=== PATIENT | male | born 1990 | race Caucasian/White ===

== ENCOUNTER 2017-02-17 11:03 | Emergency (ER) | payer OTHER ==
[2017-02-17 11:11] VITALS: BP 127/82; PULSE 78; RESP 16; TEMP 98.6
--- NOTE | 2017-02-17 11:59 | ED ---
Eye Problem HPI - General Chief complaint: Eye Problems Stated complaint: RT EYE PAIN/REDNESS Time Seen by Provider: 02/17/17 11:53 Source: patient Mode of arrival: ambulatory Limitations: no limitations - History of Present Illness Initial comments: This 26-year-old white male presents complaining of some right eye redness. It started this morning. He denies any injuries. He wears glasses but does not wear any contacts. He denies any drainage or crusting. He denies any known exposures to infection. No previous ophthalmologic abnormalities. No other complaints or modifying factors. No actual pain. - Related Data Home Medications Medication Instructions Recorded Confirmed Clindamycin HCl 300 mg PO Q12HR 03/25/15 03/25/15 Previous Rx's Medication Instructions Recorded Clindamycin HCl 300 mg PO Q6HR #40 cap 03/25/15 Sulfacetamide 10% Ophth Soln 1 drops RIGHT EYE QID #5 ml 02/17/17 [Bleph-10] Allergies Allergy/AdvReac Type Severity Reaction Status Date / Time bee pollen Allergy Rash/Hives Verified 02/17/17 11:12 Penicillins AdvReac Unknown Verified 03/25/15 12:59 Childhood Review of Systems ROS Statement: Those systems with pertinent positive or pertinent negative responses have been documented in the HPI. ROS Other: All systems not noted in ROS Statement are negative. Past Medical History Past Medical History: No Reported History History of Any Multi-Drug Resistant Organisms: None Reported Additional Past Surgical History / Comment(s): right ear Past Psychological History: Depression Smoking Status: Former smoker Past Alcohol Use History: None Reported Past Drug Use History: None Reported General Exam Limitations: no limitations General appearance: alert, in no apparent distress Eye exam: Present: PERRL, EOMI, conjunctival injection, other (No evidence of foreign body, cornea is clear.). Absent: periorbital swelling, periorbital tenderness Pupils: Present: normal accommodation Course Vital Signs 02/17/17 11:09 Temperature 98.6 F Pulse Rate 78 Respiratory 16 Rate Blood Pressure 127/82 O2 Sat by Pulse 97 Oximetry Medical Decision Making - Medical Decision Making The patient was seen and examined. This felt as though he does have conjunctivitis and will be treated for this. Disposition Clinical Impression: Bacterial conjunctivitis Disposition: HOME SELF-CARE Condition: Good Instructions: Conjunctivitis (ED) Prescriptions: Sulfacetamide 10% Ophth Soln [Bleph-10] 1 drops RIGHT EYE QID #5 ml Referrals: Dory Mckeon MD [Primary Care Provider] - 1-2 days Time of Disposition: 11:58
== END 2017-02-17 12:42 | disposition home or self-care (01) ==
LOC: EC 11:03
DX: H10.89 Other conjunctivitis (principal); Z87.891 Personal history of nicotine dependence; Z88.0 Allergy status to penicillin; Z91.030 Bee allergy status
CPT/HCPCS: 99283

== ENCOUNTER 2017-04-27 17:39 | Emergency (ER) | payer OTHER ==
[2017-04-27 17:44] VITALS: BP 133/75; PULSE 86; RESP 18; TEMP 97.7
--- NOTE | 2017-04-27 18:18 | XR ---
EXAMINATION TYPE: XR ankle complete RT DATE OF EXAM: 04/27/2017 CLINICAL HISTORY: Pain and swelling with no known injury TECHNIQUE: Frontal, lateral and oblique images of the right ankle are obtained. COMPARISON: None. FINDINGS: Small osseous fragment measuring 3 mm is seen inferior to the tarsal bones on the lateral i mage, however no donor site is appreciated in this is well-corticated. Midfoot swelling is present. T he ankle mortise appears within normal limits. IMPRESSION: Right mid foot soft tissue swelling and 3 mm osseous fragment visualized only on the late ral image inferior to the tarsal bones which appears well-corticated and may relate to old fracture a s no donor site is appreciated. Correlate with point tenderness.
--- NOTE | 2017-04-27 18:37 | ED ---
Lower Extremity Injury HPI - General Chief Complaint: Extremity Injury, Lower Stated Complaint: rt ankle injury Time Seen by Provider: 04/27/17 17:58 Source: patient, RN notes reviewed Mode of arrival: ambulatory Limitations: no limitations - History of Present Illness Initial Comments: 26-year-old male presents emergency Department chief complaint right foot painful swelling. He isn't sure exactly how injury but states is more painful and limits. Patient states is swollen and bruised. Patient does not remember any exact injury. Patient visited [facility] no prior fractures. - Related Data Home Medications Medication Instructions Recorded Confirmed Clindamycin HCl 300 mg PO Q12HR 03/25/15 03/25/15 Previous Rx's Medication Instructions Recorded Clindamycin HCl 300 mg PO Q6HR #40 cap 03/25/15 Sulfacetamide 10% Ophth Soln 1 drops RIGHT EYE QID #5 ml 02/17/17 [Bleph-10] Allergies Allergy/AdvReac Type Severity Reaction Status Date / Time bee pollen Allergy Rash/Hives Verified 04/27/17 17:44 Penicillins AdvReac Unknown Verified 04/27/17 17:44 Childhood Review of Systems ROS Statement: Those systems with pertinent positive or pertinent negative responses have been documented in the HPI. ROS Other: All systems not noted in ROS Statement are negative. Past Medical History Past Medical History: No Reported History History of Any Multi-Drug Resistant Organisms: None Reported Additional Past Surgical History / Comment(s): right ear Past Psychological History: Depression Smoking Status: Former smoker Past Alcohol Use History: None Reported Past Drug Use History: None Reported General Exam Limitations: no limitations General appearance: alert, in no apparent distress Respiratory exam: Present: normal lung sounds bilaterally. Absent: respiratory distress, wheezes, rales, rhonchi, stridor Cardiovascular Exam: Present: regular rate, normal rhythm, normal heart sounds. Absent: systolic murmur, diastolic murmur, rubs, gallop, clicks Extremities exam: Present: other (There is tenderness to the mid foot of mild swelling small area of ecchymosis, pedal pulses equal bilaterally Reports 2 seconds there is no notable swelling of the calf or any erythema or tenderness calf) Neurological exam: Present: reflexes normal. Absent: motor sensory deficit Course Vital Signs 04/27/17 17:41 Temperature 97.7 F Pulse Rate 86 Respiratory 18 Rate Blood Pressure 133/75 O2 Sat by Pulse 97 Oximetry Procedures - Orthopedic Splinting/Casting Injury #1 Side: right Lower Extremity Injury Location: foot Lower Extremity Immobilizer: posterior splint (Short leg neurovascular intact before and after procedure) Other Orthopedic Equipment: crutches Medical Decision Making - Medical Decision Making 26-year-old male presented for right foot pain, swelling. There appears to be an avulsion fracture most likely is new injury secondary to acute swelling and pain. Patient was splinted and follow up with orthopedics for further care. Disposition Clinical Impression: Foot fracture Disposition: HOME SELF-CARE Condition: Stable Instructions: Foot Fracture in Adults (ED) Additional Instructions: Please return to the Emergency Department if symptoms worsen or any other concerns. Referrals: Jitendra Shields MD [Primary Care Provider] - 1-2 days Kel Collier MD [STAFF PHYSICIAN] - 1-2 days Time of Disposition: 18:37
== END 2017-04-27 18:50 | disposition home or self-care (01) ==
LOC: EC 17:39
DX: S92.901A Unspecified fracture of right foot, initial encounter for closed fracture (principal); Z87.891 Personal history of nicotine dependence; Z91.030 Bee allergy status; Z88.0 Allergy status to penicillin
CPT/HCPCS: 29515; 99283

== ENCOUNTER 2017-08-21 21:50 | Emergency (ER) | payer OTHER ==
[2017-08-21 21:56] VITALS: RESP 18; TEMP 99.5
[2017-08-21] MEDS ORDERED: SODIUM CHLORIDE 0.9% 1,000 ML IV STA (22:31)
[2017-08-21] MEDS ORDERED: diphenhydrAMINE 50 MG/ML 1 ML VIAL IVP STA (22:31)
[2017-08-21] MEDS ORDERED: ONDANSETRON 4 MG/2 ML VIAL IVP STA (22:31)
[2017-08-21] MEDS ORDERED: KETOROLAC 30 MG/ML 1 ML VIAL IVP STA (22:33)
--- NOTE | 2017-08-21 22:40 | ED ---
Nausea/Vomiting/Diarrhea HPI - General Chief complaint: Nausea/Vomiting/Diarrhea Stated complaint: SOB/Diarrhea/Vomiting Time Seen by Provider: 08/21/17 21:59 Source: patient, RN notes reviewed, old records reviewed Mode of arrival: wheelchair Limitations: no limitations - History of Present Illness Initial comments: This is a 26-year-old male presents emergency Department chief complaint of concern that he may be diabetic. Patient reports that he is family has noticed that he's had increased urinary frequency and thirst. Family also reports he's had some labored breathing. He reports that he's also had a few episodes of vomiting the past 2 days, as well as diarrhea for the past month. Patient denies any known fever or chills. He reports that he has a minor cough as well. Patient reports he has a family history of diabetes. He denies any recent doctor visits. He reports is worse or makes been seen by any physicians in many years. - Related Data Home Medications Medication Instructions Recorded Confirmed No Known Home Medications [No 08/21/17 08/21/17 Known Home Medications] Allergies Allergy/AdvReac Type Severity Reaction Status Date / Time bee pollen Allergy Rash/Hives Verified 08/21/17 22:08 Penicillins AdvReac Unknown Verified 08/21/17 22:08 Childhood Review of Systems ROS Statement: Those systems with pertinent positive or pertinent negative responses have been documented in the HPI. ROS Other: All systems not noted in ROS Statement are negative. Past Medical History Past Medical History: No Reported History History of Any Multi-Drug Resistant Organisms: None Reported Additional Past Surgical History / Comment(s): right ear, Past Psychological History: Depression Smoking Status: Former smoker Past Alcohol Use History: None Reported Past Drug Use History: None Reported General Exam - General Exam Comments Initial Comments: This is a 26-year-old male. No distress. Limitations: no limitations General appearance: alert, in no apparent distress Head exam: Present: atraumatic, normocephalic, normal inspection Eye exam: Present: normal appearance, PERRL, EOMI. Absent: scleral icterus, conjunctival injection, periorbital swelling ENT exam: Present: normal exam, mucous membranes moist Neck exam: Present: normal inspection. Absent: tenderness, meningismus, lymphadenopathy Respiratory exam: Present: normal lung sounds bilaterally. Absent: respiratory distress, wheezes, rales, rhonchi, stridor Cardiovascular Exam: Present: regular rate, normal rhythm, normal heart sounds. Absent: systolic murmur, diastolic murmur, rubs, gallop, clicks GI/Abdominal exam: Present: soft, normal bowel sounds. Absent: distended, tenderness, guarding, rebound, rigid Extremities exam: Present: normal inspection, full ROM, normal capillary refill. Absent: tenderness, pedal edema, joint swelling, calf tenderness Back exam: Present: normal inspection Neurological exam: Present: alert, oriented X3, CN II-XII intact Psychiatric exam: Present: normal affect, normal mood Skin exam: Present: warm, dry, intact, normal color. Absent: rash Course Vital Signs 08/21/17 08/22/17 21:52 01:47 Temperature 99.5 F Pulse Rate 89 73 Respiratory 18 18 Rate Blood Pressure 167/106 130/65 O2 Sat by Pulse 98 99 Oximetry Medical Decision Making - Medical Decision Making Patient is a 26-year-old male with a breath, and vomiting episodes are out the week. He's also concerned that he is a diabetic do you to need to pound weight loss in the past month, and complains of increased thirst. Pretty has no physical exam kinins, abdomen is nontender. Lungs are clear Ausel Tatian.At this time patient point of care glucose was 100. Patient's lab work was reviewed and shows no abnormalities. Her urine is free of glucose in you tones.Patient's chest x-ray was reviewed and negative for any acute process, abdominal x-ray shows mild to moderate stool burden.. Patient will be discharged at this time to follow up with PCP, Given his multitude of symptoms likely related to viral illness. Patient versus room plan will comply. Feels better to be discharged home. - Lab Data Result diagrams: 08/21/17 22:27 08/21/17 22:27 Lab Results 08/21/17 08/21/17 08/21/17 Range/Units 22:27 22:27 22:47 WBC 8.9 (3.8-10.6) k/uL RBC 5.04 (4.30-5.90) m/uL Hgb 15.3 (13.0-17.5) gm/dL Hct 46.1 (39.0-53.0) % MCV 91.5 (80.0-100.0) fL MCH 30.4 (25.0-35.0) pg MCHC 33.2 (31.0-37.0) g/dL RDW 14.2 (11.5-15.5) % Plt Count 183 (150-450) k/uL Neutrophils % 55 % Lymphocytes % 33 % Monocytes % 6 % Eosinophils % 3 % Basophils % 1 % Neutrophils # 4.9 (1.3-7.7) k/uL Lymphocytes # 2.9 (1.0-4.8) k/uL Monocytes # 0.5 (0-1.0) k/uL Eosinophils # 0.2 (0-0.7) k/uL Basophils # 0.1 (0-0.2) k/uL Sodium 141 (137-145) mmol/L Potassium 3.7 (3.5-5.1) mmol/L Chloride 105 (98-107) mmol/L Carbon Dioxide 25 (22-30) mmol/L Anion Gap 11 mmol/L BUN 7 L (9-20) mg/dL Creatinine 0.90 (0.66-1.25) mg/dL Est GFR (MDRD) Af Amer >60 (>60 ml/min/1.73 sqM) Est GFR (MDRD) Non-Af >60 (>60 ml/min/1.73 sqM) Glucose 90 (74-99) mg/dL POC Glucose (mg/dL) (75-99) mg/dL POC Glu Striping Machine Operator ID Calcium 9.0 (8.4-10.2) mg/dL Total Bilirubin 0.7 (0.2-1.3) mg/dL AST 44 (17-59) U/L ALT 85 H (21-72) U/L Alkaline Phosphatase 71 (38-126) U/L Total Protein 6.7 (6.3-8.2) g/dL Albumin 3.8 (3.5-5.0) g/dL Amylase <30 L (30-110) U/L Lipase 54 (23-300) U/L Urine Color Yellow Urine Appearance Clear (Clear) Urine pH 5.5 (5.0-8.0) Ur Specific [place] 1.017 (1.001-1.035) Urine Protein Trace H (Negative) Urine Glucose (UA) Negative (Negative) Urine Ketones Negative (Negative) Urine Blood Negative (Negative) Urine Nitrite Negative (Negative) Urine Bilirubin Negative (Negative) Urine Urobilinogen <2.0 (<2.0) mg/dL Ur Leukocyte Esterase Negative (Negative) 08/21/17 Range/Units 22:50 WBC (3.8-10.6) k/uL RBC (4.30-5.90) m/uL Hgb (13.0-17.5) gm/dL Hct (39.0-53.0) % MCV (80.0-100.0) fL MCH (25.0-35.0) pg MCHC (31.0-37.0) g/dL RDW (11.5-15.5) % Plt Count (150-450) k/uL Neutrophils % % Lymphocytes % % Monocytes % % Eosinophils % % Basophils % % Neutrophils # (1.3-7.7) k/uL Lymphocytes # (1.0-4.8) k/uL Monocytes # (0-1.0) k/uL Eosinophils # (0-0.7) k/uL Basophils # (0-0.2) k/uL Sodium (137-145) mmol/L Potassium (3.5-5.1) mmol/L Chloride (98-107) mmol/L Carbon Dioxide (22-30) mmol/L Anion Gap mmol/L BUN (9-20) mg/dL Creatinine (0.66-1.25) mg/dL Est GFR (MDRD) Af Amer (>60 ml/min/1.73 sqM) Est GFR (MDRD) Non-Af (>60 ml/min/1.73 sqM) Glucose (74-99) mg/dL POC Glucose (mg/dL) 104 H (75-99) mg/dL POC Glu Striping Machine Operator ID Philip, Lindy Calcium (8.4-10.2) mg/dL Total Bilirubin (0.2-1.3) mg/dL AST (17-59) U/L ALT (21-72) U/L Alkaline Phosphatase (38-126) U/L Total Protein (6.3-8.2) g/dL Albumin (3.5-5.0) g/dL Amylase (30-110) U/L Lipase (23-300) U/L Urine Color Urine Appearance (Clear) Urine pH (5.0-8.0) Ur Specific [place] (1.001-1.035) Urine Protein (Negative) Urine Glucose (UA) (Negative) Urine Ketones (Negative) Urine Blood (Negative) Urine Nitrite (Negative) Urine Bilirubin (Negative) Urine Urobilinogen (<2.0) mg/dL Ur Leukocyte Esterase (Negative) Disposition Clinical Impression: Fatigue, Diarrhea Disposition: HOME SELF-CARE Condition: Good Instructions: Acute Nausea and Vomiting (ED) Additional Instructions: Patient is follow-up with primary care provider. Return to the emergency department if any alarming signs or symptoms occur. Referrals: Jitendra Shields MD [Primary Care Provider] - 1-2 days Time of Disposition: 01:17
[2017-08-21 22:58] LABS: Glucose,Whole Blood 104 mg/dL (75-99)
[2017-08-21 23:08] LABS: Appearance,Urine Clear (Clear); Bilirubin,Urine Negative (Negative); Glucose,Urine (UA) Negative (Negative); Ketones,Urine Negative (Negative); Leukocyte Esterase,Urine Negative (Negative); Nitrite,Urine Negative (Negative); PH, Urine 5.5 (5.0-8.0); Protein,Urine Trace (Negative); Specific Gravity,Urine 1.017 (1.001-1.035); UA Billing (MACRO vs. MICRO) CHEM; Urobilinogen,Urine <2.0 mg/dL (<2.0)
--- NOTE | 2017-08-21 23:21 | XR ---
EXAM: XR Chest, 2 Views CLINICAL HISTORY: Reason: pain TECHNIQUE: Frontal and lateral views of the chest. COMPARISON: Comparison 11/05/14 FINDINGS: Heart appears borderline in size. No overt edema, consolidation or other acute cardiopulmonary process. Clearing of left lower lobe infiltrate since prior. IMPRESSION: No acute cardiopulmonary findings.
--- NOTE | 2017-08-21 23:22 | XR ---
EXAM: XR Kub CLINICAL HISTORY: Reason: pain TECHNIQUE: X-ray kub. COMPARISON: No relevant prior studies available. FINDINGS/IMPRESSION: 2 upright views of the abdomen. Flanks are clipped. Bowel gas pattern nonobstructive. There is some gastric distention suggested. Moderate colonic stool and gas with gas seen to level of rectum. No subdiaphragmatic free air.
[2017-08-22 00:26] LABS: Basophils # (A) 0.1 k/uL (0-0.2); Basophils % (A) 1 %; CH 32.4; CHCM 35.7; Eosinophils # (A) 0.2 k/uL (0-0.7); Eosinophils % (A) 3 %; HCT 46.1 % (39.0-53.0); HDW 3.01; HGB 15.3 gm/dL (13.0-17.5); Luc # (Auto) 0.24; Luc % (Auto) 3; Lymphocytes # (A) 2.9 k/uL (1.0-4.8); Lymphocytes % (A) 33 %; MCH 30.4 pg (25.0-35.0); MCHC 33.2 g/dL (31.0-37.0); MCV 91.5 fL (80.0-100.0); Mean Platelet Volume 8.4; Monocytes # (A) 0.5 k/uL (0-1.0); Monocytes % (A) 6 %; Neutrophils # (A) 4.9 k/uL (1.3-7.7); Neutrophils % (A) 55 %; RBC 5.04 m/uL (4.30-5.90); RDW 14.2 % (11.5-15.5); WBC 8.9 k/uL (3.8-10.6); WBC (Perox) 8.41
[2017-08-22 00:54] LABS: ALT 85 U/L (21-72); AST 44 U/L (17-59); Alkaline Phosphatase 71 U/L (38-126); Amylase <30 U/L (30-110); Anion Gap 11 mmol/L; Blood Urea Nitrogen 7 mg/dL (9-20); Carbon Dioxide 25 mmol/L (22-30); Chloride 105 mmol/L (98-107); Glucose 90 mg/dL (74-99); Non-African American GFR(MDRD) >60 (>60 ml/min/1.73 sqM); Sodium 141 mmol/L (137-145); Total Bilirubin 0.7 mg/dL (0.2-1.3); Total Protein 6.7 g/dL (6.3-8.2)
[2017-08-22 01:03] LABS: Potassium 3.7 mmol/L (3.5-5.1)
[2017-08-22 01:48] VITALS: BP 130/65; PULSE 73
== END 2017-08-22 01:49 | disposition home or self-care (01) ==
LOC: EC 21:50
DX: R19.7 Diarrhea, unspecified (principal); R53.83 Other fatigue; R06.4 Hyperventilation; R35.0 Frequency of micturition; R63.1 Polydipsia; R11.10 Vomiting, unspecified; R05 Cough; Z87.891 Personal history of nicotine dependence; Z88.0 Allergy status to penicillin; Z91.030 Bee allergy status
CPT/HCPCS: 36415; 80053; 82150; 83690; 85025; 81003; 83036; 71020; 74000; 99284; 96374; 96375 ×2; 96361 ×3; J1200; J2405; J1885

== ENCOUNTER 2017-09-18 15:58 | Emergency (ER) | payer OTHER ==
[2017-09-18 16:07] VITALS: BP 154/86; PULSE 81; RESP 18; TEMP 98.1
--- NOTE | 2017-09-18 16:36 | ED ---
GI Bleed HPI - General Chief complaint: GI Bleed Stated complaint: blood in stool Time Seen by Provider: 09/18/17 16:10 Source: patient Mode of arrival: ambulatory Limitations: no limitations - History of Present Illness Initial comments: Pt is a 26-year-old male who persisted in the emergency department for concern of rectal bleeding. The patient states that he had banding of internal hemorrhoid approximately 1 year ago. 5 months ago, he started having intermittent bleeding and has since then progressed. He comes in today because he noticed a dime size clot when he had a bowel movement and his mother convinced him to come in. He denies any abdominal pain as well as nausea or vomiting but states that he has had minimal amount of diarrhea. He also denies any lightheadedness or dizziness and states that the bleeding did subside on its own. Shortly, he has not been able to follow-up with his surgeons as his prior surgeon did leave the state. - Related Data Home Medications Medication Instructions Recorded Confirmed No Known Home Medications [No 08/21/17 08/21/17 Known Home Medications] Allergies Allergy/AdvReac Type Severity Reaction Status Date / Time bee pollen Allergy Rash/Hives Verified 09/18/17 16:07 Penicillins AdvReac Unknown Verified 09/18/17 16:07 Childhood Review of Systems ROS Statement: Those systems with pertinent positive or pertinent negative responses have been documented in the HPI. Constitutional: Negative for chills, fatigue and fever. HENT: Negative for congestion. Respiratory: Negative for chest tightness, shortness of breath and wheezing. Cardiovascular: Negative for chest pain and palpitations. Gastrointestinal: Negative for abdominal pain. Negative for abdominal distention , diarrhea, nausea and vomiting. Positive for rectal bleeding Genitourinary: Negative for dysuria. Musculoskeletal: Negative for back pain, neck pain and neck stiffness. Skin: Negative for color change. Neurological: Negative for dizziness, speech difficulty, weakness and light- headedness. Psychiatric/Behavioral: Negative for agitation and confusion. The patient is not nervous/anxious. ROS Other: All systems not noted in ROS Statement are negative. Past Medical History Past Medical History: No Reported History History of Any Multi-Drug Resistant Organisms: None Reported Past Surgical History: Ear Surgery Additional Past Surgical History / Comment(s): right ear, Past Psychological History: Depression Smoking Status: Former smoker Past Alcohol Use History: None Reported Past Drug Use History: None Reported General Exam - General Exam Comments Initial Comments: Physical Exam Constitutional: He is oriented to person, place, and time. He appears well- developed and well-nourished. No distress. HENT: Head: Normocephalic and atraumatic. Eyes: EOM are normal. Neck: Normal range of motion. Neck supple. Cardiovascular: Normal rate, regular rhythm, S1 normal, S2 normal and normal heart sounds. Exam reveals no gallop and no friction rub. No murmur heard. Pulmonary/Chest: Effort normal and breath sounds normal. No tachypnea and no bradypnea. No respiratory distress. He has no wheezes. He has no rales. Abdominal: Soft. Bowel sounds are normal. He exhibits no shifting dullness, no distension, no pulsatile liver, no fluid wave, no abdominal bruit and no ascites. There is no tenderness. There is no rigidity, no rebound, no guarding, no tenderness at McBurney's point and negative Madrigal's sign. Genitourinary: Rectal exam shows no external hemorrhoid,, no fissure, no mass and no tenderness. Prostate is not tender. Rectal exam did show internal hemorrhoid grade 1 with no prolapse and no evidence of thrombosis. Hemorrhoid was nontender to palpation. Musculoskeletal: Normal range of motion. Neurological: He is alert and oriented to person, place, and time. No cranial nerve deficit. Skin: Skin is warm and dry. No rash noted. He is not diaphoretic. No erythema. No pallor. Psychiatric: He has a normal mood and affect. His behavior is normal. Thought content normal. Limitations: no limitations Course Vital Signs 09/18/17 16:04 Temperature 98.1 F Pulse Rate 81 Respiratory 18 Rate Blood Pressure 154/86 O2 Sat by Pulse 98 Oximetry Medical Decision Making - Medical Decision Making Physical exam revealed no emergent pathology with the internal hemorrhoid. There is also no evidence of acute bleeding. Shared decision making was completed with the patient and his mother and it was advised that laboratory studies could be completed to check hemoglobin. However, patient currently declined and stated that he recently had his labs checked and therefore he did not want to complete another set. He states that he simply wanted reassurance that everything would be okay. He is advised that although all emergent pathology cannot be completely excluded, it did appear that there was no immediate emergent pathology. Additionally, patient was given referral to general surgery so he did follow-up. Mother and patient are agreeable to plan Disposition Clinical Impression: Internal hemorrhoid, bleeding Disposition: HOME SELF-CARE Condition: Good Instructions: Hemorrhoids (ED) Additional Instructions: Patient should also use sitz bath as well as warm compresses as needed. Patient should return to the emergency department if there is a significant amount of bleeding or the patient has symptoms such as lightheadedness, dizziness, worsening fatigue. Referrals: Jitendra Shields MD [Primary Care Provider] - 1-2 days Faustino Jenkins MD [STAFF PHYSICIAN] - 1-2 days Perico Iyer DO [Doctor of Osteopathic Medicine] - 1-2 days Time of Disposition: 16:36
== END 2017-09-18 16:48 | disposition home or self-care (01) ==
LOC: EC 15:58
DX: K64.8 Other hemorrhoids (principal); Z87.891 Personal history of nicotine dependence; Z88.0 Allergy status to penicillin; Z91.030 Bee allergy status
CPT/HCPCS: 99284

== ENCOUNTER 2017-11-07 07:08 | Day surgery (SDC) | payer OTHER ==
[2017-11-02 12:46] VITALS: BMI 45.6
[~2017-11-07 07:08] MED LIST: LACTATED RINGERS 1,000 ML IV SCH; LIDOCAINE 1% 20 ML VIAL (10MG/ML) FOR IV START INTRADERMA PRN
[2017-11-07 07:29] VITALS: TEMP 98.7
[2017-11-07] MEDS ORDERED: fentaNYL (PF) 50 MCG/ML 2 ML AMP ONE (08:31)
[2017-11-07] MEDS ORDERED: GLYCOPYRROLATE 0.2 MG/ML 2 ML VIAL ONE (08:31)
[2017-11-07] MEDS ORDERED: PROPOFOL 10 MG/ML 20 ML VIAL IV ONE (08:31)
[2017-11-07] MEDS ORDERED: KETAMINE 10 MG/ML 20 ML VIAL ONE (08:31)
[2017-11-07] MEDS ORDERED: LIDOCAINE 1% INJ 10MG/ML (20 ML MDV) ONE (08:31)
[2017-11-07 09:06] VITALS: RESP 16
--- NOTE | 2017-11-07 09:12 | P.PCN ---
Date of Procedure: 11/07/17 Procedure(s) Performed: Procedure: Colonoscopy and biopsy. Preoperative diagnosis: Diarrhea and rectal bleeding. Postoperative diagnosis: 1. Low-grade internal hemorrhoids with minimal bleeding at the time of this exam. 2. Colon and terminal ileum, otherwise, within normal limits. Biopsies obtained from the terminal ileum and randomly from the colon. Preparation HalfLytely prep. Sedation: Was provided by anesthesia. Brief clinical history: The patient is a 27-year-old male who was evaluated in the office last month regarding chronic diarrhea and rectal bleeding that has been going on since 2007. He reports having loose urgent 5-10 bowel movements daily. His bleeding was described as fresh bleeding per rectum. He had banding of internal hemorrhoids in without help. He has used over-the- counter remedies without help. The patient is scheduled for this evaluation because of his concern that his bleeding is not only from hemorrhoids. Apparently, there is history of colon cancer on his dad's side. Procedure: With the patient on his left lateral decubitus position and after informed consent and adequate sedation, the perianal area was inspected and it did not show any fissures or fistulas. There were no masses felt on digital rectal examination. There was minimal fresh blood on the gloved examining finger. The Olympus CFQ 160L video colonoscope was then inserted in the rectum in the usual fashion and advanced to the cecum. I then intubated the ileocecal valve and examined the terminal ileum. The preparation was less than ideal. Terminal ileum and colon did not show any obvious edema, erythema, friability, ulceration, exudation or spontaneous bleeding. I obtained biopsies from the terminal ileum and randomly from the colon. I retroflexed the endoscope in the rectum before the endoscope was withdrawn. Low-grade internal hemorrhoids were noted with no evidence of bleeding. The patient tolerated the procedure well. Plan: The patient was reassured. He will follow up with you as planned and consideration can be given for reevaluation by surgery if he continues to have issues. It is likely that he has diarrhea predominant irritable bowel syndrome or dietary intolerances that once addressed and his diarrhea improves his bleeding might improve as well. We will keep you updated on his progress.
[2017-11-07 09:23] VITALS: BP 158/90; PULSE 76
== END 2017-11-07 09:49 | disposition home or self-care (01) ==
LOC: ORWHC2ENDO 07:08
DX: K64.8 Other hemorrhoids (principal); K62.5 Hemorrhage of anus and rectum; Z80.0 Family history of malignant neoplasm of digestive organs; Z87.891 Personal history of nicotine dependence; H91.90 Unspecified hearing loss, unspecified ear; Z88.0 Allergy status to penicillin
CPT/HCPCS: 88305; 45380; J2001; J3010; J2704

== ENCOUNTER 2018-03-02 18:37 | Emergency (ER) | payer OTHER ==
[2018-03-02] MEDS ORDERED: SODIUM CHLORIDE 0.9% 1,000 ML IV ONE (19:48)
--- NOTE | 2018-03-02 19:52 | ED ---
Dizziness HPI - General Chief Complaint: Dizziness Stated Complaint: Lightheaded Time Seen by Provider: 03/02/18 19:08 Source: patient Mode of arrival: EMS Limitations: no limitations - History of Present Illness Initial Comments: 27-year-old male patient presents to the emergency department today for evaluation of dizziness. Patient states that he was walking home from the store when he started to experience a spinning sensation. Temperature outside was 86F. States he felt like the world was spinning around him. Patient states that he had 2 separate episodes of this on the walk home so he called ambulance. Patient states that he has been getting lightheaded over the last couple of weeks intermittently. Patient states he has had chronic rectal bleeding due to hemorrhoids. Patient states that the bleeding has increased over the last 2 months. States that he has not followed up with his GI specialist. Patient states that the blood is bright red and sometimes fills the toilet bowl. Denies any fatigue or weakness. Denies any chest pain or shortness of breath. Patient denies any recent rash, fever, chills, abdominal pain, nausea, vomiting, diarrhea, constipation, back pain, numbness, tingling, hematuria, dysuria, urinary urgency, urinary frequency, headache, visual changes , or any other complaints. - Related Data Home Medications Medication Instructions Recorded Confirmed No Known Home Medications 11/02/17 03/02/18 Allergies Allergy/AdvReac Type Severity Reaction Status Date / Time bee pollen Allergy Rash/Hives Verified 03/02/18 19:05 Penicillins AdvReac Unknown Verified 03/02/18 19:05 Childhood Review of Systems ROS Statement: Those systems with pertinent positive or pertinent negative responses have been documented in the HPI. ROS Other: All systems not noted in ROS Statement are negative. Past Medical History Past Medical History: No Reported History Additional Past Medical History / Comment(s): PAST HX HEMORRHOIDS. HAS BEEN HAVING SOME EPISODES OF BLEEDING WITH BOWEL MOVEMENTS History of Any Multi-Drug Resistant Organisms: None Reported Past Surgical History: Ear Surgery Additional Past Surgical History / Comment(s): right ear, Past Anesthesia/Blood Transfusion Reactions: No Reported Reaction Past Psychological History: Depression Smoking Status: Former smoker Past Alcohol Use History: None Reported Past Drug Use History: None Reported - Past Family History Mother Family Medical History: No Reported History General Exam Limitations: no limitations General appearance: alert, in no apparent distress, other (This is a well- developed, well-nourished adult male patient in no acute distress. Vital signs upon presentation are temperature 98.1F, pulse 84, respirations 20, blood pressure 145/101, pulse ox 99% on room air.) Eye exam: Present: normal appearance, PERRL, EOMI. Absent: scleral icterus, conjunctival injection, periorbital swelling ENT exam: Present: normal exam, normal oropharynx, mucous membranes moist Respiratory exam: Present: normal lung sounds bilaterally. Absent: respiratory distress, wheezes, rales, rhonchi, stridor Cardiovascular Exam: Present: regular rate, normal rhythm, normal heart sounds. Absent: systolic murmur, diastolic murmur, rubs, gallop, clicks GI/Abdominal exam: Present: soft, tenderness (Mild superficial tenderness to the left upper quadrant abdomen.), normal bowel sounds. Absent: distended, guarding, rebound, rigid Neurological exam: Present: alert, oriented X3, CN II-XII intact Psychiatric exam: Present: normal affect, normal mood Skin exam: Present: warm, dry, intact, normal color. Absent: rash Course Vital Signs 03/02/18 03/02/18 18:51 21:39 Temperature 98.1 F 98.9 F Pulse Rate 84 67 Respiratory 20 15 Rate Blood Pressure 145/101 139/77 O2 Sat by Pulse 99 99 Oximetry EKG Findings - EKG Comments: EKG Findings:: EKG showed normal sinus rhythm with a ventricular rate of 72, AK interval 134, QR yazidism 90, QT 388, QTC 424. No evidence of ST elevation or depression. Medical Decision Making - Medical Decision Making 27-year-old male patient presents to the emergency department today for evaluation of dizziness. Physical examination is unremarkable. Patient is neurologically intact. Labs reviewed and are unremarkable. Patient is also concerned about some rectal bleeding that he had been having for the last 2 months. He did perform rectal examination no evidence of bleeding at this time. Hemoglobin is stable. He is instructed to follow-up with his primary care physician for reevaluation. We discussed his dizziness was most likely related to being out in the 86 weather, [place] action day, walking to and from the store. He is instructed to stay out of the heat. Increase fluids. He is instructed to follow-up with his primary care physician for recheck in 1-2 days. Return parameters discussed in detail. He verbalizes understanding and agrees with this plan. - Lab Data Result diagrams: 03/02/18 19:55 03/02/18 19:55 Lab Results 03/02/18 03/02/18 03/02/18 Range/Units 19:50 19:55 19:55 WBC 8.1 (3.8-10.6) k/uL RBC 5.02 (4.30-5.90) m/uL Hgb 16.1 (13.0-17.5) gm/dL Hct 45.3 (39.0-53.0) % MCV 90.2 (80.0-100.0) fL MCH 32.0 (25.0-35.0) pg MCHC 35.5 (31.0-37.0) g/dL RDW 13.3 (11.5-15.5) % Plt Count 214 (150-450) k/uL Neutrophils % 49 % Lymphocytes % 40 % Monocytes % 4 % Eosinophils % 4 % Basophils % 1 % Neutrophils # 4.0 (1.3-7.7) k/uL Lymphocytes # 3.2 (1.0-4.8) k/uL Monocytes # 0.3 (0-1.0) k/uL Eosinophils # 0.3 (0-0.7) k/uL Basophils # 0.1 (0-0.2) k/uL Hyperchromasia Slight PT (9.0-12.0) sec INR (<1.2) APTT (22.0-30.0) sec Sodium 140 (137-145) mmol/L Potassium 3.7 (3.5-5.1) mmol/L Chloride 104 (98-107) mmol/L Carbon Dioxide 26 (22-30) mmol/L Anion Gap 10 mmol/L BUN 9 (9-20) mg/dL Creatinine 0.80 (0.66-1.25) mg/dL Est GFR (CKD-EPI)AfAm >90 (>60 ml/min/1.73 sqM) Est GFR (CKD-EPI)NonAf >90 (>60 ml/min/1.73 sqM) Glucose 94 (74-99) mg/dL Calcium 8.9 (8.4-10.2) mg/dL Total Bilirubin 0.9 (0.2-1.3) mg/dL AST 40 (17-59) U/L ALT 74 H (21-72) U/L Alkaline Phosphatase 86 (38-126) U/L Total Protein 6.8 (6.3-8.2) g/dL Albumin 4.2 (3.5-5.0) g/dL Amylase 37 (30-110) U/L Lipase 42 (23-300) U/L Blood Type Blood Type Confirm A Positive Blood Type Recheck Antibody Screen Spec Expiration Date 03/02/18 03/02/18 Range/Units 19:55 19:55 WBC (3.8-10.6) k/uL RBC (4.30-5.90) m/uL Hgb (13.0-17.5) gm/dL Hct (39.0-53.0) % MCV (80.0-100.0) fL MCH (25.0-35.0) pg MCHC (31.0-37.0) g/dL RDW (11.5-15.5) % Plt Count (150-450) k/uL Neutrophils % % Lymphocytes % % Monocytes % % Eosinophils % % Basophils % % Neutrophils # (1.3-7.7) k/uL Lymphocytes # (1.0-4.8) k/uL Monocytes # (0-1.0) k/uL Eosinophils # (0-0.7) k/uL Basophils # (0-0.2) k/uL Hyperchromasia PT 10.3 (9.0-12.0) sec INR 1.1 (<1.2) APTT 23.7 (22.0-30.0) sec Sodium (137-145) mmol/L Potassium (3.5-5.1) mmol/L Chloride (98-107) mmol/L Carbon Dioxide (22-30) mmol/L Anion Gap mmol/L BUN (9-20) mg/dL Creatinine (0.66-1.25) mg/dL Est GFR (CKD-EPI)AfAm (>60 ml/min/1.73 sqM) Est GFR (CKD-EPI)NonAf (>60 ml/min/1.73 sqM) Glucose (74-99) mg/dL Calcium (8.4-10.2) mg/dL Total Bilirubin (0.2-1.3) mg/dL AST (17-59) U/L ALT (21-72) U/L Alkaline Phosphatase (38-126) U/L Total Protein (6.3-8.2) g/dL Albumin (3.5-5.0) g/dL Amylase (30-110) U/L Lipase (23-300) U/L Blood Type A Positive Blood Type Confirm Blood Type Recheck CABO Indicated Antibody Screen NEGATIVE Spec Expiration Date 03/05/2018 235 Disposition Clinical Impression: Dizziness Disposition: HOME SELF-CARE Condition: Good Instructions: Dizziness (ED) Additional Instructions: Increase fluids like water. Avoid physical activity outdoors when the temperature is high. Follow-up with your primary care physician and your research assoc for recheck in 1-2 days. Return here immediately for any new , worsening, or concerning symptoms. Is patient prescribed a controlled substance at d/c from ED?: No Referrals: Jitendra Shields MD [Primary Care Provider] - 1-2 days Time of Disposition: 21:20
[2018-03-02 20:03] LABS: Basophils # (A) 0.1 k/uL (0-0.2); Basophils % (A) 1 %; Eosinophils # (A) 0.3 k/uL (0-0.7); Eosinophils % (A) 4 %; HCT 45.3 % (39.0-53.0); HGB 16.1 gm/dL (13.0-17.5); Hyperchromasia Slight; Lymphocytes # (A) 3.2 k/uL (1.0-4.8); Lymphocytes % (A) 40 %; MCHC 35.5 g/dL (31.0-37.0); MCV 90.2 fL (80.0-100.0); Mean Platelet Volume 6.7; Monocytes # (A) 0.3 k/uL (0-1.0); Monocytes % (A) 4 %; Neutrophils % (A) 49 %; Platelet Count 214 k/uL (150-450); RBC 5.02 m/uL (4.30-5.90); RDW 13.3 % (11.5-15.5); WBC 8.1 k/uL (3.8-10.6)
[2018-03-02 20:16] LABS: INR 1.1 (<1.2); Partial Thromboplastin Time 23.7 sec (22.0-30.0); Prothrombin Time 10.3 sec (9.0-12.0)
[2018-03-02 20:18] LABS: ALT 74 U/L (21-72); AST 40 U/L (17-59); Albumin 4.2 g/dL (3.5-5.0); Alkaline Phosphatase 86 U/L (38-126); Amylase 37 U/L (30-110); Anion Gap 10 mmol/L; Blood Urea Nitrogen 9 mg/dL (9-20); Calcium 8.9 mg/dL (8.4-10.2); Carbon Dioxide 26 mmol/L (22-30); Chloride 104 mmol/L (98-107); Glucose 94 mg/dL (74-99); Lipase 42 U/L (23-300); Potassium 3.7 mmol/L (3.5-5.1); Sodium 140 mmol/L (137-145); Total Bilirubin 0.9 mg/dL (0.2-1.3); Total Protein 6.8 g/dL (6.3-8.2)
[2018-03-02 21:41] VITALS: BP 139/77; PULSE 67; RESP 15; TEMP 98.9
[2018-03-03 16:31] LABS: Hepatitis A AB IgM Index 0.02; Hepatitis A Antibody IgM NEGATIVE
== END 2018-03-02 21:44 | disposition home or self-care (01) ==
LOC: EC 18:37
DX: R42 Dizziness and giddiness (principal); K64.9 Unspecified hemorrhoids; Z87.891 Personal history of nicotine dependence; Z88.0 Allergy status to penicillin; Z91.018 Allergy to other foods
CPT/HCPCS: 36415; 80053; 80074; 82150; 83690; 85025; 85610; 85730; 86850; 86900; 86901; 93005; 96360; 96361; 99284

== ENCOUNTER 2018-03-15 18:26 | Emergency (ER) | payer OTHER ==
[2018-03-15] MEDS ORDERED: PROMETHAZ-COD 6.25-10 MG/5 ML 5 ML CUP PO STA (19:12)
[2018-03-15] MEDS ORDERED: predniSONE 50 MG TAB PO STA (19:12)
--- NOTE | 2018-03-15 19:32 | ED ---
URI HPI - General Chief Complaint: Upper Respiratory Infection Stated Complaint: COUGH Time Seen by Provider: 03/15/18 18:52 Source: patient Mode of arrival: ambulatory Limitations: no limitations - History of Present Illness Initial Comments: 27-year-old male patient presents the emergency department today for evaluation of dry cough and chest heaviness. Patient states he has had a cough for the last 2 weeks. States it is worsened over the last week. States he has had occasional production of yellow sputum. States that when he has a coughing episodes he will feel like there is a dog sitting on his chest. This is a has had several episodes of posttussive vomiting. Patient states he does have a history of asthma and does have an albuterol inhaler at home which does not seem to help his symptoms. He denies taking any other medications for his symptoms. He denies any fever, chills, chest pain, weakness, dizziness, nausea , vomiting, abdominal pain, or back pain. Patient denies any recent rash, diarrhea, constipation, back pain, numbness, tingling, hematuria, dysuria, urinary urgency, urinary frequency, headache, visual changes, or any other complaints. States he has smoked cigarettes in the past, but denies any current tobacco use. He denies any recent travel or history of DVT. - Related Data Home Medications Medication Instructions Recorded Confirmed Albuterol Inhaler [Ventolin Hfa 2 puff INHALATION RT-Q6H PRN 03/15/18 03/15/18 Inhaler] Montelukast [Singulair] 10 mg PO DAILY 03/15/18 03/15/18 Previous Rx's Medication Instructions Recorded Albuterol Sulfate [Proair Hfa] 1 - 2 puff INHALATION Q6HR PRN #1 03/15/18 inhaler Promethaz-Cod 6.25-10 mg/5 ml 5 ml PO Q6HR PRN 3 Days #60 ml 03/15/18 [Phenergan with Codeine] predniSONE 50 mg PO DAILY #5 tablet 03/15/18 Allergies Allergy/AdvReac Type Severity Reaction Status Date / Time bee pollen Allergy Rash/Hives Verified 03/15/18 19:11 Penicillins AdvReac Unknown Verified 03/15/18 19:11 Childhood Review of Systems ROS Statement: Those systems with pertinent positive or pertinent negative responses have been documented in the HPI. ROS Other: All systems not noted in ROS Statement are negative. Past Medical History Past Medical History: No Reported History Additional Past Medical History / Comment(s): PAST HX HEMORRHOIDS. HAS BEEN HAVING SOME EPISODES OF BLEEDING WITH BOWEL MOVEMENTS History of Any Multi-Drug Resistant Organisms: None Reported Past Surgical History: Ear Surgery Additional Past Surgical History / Comment(s): right ear, Past Anesthesia/Blood Transfusion Reactions: No Reported Reaction Past Psychological History: Depression Smoking Status: Former smoker Past Alcohol Use History: None Reported Past Drug Use History: None Reported - Past Family History Mother Family Medical History: No Reported History General Exam Limitations: no limitations General appearance: alert, in no apparent distress, other (This is a well- developed, obese adult male patient in no acute distress. Vital signs upon presentation are temperature 98.4F, pulse 97, respirations 18, blood pressure 151/96, pulse ox 98% on room air.) Eye exam: Present: normal appearance, PERRL, EOMI. Absent: scleral icterus, conjunctival injection, periorbital swelling ENT exam: Present: normal exam, normal oropharynx, mucous membranes moist, TM's normal bilaterally Neck exam: Present: normal inspection. Absent: tenderness, meningismus, lymphadenopathy Respiratory exam: Present: normal lung sounds bilaterally. Absent: respiratory distress, wheezes, rales, rhonchi, stridor Cardiovascular Exam: Present: regular rate, normal rhythm, normal heart sounds. Absent: systolic murmur, diastolic murmur, rubs, gallop, clicks GI/Abdominal exam: Present: soft, normal bowel sounds. Absent: distended, tenderness, guarding, rebound, rigid Neurological exam: Present: alert, oriented X3, CN II-XII intact Psychiatric exam: Present: normal affect, normal mood Skin exam: Present: warm, dry, intact, normal color. Absent: rash Course Vital Signs 03/15/18 03/15/18 03/15/18 18:29 19:31 20:30 Temperature 98.4 F Pulse Rate 97 83 Respiratory 18 20 18 Rate Blood Pressure 151/96 169/83 O2 Sat by Pulse 98 100 Oximetry 03/15/18 20:44 Temperature 98.7 F Pulse Rate 87 Respiratory 18 Rate Blood Pressure 151/80 O2 Sat by Pulse 98 Oximetry Medical Decision Making - Medical Decision Making 27-year-old male patient presented to the emergency department today for evaluation of cough and chest heaviness 2 weeks. Physical examination was unremarkable. Lungs are clear to auscultation with good air movement. Patient does have a history of asthma and takes Qvar. Chest x-ray showed no acute cardiopulmonary process. EKG showed normal sinus rhythm. Given the length of patient symptoms he most likely has acute bronchitis. We'll treat with prednisone, Phenergan with codeine, and albuterol inhaler. He is instructed to follow-up with his primary care physician and retail manager as he has planned. Return parameters discussed in detail. He verbalizes understanding and agrees this plan. - EKG Data -: EKG Interpreted by Me EKG Comments: EKG obtained at 1943 shows normal sinus rhythm with a ventricular rate of 86, NM interval 144, QRS duration 92, QT 362, QTc 433. No evidence of ST elevation or depression. - Radiology Data Radiology results: report reviewed, image reviewed Two-view x-ray of the chest is obtained. Heart mediastinum are normal. Lungs are clear. Diaphragm is normal. Bony thorax is intact. Impression by Dr. Green shows normal chest with no change. Disposition Clinical Impression: Acute bronchitis Disposition: HOME SELF-CARE Condition: Good Instructions: Acute Bronchitis (ED) Additional Instructions: Take medications as directed. Follow-up through primary care physician and retail manager as well. Return here immediately for any new, worsening, or concerning symptoms. Prescriptions: Albuterol Sulfate [Proair Hfa] 1 - 2 puff INHALATION Q6HR PRN #1 inhaler PRN Reason: Shortness Of Breath predniSONE 50 mg PO DAILY #5 tablet Promethaz-Cod 6.25-10 mg/5 ml [Phenergan with Codeine] 5 ml PO Q6HR PRN 3 Days # 60 ml PRN Reason: Cough Is patient prescribed a controlled substance at d/c from ED?: Yes When asked, does pt state using other controlled substances?: No If prescribed controlled substance>3 days was MAPS reviewed?: Prescribed <3 Days If opioid is for acute pain is fill amount 7 days or less?: Yes If Rx opioid, was Start Talking consent form obtained?: Yes Referrals: Jitendra Shields MD [Primary Care Provider] - 1-2 days Time of Disposition: 20:31
--- NOTE | 2018-03-15 19:53 | XR ---
EXAMINATION TYPE: XR chest 2V DATE OF EXAM: 03/15/2018 COMPARISON: 08/21/2017 HISTORY: Cough TECHNIQUE: Frontal and lateral views of the chest are obtained. FINDINGS: Heart and mediastinum are normal. Lungs are clear. Diaphragm is normal. Bony thorax is int act. IMPRESSION: Normal chest. No change.
[2018-03-15 20:31] VITALS: RESP 18
[2018-03-15 20:45] VITALS: BP 151/80; PULSE 87; TEMP 98.7
== END 2018-03-15 20:44 | disposition home or self-care (01) ==
LOC: EC 18:26
DX: J20.9 Acute bronchitis, unspecified (principal); J45.909 Unspecified asthma, uncomplicated; R11.10 Vomiting, unspecified; Z87.891 Personal history of nicotine dependence; Z79.899 Other long term (current) drug therapy; Z88.0 Allergy status to penicillin; Z91.030 Bee allergy status
CPT/HCPCS: 93005; 71046; 99283; J7512

== ENCOUNTER → 2018-03-16 | Outpatient (CLI) | payer OTHER ==
--- NOTE | 2018-03-16 11:13 | US ---
EXAMINATION TYPE: US liver DATE OF EXAM: 03/16/2018 COMPARISON: NONE CLINICAL HISTORY: R94.5 abnormal liver function studies. abnormal labs. No previous. No pain. NPO. EXAM MEASUREMENTS: Liver Length: 23.5 cm Gallbladder Wall: 0.2 cm CHD: 0.4 cm Right Kidney: 9.5 x 5.9 x 5.5 cm Limited exam due to patient body habitus Pancreas: Head and tail not well visualized due to overlying bowel gas. Appears echogenic and heter ogenous. Liver: Increased attenuation, decreased visualization of vessels suggestive of fatty infiltrate. Gallbladder: wnl, neck not well visualized Evidence for sonographic Madrigal's sign: neg CBD: Obscured by overlying bowel gas CHD: wnl Right Kidney: wnl Heterogeneous pancreas without intraluminal mass or ductal dilatation. There is heterogeneous hyperec hoic liver without ductal dilatation. Evaluation for focal masses is suboptimal due to the heterogene ity. Visualized portion of the gallbladder shows no shadowing stones. IMPRESSION: Heterogeneous hyperechoic appearance of liver may be on basis of diffuse fatty infiltrati on or underlying hepatocellular disease. Imaging guided random biopsy for tissue analysis can be perf ormed if desired.
== END | disposition home or self-care (01) ==
LOC: RADUSWWP 09:29
PROVIDERS: ATTEND Internal Medicine
DX: R93.2 Abnormal findings on diagnostic imaging of liver and biliary tract (principal)
CPT/HCPCS: 76705

== ENCOUNTER → 2018-05-22 | Outpatient (CLI) | payer OTHER ==
--- NOTE | 2018-05-22 14:21 | EST ---
EXERCISE STRESS AGE: 27 SEX: M HT: 5'10" WT: 296 PROTOCOL: Cardiolite Mikel Stress Test STAGE: II DURATION OF EXERCISE: 7:00 HEART RATE REST: 70 BLOOD PRESSURE REST: 154/108 MAXIMUM HEART RATE ACHIEVED: 161 MAXIMUM BLOOD PRESSURE: 209/60 85% MPHR: 164 100% MPHR: 193 METS: 7.5 INDICATIONS: Chest pain, difficulty in breathing CLINICAL INFORMATION: Patient was exercised for a total period of 7 minutes, peak heart rate of 161 was achieved. Maximum blood pressure of 209/69 mmHg was noted. Resting EKG shows a normal sinus rhythm with normal UT interval and QRS duration and normal ST-T waves. No ST- segment depression suggestive of ischemia was noted. FINAL IMPRESSION: This stress Cardiolite study is negative for stress-induced ischemia. EKG portion of the stress test is not suggestive of ischemia. Patient did not complain of any chest pain during the test. MMODL / IJN: [id number] /
--- NOTE | 2018-05-22 16:36 | NM ---
EXAMINATION TYPE: NM stress cardiolite complete DATE OF EXAM: 05/22/2018 COMPARISON: NONE HISTORY: 27-year-old male with chest pain and difficulty in breathing TECHNIQUE: After the intravenous administration of 10.8 mCi Tc 99m Sestamibi - Rest images obtained 45 minutes post injection. The patient exercised using a TONYA protocol and 1 minute prior to peak exercise was injected with 24.4 mCi Tc 99m Sestamibi - Stress images obtained 20 minutes post injecti on. FINDINGS: Targeted heart rate is 164 BPM and was achieved during performance of this exam. Total exercise time was 7 minutes with 7.5 METs achieved. Review of stress and rest SPECT images demonstrates fixed decreased perfusion along the mid to basal anterolateral wall that may be accentuated along the mid anterior wall on stress. Gated analysis show s normal wall motion with an estimated left ventricular ejection fraction of 50 %. TID is calculated at 1.36 which is elevated. IMPRESSION: 1. Further workup is recommended as TID is elevated (1.36) which can be seen in the setting of multiv essel balanced ischemia. There is also fixed defect along the anterolateral wall which could represen t attenuation artifact or prior infarct and questionable small area of adjacent reversibility along t he mid anterior wall. 2. LVEF is also mildly decreased at 50%.
== END | disposition home or self-care (01) ==
LOC: RADNMMAIN 08:14
PROVIDERS: ATTEND Internal Medicine
DX: R94.39 Abnormal result of other cardiovascular function study (principal); Z88.0 Allergy status to penicillin
CPT/HCPCS: 93017; 78452; A9500

== ENCOUNTER 2018-05-23 18:19 | Emergency (ER) | payer OTHER ==
[2018-05-23 18:30] VITALS: TEMP 98.2
[2018-05-23] MEDS ORDERED: SODIUM CHLORIDE 0.9% 1,000 ML IV STA (18:51)
[2018-05-23] MEDS ORDERED: PANTOPRAZOLE 40 MG/10 ML VIAL IVP STA (18:52)
--- NOTE | 2018-05-23 19:09 | ED ---
GI Bleed HPI - General Chief complaint: GI Bleed Stated complaint: rectal bleeding Time Seen by Provider: 05/23/18 18:43 Source: patient, RN notes reviewed Mode of arrival: ambulatory Limitations: no limitations - History of Present Illness Initial comments: This is a 27-year-old male presents emergency Department chief complaint of rectal bleeding. Patient has a long history of rectal bleeding states that he has had a colonoscopy by Dr. Patrick which showed internal hemorrhoids. Patient states today he only notices the blood when he wipes. Denies any rectal pain, abdominal pain. Patient did state that his stool appeared to be darker than usual slight maroon to black. Patient states he felt lightheaded a few days ago but has no current complaints denies any chest pain or shortness of breath. Denies any exertional shortness breath. - Related Data Home Medications Medication Instructions Recorded Confirmed Ibuprofen [Motrin] 800 mg PO TID PRN 05/23/18 05/23/18 Polyethylene Glycol 3350 [Miralax] 17 gm PO DAILY 05/23/18 05/23/18 Previous Rx's Medication Instructions Recorded Hydrocortisone/Pramoxine 1 applic RECTAL BID #1 bottle 05/23/18 [Proctofoam-Hc 1%-1% Foam] Omeprazole 40 mg PO DAILY #14 capsule. 05/23/18 Allergies Allergy/AdvReac Type Severity Reaction Status Date / Time bee pollen Allergy Rash/Hives Verified 05/23/18 18:47 Penicillins AdvReac Unknown Verified 05/23/18 18:47 Childhood Review of Systems ROS Statement: Those systems with pertinent positive or pertinent negative responses have been documented in the HPI. ROS Other: All systems not noted in ROS Statement are negative. Past Medical History Past Medical History: No Reported History Additional Past Medical History / Comment(s): PAST HX HEMORRHOIDS. HAS BEEN HAVING SOME EPISODES OF BLEEDING WITH BOWEL MOVEMENTS History of Any Multi-Drug Resistant Organisms: None Reported Past Surgical History: Ear Surgery Additional Past Surgical History / Comment(s): right ear, Past Anesthesia/Blood Transfusion Reactions: No Reported Reaction Past Psychological History: Depression Smoking Status: Former smoker Past Alcohol Use History: None Reported Past Drug Use History: None Reported - Past Family History Mother Family Medical History: No Reported History General Exam Limitations: no limitations General appearance: alert, in no apparent distress Head exam: Present: atraumatic, normocephalic, normal inspection ENT exam: Present: normal exam, normal oropharynx, mucous membranes moist Neck exam: Present: normal inspection, full ROM. Absent: tenderness, meningismus, lymphadenopathy Respiratory exam: Present: normal lung sounds bilaterally. Absent: respiratory distress, wheezes, rales, rhonchi, stridor Cardiovascular Exam: Present: regular rate, normal rhythm, normal heart sounds. Absent: systolic murmur, diastolic murmur, rubs, gallop, clicks GI/Abdominal exam: Present: soft, normal bowel sounds. Absent: distended, tenderness, guarding, rebound, rigid Skin exam: Present: warm, dry, intact, normal color. Absent: rash Course Vital Signs 05/23/18 05/23/18 05/23/18 18:27 19:16 19:39 Temperature 98.2 F Pulse Rate 89 85 92 Respiratory 16 18 18 Rate Blood Pressure 149/96 170/103 144/78 O2 Sat by Pulse 97 95 96 Oximetry Medical Decision Making - Medical Decision Making 27-year-old male presented to the emergency department intermittent rectal bleeding on toilet paper. Patient does have known internal hemorrhoids. Patient has stable hemoglobin this time he has had colostomy in the past by Dr. Patrick. Patient will be discharged with Proctofoam and omeprazole. - Lab Data Result diagrams: 05/23/18 19:16 05/23/18 19:16 Lab Results 05/23/18 05/23/18 05/23/18 Range/Units 19:16 19:16 19:16 WBC 9.5 (3.8-10.6) k/uL RBC 4.98 (4.30-5.90) m/uL Hgb 15.6 (13.0-17.5) gm/dL Hct 44.5 (39.0-53.0) % MCV 89.2 (80.0-100.0) fL MCH 31.3 (25.0-35.0) pg MCHC 35.1 (31.0-37.0) g/dL RDW 12.6 (11.5-15.5) % Plt Count 214 (150-450) k/uL Neutrophils % 56 % Lymphocytes % 33 % Monocytes % 4 % Eosinophils % 5 % Basophils % 1 % Neutrophils # 5.3 (1.3-7.7) k/uL Lymphocytes # 3.1 (1.0-4.8) k/uL Monocytes # 0.4 (0-1.0) k/uL Eosinophils # 0.5 (0-0.7) k/uL Basophils # 0.1 (0-0.2) k/uL PT 10.1 (9.0-12.0) sec INR 1.0 (<1.2) APTT 26.3 (22.0-30.0) sec Sodium 141 (137-145) mmol/L Potassium 4.2 (3.5-5.1) mmol/L Chloride 106 (98-107) mmol/L Carbon Dioxide 25 (22-30) mmol/L Anion Gap 10 mmol/L BUN 12 (9-20) mg/dL Creatinine 0.90 (0.66-1.25) mg/dL Est GFR (CKD-EPI)AfAm >90 (>60 ml/min/1.73 sqM) Est GFR (CKD-EPI)NonAf >90 (>60 ml/min/1.73 sqM) Glucose 103 H (74-99) mg/dL Calcium 9.2 (8.4-10.2) mg/dL Total Bilirubin 1.1 (0.2-1.3) mg/dL AST 35 (17-59) U/L ALT 55 (21-72) U/L Alkaline Phosphatase 81 (38-126) U/L Total Protein 6.9 (6.3-8.2) g/dL Albumin 4.0 (3.5-5.0) g/dL Disposition Clinical Impression: Internal hemorrhoids Disposition: HOME SELF-CARE Condition: Stable Instructions: Hemorrhoids (ED) Additional Instructions: Please return to the Emergency Department if symptoms worsen or any other concerns. Prescriptions: Hydrocortisone/Pramoxine [Proctofoam-Hc 1%-1% Foam] 1 applic RECTAL BID #1 bottle Omeprazole 40 mg PO DAILY #14 capsule.dr Is patient prescribed a controlled substance at d/c from ED?: No Referrals: Jitendra Shields MD [Primary Care Provider] - 1-2 days Time of Disposition: 19:58
[2018-05-23 19:18] VITALS: RESP 18
[2018-05-23 19:32] LABS: Basophils # (A) 0.1 k/uL (0-0.2); Basophils % (A) 1 %; Eosinophils # (A) 0.5 k/uL (0-0.7); Eosinophils % (A) 5 %; HCT 44.5 % (39.0-53.0); HGB 15.6 gm/dL (13.0-17.5); Lymphocytes # (A) 3.1 k/uL (1.0-4.8); Lymphocytes % (A) 33 %; MCH 31.3 pg (25.0-35.0); MCHC 35.1 g/dL (31.0-37.0); MCV 89.2 fL (80.0-100.0); Mean Platelet Volume 6.9; Monocytes # (A) 0.4 k/uL (0-1.0); Monocytes % (A) 4 %; Neutrophils # (A) 5.3 k/uL (1.3-7.7); Neutrophils % (A) 56 %; Platelet Count 214 k/uL (150-450); RBC 4.98 m/uL (4.30-5.90); RDW 12.6 % (11.5-15.5); WBC 9.5 k/uL (3.8-10.6)
[2018-05-23 19:41] VITALS: BP 144/78; PULSE 92
[2018-05-23 19:42] LABS: ALT 55 U/L (21-72); AST 35 U/L (17-59); Alkaline Phosphatase 81 U/L (38-126); Anion Gap 10 mmol/L; Blood Urea Nitrogen 12 mg/dL (9-20); Calcium 9.2 mg/dL (8.4-10.2); Carbon Dioxide 25 mmol/L (22-30); Chloride 106 mmol/L (98-107); Glucose 103 mg/dL (74-99); Potassium 4.2 mmol/L (3.5-5.1); Sodium 141 mmol/L (137-145); Total Bilirubin 1.1 mg/dL (0.2-1.3); Total Protein 6.9 g/dL (6.3-8.2)
[2018-05-23 19:53] LABS: Partial Thromboplastin Time 26.3 sec (22.0-30.0); Prothrombin Time 10.1 sec (9.0-12.0)
== END 2018-05-23 20:10 | disposition home or self-care (01) ==
LOC: EC 18:19
DX: K64.8 Other hemorrhoids (principal); Z87.891 Personal history of nicotine dependence; Z79.899 Other long term (current) drug therapy; Z91.030 Bee allergy status; Z88.0 Allergy status to penicillin
CPT/HCPCS: 36415; 80053; 85025; 85610; 85730; 99283; 96374; C9113

== ENCOUNTER 2018-07-09 16:48 | Emergency (ER) | payer OTHER ==
[2018-07-09 17:52] LABS: Basophils # (A) 0.1 k/uL (0-0.2); Basophils % (A) 1 %; Eosinophils # (A) 0.3 k/uL (0-0.7); Eosinophils % (A) 3 %; HCT 43.5 % (39.0-53.0); HGB 15.5 gm/dL (13.0-17.5); Lymphocytes # (A) 3.2 k/uL (1.0-4.8); Lymphocytes % (A) 38 %; MCH 31.9 pg (25.0-35.0); MCHC 35.6 g/dL (31.0-37.0); MCV 89.5 fL (80.0-100.0); Mean Platelet Volume 6.6; Monocytes # (A) 0.5 k/uL (0-1.0); Monocytes % (A) 6 %; Neutrophils # (A) 4.2 k/uL (1.3-7.7); Neutrophils % (A) 50 %; Platelet Count 188 k/uL (150-450); RBC 4.86 m/uL (4.30-5.90); WBC 8.5 k/uL (3.8-10.6)
[2018-07-09 18:10] LABS: D-Dimer 0.37 mg/L FEU (<0.60); INR 1.1 (<1.2); Partial Thromboplastin Time 25.5 sec (22.0-30.0); Prothrombin Time 10.4 sec (9.0-12.0)
[2018-07-09 18:11] LABS: ALT 54 U/L (21-72); AST 38 U/L (17-59); Albumin 3.9 g/dL (3.5-5.0); Alkaline Phosphatase 66 U/L (38-126); Anion Gap 7 mmol/L; Blood Urea Nitrogen 13 mg/dL (9-20); Calcium 8.9 mg/dL (8.4-10.2); Carbon Dioxide 25 mmol/L (22-30); Chloride 108 mmol/L (98-107); Creatine Kinase 103 U/L (55-170); Glucose 89 mg/dL (74-99); Lipase 58 U/L (23-300); Magnesium 1.9 mg/dL (1.6-2.3); Potassium 4.2 mmol/L (3.5-5.1); Sodium 140 mmol/L (137-145); Total Bilirubin 0.9 mg/dL (0.2-1.3); Total Protein 6.9 g/dL (6.3-8.2)
--- NOTE | 2018-07-09 18:13 | ED ---
Chest Pain HPI - General Chief Complaint: Chest Pain Stated Complaint: rt arm and shoulder pain Time Seen by Provider: 07/09/18 17:01 Source: patient, RN notes reviewed, old records reviewed Mode of arrival: ambulatory Limitations: no limitations - History of Present Illness Initial Comments: This is a 27-year-old male to the ER for evaluation he is presenting today for evaluation regards to chest pain. Patient's concerned he does admit to some anxiety, pain is been going on for 1-2 weeks. Patient states he has chest pain that started on his left side now left arm and occasionally into his left jaw. Currently is without chest pain MD Complaint: chest pain -: week(s) Onset: during rest, during exertion, after eating, awoke with symptoms Pain Location: substernal, left chest Pain Radiation: LUE, jaw/teeth Severity: mild Severity scale (1-10): 4 Quality: aching Consistency: intermittent, now resolved Improves With: nothing Worsens With: nothing Anginal Symptoms: other Other Symptoms: other Treatments Prior to Arrival: none, other - Related Data Home Medications Medication Instructions Recorded Confirmed Ibuprofen [Motrin] 800 mg PO TID PRN 05/23/18 05/23/18 Polyethylene Glycol 3350 [Miralax] 17 gm PO DAILY 05/23/18 05/23/18 Previous Rx's Medication Instructions Recorded Hydrocortisone/Pramoxine 1 applic RECTAL BID #1 bottle 05/23/18 [Proctofoam-Hc 1%-1% Foam] Omeprazole 40 mg PO DAILY #14 capsule. 05/23/18 Allergies Allergy/AdvReac Type Severity Reaction Status Date / Time bee pollen Allergy Rash/Hives Verified 07/09/18 16:59 Penicillins AdvReac Unknown Verified 07/09/18 16:59 Childhood Review of Systems ROS Statement: Those systems with pertinent positive or pertinent negative responses have been documented in the HPI. ROS Other: All systems not noted in ROS Statement are negative. EKG Findings - EKG Comments: EKG Findings:: EKG shows sinus rhythm rate of 73, WA 1:30, QRS 90, QTC 418 Past Medical History Past Medical History: No Reported History Additional Past Medical History / Comment(s): PAST HX HEMORRHOIDS. HAS BEEN HAVING SOME EPISODES OF BLEEDING WITH BOWEL MOVEMENTS History of Any Multi-Drug Resistant Organisms: None Reported Past Surgical History: Ear Surgery, Tonsillectomy Additional Past Surgical History / Comment(s): right ear, Past Anesthesia/Blood Transfusion Reactions: No Reported Reaction Past Psychological History: Depression Smoking Status: Former smoker Past Alcohol Use History: None Reported Past Drug Use History: None Reported - Past Family History Mother Family Medical History: No Reported History General Exam Limitations: no limitations General appearance: alert, in no apparent distress Head exam: Present: atraumatic, normocephalic, normal inspection Eye exam: Present: normal appearance, PERRL, EOMI. Absent: scleral icterus, conjunctival injection, periorbital swelling ENT exam: Present: normal exam, mucous membranes moist Neck exam: Present: normal inspection. Absent: tenderness, meningismus, lymphadenopathy Respiratory exam: Present: normal lung sounds bilaterally. Absent: respiratory distress, wheezes, rales, rhonchi, stridor Cardiovascular Exam: Present: regular rate, normal rhythm, normal heart sounds. Absent: systolic murmur, diastolic murmur, rubs, gallop, clicks GI/Abdominal exam: Present: soft, normal bowel sounds. Absent: distended, tenderness, guarding, rebound, rigid Extremities exam: Present: normal inspection, full ROM, normal capillary refill. Absent: tenderness, pedal edema, joint swelling, calf tenderness Back exam: Present: normal inspection Neurological exam: Present: alert, oriented X3, CN II-XII intact Psychiatric exam: Present: normal affect, normal mood Skin exam: Present: warm, dry, intact, normal color. Absent: rash Course Vital Signs 07/09/18 07/09/18 07/09/18 16:56 17:23 19:11 Temperature 97.9 F Pulse Rate 75 72 69 Respiratory 18 20 16 Rate Blood Pressure 127/75 174/112 162/99 O2 Sat by Pulse 98 98 97 Oximetry 07/09/18 20:16 Temperature 98.0 F Pulse Rate 72 Respiratory 18 Rate Blood Pressure 162/80 O2 Sat by Pulse 98 Oximetry - Reevaluation(s) Reevaluation #1: Medical record is reviewed Patient has no significant complaints Studies CTA chest is negative for acute disease Chest Pain MDM - MDM 27 female nonspecific chest pain low cardiac risk, patient will be discharged home with normal CT troponin and EKG Disposition Clinical Impression: Chest pain Disposition: HOME SELF-CARE Condition: Good Instructions: Chest Pain (ED) Is patient prescribed a controlled substance at d/c from ED?: No Referrals: Jitendra Shields MD [Primary Care Provider] - 1-2 days
[2018-07-09 18:23] LABS: Creatine Kinase MB 0.8 ng/mL (0.0-2.4); Troponin I <0.012 ng/mL (0.000-0.034)
--- NOTE | 2018-07-09 18:51 | XR ---
EXAMINATION TYPE: XR chest 2V DATE OF EXAM: 07/09/2018 COMPARISON: 03/15/2018 INDICATION: Pain TECHNIQUE: Frontal and lateral views of the chest are obtained. FINDINGS: The heart size is normal. The pulmonary vasculature is normal. The lungs are clear. IMPRESSION: 1. No acute pulmonary process.
--- NOTE | 2018-07-09 19:34 | CT ---
CT CHEST FOR PULMONARY EMBOLISM. EXAMINATION TYPE: CT angio chest DATE OF EXAM: 07/09/2018 INDICATION: Right arm, shoulder and chest pain. CT DLP: 569.3 mGycm, Automated exposure control for dose reduction was used. CONTRAST: Patient injected with 73 mL of Isovue 300. COMPARISON: None TECHNIQUE: CT of the chest is performed on a spiral scan at 2 mm thick sections. Study is performed with intravenous contrast timed for evaluation for pulmonary embolism. This will limit additional po rtions of the evaluation. 3-D MIP images reconstructed by the technologist are reviewed on the compu ter in the coronal and sagittal planes. FINDINGS: No persistent filling defects are evident to suggest an acute pulmonary embolism. No mediastinal or hilar adenopathy enlarged by CT criteria is evident. The ascending aorta diameter at the level of the main pulmonary artery is 3.0 cm. The main pulmonary artery diameter at the bifur cation is 2.1 cm. Lung windows are clear. There is moderate fatty infiltration throughout the liver. Abdomen is otherwise unremarkable. IMPRESSIONS: 1. No acute pulmonary embolism.
[2018-07-09 20:17] VITALS: BP 162/80; PULSE 72; RESP 18; TEMP 98
== END 2018-07-09 20:17 | disposition home or self-care (01) ==
LOC: EC 16:48
DX: R07.9 Chest pain, unspecified (principal); M25.512 Pain in left shoulder; R68.84 Jaw pain; Z87.891 Personal history of nicotine dependence; Z79.899 Other long term (current) drug therapy; Z91.030 Bee allergy status; Z88.0 Allergy status to penicillin
CPT/HCPCS: 36415; 93005; 85379; 83880; 80053; 82550; 82553; 83690; 83735; 84484; 85025; 85610; 85730; 71046; 71275; 99285; Q9967

== ENCOUNTER 2018-07-23 17:20 | Emergency (ER) | payer OTHER ==
[2018-07-23 17:31] VITALS: BP 143/91; PULSE 73; RESP 18; TEMP 98.3
--- NOTE | 2018-07-23 17:49 | ED ---
General Adult HPI - General Chief complaint: Urogenital Stated complaint: urinary trouble Time Seen by Provider: 07/23/18 17:25 Source: patient, EMS, RN notes reviewed Mode of arrival: EMS Limitations: no limitations - History of Present Illness Initial comments: 27-year-old male presents to the emergency department via EMS for a chief of dysuria. Patient states this occurred twice today. Patient states it has occurred intermittently over the past several months. Patient states he feels a burning pain at the tip of his penis with urination. Patient denies abdominal pain or fevers. Patient states he has a monogamous sexual partner and is . He is not concerned for sexually transmitted diseases. He is concerned he may have a urinary tract infection. He denies urinary frequency or urgency. Patient has no other complaints at this time including shortness of breath, chest pain, abdominal pain, nausea or vomiting, headache, or visual changes. - Related Data Home Medications Medication Instructions Recorded Confirmed Ibuprofen [Motrin] 800 mg PO TID PRN 05/23/18 05/23/18 Polyethylene Glycol 3350 [Miralax] 17 gm PO DAILY 05/23/18 05/23/18 Previous Rx's Medication Instructions Recorded Hydrocortisone/Pramoxine 1 applic RECTAL BID #1 bottle 05/23/18 [Proctofoam-Hc 1%-1% Foam] Omeprazole 40 mg PO DAILY #14 capsule. 05/23/18 Allergies Allergy/AdvReac Type Severity Reaction Status Date / Time bee pollen Allergy Rash/Hives Verified 07/09/18 16:59 Penicillins AdvReac Unknown Verified 07/09/18 16:59 Childhood Review of Systems ROS Statement: Those systems with pertinent positive or pertinent negative responses have been documented in the HPI. ROS Other: All systems not noted in ROS Statement are negative. Past Medical History Past Medical History: No Reported History Additional Past Medical History / Comment(s): PAST HX HEMORRHOIDS History of Any Multi-Drug Resistant Organisms: None Reported Past Surgical History: Ear Surgery, Tonsillectomy Additional Past Surgical History / Comment(s): right ear, colonoscopy Past Anesthesia/Blood Transfusion Reactions: No Reported Reaction Past Psychological History: Depression Smoking Status: Former smoker Past Alcohol Use History: None Reported Past Drug Use History: None Reported - Past Family History Mother Family Medical History: No Reported History General Exam General appearance: alert, in no apparent distress Head exam: Present: atraumatic, normocephalic, normal inspection Eye exam: Present: normal appearance, PERRL, EOMI. Absent: scleral icterus, conjunctival injection, periorbital swelling ENT exam: Present: normal exam, mucous membranes moist Neck exam: Present: normal inspection, full ROM. Absent: tenderness, meningismus, lymphadenopathy Respiratory exam: Present: normal lung sounds bilaterally. Absent: respiratory distress, wheezes, rales, rhonchi, stridor Cardiovascular Exam: Present: regular rate, normal rhythm, normal heart sounds. Absent: systolic murmur, diastolic murmur, rubs, gallop, clicks exam: Present: other (refused) Course Vital Signs 07/23/18 17:28 Temperature 98.3 F Pulse Rate 73 Respiratory 18 Rate Blood Pressure 143/91 O2 Sat by Pulse 98 Oximetry Medical Decision Making - Medical Decision Making 27-year-old male presents to the emergency department for a chief complaint of dysuria x one day. Patient states he had burning sensation with urination twice today. Denies fevers or chills. He states that this has been intermittent for the past several months. Patient is concerned for a urinary tract infection. He denies any chance of sexually transmitted diseases and states he is monogamous with his . No abdominal tenderness on exam. He is well-appearing. He refuses genital exam stating he does not have any lesions. Urine does not show any evidence of infection. I did send lab for gonorrhea and chlamydia. I offered to treat patient prophylactically for gonorrhea and chlamydia which she refuses at this time. He states he only wants treatment if his results are positive. He will be referred to urology. He will return here if he has any worsening symptoms or fevers. - Lab Data Lab Results 07/23/18 Range/Units 17:30 Urine Color Yellow Urine Appearance Clear (Clear) Urine pH 6.5 (5.0-8.0) Ur Specific [place] 1.023 (1.001-1.035) Urine Protein Negative (Negative) Urine Glucose (UA) Negative (Negative) Urine Ketones Negative (Negative) Urine Blood Negative (Negative) Urine Nitrite Negative (Negative) Urine Bilirubin Negative (Negative) Urine Urobilinogen 2.0 (<2.0) mg/dL Ur Leukocyte Esterase Negative (Negative) Disposition Clinical Impression: Dysuria Disposition: HOME SELF-CARE Condition: Good Instructions: Dysuria (ED) Additional Instructions: Please follow up with urology in 1-2 days. Return to the emergency department if you have any worsening symptoms. Is patient prescribed a controlled substance at d/c from ED?: No Referrals: Jitendra Shields MD [Primary Care Provider] - 1-2 days Valentino Beltre MD [STAFF PHYSICIAN] - 1-2 days Time of Disposition: 18:55
[2018-07-23 17:51] LABS: Appearance,Urine Clear (Clear); Bilirubin,Urine Negative (Negative); Blood,Urine Negative (Negative); Color,Urine Yellow; Glucose,Urine (UA) Negative (Negative); Ketones,Urine Negative (Negative); Leukocyte Esterase,Urine Negative (Negative); Nitrite,Urine Negative (Negative); PH, Urine 6.5 (5.0-8.0); Protein,Urine Negative (Negative); Specific Gravity,Urine 1.023 (1.001-1.035)
[2018-07-24 12:24] LABS: C. trachomatis,PCR Negative (Neg,Equiv); Chlamydia trachomatis Source Urine; N. gonorrhoeae,PCR Negative (Neg,Equiv); Neisseria Source Urine
== END 2018-07-23 18:59 | disposition home or self-care (01) ==
LOC: EC 17:20
DX: R30.0 Dysuria (principal); N48.89 Other specified disorders of penis; Z87.891 Personal history of nicotine dependence; Z79.899 Other long term (current) drug therapy; Z88.0 Allergy status to penicillin; Z91.030 Bee allergy status; Z53.29 Procedure and treatment not carried out because of patient's decision for other reasons
CPT/HCPCS: 81003; 87086; 87491; 87591; 99283

== ENCOUNTER 2018-07-31 19:44 | Emergency (ER) | payer OTHER ==
[2018-07-31 19:52] VITALS: PULSE 77
[2018-07-31] MEDS ORDERED: KETOROLAC 30 MG/ML 1 ML VIAL IVP STA (21:55)
--- NOTE | 2018-07-31 22:00 | ED ---
Chest Pain HPI - General Chief Complaint: Chest Pain Stated Complaint: Chest Pain, Hypertension Time Seen by Provider: 07/31/18 21:46 Source: patient, EMS Mode of arrival: EMS Limitations: no limitations - History of Present Illness Initial Comments: This patient is 27-year-old man presenting to be evaluated for pain to the right chest and shoulder area. The patient states this been going on for about a month area he was seen here for previously. The today in the afternoon the patient states that the pain seemed to be getting worse so his family phoned EMS and had him brought here for this. Patient states she was given nitroglycerin and aspirin during the EMS transfer which did not affect the pain. The patient denies any associated symptoms. States the pain is aching, severe, constant, and worse with movement of the neck or shoulder, as well as palpation of the right upper chest and shoulder. MD Complaint: chest pain Onset/Timin -: month(s) Onset: during rest Pain Location: right chest Pain Radiation: none Severity: severe Quality: aching Consistency: constant Improves With: nothing Worsens With: movement Treatments Prior to Arrival: aspirin - Related Data Home Medications Medication Instructions Recorded Confirmed Ibuprofen [Motrin] 800 mg PO TID PRN 05/23/18 07/31/18 Calcium Polycarbophil [Fiber-Lax] 1,250 mg PO HS 07/31/18 07/31/18 Cyclobenzaprine [Flexeril] 10 mg PO TID 07/31/18 07/31/18 Losartan [Cozaar] 50 mg PO DAILY 07/31/18 07/31/18 Previous Rx's Medication Instructions Recorded Diazepam [Valium] 5 mg PO Q8HR PRN 3 Days #9 tab 08/01/18 Allergies Allergy/AdvReac Type Severity Reaction Status Date / Time bee pollen Allergy Rash/Hives Verified 07/31/18 20:52 Penicillins AdvReac Unknown Verified 07/31/18 20:52 Childhood Review of Systems ROS Statement: Those systems with pertinent positive or pertinent negative responses have been documented in the HPI. ROS Other: All systems not noted in ROS Statement are negative. Constitutional: Denies: fever, chills, weakness Respiratory: Denies: cough, dyspnea Cardiovascular: Reports: chest pain. Denies: palpitations, edema, syncope Gastrointestinal: Denies: abdominal pain, nausea, vomiting Genitourinary: Denies: dysuria Musculoskeletal: Reports: myalgia Skin: Denies: rash Neurological: Denies: headache, weakness, numbness, paresthesias EKG Findings - EKG Results: EKG: interpreted by JOSE R RODRIGUES, sinus rhythm (Rate 81 bpm), normal axis, normal QRS, normal ST/T, no acute changes - TN, Pacemaker, Normal: Normal tracing: normal tracing Past Medical History Past Medical History: No Reported History Additional Past Medical History / Comment(s): PAST HX HEMORRHOIDS History of Any Multi-Drug Resistant Organisms: None Reported Past Surgical History: Ear Surgery, Tonsillectomy Additional Past Surgical History / Comment(s): right ear, colonoscopy Past Anesthesia/Blood Transfusion Reactions: No Reported Reaction Past Psychological History: Depression Smoking Status: Former smoker Past Alcohol Use History: None Reported Past Drug Use History: None Reported - Past Family History Mother Family Medical History: No Reported History General Exam Limitations: no limitations General appearance: alert, in no apparent distress, obese Head exam: Present: atraumatic, normocephalic Eye exam: Present: normal appearance ENT exam: Present: normal oropharynx Neck exam: Present: normal inspection, tenderness. Absent: full ROM Respiratory exam: Present: normal lung sounds bilaterally, chest wall tenderness. Absent: respiratory distress, wheezes, rales, rhonchi, stridor, accessory muscle use, decreased breath sounds Cardiovascular Exam: Present: regular rate, normal rhythm, normal heart sounds. Absent: systolic murmur, diastolic murmur, rubs, gallop GI/Abdominal exam: Present: soft. Absent: distended, tenderness, guarding, rebound, mass Extremities exam: Present: normal inspection, normal capillary refill. Absent: pedal edema, calf tenderness Back exam: Present: normal inspection. Absent: CVA tenderness (R), CVA tenderness (L), vertebral tenderness Neurological exam: Present: alert Skin exam: Present: warm, dry, intact, normal color. Absent: rash Course Vital Signs 07/31/18 19:48 Temperature 98.8 F Pulse Rate 77 Respiratory 18 Rate Blood Pressure 186/102 O2 Sat by Pulse 99 Oximetry Disposition Clinical Impression: Chest pain Disposition: HOME SELF-CARE Condition: Good Instructions: Chest Pain (ED) Prescriptions: Diazepam [Valium] 5 mg PO Q8HR PRN 3 Days #9 tab PRN Reason: Spasms Is patient prescribed a controlled substance at d/c from ED?: No Referrals: Jitendra Shields MD [Primary Care Provider] - 1-2 days
[2018-07-31 22:39] LABS: Basophils # (A) 0.1 k/uL (0-0.2); Basophils % (A) 1 %; Eosinophils # (A) 0.4 k/uL (0-0.7); Eosinophils % (A) 5 %; HGB 15.6 gm/dL (13.0-17.5); Lymphocytes # (A) 3.2 k/uL (1.0-4.8); Lymphocytes % (A) 41 %; MCHC 34.6 g/dL (31.0-37.0); MCV 92.5 fL (80.0-100.0); Mean Platelet Volume 7.5; Monocytes # (A) 0.4 k/uL (0-1.0); Monocytes % (A) 5 %; Neutrophils # (A) 3.6 k/uL (1.3-7.7); Neutrophils % (A) 46 %; Platelet Count 218 k/uL (150-450); RBC 4.86 m/uL (4.30-5.90); RDW 13.1 % (11.5-15.5); WBC 7.9 k/uL (3.8-10.6)
[2018-07-31 22:50] LABS: Albumin 3.9 g/dL (3.5-5.0); Amylase 39 U/L (30-110); Anion Gap 8 mmol/L; Calcium 9.1 mg/dL (8.4-10.2); Carbon Dioxide 25 mmol/L (22-30); Chloride 106 mmol/L (98-107); Glucose 110 mg/dL (74-99); Lipase 55 U/L (23-300); Sodium 139 mmol/L (137-145); Total Bilirubin 0.7 mg/dL (0.2-1.3)
[2018-07-31 22:57] LABS: ALT 64 U/L (21-72); AST 47 U/L (17-59); Alkaline Phosphatase 74 U/L (38-126); Blood Urea Nitrogen 11 mg/dL (9-20); Potassium 4.5 mmol/L (3.5-5.1)
--- NOTE | 2018-07-31 23:06 | XR ---
EXAMINATION TYPE: XR chest 2V DATE OF EXAM: 07/31/2018 COMPARISON: 07/09/2018 HISTORY: Chest pain TECHNIQUE: Frontal and lateral views of the chest are obtained. FINDINGS: Heart and mediastinum are normal. Lungs are clear. Diaphragm is normal. Bony thorax is int act but there are chest leads. IMPRESSION: Normal chest. No change.
[2018-08-01 00:47] VITALS: BP 150/102; RESP 16; TEMP 98.9
== END 2018-08-01 00:47 | disposition home or self-care (01) ==
LOC: EC 19:44
DX: R07.9 Chest pain, unspecified (principal); M25.511 Pain in right shoulder; Z87.891 Personal history of nicotine dependence; Z88.0 Allergy status to penicillin; Z91.018 Allergy to other foods; Z79.899 Other long term (current) drug therapy
CPT/HCPCS: 36415; 93005; 85379; 80053; 82150; 83690; 84484; 85025; 71046; 99285; 96374; J1885

== ENCOUNTER 2018-08-23 17:59 | Emergency (ER) | payer OTHER ==
[2018-08-23 18:30] VITALS: RESP 16; TEMP 98.3
[2018-08-23] MEDS ORDERED: HYDROCORTISONE SUPPOSITORY 25 MG SUPP RECTAL STA (19:44)
--- NOTE | 2018-08-23 19:50 | ED ---
General Adult HPI - General Chief complaint: GI Bleed Stated complaint: Hemorrhoid Time Seen by Provider: 08/23/18 19:28 Source: patient, RN notes reviewed Mode of arrival: ambulatory Limitations: no limitations - History of Present Illness Initial comments: Patient is a pleasant 27-year-old male presenting to the emergency department with concern regarding hemorrhoid. Patient states this has been bugging him for the last 2 days. Patient complains of discomfort and burning and bleeding. Bleeding has been intermittent and is mild at this time. Patient does have history of similar problems previously associated with him right. Patient once received a prescription for steroid cream however his insurance did not cover this. Patient has an appointment with his primary care physician tomorrow. - Related Data Home Medications Medication Instructions Recorded Confirmed Ibuprofen [Motrin] 800 mg PO TID PRN 05/23/18 07/31/18 Calcium Polycarbophil [Fiber-Lax] 1,250 mg PO HS 07/31/18 07/31/18 Cyclobenzaprine [Flexeril] 10 mg PO TID 07/31/18 07/31/18 Losartan [Cozaar] 50 mg PO DAILY 07/31/18 07/31/18 Previous Rx's Medication Instructions Recorded Diazepam [Valium] 5 mg PO Q8HR PRN 3 Days #9 tab 08/01/18 Hydrocortisone Suppository 25 mg RC BID #6 supp 08/23/18 [Anusol-Hc] Allergies Allergy/AdvReac Type Severity Reaction Status Date / Time bee pollen Allergy Rash/Hives Verified 08/23/18 18:30 Penicillins AdvReac Unknown Verified 08/23/18 18:30 Childhood Review of Systems ROS Statement: Those systems with pertinent positive or pertinent negative responses have been documented in the HPI. ROS Other: All systems not noted in ROS Statement are negative. Constitutional: Denies: fever Eyes: Denies: eye pain ENT: Reports: other (Sore throat that is near resolved. Patient did previously see his doctor for this.). Denies: ear pain Respiratory: Denies: cough Cardiovascular: Denies: chest pain Endocrine: Denies: fatigue Gastrointestinal: Reports: other (Hemorrhoid discomfort with bleeding). Denies : abdominal pain Genitourinary: Denies: dysuria Musculoskeletal: Denies: back pain Skin: Denies: rash Neurological: Denies: weakness Past Medical History Past Medical History: No Reported History Additional Past Medical History / Comment(s): PAST HX HEMORRHOIDS History of Any Multi-Drug Resistant Organisms: None Reported Past Surgical History: Ear Surgery, Tonsillectomy Additional Past Surgical History / Comment(s): right ear, colonoscopy Past Anesthesia/Blood Transfusion Reactions: No Reported Reaction Past Psychological History: Depression Smoking Status: Former smoker Past Alcohol Use History: None Reported Past Drug Use History: None Reported - Past Family History Mother Family Medical History: No Reported History General Exam Limitations: no limitations General appearance: alert, in no apparent distress Head exam: Present: atraumatic Eye exam: Present: normal appearance ENT exam: Present: normal oropharynx Neck exam: Present: normal inspection Respiratory exam: Present: normal lung sounds bilaterally Cardiovascular Exam: Present: regular rate, normal rhythm GI/Abdominal exam: Present: soft. Absent: tenderness Rectal exam: Present: hemorrhoids (External hemorrhoid at the 7 o'clock position , approximately 1 cm with tenderness. No active bleeding.) Extremities exam: Present: normal inspection Neurological exam: Present: alert Psychiatric exam: Present: normal affect, normal mood Skin exam: Present: normal color Course Vital Signs 08/23/18 18:27 Temperature 98.3 F Pulse Rate 107 H Respiratory 16 Rate Blood Pressure 160/69 O2 Sat by Pulse 98 Oximetry Disposition Clinical Impression: Hemorrhoid Disposition: HOME SELF-CARE Condition: Stable Instructions: Hemorrhoids (ED) Additional Instructions: Soft diet. Please follow-up with primary care physician tomorrow as planned. Consider surgical consultation. Return for increased pain, uncontrolled bleeding, other areas of bleeding, worsening symptoms or other concerns. Prescriptions: Hydrocortisone Suppository [Anusol-Hc] 25 mg RC BID #6 supp Is patient prescribed a controlled substance at d/c from ED?: No Referrals: Jitendra Shields MD [Primary Care Provider] - 1-2 days Marci Mc MD [STAFF PHYSICIAN] - 1-2 days Time of Disposition: 19:49
[2018-08-23 20:07] VITALS: BP 160/110; PULSE 99
== END 2018-08-23 20:23 | disposition home or self-care (01) ==
LOC: EC 17:59
DX: K64.9 Unspecified hemorrhoids (principal); Z88.0 Allergy status to penicillin; Z91.030 Bee allergy status; Z87.891 Personal history of nicotine dependence
CPT/HCPCS: 99282

== ENCOUNTER 2018-09-29 06:45 | Day surgery (SDC) | payer OTHER ==
[2018-09-28 10:29] VITALS: BMI 44.3
[~2018-09-29 06:45] MED LIST changes: +DEXAMETHASONE SOD PHOSPHATE 10 MG/ML 1 ML VIAL IV ONE; +HEPARIN SODIUM,PORCINE 5,000 UNIT/ML 1 ML VIAL SQ ONE; -LIDOCAINE 1% 20 ML VIAL (10MG/ML) FOR IV START INTRADERMA PRN; +MIDAZOLAM 2 MG/2 ML VIAL IV PRN; +NA PHOS,M-B/NA PHOS,DI-BA 133 ML ENEMA RECTAL ONE; +ONDANSETRON 4 MG/2 ML VIAL IVP ONE; +Pre Op ABX Message 1 EACH MISC MISCELLANE ONE; +SCOPOLAMINE 1.5MG/72HR PATCH TRANSDERM ONE
[2018-09-29] MEDS ORDERED: BUPIVACAINE-EPI 0.5%-1:200,000 10 ML VIAL SQ ONE ×2 (09:34→10:23)
--- NOTE | 2018-09-29 09:43 | P.GSHP ---
History of Present Illness H&P Date: 09/29/18 Chief Complaint: Internal and external hemorrhoids This a 27-year-old male who presents today for adenoidectomy. Patient had issues with rectal bleeding and pain. He states he has had hemorrhoids for over 5 years. Past Medical History Past Medical History: Chest Pain / Angina, Sleep Apnea/CPAP/BIPAP Additional Past Medical History / Comment(s): no cpap used, hemorrhoids, pinched nerve in neck, torn tendon left foot History of Any Multi-Drug Resistant Organisms: None Reported Past Surgical History: Ear Surgery, Tonsillectomy Additional Past Surgical History / Comment(s): tube rt ear, colonoscopy Past Anesthesia/Blood Transfusion Reactions: No Reported Reaction Past Psychological History: Depression Additional Psychological History / Comment(s): past hx Smoking Status: Former smoker Past Alcohol Use History: None Reported Additional Past Alcohol Use History / Comment(s): QUIT SMOKING 2015, smoked for < 2 yrs, approx 1 PPD Past Drug Use History: None Reported - Past Family History Mother Family Medical History: No Reported History Medications and Allergies Home Medications Medication Instructions Recorded Confirmed Type Ibuprofen [Motrin] 800 mg PO TID PRN 05/23/18 09/28/18 History Allergies Allergy/AdvReac Type Severity Reaction Status Date / Time bee pollen Allergy Rash/Hives Verified 09/28/18 10:26 Penicillins AdvReac Unknown Verified 09/28/18 10:26 Childhood Surgical - Exam Vital Signs Temp Pulse Resp BP Pulse Ox 96.8 F L 80 18 168/98 95 09/29/18 07:22 09/29/18 07:22 09/29/18 07:22 09/29/18 07:22 09/29/18 07:22 - General well developed, well nourished, no distress - Eyes PERRL - ENT normal pinna - Neck no masses - Respiratory normal expansion - Cardiovascular Rhythm: regular - Abdomen Abdomen: soft, non tender - Rectum Internal and external hemorrhoids Assessment and Plan Assessment: Internal and external hemorrhoids. We'll perform hemorrhoidectomy..
[2018-09-29] MEDS ORDERED: fentaNYL (PF) 50 MCG/ML 2 ML AMP ONE (09:49)
[2018-09-29] MEDS ORDERED: GLYCOPYRROLATE 0.2 MG/ML 2 ML VIAL ONE (09:49)
[2018-09-29] MEDS ORDERED: PROPOFOL 10 MG/ML 20 ML VIAL IV ONE (09:49)
[2018-09-29] MEDS ORDERED: SUCCINYLCHOLINE CHLORIDE 100 MG/5 ML SYR IV ONE (09:49)
[2018-09-29] MEDS ORDERED: MIDAZOLAM 2 MG/2 ML VIAL ONE (09:49)
[2018-09-29] MEDS ORDERED: LIDOCAINE 1% INJ 10MG/ML (20 ML MDV) ONE (09:49)
[2018-09-29] MEDS ORDERED: ROCURONIUM BROMIDE 10 MG/ML 10 ML VIAL IV ONE (09:49)
[2018-09-29] MEDS ORDERED: NEOSTIGMINE 1 MG/ML 10 ML VIAL ONE (09:49)
--- NOTE | 2018-09-29 10:30 | P.OP ---
Date of Procedure: 09/29/18 Preoperative Diagnosis: Internal and external hemorrhoids Postoperative Diagnosis: Internal and external hemorrhoids Procedure(s) Performed: Internal and external hemorrhoidectomy Anesthesia: GERARD Surgeon: David Monge Estimated Blood Loss (ml): 5 Pathology: other (Internal and external hemorrhoids) Condition: stable Disposition: PACU Description of Procedure: The patient's placed on the operating table in the prone position after receiving general anesthesia. His anus was prepped and draped usual fashion. The patient had a large hemorrhoid columns in the right anterior and right posterior position. The anal retractors placed and then the hemorrhoid column was grasped with a pair of Allis clamps and rectus performed using the Harmonic scissors. An identical fashion the right anterior and right posterior hemorrhoid column was withdrawn. The Bovie hemostasis. Resolving seen. Seminal vesicles top she will was sent to recovery in stable condition.
[2018-09-29] MEDS ORDERED: GELATIN SPONGE,ABSORB (LARGE) 1 EACH SPONGE MISCELLANE ONE (10:32)
[2018-09-29 10:46] VITALS: TEMP 98
[2018-09-29] MEDS: HYDROmorphone 0.5 MG/0.5 ML SYRINGE IVP PRN ×2 (10:49→11:01)
[2018-09-29] MEDS ORDERED: KETOROLAC 30 MG/ML 1 ML VIAL IVP ONE (11:11)
[2018-09-29] MEDS ORDERED: HYDROcodone/APAP 7.5-325MG 1 EACH TAB PO ONE (12:11)
[2018-09-29 12:30] VITALS: BP 144/93; PULSE 89; RESP 16
== END 2018-09-29 12:37 | disposition home or self-care (01) ==
LOC: OR 06:45
PROVIDERS: ATTEND Surgery
DX: K64.8 Other hemorrhoids (principal); K64.4 Residual hemorrhoidal skin tags; I20.9 Angina pectoris, unspecified; G47.33 Obstructive sleep apnea (adult) (pediatric); Z99.89 Dependence on other enabling machines and devices; F32.9 Major depressive disorder, single episode, unspecified; Z87.891 Personal history of nicotine dependence; Z91.030 Bee allergy status; Z88.0 Allergy status to penicillin
CPT/HCPCS: 88304; 46260; J2250; J1644; J1100; J2710; J2405; J2001; J3010; J1885; J0330; J2704; J1170

== ENCOUNTER 2018-10-13 10:55 | Emergency (ER) | payer OTHER ==
[2018-10-13 11:02] VITALS: BP 174/98; PULSE 89; RESP 22; TEMP 97.7
--- NOTE | 2018-10-13 11:31 | ED ---
General Adult HPI - General Chief complaint: GI Bleed Stated complaint: Rectal bleeding Time Seen by Provider: 10/13/18 11:06 Source: patient, RN notes reviewed, old records reviewed Mode of arrival: ambulatory Limitations: no limitations - History of Present Illness Initial comments: 27-year-old male presenting with episode of bright red rectal bleeding. Patient states yesterday evening while going to the bathroom he had noticed blood in his underwear. He is 2 weeks postop hemorrhoidectomy. This was performed after colonoscopy 2 days prior. Patient states he has had hard stool and has had to strain over the past 2 weeks. He's had minimal bleeding prior to yesterday, yesterday there was more significant bleeding in his underwear. This was an isolated event. No bleeding throughout the night. He had no bleeding this morning. States he called his surgeon who recommended he presented to the emergency department for evaluation. Patient has been taking Colace however his stool continues to be hard. - Related Data Home Medications Medication Instructions Recorded Confirmed Ibuprofen [Motrin] 800 mg PO TID PRN 05/23/18 09/28/18 Previous Rx's Medication Instructions Recorded Docusate [Colace] 100 mg PO BID #20 capsule 09/29/18 HYDROcodone/APAP 7.5-325MG [[place] 1 tab PO Q4H PRN 3 Days #18 tab 09/29/18 7.5-325] Docusate [Colace] 100 mg PO BID #30 capsule 10/13/18 Psyllium Husk (with Sugar) 6 gm PO TID #822 gm 10/13/18 [Metamucil Powder] Allergies Allergy/AdvReac Type Severity Reaction Status Date / Time bee pollen Allergy Rash/Hives Verified 10/13/18 11:02 Penicillins AdvReac Unknown Verified 10/13/18 11:02 Childhood Review of Systems ROS Statement: Those systems with pertinent positive or pertinent negative responses have been documented in the HPI. ROS Other: All systems not noted in ROS Statement are negative. Past Medical History Past Medical History: Chest Pain / Angina, Sleep Apnea/CPAP/BIPAP Additional Past Medical History / Comment(s): no cpap used, hemorrhoids, pinched nerve in neck, torn tendon rt foot History of Any Multi-Drug Resistant Organisms: None Reported Past Surgical History: Ear Surgery, Tonsillectomy Additional Past Surgical History / Comment(s): tube rt ear, colonoscopy Past Anesthesia/Blood Transfusion Reactions: No Reported Reaction Past Psychological History: Depression Smoking Status: Former smoker Past Alcohol Use History: None Reported Past Drug Use History: None Reported - Past Family History Mother Family Medical History: No Reported History General Exam Limitations: no limitations General appearance: alert, in no apparent distress Head exam: Present: atraumatic, normocephalic Eye exam: Present: normal appearance, PERRL ENT exam: Present: normal exam Neck exam: Present: normal inspection. Absent: tenderness, meningismus Respiratory exam: Present: normal lung sounds bilaterally. Absent: respiratory distress, wheezes Cardiovascular Exam: Present: regular rate, normal rhythm GI/Abdominal exam: Present: soft. Absent: distended, tenderness Rectal exam: Present: other (Status post hemorrhoidectomy, there is granulation tissue, minimal surrounding erythema, tender with no active bleeding.). Absent : black stool, bloody stool Course Vital Signs 10/13/18 11:00 Temperature 97.7 F Pulse Rate 89 Respiratory 22 Rate Blood Pressure 174/98 O2 Sat by Pulse 99 Oximetry Medical Decision Making - Medical Decision Making 27-year-old male presenting with episode of rectal bleeding, 2 weeks postop hemorrhoidectomy. He has had hard stool with straining. Given the fact that he states postoperative discussed case with the patient's general surgeon, Dr. Monge, recommend Metamucil 3 times a day, increase water intake, and high- fiber diet. Continue Colace as prescribed. Monitor for more significant bleeding. Return with worsening or changing symptoms. Follow-up as an outpatient. Disposition Clinical Impression: Hemorrhoids Disposition: HOME SELF-CARE Condition: Good Instructions (If sedation given, give patient instructions): Rectal Bleeding ( ED), Hemorrhoids (ED) Additional Instructions: Please take Metamucil 3 times daily, increase water intake, continue Colace. Prescriptions: Docusate [Colace] 100 mg PO BID #30 capsule Psyllium Husk (with Sugar) [Metamucil Powder] 6 gm PO TID #822 gm Is patient prescribed a controlled substance at d/c from ED?: No Referrals: Jitendra Shields MD [Primary Care Provider] - 1-2 days David Monge MD [STAFF PHYSICIAN] - 1-2 days Time of Disposition: 11:29
== END 2018-10-13 11:36 | disposition home or self-care (01) ==
LOC: EC 10:55
DX: K64.9 Unspecified hemorrhoids (principal); K62.5 Hemorrhage of anus and rectum; Z87.891 Personal history of nicotine dependence; Z88.0 Allergy status to penicillin; Z91.030 Bee allergy status; Z98.890 Other specified postprocedural states
CPT/HCPCS: 99283

== ENCOUNTER 2018-12-26 20:19 | Observation (INO) | payer OTHER ==
--- NOTE | 2018-12-26 21:24 | ED ---
General Adult HPI - General Chief complaint: Chest Pain Stated complaint: Chest pain Time Seen by Provider: 12/26/18 21:01 Source: patient, family, RN notes reviewed, old records reviewed Mode of arrival: wheelchair Limitations: no limitations - History of Present Illness Initial comments: 28-year-old male history of hypertension and depression presenting for evaluation of central and left-sided chest pain. Symptoms began approximately 2 hours prior to arrival. Describes this as a pressure on his chest. He had some pain radiating to the left arm. Describes nausea without vomiting. Symptoms have improved but are still present during my evaluation. Patient has no known history of coronary artery disease. He was previously prescribed antihyp ertensive medications however he is not taking this medication regularly. He is a nonsmoker. - Related Data Previous Rx's Medication Instructions Recorded Docusate [Colace] 100 mg PO BID #20 capsule 09/29/18 Docusate [Colace] 100 mg PO BID #30 capsule 10/13/18 Psyllium Husk (with Sugar) 6 gm PO TID #822 gm 10/13/18 [Metamucil Powder] Allergies Allergy/AdvReac Type Severity Reaction Status Date / Time bee pollen Allergy Rash/Hives Verified 12/26/18 21:28 lactose Allergy Diarrhea Verified 12/26/18 21:33 Penicillins AdvReac Unknown Verified 12/26/18 21:28 Childhood Review of Systems ROS Statement: Those systems with pertinent positive or pertinent negative responses have been documented in the HPI. ROS Other: All systems not noted in ROS Statement are negative. Past Medical History Past Medical History: Chest Pain / Angina, Hypertension, Sleep Apnea/CPAP/BIPAP Additional Past Medical History / Comment(s): no cpap used, hemorrhoids, pinched nerve in neck, torn tendon rt foot History of Any Multi-Drug Resistant Organisms: None Reported Past Surgical History: Ear Surgery, Tonsillectomy Additional Past Surgical History / Comment(s): tube rt ear, colonoscopy Past Anesthesia/Blood Transfusion Reactions: No Reported Reaction Past Psychological History: Depression Smoking Status: Former smoker Past Alcohol Use History: None Reported Past Drug Use History: None Reported - Past Family History Mother Family Medical History: No Reported History General Exam Limitations: no limitations General appearance: alert, in no apparent distress Head exam: Present: atraumatic, normocephalic Eye exam: Present: normal appearance, PERRL ENT exam: Present: normal exam Neck exam: Present: normal inspection. Absent: tenderness, meningismus Respiratory exam: Present: normal lung sounds bilaterally. Absent: respiratory distress, wheezes Cardiovascular Exam: Present: regular rate, normal rhythm GI/Abdominal exam: Present: soft. Absent: distended, tenderness, guarding, rebound Extremities exam: Present: normal inspection, normal capillary refill. Absent: pedal edema, joint swelling, calf tenderness Neurological exam: Present: alert, oriented X3, CN II-XII intact. Absent: motor sensory deficit Psychiatric exam: Present: normal affect, normal mood Skin exam: Present: warm, dry, intact. Absent: cyanosis, diaphoretic Course Vital Signs 12/26/18 20:33 Temperature 98.8 F Pulse Rate 78 Respiratory 18 Rate Blood Pressure 150/93 O2 Sat by Pulse 98 Oximetry EKG Findings - EKG Comments: EKG Findings:: EKG: Normal sinus rhythm, rate 71, MO interval 144, QRS duration 90, QTC 432, no ST segment elevation or T wave inversion in lead 3 Medical Decision Making - Medical Decision Making 28-year-old male history of hypertension, obesity presenting for evaluation of chest pain. Pain as described was typical and concerning for ACS. EKG negative for ST segment elevation. Chest x-ray is negative for acute cardiopulmonary disease, normal CBC, normal CMP, initial troponin 0.016, this was drawn approximately 2 hours after symptom onset. Patient's history is concerning, he does have risk factors. He will be kept for serial cardiac enzymes, telemetry, cardiology consultation. He is started on heparin with concern for unstable angina. - Lab Data Result diagrams: 12/26/18 21:44 12/26/18 21:44 Lab Results 12/26/18 12/26/18 12/26/18 Range/Units 21:44 21:44 21:44 WBC 7.8 (3.8-10.6) k/uL RBC 4.82 (4.30-5.90) m/uL Hgb 15.7 (13.0-17.5) gm/dL Hct 43.4 (39.0-53.0) % MCV 90.1 (80.0-100.0) fL MCH 32.5 (25.0-35.0) pg MCHC 36.1 (31.0-37.0) g/dL RDW 13.3 (11.5-15.5) % Plt Count 212 (150-450) k/uL Neutrophils % 39 % Lymphocytes % 48 % Monocytes % 4 % Eosinophils % 5 % Basophils % 1 % Neutrophils # 3.0 (1.3-7.7) k/uL Lymphocytes # 3.7 (1.0-4.8) k/uL Monocytes # 0.3 (0-1.0) k/uL Eosinophils # 0.4 (0-0.7) k/uL Basophils # 0.1 (0-0.2) k/uL PT 10.0 (9.0-12.0) sec INR 0.9 (<1.2) APTT 26.8 (22.0-30.0) sec Sodium 139 (137-145) mmol/L Potassium 4.6 (3.5-5.1) mmol/L Chloride 108 H (98-107) mmol/L Carbon Dioxide 25 (22-30) mmol/L Anion Gap 6 mmol/L BUN 13 (9-20) mg/dL Creatinine 0.73 (0.66-1.25) mg/dL Est GFR (CKD-EPI)AfAm >90 (>60 ml/min/1.73 sqM) Est GFR (CKD-EPI)NonAf >90 (>60 ml/min/1.73 sqM) Glucose 118 H (74-99) mg/dL Calcium 9.0 (8.4-10.2) mg/dL Magnesium 1.9 (1.6-2.3) mg/dL Total Bilirubin 0.9 (0.2-1.3) mg/dL AST 45 (17-59) U/L ALT 50 (21-72) U/L Alkaline Phosphatase 92 (38-126) U/L Troponin I (0.000-0.034) ng/mL Total Protein 7.2 (6.3-8.2) g/dL Albumin 4.1 (3.5-5.0) g/dL Lipase 89 (23-300) U/L 12/26/18 Range/Units 21:44 WBC (3.8-10.6) k/uL RBC (4.30-5.90) m/uL Hgb (13.0-17.5) gm/dL Hct (39.0-53.0) % MCV (80.0-100.0) fL MCH (25.0-35.0) pg MCHC (31.0-37.0) g/dL RDW (11.5-15.5) % Plt Count (150-450) k/uL Neutrophils % % Lymphocytes % % Monocytes % % Eosinophils % % Basophils % % Neutrophils # (1.3-7.7) k/uL Lymphocytes # (1.0-4.8) k/uL Monocytes # (0-1.0) k/uL Eosinophils # (0-0.7) k/uL Basophils # (0-0.2) k/uL PT (9.0-12.0) sec INR (<1.2) APTT (22.0-30.0) sec Sodium (137-145) mmol/L Potassium (3.5-5.1) mmol/L Chloride (98-107) mmol/L Carbon Dioxide (22-30) mmol/L Anion Gap mmol/L BUN (9-20) mg/dL Creatinine (0.66-1.25) mg/dL Est GFR (CKD-EPI)AfAm (>60 ml/min/1.73 sqM) Est GFR (CKD-EPI)NonAf (>60 ml/min/1.73 sqM) Glucose (74-99) mg/dL Calcium (8.4-10.2) mg/dL Magnesium (1.6-2.3) mg/dL Total Bilirubin (0.2-1.3) mg/dL AST (17-59) U/L ALT (21-72) U/L Alkaline Phosphatase (38-126) U/L Troponin I 0.016 (0.000-0.034) ng/mL Total Protein (6.3-8.2) g/dL Albumin (3.5-5.0) g/dL Lipase (23-300) U/L Critical Care Time Critical Care Time: Yes Total Critical Care Time: 35 Disposition Clinical Impression: Unstable angina pectoris Disposition: ADMITTED IP TO THIS [facility] Condition: Stable Is patient prescribed a controlled substance at d/c from ED?: No Referrals: Jitendra Shields MD [Primary Care Provider] - 1-2 days Decision to Admit Reason: Admit from EC Decision Date: 12/26/18 Decision Time: 23:37
[2018-12-26 22:04] LABS: Basophils # (A) 0.1 k/uL (0-0.2); Basophils % (A) 1 %; Eosinophils # (A) 0.4 k/uL (0-0.7); Eosinophils % (A) 5 %; HCT 43.4 % (39.0-53.0); HGB 15.7 gm/dL (13.0-17.5); Lymphocytes # (A) 3.7 k/uL (1.0-4.8); Lymphocytes % (A) 48 %; MCH 32.5 pg (25.0-35.0); MCHC 36.1 g/dL (31.0-37.0); MCV 90.1 fL (80.0-100.0); Monocytes # (A) 0.3 k/uL (0-1.0); Monocytes % (A) 4 %; Neutrophils % (A) 39 %; Platelet Count 212 k/uL (150-450); RBC 4.82 m/uL (4.30-5.90); RDW 13.3 % (11.5-15.5); WBC 7.8 k/uL (3.8-10.6)
[2018-12-26 22:11] LABS: ALT 50 U/L (21-72); AST 45 U/L (17-59); Albumin 4.1 g/dL (3.5-5.0); Alkaline Phosphatase 92 U/L (38-126); Anion Gap 6 mmol/L; Blood Urea Nitrogen 13 mg/dL (9-20); Carbon Dioxide 25 mmol/L (22-30); Chloride 108 mmol/L (98-107); Glucose 118 mg/dL (74-99); Lipase 89 U/L (23-300); Magnesium 1.9 mg/dL (1.6-2.3); Sodium 139 mmol/L (137-145); Total Bilirubin 0.9 mg/dL (0.2-1.3); Total Protein 7.2 g/dL (6.3-8.2)
[2018-12-26 22:20] LABS: Potassium 4.6 mmol/L (3.5-5.1)
--- NOTE | 2018-12-26 22:22 | XR ---
EXAM: XR Chest, 2 Views CLINICAL HISTORY: ITS.REASON XR Reason: Chest Pain TECHNIQUE: Frontal and lateral views of the chest. COMPARISON: 07/31/18 FINDINGS: Lungs: Unremarkable. No consolidation. Pleural space: Unremarkable. No pneumothorax. Heart: Unremarkable. No cardiomegaly. Mediastinum: Unremarkable. Bones/joints: Unremarkable. IMPRESSION: No evidence of acute cardiopulmonary disease.
[2018-12-26 22:30] LABS: INR 0.9 (<1.2); Partial Thromboplastin Time 26.8 sec (22.0-30.0)
[2018-12-26] MEDS ORDERED: ASPIRIN 325 MG TAB PO STA (23:12)
[2018-12-26] MEDS ORDERED: HEPARIN SODIUM,PORCINE 5,000 UNIT/ML 1 ML VIAL IV PRN (23:23)
[2018-12-26] MEDS ORDERED: HEPARIN SODIUM,PORCINE 5,000 UNIT/ML 1 ML VIAL IV ONE (23:23)
[2018-12-26] MEDS ORDERED: HEPARIN SOD,PORK IN 0.45% NACL 25,000 UNIT in 0.45% NACL 1 250ML.BAG IV SCH (23:30)
[2018-12-26] MEDS ORDERED: NALOXONE 0.4 MG/ML 1 ML VIAL IV PRN (23:31)
[2018-12-26] MEDS ORDERED: ONDANSETRON 4 MG/2 ML VIAL IVP PRN (23:31)
[2018-12-26] MEDS ORDERED: MORPHINE SULFATE 4 MG/ML SYRINGE IV PRN (23:31)
[2018-12-26] MEDS ORDERED: ACETAMINOPHEN TAB 325 MG TAB PO PRN (23:31)
[2018-12-26] MEDS ORDERED: NITROGLYCERIN SL TABS 0.4 MG TAB SUBLINGUAL PRN (23:33)
[2018-12-26] MEDS ORDERED: ATORVASTATIN 40 MG TAB PO STA (23:34)
[2018-12-27 06:10] LABS: Basophils # (A) 0.1 k/uL (0-0.2); Basophils % (A) 1 %; Eosinophils # (A) 0.4 k/uL (0-0.7); Eosinophils % (A) 5 %; HCT 42.7 % (39.0-53.0); HGB 14.7 gm/dL (13.0-17.5); Lymphocytes # (A) 3.6 k/uL (1.0-4.8); Lymphocytes % (A) 46 %; MCH 30.7 pg (25.0-35.0); MCHC 34.3 g/dL (31.0-37.0); MCV 89.5 fL (80.0-100.0); Mean Platelet Volume 7.3; Monocytes # (A) 0.4 k/uL (0-1.0); Monocytes % (A) 5 %; Neutrophils # (A) 3.2 k/uL (1.3-7.7); Neutrophils % (A) 41 %; Platelet Count 191 k/uL (150-450); RBC 4.77 m/uL (4.30-5.90); RDW 14.6 % (11.5-15.5); WBC 7.9 k/uL (3.8-10.6)
[2018-12-27] MEDS ORDERED: amLODIPine 5 MG TAB PO SCH (09:00)
--- NOTE | 2018-12-27 09:47 | CONS ---
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 He is supposed to take antihypertensive medications, but he just does not take them because he does not believe in taking drugs. He is here because of an episode of discomfort in the chest. He described this as a sharp pain that seems to come and go, lasts a few seconds each time. It started about 2 to 3 hours before he came into the hospital. The pain was sharp in nature, lasted a few seconds, came and went very atypical in quality. He has had a Lexiscan stress test in May of last year and I reviewed the images. Because of his obesity and associated artifact, there are some questionable defects, but there is no clear-cut ischemia. Ejection fraction is fair. The gating was not done very well. At the time of my evaluation, he is resting comfortably without symptoms. Additionally, he also has a sleep apnea but does not follow CPAP on a regular basis. PAST MEDICAL HISTORY: Obesity, hypertension, hemorrhoid surgery, probable obstructive sleep apnea syndrome. MEDICATIONS: Medications at home include he takes ibuprofen and Colace. He has not been taking antihypertensives. ALLERGIES: He is allergic to PENICILLIN. PHYSICAL EXAMINATION: On examination, blood pressure is 142/80, pulse rate is about 68 per minute, regular. HEENT unremarkable. Fundus was not examined by me. Neck is supple. No JVD. I do not hear a carotid bruit. There is no thyromegaly. Heart exam reveals S1, S2 heard normally. Heart sounds are distant. Lungs are clear. Abdomen is soft, nontender. Lower extremities reveal normal pulses. No edema. Central nervous system is normal. EKG reveals sinus mechanism, no acute changes. Laboratory data revealed 2 unremarkable troponins. IMPRESSION: 1. Atypical chest pain in a patient with an unremarkable Lexiscan stress test based on my review from May. 2. Obesity. 3. Hypertension, noncompliant with medications. 4. Probable sleep apnea syndrome. RECOMMENDATIONS: I am recommending that we will obtain an echocardiogram. We will discontinue IV heparin, increase activity and discharge the patient and follow up with his primary care physician. The clinical setting does not suggest any pulmonary embolism type picture and I explained this to the patient. He also had a CT angiography that was performed in July of last year which was also unremarkable. I am recommending an echocardiogram, amlodipine 5 mg for BP control, increased activity and discharged today after echocardiogram. I am recommending that he should have an outpatient evaluation for obstructive sleep apnea. This note will go to his primary care physician, Dr. Shields and hopefully he will have this workup performed as an outpatient. I have also advised him regarding a low-calorie low carb diet. No cardiac testing at this time other than echocardiogram. Thank you very much for the consult. MMODL / IJN: [id number] /
--- NOTE | 2018-12-27 10:48 | ECHOF ---
Referral Reason:cp MEASUREMENTS -------- HEIGHT: 182.9 cm WEIGHT: 138.3 kg BP: IVSd: 1.6 cm (0.6 - 1.1) LVIDd: 4.0 cm (3.9 - 5.3) LVPWd: 1.8 cm (0.6 - 1.1) IVSs: 2.1 cm LVIDs: 2.5 cm LVPWs: 2.0 cm Ao Diam: 2.7 cm (2.0 - 3.7) AV Cusp: 2.0 cm (1.5 - 2.6) LA Diam: 3.3 cm (2.7 - 3.8) MV EXCURSION: 13.666 mm (> 18.000) MV EF SLOPE: 85 mm/s (70 - 150) EPSS: 1.1 cm MV E Jarvis: 0.92 m/s MV DecT: 179 ms MV A Jarvis: 0.47 m/s MV E/A Ratio: 1.97 RAP: 5.00 mmHg RVSP: 12.23 mmHg FINDINGS -------- Sinus rhythm. This was a technically difficult study with suboptimal views. Morbid Obesity The left ventricular size is normal. There is moderate concentric left ventricular hypertrophy. O verall left ventricular systolic function is normal with, an EF between 55 - 60 %. The right ventricle is normal in size. The left atrial size is normal. The right atrial size is normal. 1.5MG OF DEFINITY UTLIZED: 2 OR MORE WALL SEGMENTS NOT VISUALIZED. The aortic valve was not well visualized. The mitral valve leaflets are mildly thickened. Mild mitral annular calcification present. There is trace mitral regurgitation. The tricuspid valve was not well visualized. Trace tricuspid regurgitation present. The right anderson tricular systolic pressure, as measured by Doppler, is 12.23mmHg. The pulmonic valve was not well visualized. The aortic root size is normal. IVC Not well visulized. There is no pericardial effusion. CONCLUSIONS -------- 1. Sinus rhythm. 2. This was a technically difficult study with suboptimal views. 3. The left ventricular size is normal. 4. There is moderate concentric left ventricular hypertrophy. 5. Overall left ventricular systolic function is normal with, an EF between 55 - 60 %. 6. The right ventricle is normal in size. 7. The left atrial size is normal. 8. The right atrial size is normal. 9. 1.5MG OF DEFINITY UTLIZED: 2 OR MORE WALL SEGMENTS NOT VISUALIZED. 10. The aortic valve was not well visualized. 11. The mitral valve leaflets are mildly thickened. 12. Mild mitral annular calcification present. 13. There is trace mitral regurgitation. 14. The tricuspid valve was not well visualized. 15. Trace tricuspid regurgitation present. 16. The right ventricular systolic pressure, as measured by Doppler, is 12.23mmHg. 17. The pulmonic valve was not well visualized. 18. The aortic root size is normal. 19. IVC Not well visulized. 20. There is no pericardial effusion. RADIOLOGIC TECHNOLOGY INSTRUCTOR: Amarilys Nava RDCS
[2018-12-27] MEDS ORDERED: MORPHINE ORAL SOLN 10 MG/5 ML CUP PO PRN (11:42)
[2018-12-27 12:14] VITALS: PULSE 81; TEMP 97.5
[2018-12-27 12:15] VITALS: BP 162/70; RESP 18
--- NOTE | 2018-12-27 15:15 | P.DS ---
Providers Date of admission: 12/26/18 23:32 Attending physician: Edison Nava Consults: 12/26/18 23:32 Consult Physician Routine Consulting Provider: Crow Carlson Consult Reason/Comments: UA Do you want consulting provider notified?: Yes Primary care physician: Alyson Ham [place] Hospital Course: As mentioned in HPI Patient Condition at Discharge: Stable Plan - Discharge Summary Discharge Rx Participant: No New Discharge Prescriptions: New amLODIPine [Norvasc] 5 mg PO DAILY #30 tab Continue Ibuprofen [Motrin] 800 mg PO TID Citalopram Hydrobromide [CeleXA] 40 mg PO DAILY ARIPiprazole [Abilify] 5 mg PO DAILY Discharge Medication List ARIPiprazole [Abilify] 5 mg PO DAILY 12/27/18 [History] Citalopram Hydrobromide [CeleXA] 40 mg PO DAILY 12/27/18 [History] Ibuprofen [Motrin] 800 mg PO TID 12/27/18 [History] amLODIPine [Norvasc] 5 mg PO DAILY #30 tab 12/27/18 [Rx] Follow up Appointment(s)/Referral(s): Iggy Hammonds MD [STAFF PHYSICIAN] - 01/22/19 2:15 pm (pt to follow up with primary refractory specialist, Dr. Fleming January 22, 2019 at 2:15pm.) Jitendra Shields MD [Primary Care Provider] - 1-2 days Patient Instructions/Handouts: Chest Pain (DC) Discharge Disposition: HOME SELF-CARE
--- NOTE | 2018-12-27 15:15 | P.HPIM ---
History of Present Illness Patient is a 22-year-old male came in with complaints of chest pain that on the left side of the chest pressure-like as a sharp does have reproducible chest pain is comparing of some shortness of breath has been going on for few days constant nonexertional no associated diaphoresisassociated light headedness does have radiation of the left arm. Patient EKG did not show any acute ST-T wave changes troponins are negative ruled out acute current syndromes echocardiogram was opted which did not show any wall motion abnormalities normal ejection fraction patient has a stress test in May last year. Patient appears to [place] skeletal the chest pain. D-dimer is negative patient is cleared by cardiology to be discharged to follow up as an outpatient. Patient blood pressure is high. He to be noncompliant with medication recommendations at and patient will be started on 5 mg of amlodipine. Patient is obese extensive cou nseling regarding obesity was provided if he loses weight patient may not require any medications for hypertension. Patient does have sleep apnea uses CPAP machine at nighttime. Review of Systems REVIEW OF SYSTEMS: CONSTITUTIONAL: No fever, no malaise, no fatigue. HEENT: No recent visual problems or hearing problems. Denied any sore throat. CARDIOVASCULAR: No orthopnea, PND, no palpitations, no syncope. PULMONARY: No shortness of breath, no cough, no hemoptysis. GASTROINTESTINAL: No diarrhea, no nausea, no vomiting, no abdominal pain. NEUROLOGICAL: No headaches, no weakness, no numbness. HEMATOLOGICAL: Denies any bleeding or petechiae. GENITOURINARY: Denies any burning micturition, frequency, or urgency. MUSCULOSKELETAL/RHEUMATOLOGICAL: Denies any joint pain, swelling, or any muscle pain. ENDOCRINE: Denies any polyuria or polydipsia. The rest of the 14-point review of systems is negative. Past Medical History Past Medical History: Chest Pain / Angina, Hypertension, Sleep Apnea/CPAP/BIPAP Additional Past Medical History / Comment(s): no cpap used, hemorrhoids, pinched nerve in neck, torn tendon rt foot History of Any Multi-Drug Resistant Organisms: None Reported Past Surgical History: Ear Surgery, Tonsillectomy Additional Past Surgical History / Comment(s): tube rt ear, colonoscopy Past Anesthesia/Blood Transfusion Reactions: No Reported Reaction Past Psychological History: Depression Additional Psychological History / Comment(s): past hx Smoking Status: Former smoker Past Alcohol Use History: None Reported Past Drug Use History: None Reported - Past Family History Mother Family Medical History: No Reported History Medications and Allergies Home Medications Medication Instructions Recorded Confirmed Type ARIPiprazole [Abilify] 5 mg PO DAILY 12/27/18 12/27/18 History Citalopram Hydrobromide [CeleXA] 40 mg PO DAILY 12/27/18 12/27/18 History Ibuprofen [Motrin] 800 mg PO TID 12/27/18 12/27/18 History amLODIPine [Norvasc] 5 mg PO DAILY #30 tab 12/27/18 Rx Allergies Allergy/AdvReac Type Severity Reaction Status Date / Time bee pollen Allergy Rash/Hives Verified 12/27/18 00:30 lactose Allergy Diarrhea Verified 12/27/18 00:30 Penicillins AdvReac Unknown Verified 12/27/18 00:30 Childhood Physical Exam Vitals: Vital Signs Temp Pulse Pulse Pulse Pulse Resp BP 12/27/18 12:00 97.5 F L 81 18 12/27/18 08:00 97.6 F 76 18 12/27/18 04:00 98.0 F 68 15 12/27/18 03:17 15 12/27/18 00:00 98.4 F 77 15 12/26/18 23:53 87 16 139/86 12/26/18 20:33 98.8 F 78 18 150/93 BP BP Pulse Ox 12/27/18 12:00 162/70 12/27/18 08:00 173/83 98 12/27/18 04:00 157/71 98 12/27/18 03:17 12/27/18 00:00 142/83 97 12/26/18 23:53 100 12/26/18 20:33 98 Intake and Output 12/27/18 12/27/18 12/27/18 06:59 14:59 22:59 Intake Total 55.037 240 Balance 55.037 240 Intake: Intake, IV Titration 55.037 Amount Heparin Sod,Pork in 0.45% 55.037 NaCl 25,000 unit In 0.45 % NaCl 1 250ml.bag @ 7 UNITS/KG/HR 9.684 mls/hr IV .Q24H [facility] Rx#: [id number] Oral 240 Other: Voiding Method Toilet Toilet # Voids 1 PHYSICAL EXAMINATION: GENERAL: The patient is alert and oriented x3, not in any acute distress. Obese HEENT: Pupils are round and equally reacting to light. EOMI. No scleral icterus. No conjunctival pallor. Normocephalic, atraumatic. No pharyngeal erythema. No thyromegaly. CARDIOVASCULAR: S1 and S2 present. No murmurs, rubs, or gallops. PULMONARY: Chest is clear to auscultation, no wheezing or crackles. ABDOMEN: Soft, nontender, nondistended, normoactive bowel sounds. No palpable organomegaly. MUSCULOSKELETAL: No joint swelling or deformity. EXTREMITIES: No cyanosis, clubbing, or pedal edema. NEUROLOGICAL: Gross neurological examination did not reveal any focal deficits. SKIN: No rashes. Results CBC & Chem 7: 12/27/18 05:40 12/26/18 21:44 Labs: Abnormal Lab Results - Last 24 Hours (Table) 12/26/18 12/27/18 Range/Units 21:44 05:40 APTT 31.0 H (22.0-30.0) sec Chloride 108 H (98-107) mmol/L Glucose 118 H (74-99) mg/dL Thrombosis Risk Factor Assmnt - Choose All That Apply Any of the Below Risk Factors Present?: Yes Each Factor Represents 1 point: Obesity (BMI >25) Other Risk Factors: No Other congenital or acquired thrombophilia - If yes, enter type in comment: No Thrombosis Risk Factor Assessment Total Risk Factor Score: 1 Thrombosis Risk Factor Assessment Level: Low Risk Assessment and Plan Plan: -Chest pain atypical and musculoskeletal ruled out acute, syndromes and unstable angina cleared by cardiology will be discharged today as mentioned above -Possible essential hypertension at counseling was provided low salt diet counseling was provided patient was started on amlodipine. -Obstructive sleep apnea uses CPAP machine at home patient will resume that -Obesity: Counseling was provided as mentioned above -Depression Patient will be discharged today echocardiogram did not show any wall motion abnormality is as mentioned above.
== END 2018-12-27 12:40 | disposition home or self-care (01) ==
LOC: EC 20:19 → 1SOBS 23:32 → INTOOBSV 23:32 → OBSVTOIN 23:32 → 1SOBS 23:51 → UNDODISIN 12-27 12:40
PROVIDERS: ADMIT Hospitalist; ATTEND Hospitalist
DX: R07.89 Other chest pain (principal); I10 Essential (primary) hypertension; G47.33 Obstructive sleep apnea (adult) (pediatric); F32.9 Major depressive disorder, single episode, unspecified; E66.9 Obesity, unspecified; Z68.41 Body mass index [BMI] 40.0-44.9, adult; Z91.14 Patient's other noncompliance with medication regimen; Z79.1 Long term (current) use of non-steroidal anti-inflammatories (NSAID); Z79.899 Other long term (current) drug therapy; Z88.0 Allergy status to penicillin; Z91.030 Bee allergy status; Z91.011 Allergy to milk products; Z87.891 Personal history of nicotine dependence; Z99.89 Dependence on other enabling machines and devices
CPT/HCPCS: 96366; 96376 ×2; 96365; 99291; 36415; 93005; 80053; 83690; 83735; 84484 ×2; 85025 ×2; 85610; 85730 ×2; 71046; G0378 ×2; C8929; J1644 ×3; Q9950; 93306; 96374

== ENCOUNTER 2019-01-11 15:55 | Emergency (ER) | payer OTHER ==
[2019-01-11 16:13] VITALS: TEMP 98.3
[2019-01-11] MEDS ORDERED: IBUPROFEN 600 MG TAB PO STA (17:11)
--- NOTE | 2019-01-11 17:22 | ED ---
Chest Pain HPI - General Chief Complaint: Chest Pain Stated Complaint: CHEST PAIN Time Seen by Provider: 01/11/19 16:14 Source: patient Mode of arrival: ambulatory Limitations: no limitations - History of Present Illness Initial Comments: Patient is a 28-year-old male presents to emergency department with a chief complaint of chest pain after a fall. Patient states the pain started 2 days ago when he was jogging, he tripped and fell forward on his left arm. Patient states the pain is specifically located along the left mid axillary line. Patient states the pains in an 8 and does not radiate anywhere. Patient states the pain is is exacerbated when he tries to raise his shoulder. Patient states his been taking ibuprofen 800 every 8 hours for the past 2 days. Patient states that he feels slightly out of breath but states that is normal for an due to his asthma. - Related Data Home Medications Medication Instructions Recorded Confirmed ARIPiprazole [Abilify] 5 mg PO DAILY 12/27/18 01/11/19 Citalopram Hydrobromide [CeleXA] 40 mg PO DAILY 12/27/18 01/11/19 Ibuprofen [Motrin] 800 mg PO TID 12/27/18 01/11/19 Previous Rx's Medication Instructions Recorded amLODIPine [Norvasc] 5 mg PO DAILY #30 tab 12/27/18 Allergies Allergy/AdvReac Type Severity Reaction Status Date / Time bee pollen Allergy Rash/Hives Verified 01/11/19 16:49 lactose Allergy Diarrhea Verified 01/11/19 16:49 Penicillins AdvReac Unknown Verified 01/11/19 16:49 Childhood Review of Systems ROS Statement: Those systems with pertinent positive or pertinent negative responses have been documented in the HPI. ROS Other: All systems not noted in ROS Statement are negative. Past Medical History Past Medical History: Chest Pain / Angina, Hypertension, Sleep Apnea/CPAP/BIPAP Additional Past Medical History / Comment(s): no cpap used, hemorrhoids, pinched nerve in neck, torn tendon rt foot History of Any Multi-Drug Resistant Organisms: None Reported Past Surgical History: Ear Surgery, Tonsillectomy Additional Past Surgical History / Comment(s): tube rt ear, colonoscopy Past Anesthesia/Blood Transfusion Reactions: No Reported Reaction Past Psychological History: Depression Smoking Status: Former smoker Past Alcohol Use History: None Reported Past Drug Use History: None Reported - Past Family History Mother Family Medical History: No Reported History General Exam Limitations: no limitations General appearance: alert, in no apparent distress, obese Head exam: Present: atraumatic, normocephalic, normal inspection Eye exam: Present: normal appearance, PERRL, EOMI. Absent: scleral icterus, conjunctival injection Pupils: Present: normal accommodation ENT exam: Present: normal exam, mucous membranes moist Neck exam: Present: normal inspection, full ROM. Absent: lymphadenopathy Respiratory exam: Present: normal lung sounds bilaterally. Absent: respiratory distress, wheezes, rales, rhonchi, stridor Cardiovascular Exam: Present: regular rate, normal rhythm, normal heart sounds GI/Abdominal exam: Present: soft, tenderness (Left mid axillary line near 7.), normal bowel sounds Extremities exam: Present: normal inspection Left Shoulder Exam: Present: full ROM (Shoulder abduction flexion and extension due to pain), tenderness (Pain with shoulder abduction). Absent: swelling, abrasion, laceration, ecchymosis Upper Arm exam: Present: full ROM. Absent: normal inspection, tenderness, swelling Elbow exam: Present: normal inspection, full ROM Forearm Wrist exam: Present: normal inspection, full ROM Hand Wrist exam: Present: normal inspection, full ROM Vascular: Present: normal capillary refill. Absent: vascular compromise Back exam: Present: tenderness. Absent: full ROM, CVA tenderness (L), muscle spasm, paraspinal tenderness, vertebral tenderness Neurological exam: Present: alert, oriented X3 Psychiatric exam: Present: normal affect, normal mood Skin exam: Present: warm, normal color Course Vital Signs 01/11/19 16:10 Temperature 98.3 F Pulse Rate 88 Respiratory 20 Rate Blood Pressure 136/83 O2 Sat by Pulse 99 Oximetry Chest Pain [facility] - Differential Diagnosis muscle contusion, muscle sprain of serratus anterior - [facility] Patient is 28-year-old presented to the emergency department with left sided chest pain after fall. On physical examination it was determined that patient has muscle sprain/contusion in the left mid axillary line, scapula and shoulder. Patient was advised to continue alternating between Tylenol and ibuprofen for pain control. Patient was advised to follow-up with orthopedics. Patient also advised to return to emergency department if symptoms worsen. Case discussed with physician. - Wells Criteria Clinical Symptoms of DVT: (0) No No Alternative Diagnosis: (0) No Immobilization of Surgery in Previous 4 Weeks: (0) No Previous DVT/PE: (0) No Hemoptysis: (0) No Malignancy: (0) No - PERC Rule Heart Rate < 100: (0) No g: (0) No No Prior History pf DVT/PE: (0) No No Recent Trauma or Surgery: (1) Yes Hemoptysis: (0) No No Exogenous Estrogen: (0) No No Clinical Signs Suggesting DVT: (0) No Disposition Clinical Impression: Muscle contusion Disposition: HOME SELF-CARE Condition: Stable Instructions (If sedation given, give patient instructions): Contusion in Adults (ED) Additional Instructions: Please alternate Tylenol and ibuprofen for pain control. Please follow with orthopedics. Please return to emergency department if symptoms worsen. Is patient prescribed a controlled substance at d/c from ED?: No Referrals: Jitendra Shields MD [Primary Care Provider] - 1-2 days Zach Yuan DO [Medical Doctor] - 1-2 days Time of Disposition: 18:33
--- NOTE | 2019-01-11 17:52 | XR ---
EXAMINATION TYPE: XR chest 2V DATE OF EXAM: 01/11/2019 COMPARISON: 12/26/2018 HISTORY: Left-sided rib pain TECHNIQUE: Frontal and lateral views of the chest are obtained. FINDINGS: Heart and mediastinum are normal. Lungs are clear. Diaphragm is normal. Bony thorax appear s normal. Pulmonary vascularity is normal. IMPRESSION: Normal chest. No change.
--- NOTE | 2019-01-11 17:54 | XR ---
EXAMINATION TYPE: XR shoulder complete LT DATE OF EXAM: 01/11/2019 COMPARISON: NONE HISTORY: Left shoulder pain TECHNIQUE: 3 views FINDINGS: I see no fracture nor dislocation. Joint spaces are normal. There are no pathologic calcifi cations. IMPRESSION: Negative left shoulder exam.
[2019-01-11 18:42] VITALS: BP 137/96; PULSE 71; RESP 18
== END 2019-01-11 18:39 | disposition home or self-care (01) ==
LOC: EC 15:55
DX: S40.012A Contusion of left shoulder, initial encounter (principal); F32.9 Major depressive disorder, single episode, unspecified; G47.30 Sleep apnea, unspecified; Z99.89 Dependence on other enabling machines and devices; Z87.891 Personal history of nicotine dependence; Z79.899 Other long term (current) drug therapy; Z79.1 Long term (current) use of non-steroidal anti-inflammatories (NSAID); Z91.048 Other nonmedicinal substance allergy status; Z91.011 Allergy to milk products; Z88.0 Allergy status to penicillin; W01.0XXA Fall on same level from slipping, tripping and stumbling without subsequent striking against object, initial encounter; Y93.02 Activity, running; Y92.89 Other specified places as the place of occurrence of the external cause
CPT/HCPCS: 71046; 99283

== ENCOUNTER 2019-02-21 10:51 | Emergency (ER) | payer OTHER ==
[2019-02-21 11:04] VITALS: RESP 18
[2019-02-21] MEDS ORDERED: SODIUM CHLORIDE 0.9% 1,000 ML IV STA (11:23)
--- NOTE | 2019-02-21 11:23 | ED ---
General Adult HPI - General Chief complaint: Dizziness Stated complaint: Poss Dehydrated Time Seen by Provider: 02/21/19 11:05 Source: patient, EMS, RN notes reviewed Mode of arrival: EMS Limitations: no limitations - History of Present Illness Initial comments: 28-year-old male presents to the emergency department for a chief complaint of lightheadedness. Patient states that he was walking in the park with his when he suddenly felt somewhat dizzy and lightheaded. States that he has had diarrhea for the past several days about 4-5 times per day. Denies any abdominal pain or vomiting. Denies fevers or chills. Denies recent travel. Denies visiting any nursing homes. Patient states he may be dehydrated. States he has not been drinking as much water as normally either.Patient has no other complaints at this time including shortness of breath, chest pain, abdominal pain, nausea or vomiting, headache, or visual changes. - Related Data Home Medications Medication Instructions Recorded Confirmed ARIPiprazole [Abilify] 5 mg PO DAILY 12/27/18 02/21/19 Citalopram Hydrobromide [CeleXA] 40 mg PO DAILY 12/27/18 02/21/19 Naproxen [Naprosyn] 500 mg PO BID 02/21/19 02/21/19 tiZANidine [Zanaflex] 4 mg PO BID 02/21/19 02/21/19 Previous Rx's Medication Instructions Recorded amLODIPine [Norvasc] 5 mg PO DAILY #30 tab 12/27/18 Allergies Allergy/AdvReac Type Severity Reaction Status Date / Time bee pollen Allergy Rash/Hives Verified 02/21/19 11:35 lactose Allergy Diarrhea Verified 02/21/19 11:35 Penicillins AdvReac Unknown Verified 02/21/19 11:35 Childhood Review of Systems ROS Statement: Those systems with pertinent positive or pertinent negative responses have been documented in the HPI. ROS Other: All systems not noted in ROS Statement are negative. Past Medical History Past Medical History: Chest Pain / Angina, Hypertension, Sleep Apnea/CPAP/BIPAP Additional Past Medical History / Comment(s): no cpap used, hemorrhoids, pinched nerve in neck, torn tendon rt foot History of Any Multi-Drug Resistant Organisms: None Reported Past Surgical History: Ear Surgery, Tonsillectomy Additional Past Surgical History / Comment(s): tube rt ear, colonoscopy Past Anesthesia/Blood Transfusion Reactions: No Reported Reaction Past Psychological History: Depression Smoking Status: Former smoker Past Alcohol Use History: None Reported Past Drug Use History: None Reported - Past Family History Mother Family Medical History: No Reported History General Exam Limitations: no limitations General appearance: alert, in no apparent distress Head exam: Present: atraumatic, normocephalic, normal inspection Eye exam: Present: normal appearance, PERRL, EOMI. Absent: scleral icterus, conjunctival injection, periorbital swelling ENT exam: Present: normal exam, mucous membranes moist Neck exam: Present: normal inspection, full ROM. Absent: tenderness, meningismus, lymphadenopathy Respiratory exam: Present: normal lung sounds bilaterally. Absent: respiratory distress, wheezes, rales, rhonchi, stridor Cardiovascular Exam: Present: regular rate, normal rhythm, normal heart sounds. Absent: systolic murmur, diastolic murmur, rubs, gallop, clicks GI/Abdominal exam: Present: soft, normal bowel sounds. Absent: distended, tenderness, guarding, rebound, rigid Neurological exam: Present: alert, oriented X3, CN II-XII intact Psychiatric exam: Present: normal affect, normal mood Skin exam: Present: warm, dry, intact, normal color. Absent: rash Course Vital Signs 02/21/19 02/21/19 02/21/19 11:01 11:40 12:34 Temperature 98.1 F 97.3 F L Pulse Rate 91 72 67 Respiratory 18 18 18 Rate Blood Pressure 115/69 121/72 137/84 O2 Sat by Pulse 95 95 95 Oximetry Medical Decision Making - Medical Decision Making 28-year-old male presents for 2 days of diarrhea with some lightheadedness. States he was walking through the park when he started to feel lightheaded so came to the emergency department. No chest pain or shortness of breath. On exam patient does appear somewhat dehydrated. CBC is unremarkable. CMP unremarkable as well. Urine does have some blood in the urine, 27 red blood ce lls. Discussed with the patient he will follow up for this and repeat urine. After fluids patient doing much better. Denies any lightheadedness. Resting comfortably. Patient will be be discharged home, comfortable with this plan. Patient will return here for any worsening symptoms. - Lab Data Result diagrams: 02/21/19 11:37 02/21/19 11:37 Lab Results 02/21/19 02/21/19 02/21/19 Range/Units 11:37 11:37 11:40 WBC 8.5 (3.8-10.6) k/uL RBC 4.61 (4.30-5.90) m/uL Hgb 15.2 (13.0-17.5) gm/dL Hct 41.8 (39.0-53.0) % MCV 90.8 (80.0-100.0) fL MCH 32.9 (25.0-35.0) pg MCHC 36.3 (31.0-37.0) g/dL RDW 13.9 (11.5-15.5) % Plt Count 204 (150-450) k/uL Neutrophils % 49 % Lymphocytes % 34 % Monocytes % 5 % Eosinophils % 9 % Basophils % 1 % Neutrophils # 4.2 (1.3-7.7) k/uL Lymphocytes # 2.9 (1.0-4.8) k/uL Monocytes # 0.4 (0-1.0) k/uL Eosinophils # 0.8 H (0-0.7) k/uL Basophils # 0.1 (0-0.2) k/uL Sodium 140 (137-145) mmol/L Potassium 3.9 (3.5-5.1) mmol/L Chloride 111 H (98-107) mmol/L Carbon Dioxide 23 (22-30) mmol/L Anion Gap 6 mmol/L BUN 14 (9-20) mg/dL Creatinine 0.76 (0.66-1.25) mg/dL Est GFR (CKD-EPI)AfAm >90 (>60 ml/min/1.73 sqM) Est GFR (CKD-EPI)NonAf >90 (>60 ml/min/1.73 sqM) Glucose 100 H (74-99) mg/dL Calcium 8.4 (8.4-10.2) mg/dL Magnesium 1.9 (1.6-2.3) mg/dL Total Bilirubin 0.6 (0.2-1.3) mg/dL AST 31 (17-59) U/L ALT 37 (21-72) U/L Alkaline Phosphatase 89 (38-126) U/L Total Protein 5.9 L (6.3-8.2) g/dL Albumin 3.4 L (3.5-5.0) g/dL Urine Color Yellow Urine Appearance Clear (Clear) Urine pH 6.0 (5.0-8.0) Ur Specific [place] 1.034 (1.001-1.035) Urine Protein 1+ H (Negative) Urine Glucose (UA) Negative (Negative) Urine Ketones Negative (Negative) Urine Blood Small H (Negative) Urine Nitrite Negative (Negative) Urine Bilirubin Negative (Negative) Urine Urobilinogen 2.0 (<2.0) mg/dL Ur Leukocyte Esterase Negative (Negative) Urine RBC 23 H (0-5) /hpf Urine WBC 7 H (0-5) /hpf Ur Squamous Epith Cells <1 (0-4) /hpf Urine Mucus Occasional H (None) /hpf Disposition Clinical Impression: Diarrhea, Hematuria Disposition: HOME SELF-CARE Condition: Good Instructions (If sedation given, give patient instructions): Acute Diarrhea (ED), Hematuria (ED) Additional Instructions: Please drink plenty of fluids. Please follow-up with for repeat urine sample due to blood in urine. Return here for any worsening symptoms. Is patient prescribed a controlled substance at d/c from ED?: No Referrals: Jitendra Shields MD [Primary Care Provider] - 1-2 days Time of Disposition: 13:23
[2019-02-21 11:56] LABS: Basophils # (A) 0.1 k/uL (0-0.2); Basophils % (A) 1 %; Eosinophils # (A) 0.8 k/uL (0-0.7); Eosinophils % (A) 9 %; HCT 41.8 % (39.0-53.0); HGB 15.2 gm/dL (13.0-17.5); Lymphocytes # (A) 2.9 k/uL (1.0-4.8); Lymphocytes % (A) 34 %; MCH 32.9 pg (25.0-35.0); MCHC 36.3 g/dL (31.0-37.0); MCV 90.8 fL (80.0-100.0); Mean Platelet Volume 7.3; Monocytes # (A) 0.4 k/uL (0-1.0); Monocytes % (A) 5 %; Neutrophils # (A) 4.2 k/uL (1.3-7.7); Neutrophils % (A) 49 %; Platelet Count 204 k/uL (150-450); RBC 4.61 m/uL (4.30-5.90); RDW 13.9 % (11.5-15.5); WBC 8.5 k/uL (3.8-10.6)
[2019-02-21 12:01] LABS: Appearance,Urine Clear (Clear); Bilirubin,Urine Negative (Negative); Blood,Urine Small (Negative); Color,Urine Yellow; Glucose,Urine (UA) Negative (Negative); Ketones,Urine Negative (Negative); Leukocyte Esterase,Urine Negative (Negative); Mucus,Urine Occasional /hpf; Nitrite,Urine Negative (Negative); Protein,Urine 1+ (Negative); RBC,Urine 23 /hpf (0-5); Specific Gravity,Urine 1.034 (1.001-1.035); Squamous Epithelial Cell,Urine <1 /hpf (0-4); WBC,Urine 7 /hpf (0-5)
[2019-02-21 12:09] LABS: ALT 37 U/L (21-72); AST 31 U/L (17-59); African American GFR (CKD) >90 (>60 ml/min/1.73 sqM); Albumin 3.4 g/dL (3.5-5.0); Alkaline Phosphatase 89 U/L (38-126); Anion Gap 6 mmol/L; Blood Urea Nitrogen 14 mg/dL (9-20); Calcium 8.4 mg/dL (8.4-10.2); Carbon Dioxide 23 mmol/L (22-30); Chloride 111 mmol/L (98-107); Glucose 100 mg/dL (74-99); Magnesium 1.9 mg/dL (1.6-2.3); Potassium 3.9 mmol/L (3.5-5.1); Sodium 140 mmol/L (137-145); Total Bilirubin 0.6 mg/dL (0.2-1.3); Total Protein 5.9 g/dL (6.3-8.2)
[2019-02-21 12:35] VITALS: TEMP 97.3
[2019-02-21 13:47] VITALS: BP 132/65; PULSE 69
== END 2019-02-21 13:45 | disposition home or self-care (01) ==
LOC: EC 10:51
DX: R19.7 Diarrhea, unspecified (principal); R31.9 Hematuria, unspecified; R42 Dizziness and giddiness; F32.9 Major depressive disorder, single episode, unspecified; G47.30 Sleep apnea, unspecified; Z99.89 Dependence on other enabling machines and devices; Z87.891 Personal history of nicotine dependence; Z79.1 Long term (current) use of non-steroidal anti-inflammatories (NSAID); Z79.899 Other long term (current) drug therapy; Z91.048 Other nonmedicinal substance allergy status; Z91.011 Allergy to milk products; Z88.0 Allergy status to penicillin
CPT/HCPCS: 36415; 80053; 81001; 83735; 85025; 87086; 96360; 96361; 99284

== ENCOUNTER 2019-03-05 15:40 | Emergency (ER) | payer OTHER ==
[2019-03-05 15:50] VITALS: RESP 18
[2019-03-05] MEDS ORDERED: ASPIRIN 81 MG PO STA (16:17)
[2019-03-05] MEDS ORDERED: SODIUM CHLORIDE 0.9% 1,000 ML IV ONE (16:17)
[2019-03-05] MEDS ORDERED: MECLIZINE 12.5 MG TAB PO STA (16:29)
--- NOTE | 2019-03-05 16:30 | ED ---
General Adult HPI - General Chief complaint: Recheck/Abnormal Lab/Rx Stated complaint: dehydration Time Seen by Provider: 03/05/19 16:11 Source: patient Mode of arrival: ambulatory Limitations: no limitations - History of Present Illness Initial comments: Patient is a 28-year-old male who presents with a chief complaint of dizziness and one episode of vomiting. The patient said this happened approximately 1 hour prior to arrival. He says that he donated plasma today. He says he was walking home with a friend when he became dizzy. He sat down and had one episode of emesis. He has a history of hypertension, and depression. He states that he was kicked out of his house by his 2 weeks ago and has not had his meds in just as long. Patient also complains of mild chest pain today. - Related Data Home Medications Medication Instructions Recorded Confirmed ARIPiprazole [Abilify] 5 mg PO DAILY 12/27/18 03/05/19 Citalopram Hydrobromide [CeleXA] 40 mg PO DAILY 12/27/18 03/05/19 Naproxen [Naprosyn] 500 mg PO BID 02/21/19 03/05/19 tiZANidine [Zanaflex] 4 mg PO BID 02/21/19 03/05/19 Previous Rx's Medication Instructions Recorded amLODIPine [Norvasc] 5 mg PO DAILY #30 tab 12/27/18 Allergies Allergy/AdvReac Type Severity Reaction Status Date / Time bee pollen Allergy Rash/Hives Verified 03/05/19 16:33 lactose Allergy Diarrhea Verified 03/05/19 16:33 Penicillins AdvReac Unknown Verified 03/05/19 16:33 Childhood Review of Systems ROS Statement: Those systems with pertinent positive or pertinent negative responses have been documented in the HPI. ROS Other: All systems not noted in ROS Statement are negative. Gastrointestinal: Reports: nausea, vomiting Neurological: Reports: vertigo Past Medical History Past Medical History: Chest Pain / Angina, Hypertension, Sleep Apnea/CPAP/BIPAP Additional Past Medical History / Comment(s): no cpap used, hemorrhoids, pinched nerve in neck, torn tendon rt foot History of Any Multi-Drug Resistant Organisms: None Reported Past Surgical History: Ear Surgery, Tonsillectomy Additional Past Surgical History / Comment(s): tube rt ear, colonoscopy Past Anesthesia/Blood Transfusion Reactions: No Reported Reaction Past Psychological History: Depression Smoking Status: Former smoker Past Alcohol Use History: None Reported Past Drug Use History: None Reported - Past Family History Mother Family Medical History: No Reported History General Exam Limitations: no limitations General appearance: alert, in no apparent distress Head exam: Present: atraumatic, normocephalic Eye exam: Present: normal appearance, PERRL ENT exam: Present: normal exam Neck exam: Present: normal inspection Respiratory exam: Present: normal lung sounds bilaterally. Absent: respiratory distress, wheezes Cardiovascular Exam: Present: regular rate, normal rhythm GI/Abdominal exam: Present: soft. Absent: distended, tenderness Rectal exam: Present: deferred Extremities exam: Present: normal inspection Back exam: Present: normal inspection Neurological exam: Present: alert, oriented X3, CN II-XII intact Psychiatric exam: Present: normal affect, normal mood Skin exam: Present: warm, dry, intact Course Vital Signs 03/05/19 03/05/19 15:48 16:06 Temperature 98.5 F Pulse Rate 109 H 105 H Respiratory 18 18 Rate Blood Pressure 148/85 146/91 O2 Sat by Pulse 98 95 Oximetry Medical Decision Making - Medical Decision Making Patient presents with chief complaint of dizziness and vomiting. This happened after donating plasma. On initial evaluation, vitals are stable, patient is in no acute distress. Patient to be evaluated with basic labs including cardiac enzymes. He was given a dose of Antivert, IV fluid, and aspirin. 6:28 PM Evaluation this patient is unremarkable, cardiac enzymes are negative. Chest x- ray shows no acute process. Patient says he feels better after fluids and Antivert. Patient is stable for discharge. He was instructed to follow-up with primary care 1-2 days, return to ED if symptoms worsen or change. He was told to at the very least get his medications from home. Return to the ED if symptoms worsen or change. - Lab Data Result diagrams: 03/05/19 16:30 03/05/19 16:30 Lab Results 03/05/19 03/05/19 03/05/19 Range/Units 16:30 16:30 16:30 WBC 10.7 H (3.8-10.6) k/uL RBC 5.47 (4.30-5.90) m/uL Hgb 17.3 (13.0-17.5) gm/dL Hct 50.1 (39.0-53.0) % MCV 91.6 (80.0-100.0) fL MCH 31.6 (25.0-35.0) pg MCHC 34.5 (31.0-37.0) g/dL RDW 13.7 (11.5-15.5) % Plt Count 243 (150-450) k/uL Neutrophils % 74 % Lymphocytes % 17 % Monocytes % 5 % Eosinophils % 3 % Basophils % 1 % Neutrophils # 7.9 H (1.3-7.7) k/uL Lymphocytes # 1.9 (1.0-4.8) k/uL Monocytes # 0.5 (0-1.0) k/uL Eosinophils # 0.3 (0-0.7) k/uL Basophils # 0.1 (0-0.2) k/uL Sodium 141 (137-145) mmol/L Potassium 3.6 (3.5-5.1) mmol/L Chloride 108 H (98-107) mmol/L Carbon Dioxide 25 (22-30) mmol/L Anion Gap 8 mmol/L BUN 9 (9-20) mg/dL Creatinine 1.18 (0.66-1.25) mg/dL Est GFR (CKD-EPI)AfAm >90 (>60 ml/min/1.73 sqM) Est GFR (CKD-EPI)NonAf 84 (>60 ml/min/1.73 sqM) Glucose 133 H (74-99) mg/dL Calcium 8.6 (8.4-10.2) mg/dL Troponin I 0.023 (0.000-0.034) ng/mL Disposition Clinical Impression: Vertigo, Dehydration Disposition: HOME SELF-CARE Condition: Good Is patient prescribed a controlled substance at d/c from ED?: No Referrals: Jitendra Shields MD [Primary Care Provider] - 1-2 days
[2019-03-05 16:52] LABS: Basophils # (A) 0.1 k/uL (0-0.2); Basophils % (A) 1 %; Eosinophils # (A) 0.3 k/uL (0-0.7); Eosinophils % (A) 3 %; HCT 50.1 % (39.0-53.0); HGB 17.3 gm/dL (13.0-17.5); Lymphocytes # (A) 1.9 k/uL (1.0-4.8); Lymphocytes % (A) 17 %; MCH 31.6 pg (25.0-35.0); MCHC 34.5 g/dL (31.0-37.0); MCV 91.6 fL (80.0-100.0); Mean Platelet Volume 7.3; Monocytes # (A) 0.5 k/uL (0-1.0); Monocytes % (A) 5 %; Neutrophils # (A) 7.9 k/uL (1.3-7.7); Neutrophils % (A) 74 %; Platelet Count 243 k/uL (150-450); RBC 5.47 m/uL (4.30-5.90); RDW 13.7 % (11.5-15.5); WBC 10.7 k/uL (3.8-10.6)
[2019-03-05 17:00] LABS: African American GFR (CKD) >90 (>60 ml/min/1.73 sqM); Anion Gap 8 mmol/L; Blood Urea Nitrogen 9 mg/dL (9-20); Calcium 8.6 mg/dL (8.4-10.2); Carbon Dioxide 25 mmol/L (22-30); Chloride 108 mmol/L (98-107); Glucose 133 mg/dL (74-99); Potassium 3.6 mmol/L (3.5-5.1); Sodium 141 mmol/L (137-145)
--- NOTE | 2019-03-05 17:50 | XR ---
EXAMINATION TYPE: XR chest 2V DATE OF EXAM: 03/05/2019 COMPARISON: 01/11/2019 HISTORY: Chest pain TECHNIQUE: Frontal and lateral views of the chest are obtained. FINDINGS: Heart and mediastinum are normal. Lungs are clear. Diaphragm is normal. Bony thorax appear s normal. IMPRESSION: Normal chest. No change.
[2019-03-05 18:44] VITALS: BP 134/90; PULSE 98; TEMP 99.4
== END 2019-03-05 18:43 | disposition home or self-care (01) ==
LOC: EC 15:40
DX: E86.0 Dehydration (principal); R42 Dizziness and giddiness; R11.10 Vomiting, unspecified; R07.9 Chest pain, unspecified; F32.9 Major depressive disorder, single episode, unspecified; G47.30 Sleep apnea, unspecified; Z79.899 Other long term (current) drug therapy; Z88.0 Allergy status to penicillin; Z91.030 Bee allergy status; Z88.8 Allergy status to other drugs, medicaments and biological substances; Z87.891 Personal history of nicotine dependence
CPT/HCPCS: 36415; 71046; 80048; 84484; 85025; 93005; 96360; 99284

== ENCOUNTER → 2019-11-20 | Outpatient (CLI) | payer OTHER ==
--- NOTE | 2019-11-20 12:18 | XR ---
EXAMINATION TYPE: XR cervical spine comp DATE OF EXAM: 11/20/2019 TECHNIQUE: Frontal, lateral, oblique, swimmers, and open mouth view of the cervical spine are obtaine d. HISTORY: R52 neck pain. COMPARISON: None FINDINGS: The cervical spine is visualized in its entirety from C1 thru the top of T1 level, it is s traightened in alignment without evidence of acute fracture or dislocation. The pre-vertebral soft t issue appears within normal limits. The C1-C2 articulation is within normal limits on the open mouth view. Vertebral body heights are maintained. Mild anterior spurring C5-C6 level. Mild disc space na rrowing C6-C7 level. The oblique images are within normal limits. Overlying soft tissue is prominent felt to reflect product of patient's body habitus. IMPRESSION: As above.
--- NOTE | 2019-11-20 12:19 | XR ---
EXAMINATION TYPE: XR thoracic spine 2V DATE OF EXAM: 11/20/2019 CLINICAL HISTORY: Mid back pain for 3 days. TECHNIQUE: Frontal, lateral, and swimmer's view of thoracic spine are obtained. COMPARISON: None. FINDINGS: Thoracic spine show satisfactory alignment without evidence of acute fracture or dislocatio n. Vertebral body heights and disc space heights are preserved. Visualized ribs are unremarkable lolis aterally. IMPRESSION: As above.
--- NOTE | 2019-11-20 12:21 | XR ---
EXAMINATION TYPE: XR lumbar spine 2 or 3V DATE OF EXAM: 11/20/2019 CLINICAL HISTORY: Low back pain for 3 days. TECHNIQUE: Frontal and lateral images of the lumbar spine are obtained. COMPARISON: None FINDINGS: There are 5 lumbar type vertebral bodies identified. The lumbar spine shows straightened alignment without evidence of acute fracture or dislocation. Vertebral body heights and disk space he ights are within normal limits. The overlying soft tissue appears unremarkable. IMPRESSION: As above.
== END | disposition home or self-care (01) ==
LOC: RADXRMAIN 11:50
PROVIDERS: ATTEND Internal Medicine
DX: M54.2 Cervicalgia (principal); M54.6 Pain in thoracic spine
CPT/HCPCS: 72050; 72070; 72100

== ENCOUNTER → 2020-04-24 | Outpatient (CLI) | payer OTHER | END | disposition home or self-care (01) | LOC: LABWHC1 13:38 | PROVIDERS: ATTEND Emergency Medicine | DX: Z20.828 Contact with and (suspected) exposure to other viral communicable diseases (principal) | CPT/HCPCS: U0003; C9803 ==

== ENCOUNTER → 2020-05-26 | Outpatient (CLI) | payer OTHER | END | disposition home or self-care (01) | LOC: LABWHC1 08:35 | PROVIDERS: ATTEND Emergency Medicine | DX: Z20.828 Contact with and (suspected) exposure to other viral communicable diseases (principal) | CPT/HCPCS: U0003; C9803 ==

== ENCOUNTER → 2020-06-06 | Outpatient (CLI) | payer OTHER | END | disposition home or self-care (01) | LOC: LABWHC1 09:47 | PROVIDERS: ATTEND Emergency Medicine | DX: Z20.828 Contact with and (suspected) exposure to other viral communicable diseases (principal) ==

== ENCOUNTER → 2020-07-01 | Outpatient (CLI) | payer OTHER | END | disposition home or self-care (01) | LOC: LABWHC1 10:15 | PROVIDERS: ATTEND Emergency Medicine | DX: Z20.828 Contact with and (suspected) exposure to other viral communicable diseases (principal) | CPT/HCPCS: U0003; C9803 ==

== ENCOUNTER → 2020-08-21 | Outpatient (CLI) | payer OTHER | END | disposition home or self-care (01) | LOC: LABWHC1 11:12 | PROVIDERS: ATTEND Internal Medicine | DX: R05 Cough (principal); R50.9 Fever, unspecified | CPT/HCPCS: 87635; C9803 ==

== ENCOUNTER 2021-01-17 18:40 | Emergency (ER) | payer OTHER ==
[2021-01-17 18:43] VITALS: TEMP 98.3
[2021-01-17 19:34] LABS: Basophils # (A) 0.1 k/uL (0-0.2); Basophils % (A) 1 %; Eosinophils # (A) 0.4 k/uL (0-0.7); Eosinophils % (A) 5 %; HCT 45.4 % (39.0-53.0); HGB 16.5 gm/dL (13.0-17.5); Lymphocytes # (A) 2.6 k/uL (1.0-4.8); Lymphocytes % (A) 34 %; MCH 33.9 pg (25.0-35.0); MCHC 36.4 g/dL (31.0-37.0); MCV 93.2 fL (80.0-100.0); Monocytes # (A) 0.3 k/uL (0-1.0); Monocytes % (A) 4 %; Neutrophils # (A) 4.1 k/uL (1.3-7.7); Neutrophils % (A) 55 %; Platelet Count 202 k/uL (150-450); RBC 4.87 m/uL (4.30-5.90); RDW 12.2 % (11.5-15.5); WBC 7.5 k/uL (3.8-10.6)
[2021-01-17 19:43] LABS: ALT 119 U/L (4-49); AST 122 U/L (17-59); African American GFR (CKD) >90 (>60 ml/min/1.73 sqM); Albumin 4.6 g/dL (3.5-5.0); Alkaline Phosphatase 92 U/L (38-126); Anion Gap 7 mmol/L; Blood Urea Nitrogen 11 mg/dL (9-20); Calcium 8.9 mg/dL (8.4-10.2); Carbon Dioxide 27 mmol/L (22-30); Chloride 107 mmol/L (98-107); Glucose 93 mg/dL (74-99); Magnesium 2.2 mg/dL (1.6-2.3); Non-African American GFR(CKD) >90 (>60 ml/min/1.73 sqM); Sodium 141 mmol/L (137-145); Total Bilirubin 1.3 mg/dL (0.2-1.3); Total Protein 7.9 g/dL (6.3-8.2)
--- NOTE | 2021-01-17 20:05 | XR ---
EXAMINATION TYPE: XR chest 2V DATE OF EXAM: 01/17/2021 COMPARISON: 01/11/2019 HISTORY: Chest pain TECHNIQUE: 2 views FINDINGS: Heart and mediastinum are normal. Lungs are clear. Diaphragm is normal. Bony thorax is inta ct. There is no pneumothorax. IMPRESSION: Normal chest. No change.
--- NOTE | 2021-01-17 20:10 | ED ---
Dizziness HPI - General Chief Complaint: Dizziness Stated Complaint: Dizziness, Dehydration Time Seen by Provider: 01/17/21 19:05 Source: patient Mode of arrival: ambulatory Limitations: no limitations - History of Present Illness Initial Comments: 30yo male presenting to the ER today for chief complaint of lightheadedness. Patient states directly that he usually just sits on his couch placement plays video games eats and drinks soda he states he rarely drinks water. 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 Patient has a chest pain source of breath syncope nausea vomiting jaw pain and arm pain and dark stools bloody stools vomiting fevers cough upper respiratory symptoms sensation room is spinning visual loss headaches or additional complaints upon arrival patient appears well and nontoxic distress patient states I think I am dehydrated. Patient states he tried a smoker water prior to coming - Related Data Home Medications Medication Instructions Recorded Confirmed No Known Home Medications 01/17/21 01/17/21 Allergies Allergy/AdvReac Type Severity Reaction Status Date / Time bee pollen Allergy Rash/Hives Verified 01/17/21 20:13 lactose Allergy Diarrhea Verified 01/17/21 20:13 Penicillins AdvReac Unknown Verified 01/17/21 20:13 Childhood Review of Systems ROS Statement: Those systems with pertinent positive or pertinent negative responses have been documented in the HPI. ROS Other: All systems not noted in ROS Statement are negative. Past Medical History Past Medical History: Chest Pain / Angina, Hypertension, Sleep Apnea/CPAP/BIPAP Additional Past Medical History / Comment(s): no cpap used, hemorrhoids, pinched nerve in neck, torn tendon rt foot History of Any Multi-Drug Resistant Organisms: None Reported Past Surgical History: Ear Surgery, Tonsillectomy Additional Past Surgical History / Comment(s): tube rt ear, colonoscopy Past Anesthesia/Blood Transfusion Reactions: No Reported Reaction Past Psychological History: Depression Smoking Status: Former smoker Past Alcohol Use History: None Reported Past Drug Use History: None Reported - Past Family History Mother Family Medical History: No Reported History General Exam - General Exam Comments Initial Comments: General: The patient is awake and alert, in no distress Eye: +3 mm pupils are equal, round and reactive to light, extra-ocular movements are intact. No nystagmus. There is normal conjunctiva bilaterally. No signs of icterus. Ears, nose, mouth and throat: There are moist mucous membranes and no oral lesions. Neck: The neck is supple, there is no tenderness or JVD. Cardiovascular: There is a regular rate and rhythm. No murmur, rub or gallop is appreciated. Respiratory: Lungs are clear to auscultation, respirations are non-labored, breath sounds are equal. No wheezes, stridor, rales, or rhonchi. Gastrointestinal: Soft, non-distended, non-tender abdomen without masses or organomegaly noted. There is no rebound or guarding present. Musculoskeletal: Normal ROM, no tenderness. Strength 5/5. Sensation intact. Radial pulses equal bilaterally 2+. Neurological: A&O x 3. CN II-XII intact grossly, There are no obvious motor or sensory deficits. Coordination appears grossly intact. Speech is normal. Skin: Skin is warm and dry and no rashes or lesions are noted. Psychiatric: Cooperative, appropriate mood & affect, normal judgment. Limitations: no limitations Course Vital Signs 01/17/21 18:41 Temperature 98.3 F Pulse Rate 74 Respiratory 20 Rate Blood Pressure 146/89 O2 Sat by Pulse 98 Oximetry Medical Decision Making - Medical Decision Making Labs reveal elevated liver enzymes, suspect fatty liver. recommend GI f/u. pt oterhwise appears very well. ekg no acute findings. heart sounds normal. cxr clear. pt discharged appearing well after discussing case with Dr Rosario - Lab Data Result diagrams: 01/17/21 19:28 01/17/21 19:28 Lab Results 01/17/21 01/17/21 Range/Units 19:28 19:28 WBC 7.5 (3.8-10.6) k/uL RBC 4.87 (4.30-5.90) m/uL Hgb 16.5 (13.0-17.5) gm/dL Hct 45.4 (39.0-53.0) % MCV 93.2 (80.0-100.0) fL MCH 33.9 (25.0-35.0) pg MCHC 36.4 (31.0-37.0) g/dL RDW 12.2 (11.5-15.5) % Plt Count 202 (150-450) k/uL MPV 7.0 Neutrophils % 55 % Lymphocytes % 34 % Monocytes % 4 % Eosinophils % 5 % Basophils % 1 % Neutrophils # 4.1 (1.3-7.7) k/uL Lymphocytes # 2.6 (1.0-4.8) k/uL Monocytes # 0.3 (0-1.0) k/uL Eosinophils # 0.4 (0-0.7) k/uL Basophils # 0.1 (0-0.2) k/uL Sodium 141 (137-145) mmol/L Potassium 4.0 (3.5-5.1) mmol/L Chloride 107 (98-107) mmol/L Carbon Dioxide 27 (22-30) mmol/L Anion Gap 7 mmol/L BUN 11 (9-20) mg/dL Creatinine 1.04 (0.66-1.25) mg/dL Est GFR (CKD-EPI)AfAm >90 (>60 ml/min/1.73 sqM) Est GFR (CKD-EPI)NonAf >90 (>60 ml/min/1.73 sqM) Glucose 93 (74-99) mg/dL Calcium 8.9 (8.4-10.2) mg/dL Magnesium 2.2 (1.6-2.3) mg/dL Total Bilirubin 1.3 (0.2-1.3) mg/dL AST 122 H (17-59) U/L ALT 119 H (4-49) U/L Alkaline Phosphatase 92 (38-126) U/L Total Protein 7.9 (6.3-8.2) g/dL Albumin 4.6 (3.5-5.0) g/dL Disposition Clinical Impression: Lightheaded Disposition: HOME SELF-CARE Condition: Good Instructions (If sedation given, give patient instructions): Lightheadedness (ED) Additional Instructions: Please use medication as discussed. Please follow-up with family doctor in the next 2 days.. Please return to emergency room if the symptoms increase or worsen or for any other concerns. Is patient prescribed a controlled substance at d/c from ED?: No Referrals: Jitendra Shields MD [Primary Care Provider] - 1-2 days Time of Disposition: 20:09
[2021-01-17 20:46] VITALS: BP 152/90; PULSE 78; RESP 19
== END 2021-01-17 20:46 | disposition home or self-care (01) ==
LOC: EC 18:40
DX: R42 Dizziness and giddiness (principal); R07.9 Chest pain, unspecified; R55 Syncope and collapse; R51.9 Headache, unspecified; R11.2 Nausea with vomiting, unspecified; R09.89 Other specified symptoms and signs involving the circulatory and respiratory systems; M79.603 Pain in arm, unspecified; R50.9 Fever, unspecified; R05 Cough; K92.1 Melena; R68.84 Jaw pain; I10 Essential (primary) hypertension; G47.30 Sleep apnea, unspecified; F32.9 Major depressive disorder, single episode, unspecified; Z87.891 Personal history of nicotine dependence; Z88.0 Allergy status to penicillin
CPT/HCPCS: 36415; 71046; 80053; 83735; 85025; 93005; 99285

== ENCOUNTER 2022-02-11 08:50 | Emergency (ER) | payer OTHER ==
[2022-02-11 09:00] VITALS: TEMP 98.1
[2022-02-11] MEDS ORDERED: KETOROLAC 15 MG/ML 1 ML VIAL IVP STA (09:23)
[2022-02-11] MEDS ORDERED: SODIUM CHLORIDE 0.9% 1,000 ML IV STA (09:23)
[2022-02-11 09:43] LABS: Appearance,Urine Clear (Clear); Bilirubin,Urine Negative (Negative); Blood,Urine Negative (Negative); Color,Urine Light Yellow; Glucose,Urine (UA) Negative (Negative); Ketones,Urine Negative (Negative); Leukocyte Esterase,Urine Negative (Negative); Nitrite,Urine Negative (Negative); Protein,Urine 2+ (Negative); RBC,Urine <1 /hpf (0-5); Specific Gravity,Urine 1.004 (1.001-1.035); Urobilinogen,Urine <2.0 mg/dL (<2.0); WBC,Urine 1 /hpf (0-5)
[2022-02-11 09:59] LABS: Calcium 8.4 mg/dL (8.4-10.2); Potassium 3.8 mmol/L (3.5-5.1); Total Bilirubin 1.4 mg/dL (0.2-1.3); Total Protein 7.3 g/dL (6.3-8.2)
[2022-02-11 10:00] LABS: Basophils # (A) 0.1 k/uL (0-0.2); Basophils % (A) 1 %; Eosinophils # (A) 0.3 k/uL (0-0.7); Eosinophils % (A) 4 %; HCT 39.3 % (39.0-53.0); HGB 12.5 gm/dL (13.0-17.5); Lymphocytes # (A) 2.1 k/uL (1.0-4.8); Lymphocytes % (A) 28 %; MCH 33.7 pg (25.0-35.0); MCHC 31.9 g/dL (31.0-37.0); MCV 105.7 fL (80.0-100.0); Macrocytosis Moderate; Mean Platelet Volume 8.3; Monocytes # (A) 0.4 k/uL (0-1.0); Monocytes % (A) 5 %; Neutrophils # (A) 4.4 k/uL (1.3-7.7); Neutrophils % (A) 60 %; Platelet Count 229 k/uL (150-450); RBC 3.72 m/uL (4.30-5.90); RDW 13.8 % (11.5-15.5); WBC 7.3 k/uL (3.8-10.6)
--- NOTE | 2022-02-11 10:31 | ED ---
Abdominal Pain HPI - General Chief Complaint: Abdominal Pain Stated Complaint: abd pain Time Seen by Provider: 02/11/22 09:04 Source: patient, RN notes reviewed Mode of arrival: ambulatory Limitations: no limitations - History of Present Illness Initial Comments: This 31-year-old male present emergency Department chief complaint of ongoing chronic abdominal pain. Patient states has been present for over 2 months. States that it hurts only with movement or when he coughs. He states around his umbilical region. He denies any change in bowel habits including diarrhea, constipation. Patient denies any melena hematochezia. Patient has no difficult y with urination no dysuria. Patient states she's been eating well no vomiting no increase in nausea symptoms. - Related Data Home Medications Medication Instructions Recorded Confirmed No Known Home Medications 01/17/21 02/11/22 Allergies Allergy/AdvReac Type Severity Reaction Status Date / Time bee pollen Allergy Rash/Hives Verified 02/11/22 09:39 lactose Allergy Diarrhea Verified 02/11/22 09:39 Penicillins AdvReac Unknown Verified 02/11/22 09:39 Childhood Review of Systems ROS Statement: Those systems with pertinent positive or pertinent negative responses have been documented in the HPI. ROS Other: All systems not noted in ROS Statement are negative. Past Medical History Past Medical History: Chest Pain / Angina, Hypertension, Sleep Apnea/CPAP/BIPAP Additional Past Medical History / Comment(s): no cpap used, hemorrhoids, pinched nerve in neck, torn tendon rt foot History of Any Multi-Drug Resistant Organisms: None Reported Past Surgical History: Ear Surgery, Tonsillectomy Additional Past Surgical History / Comment(s): tube rt ear, colonoscopy Past Anesthesia/Blood Transfusion Reactions: No Reported Reaction Past Psychological History: Depression Smoking Status: Former smoker Past Alcohol Use History: None Reported Past Drug Use History: None Reported - Past Family History Mother Family Medical History: No Reported History General Exam Limitations: no limitations General appearance: alert, in no apparent distress, obese Head exam: Present: atraumatic, normocephalic, normal inspection Eye exam: Present: normal appearance, PERRL, EOMI. Absent: scleral icterus, conjunctival injection, periorbital swelling ENT exam: Present: normal exam, normal oropharynx, mucous membranes moist Neck exam: Present: normal inspection, full ROM. Absent: tenderness, meningismus, lymphadenopathy Respiratory exam: Present: normal lung sounds bilaterally. Absent: respiratory distress, wheezes, rales, rhonchi, stridor Cardiovascular Exam: Present: regular rate, normal rhythm, normal heart sounds. Absent: systolic murmur, diastolic murmur, rubs, gallop, clicks GI/Abdominal exam: Present: soft, tenderness, normal bowel sounds. Absent: distended, guarding, rebound, rigid Back exam: Absent: CVA tenderness (R), CVA tenderness (L) Neurological exam: Present: alert, oriented X3 Course Vital Signs 02/11/22 08:56 Temperature 98.1 F Pulse Rate 84 Respiratory 18 Rate Blood Pressure 134/89 O2 Sat by Pulse 96 Oximetry Medical Decision Making - Medical Decision Making Patient labs are unremarkable. This is chronic pain in nature and only worse with movement there is concerned that he may have small hernia. Patient will follow-up with on-call surgery return parameters were discussed. - Lab Data Result diagrams: 02/11/22 09:30 02/11/22 09:30 Lab Results 02/11/22 02/11/22 02/11/22 Range/Units 09:30 09:30 09:30 WBC 7.3 (3.8-10.6) k/uL RBC 3.72 L (4.30-5.90) m/uL Hgb 12.5 L (13.0-17.5) gm/dL Hct 39.3 (39.0-53.0) % MCV 105.7 H (80.0-100.0) fL MCH 33.7 (25.0-35.0) pg MCHC 31.9 (31.0-37.0) g/dL RDW 13.8 (11.5-15.5) % Plt Count 229 (150-450) k/uL MPV 8.3 Neutrophils % 60 % Lymphocytes % 28 % Monocytes % 5 % Eosinophils % 4 % Basophils % 1 % Neutrophils # 4.4 (1.3-7.7) k/uL Lymphocytes # 2.1 (1.0-4.8) k/uL Monocytes # 0.4 (0-1.0) k/uL Eosinophils # 0.3 (0-0.7) k/uL Basophils # 0.1 (0-0.2) k/uL Macrocytosis Moderate Sodium 139 (137-145) mmol/L Potassium 3.8 (3.5-5.1) mmol/L Chloride 104 (98-107) mmol/L Carbon Dioxide 26 (22-30) mmol/L Anion Gap 9 mmol/L BUN 9 (9-20) mg/dL Creatinine 1.34 H (0.66-1.25) mg/dL Est GFR (CKD-EPI)AfAm 82 (>60 ml/min/1.73 sqM) Est GFR (CKD-EPI)NonAf 71 (>60 ml/min/1.73 sqM) Glucose 95 (74-99) mg/dL Calcium 8.4 (8.4-10.2) mg/dL Total Bilirubin 1.4 H (0.2-1.3) mg/dL AST 49 (17-59) U/L ALT 27 (4-49) U/L Alkaline Phosphatase 67 (38-126) U/L Total Protein 7.3 (6.3-8.2) g/dL Albumin 4.0 (3.5-5.0) g/dL Amylase 35 (30-110) U/L Lipase 63 (23-300) U/L Urine Color Light Yellow Urine Appearance Clear (Clear) Urine pH 7.0 (5.0-8.0) Ur Specific [place] 1.004 (1.001-1.035) Urine Protein 2+ H (Negative) Urine Glucose (UA) Negative (Negative) Urine Ketones Negative (Negative) Urine Blood Negative (Negative) Urine Nitrite Negative (Negative) Urine Bilirubin Negative (Negative) Urine Urobilinogen <2.0 (<2.0) mg/dL Ur Leukocyte Esterase Negative (Negative) Urine RBC <1 (0-5) /hpf Urine WBC 1 (0-5) /hpf Disposition Clinical Impression: Abdominal pain Disposition: HOME SELF-CARE Condition: Stable Instructions (If sedation given, give patient instructions): Abdominal Pain (ED) Additional Instructions: Please return to the Emergency Department if symptoms worsen or any other concerns. Is patient prescribed a controlled substance at d/c from ED?: No Referrals: Jitendra Shields MD [Primary Care Provider] - 1-2 days David Monge MD [STAFF PHYSICIAN] - 1-2 days Time of Disposition: 10:31
[2022-02-11 11:09] VITALS: BP 139/97; PULSE 77; RESP 14
== END 2022-02-11 11:09 | disposition home or self-care (01) ==
LOC: EC 08:50
DX: R10.9 Unspecified abdominal pain (principal); I10 Essential (primary) hypertension; Z87.891 Personal history of nicotine dependence; Z91.030 Bee allergy status; Z91.011 Allergy to milk products; Z88.0 Allergy status to penicillin
CPT/HCPCS: 36415; 80053; 82150; 83690; 85025; 81001; 99284; 96374; 96361; J1885

== ENCOUNTER → 2022-02-24 | Outpatient (CLI) | payer OTHER ==
--- NOTE | 2022-02-24 11:37 | CT ---
EXAMINATION TYPE: CT abdomen pelvis w con DATE OF EXAM: 02/24/2022 COMPARISON: No previous CT scan is available for comparison HISTORY: Diverticulitis CT DLP: 4416.7 mGycm Automated exposure control for dose reduction was used. TECHNIQUE: Helical acquisition of images was performed from the lung bases through the pelvis. CONTRAST: Performed with Oral Contrast and with IV Contrast, patient injected with 100 mL of Isovue 300. FINDINGS: LUNG BASES: Large pericardial effusion, cardiac tamponade cannot be excluded. Bilateral basal pulmona ry mosaic perfusion pattern, possibly related to the pericardial effusion however other pulmonary abn ormality cannot be excluded. Small right pleural effusion. LIVER/GB: Enlarged liver measuring 24.1 cm. No definite hepatic focal lesion. Grossly unremarkable ga llbladder. PANCREAS: No significant abnormality is seen. SPLEEN: No significant abnormality is seen. ADRENALS: No significant abnormality is seen. KIDNEYS: Bilateral nonobstructing renal calculi measuring up to 7 mm. Right renal cysts without suspi cious feature. Unremarkable kidneys otherwise. FREE AIR: No free air is visualized. RETROPERITONEAL ADENOPATHY: None visualized REPRODUCTIVE ORGANS: No significant abnormality is seen URINARY BLADDER: No significant abnormality is seen. PELVIC ADENOPATHY: None visualized. OSSEOUS STRUCTURES: No aggressive bone lesion. BOWEL: Unremarkable stomach, duodenum and small bowel. Colonic diverticulosis without gross signs of acute diverticulitis. OTHER: Unremarkable abdominal aorta. Small amount of free abdominal and pelvic fluid which may mask m ild acute diverticulitis. Diffuse abdominal wall subcutaneous fat stranding, reactive fluid and skin thickening mainly along the anterior abdominal wall. IMPRESSION: Colonic diverticulosis without convincing evidence of acute diverticulitis. Mild acute diverticulitis could be masked by the free abdominal fluid. Please correlate clinically. Large pericardial effusion with small right pleural effusion and small free abdominal fluid as descri bed above. Cardiac tamponade can't be excluded. Recommend clinical correlation and further workup. Ot her findings as detailed above. A [place] critical message alert has been initiated for David Monge MD via the [employer] Critical Results System on 02/24/2022 11:35 AM. This message alert has been sent to David Monge MD via the preferences provided by the clinician for the receipt of Radiology Critical Findings. [facility] ID [id number].
== END | disposition home or self-care (01) ==
LOC: RADCTMAIN 08:48
PROVIDERS: ATTEND Surgery
DX: K57.32 Diverticulitis of large intestine without perforation or abscess without bleeding (principal)
CPT/HCPCS: 74177; Q9967 ×2

== ENCOUNTER 2022-02-25 17:57 | Inpatient (IN) | payer OTHER ==
[2022-02-26] MEDS ORDERED: FUROSEMIDE 10 MG/ML 4 ML VIAL IV STA (00:34)
--- NOTE | 2022-02-26 00:34 | ED ---
SOB HPI - General Source: patient, RN notes reviewed Mode of arrival: ambulatory Limitations: no limitations - History of Present Illness MD Complaint: shortness of breath, cough <Garo Martínez - Last Filed: 02/27/22 03:39> <Phan Bay - Last Filed: 03/02/22 05:31> - General Chief Complaint: Shortness of Breath Stated Complaint: SOB,PCP sent pt in Time Seen by Provider: 02/26/22 00:20 - History of Present Illness Initial Comments: This is a pleasant 31-year-old male with history of cigarette smoking. Patient denies any other significant past medical history. Patient does have a family history of cardiac disease. Patient states for about 1 month he has had progressive swelling in both lower legs. Patient states he's had some discomfort in his lower abdomen. Patient now states he has chest pressure, shortness of breath, and a cough. Patient denies any fever or chills. Patient states she had an outpatient computed tomography scan of his abdomen and pelvis and was told he had fluid around his heart. No headache, no fever or chills, no changes in vision or hearing, no sore throat or difficulty with speech, no neck pain, no chest pain or shortness of breath, no abdominal pain, no nausea or vomiting, no changes in urination or bowel movements, no numbness or tingling, BILATERAL lower extremity edema, no skin rashes or lesions. (Garo Martínez) - Related Data Home Medications Medication Instructions Recorded Confirmed No Known Home Medications 01/17/21 02/26/22 Allergies Allergy/AdvReac Type Severity Reaction Status Date / Time bee pollen Allergy Rash/Hives Verified 02/26/22 07:32 lactose Allergy Diarrhea Verified 02/26/22 07:32 Penicillins AdvReac Unknown Verified 02/26/22 07:32 Childhood Review of Systems ROS Other: All systems not noted in ROS Statement are negative. <Garo Martínez - Last Filed: 02/27/22 03:39> ROS Other: All systems not noted in ROS Statement are negative. <Phan Bay - Last Filed: 03/02/22 05:31> ROS Statement: Those systems with pertinent positive or pertinent negative responses have been documented in the HPI. Past Medical History Past Medical History: Chest Pain / Angina, Hypertension, Sleep Apnea/CPAP/BIPAP Additional Past Medical History / Comment(s): no cpap used, hemorrhoids, pinched nerve in neck, torn tendon rt foot History of Any Multi-Drug Resistant Organisms: None Reported Past Surgical History: Ear Surgery, Tonsillectomy Additional Past Surgical History / Comment(s): tube rt ear, colonoscopy Past Anesthesia/Blood Transfusion Reactions: No Reported Reaction Past Psychological History: Depression Smoking Status: Former smoker Past Alcohol Use History: None Reported Past Drug Use History: None Reported - Past Family History Mother Family Medical History: No Reported History <MauricioGaro - Last Filed: 02/27/22 03:39> - Past Family History Mother Family Medical History: Congestive Heart Failure (CHF) Father Family Medical History: Liver Disease Additional Family Medical History / Comment(s): Father from cirrhosis of the liver <PriteshbradleyPhan - Last Filed: 03/02/22 05:31> General Exam Limitations: no limitations General appearance: in distress (Mild distress, increased distress with ambulation) Head exam: Present: atraumatic, normocephalic, normal inspection Eye exam: Present: normal appearance, PERRL, EOMI. Absent: scleral icterus, conjunctival injection, periorbital swelling ENT exam: Present: normal exam, mucous membranes moist, normal external ear exam Neck exam: Present: normal inspection, full ROM. Absent: tenderness, meningismus, lymphadenopathy Respiratory exam: Present: rales (Bibasilar). Absent: respiratory distress, wheezes, rhonchi, stridor Cardiovascular Exam: Present: regular rate, normal rhythm, normal heart sounds. Absent: systolic murmur, diastolic murmur, rubs, gallop, clicks GI/Abdominal exam: Present: soft, normal bowel sounds, other (Brawny edema noted to lower abdomen). Absent: distended, tenderness, guarding, rebound, rigid exam: Present: other (Scrotal edema noted) Extremities exam: Present: normal inspection, full ROM, normal capillary refill, pedal edema (Patient has 3+ pitting edema of bilateral lower extremities). Absent: tenderness, joint swelling, calf tenderness Back exam: Present: normal inspection Neurological exam: Present: alert, oriented X3, CN II-XII intact Psychiatric exam: Present: normal affect, normal mood Skin exam: Present: warm, dry, intact, erythema (Mildly erythematous the lower abdomen which blanches with palpation. No crepitus.). Absent: rash <Garo Martínez - Last Filed: 02/27/22 03:39> - General Exam Comments Initial Comments: Patient in distress which is notably increased with ambulation, patient out of breath walking just from the waiting room chair into the triage delgado. (Garo Martínez) Course Vital Signs 02/25/22 02/26/22 02/26/22 19:57 02:02 03:00 Temperature 97.7 F Pulse Rate 86 85 78 Respiratory 20 Rate Blood Pressure 129/94 136/109 136/116 O2 Sat by Pulse 97 96 96 Oximetry 02/26/22 02/26/22 02/26/22 04:00 05:00 06:54 Temperature Pulse Rate 80 89 81 Respiratory Rate Blood Pressure 146/104 153/120 141/106 O2 Sat by Pulse 96 96 99 Oximetry 02/26/22 02/26/22 07:55 13:48 Temperature 98.2 F Pulse Rate 84 85 Respiratory 18 18 Rate Blood Pressure 141/106 147/106 O2 Sat by Pulse 97 100 Oximetry Medical Decision Making - Lab Data Result diagrams: 02/26/22 03:03 02/26/22 02:28 - Radiology Data Radiology results: report reviewed (Cardiomegaly), image reviewed <Garo Martínez - Last Filed: 02/27/22 03:39> - Lab Data Result diagrams: 02/28/22 06:28 03/01/22 08:48 <Phan Bay - Last Filed: 03/02/22 05:31> - Medical Decision Making I saw this patient in conjunction with the physician assistant account manager. I performed independent history and physical exam. Agree with case management. (Phan Bay) - Lab Data Lab Results 02/26/22 02/26/22 02/26/22 Range/Units 02:28 02:28 02:28 WBC (3.8-10.6) k/uL RBC (4.30-5.90) m/uL Hgb (13.0-17.5) gm/dL Hct (39.0-53.0) % MCV (80.0-100.0) fL MCH (25.0-35.0) pg MCHC (31.0-37.0) g/dL RDW (11.5-15.5) % Plt Count (150-450) k/uL MPV Neutrophils % % Lymphocytes % % Monocytes % % Eosinophils % % Basophils % % Neutrophils # (1.3-7.7) k/uL Lymphocytes # (1.0-4.8) k/uL Monocytes # (0-1.0) k/uL Eosinophils # (0-0.7) k/uL Basophils # (0-0.2) k/uL Macrocytosis ESR PT 12.1 H (9.0-12.0) sec INR 1.1 (<1.2) APTT 26.9 (22.0-30.0) sec Sodium 139 (137-145) mmol/L Potassium 3.6 (3.5-5.1) mmol/L Chloride 102 (98-107) mmol/L Carbon Dioxide 29 (22-30) mmol/L Anion Gap 8 mmol/L BUN 9 (9-20) mg/dL Creatinine 1.50 H (0.66-1.25) mg/dL Est GFR (CKD-EPI)AfAm 71 (>60 ml/min/1.73 sqM) Est GFR (CKD-EPI)NonAf 61 (>60 ml/min/1.73 sqM) Glucose 106 H (74-99) mg/dL Plasma Lactic Acid Moisés 1.1 (0.7-2.0) mmol/L Calcium 8.6 (8.4-10.2) mg/dL Magnesium 2.1 (1.6-2.3) mg/dL Total Bilirubin 1.6 H (0.2-1.3) mg/dL AST 42 (17-59) U/L ALT 25 (4-49) U/L Alkaline Phosphatase 77 (38-126) U/L Troponin I (0.000-0.034) ng/mL NT-Pro-B Natriuret Pep pg/mL Total Protein 7.7 (6.3-8.2) g/dL Albumin 4.4 (3.5-5.0) g/dL Urine Color Urine Appearance (Clear) Urine pH (5.0-8.0) Ur Specific [place] (1.001-1.035) Urine Protein (Negative) Urine Glucose (UA) (Negative) Urine Ketones (Negative) Urine Blood (Negative) Urine Nitrite (Negative) Urine Bilirubin (Negative) Urine Urobilinogen (<2.0) mg/dL Ur Leukocyte Esterase (Negative) Coronavirus (PCR) (Not Detectd) 02/26/22 02/26/22 02/26/22 Range/Units 02:28 02:30 03:03 WBC 8.4 (3.8-10.6) k/uL RBC 3.91 L (4.30-5.90) m/uL Hgb 13.9 (13.0-17.5) gm/dL Hct 41.4 (39.0-53.0) % MCV 105.9 H (80.0-100.0) fL MCH 35.5 H (25.0-35.0) pg MCHC 33.5 (31.0-37.0) g/dL RDW 14.3 (11.5-15.5) % Plt Count 246 (150-450) k/uL MPV 8.0 Neutrophils % 59 % Lymphocytes % 31 % Monocytes % 4 % Eosinophils % 4 % Basophils % 1 % Neutrophils # 4.9 (1.3-7.7) k/uL Lymphocytes # 2.6 (1.0-4.8) k/uL Monocytes # 0.3 (0-1.0) k/uL Eosinophils # 0.3 (0-0.7) k/uL Basophils # 0.1 (0-0.2) k/uL Macrocytosis Moderate ESR Cancelled PT (9.0-12.0) sec INR (<1.2) APTT (22.0-30.0) sec Sodium (137-145) mmol/L Potassium (3.5-5.1) mmol/L Chloride (98-107) mmol/L Carbon Dioxide (22-30) mmol/L Anion Gap mmol/L BUN (9-20) mg/dL Creatinine (0.66-1.25) mg/dL Est GFR (CKD-EPI)AfAm (>60 ml/min/1.73 sqM) Est GFR (CKD-EPI)NonAf (>60 ml/min/1.73 sqM) Glucose (74-99) mg/dL Plasma Lactic Acid Moisés (0.7-2.0) mmol/L Calcium (8.4-10.2) mg/dL Magnesium (1.6-2.3) mg/dL Total Bilirubin (0.2-1.3) mg/dL AST (17-59) U/L ALT (4-49) U/L Alkaline Phosphatase (38-126) U/L Troponin I 0.055 H* (0.000-0.034) ng/mL NT-Pro-B Natriuret Pep pg/mL Total Protein (6.3-8.2) g/dL Albumin (3.5-5.0) g/dL Urine Color Urine Appearance (Clear) Urine pH (5.0-8.0) Ur Specific [place] (1.001-1.035) Urine Protein (Negative) Urine Glucose (UA) (Negative) Urine Ketones (Negative) Urine Blood (Negative) Urine Nitrite (Negative) Urine Bilirubin (Negative) Urine Urobilinogen (<2.0) mg/dL Ur Leukocyte Esterase (Negative) Coronavirus (PCR) Not Detected (Not Detectd) 02/26/22 02/26/22 Range/Units 03:03 07:00 WBC (3.8-10.6) k/uL RBC (4.30-5.90) m/uL Hgb (13.0-17.5) gm/dL Hct (39.0-53.0) % MCV (80.0-100.0) fL MCH (25.0-35.0) pg MCHC (31.0-37.0) g/dL RDW (11.5-15.5) % Plt Count (150-450) k/uL MPV Neutrophils % % Lymphocytes % % Monocytes % % Eosinophils % % Basophils % % Neutrophils # (1.3-7.7) k/uL Lymphocytes # (1.0-4.8) k/uL Monocytes # (0-1.0) k/uL Eosinophils # (0-0.7) k/uL Basophils # (0-0.2) k/uL Macrocytosis ESR PT (9.0-12.0) sec INR (<1.2) APTT (22.0-30.0) sec Sodium (137-145) mmol/L Potassium (3.5-5.1) mmol/L Chloride (98-107) mmol/L Carbon Dioxide (22-30) mmol/L Anion Gap mmol/L BUN (9-20) mg/dL Creatinine (0.66-1.25) mg/dL Est GFR (CKD-EPI)AfAm (>60 ml/min/1.73 sqM) Est GFR (CKD-EPI)NonAf (>60 ml/min/1.73 sqM) Glucose (74-99) mg/dL Plasma Lactic Acid Moisés (0.7-2.0) mmol/L Calcium (8.4-10.2) mg/dL Magnesium (1.6-2.3) mg/dL Total Bilirubin (0.2-1.3) mg/dL AST (17-59) U/L ALT (4-49) U/L Alkaline Phosphatase (38-126) U/L Troponin I (0.000-0.034) ng/mL NT-Pro-B Natriuret Pep 3770 pg/mL Total Protein (6.3-8.2) g/dL Albumin (3.5-5.0) g/dL Urine Color Colorless Urine Appearance Clear (Clear) Urine pH 7.0 (5.0-8.0) Ur Specific [place] 1.004 (1.001-1.035) Urine Protein Negative (Negative) Urine Glucose (UA) Negative (Negative) Urine Ketones Negative (Negative) Urine Blood Negative (Negative) Urine Nitrite Negative (Negative) Urine Bilirubin Negative (Negative) Urine Urobilinogen <2.0 (<2.0) mg/dL Ur Leukocyte Esterase Negative (Negative) Coronavirus (PCR) (Not Detectd) Disposition Is patient prescribed a controlled substance at d/c from ED?: No Decision to Admit Reason: Admit from EC <Garo Martínez - Last Filed: 02/27/22 03:39> <Phan Bay - Last Filed: 03/02/22 05:31> Clinical Impression: Cardiomegaly, Congestive heart failure, Pericardial effusion Disposition: ADMITTED IP TO THIS HOSP Condition: Fair
--- NOTE | 2022-02-26 03:16 | XR ---
EXAM: XR Chest, 2 Views CLINICAL HISTORY: ITS.REASON XR Reason: difficulty breathing TECHNIQUE: Frontal and lateral views of the chest. COMPARISON: No relevant prior studies available. FINDINGS: Lungs: Nonspecific coarse reticular opacities in the mid and lower lungs. Pleural space: No significant abnormality. No pneumothorax. Heart: No significant abnormality. No cardiomegaly. Mediastinum: Mildly enlarged cardiomediastinal silhouette. Bones/joints: No acute osseous abnormality. IMPRESSION: 1. Mildly enlarged cardiomediastinal silhouette. 2. Nonspecific coarse reticular opacities in the mid and lower lungs. Findings may be related to infection or edema.
[2022-02-26 03:23] LABS: INR 1.1 (<1.2); Partial Thromboplastin Time 26.9 sec (22.0-30.0); Prothrombin Time 12.1 sec (9.0-12.0)
[2022-02-26 03:27] LABS: Basophils # (A) 0.1 k/uL (0-0.2); Basophils % (A) 1 %; Eosinophils # (A) 0.3 k/uL (0-0.7); Eosinophils % (A) 4 %; HCT 41.4 % (39.0-53.0); HGB 13.9 gm/dL (13.0-17.5); Lymphocytes # (A) 2.6 k/uL (1.0-4.8); Lymphocytes % (A) 31 %; MCH 35.5 pg (25.0-35.0); MCHC 33.5 g/dL (31.0-37.0); MCV 105.9 fL (80.0-100.0); Macrocytosis Moderate; Monocytes # (A) 0.3 k/uL (0-1.0); Monocytes % (A) 4 %; Neutrophils # (A) 4.9 k/uL (1.3-7.7); Neutrophils % (A) 59 %; Platelet Count 246 k/uL (150-450); RBC 3.91 m/uL (4.30-5.90); RDW 14.3 % (11.5-15.5); WBC 8.4 k/uL (3.8-10.6)
[2022-02-26 03:31] LABS: Albumin 4.4 g/dL (3.5-5.0); Calcium 8.6 mg/dL (8.4-10.2); Magnesium 2.1 mg/dL (1.6-2.3); Potassium 3.6 mmol/L (3.5-5.1); Total Bilirubin 1.6 mg/dL (0.2-1.3); Total Protein 7.7 g/dL (6.3-8.2)
[2022-02-26] MEDS: FUROSEMIDE 10 MG/ML 4 ML VIAL IV SCH ×2 (08:50→20:54)
[2022-02-26 10:53] LABS: Appearance,Urine Clear (Clear); Bilirubin,Urine Negative (Negative); Blood,Urine Negative (Negative); Color,Urine Colorless; Glucose,Urine (UA) Negative (Negative); Ketones,Urine Negative (Negative); Leukocyte Esterase,Urine Negative (Negative); Nitrite,Urine Negative (Negative); Protein,Urine Negative (Negative); Specific Gravity,Urine 1.004 (1.001-1.035); Urobilinogen,Urine <2.0 mg/dL (<2.0)
--- NOTE | 2022-02-26 11:12 | P.HPIM ---
History of Present Illness This is a pleasant 31 male with past medical history of Hypertension, Sleep Apnea/CPAP/BIPAP Patient has been complaining of from lower abdominal pain radiating to both sides for about a month, his PCP is Dr. Alston and was following up with Dr. Parra ordered CT of the abdomen and pelvis for him with IV contrast which was done yesterday showing large pericardial effusion and cardiac tamponade cannot be excluded with bilateral basal pulmonary Mohs I perfusion pattern, possibly related to the pericardial effusion. Bilateral nonobstructing renal calculi. While the bowel showed unremarkable stomach, duodenum and small bowel. Colonic diverticulosis without gross signs of acute diverticulitis. Diffuse abdominal wall subcutaneous fat stranding, reactive fluid and scalp thickening merely along the anterior abdominal wall. Mild acute diverticulitis could be masked by free abdominal fluid. Patient received a call yesterday from both the surgeon Dr. Apodaca and Dr. Alston to come to emergency room. Also stated that he has been complaining of from shortness of breath and some chest pressure for about 2-3 months. His chest pressure is only for 1 month, and the middle sometimes radiating to the left side and to the extremity but it is mobile and minimally go away in the morning. However his dyspnea has been going on for about 2-3 months and especially with exertion. He quit smoking around that time. He denies any urinary complaints or burning. No diarrhea actually he states is been constipated. No vomiting. He quit smoking about 2 months ago, he used to smoke 1 pack per week. No alcohol or illicit drugs Patient presents because of dyspnea, Which was progressive over one month associated with bilateral leg swelling Associated with some chest pressure, and cough Patient Rebel looks stable and he is afebrile. Blood pressure 141/106. He is saturating 97% on room air. Labs show an unremarkable CBC, INR, BMP except for elevated creatinine of 1.5 0.7-1.1. Liver enzymes are within normal limits. Troponin slightly elevated 0.05. BNP is slightly elevated as well as 3770. Coronavirus not detected. Chest x-ray: Cardiomediastinal still OT, nonspecific course reticular opacity in the middle and lower lungs may be related to infection or edema In the emergency room he received aspirin and 1 dose of Lasix. Review of Systems CONSTITUTIONAL: No fever, no malaise, no fatigue. HEENT: No recent visual problems or hearing problems. Denied any sore throat. CARDIOVASCULAR: No orthopnea, PND, no palpitations, no syncope. PULMONARY: No shortness of breath, no cough, no hemoptysis. GASTROINTESTINAL: No diarrhea, no nausea, no vomiting, no abdominal pain. Normoactive bowel sounds. NEUROLOGICAL: No headaches, no weakness, no numbness. HEMATOLOGICAL: Denies any bleeding or petechiae. GENITOURINARY: Denies any burning micturition, frequency, or urgency. MUSCULOSKELETAL/RHEUMATOLOGICAL: Denies any joint pain, swelling, or any muscle pain. ENDOCRINE: Denies any polyuria or polydipsia. Past Medical History Past Medical History: Chest Pain / Angina, Hypertension, Sleep Apnea/CPAP/BIPAP Additional Past Medical History / Comment(s): no cpap used, hemorrhoids, pinched nerve in neck, torn tendon rt foot History of Any Multi-Drug Resistant Organisms: None Reported Past Surgical History: Ear Surgery, Tonsillectomy Additional Past Surgical History / Comment(s): tube rt ear, colonoscopy Past Anesthesia/Blood Transfusion Reactions: No Reported Reaction Past Psychological History: Depression Smoking Status: Former smoker Past Alcohol Use History: None Reported Past Drug Use History: None Reported - Past Family History Mother Family Medical History: No Reported History Medications and Allergies Home Medications Medication Instructions Recorded Confirmed Type No Known Home Medications 01/17/21 02/26/22 History Allergies Allergy/AdvReac Type Severity Reaction Status Date / Time bee pollen Allergy Rash/Hives Verified 02/26/22 07:32 lactose Allergy Diarrhea Verified 02/26/22 07:32 Penicillins AdvReac Unknown Verified 02/26/22 07:32 Childhood Physical Exam Vitals: Vital Signs Temp Pulse Resp BP Pulse Ox 02/26/22 07:55 84 18 141/106 97 02/26/22 06:54 81 141/106 99 02/26/22 05:00 89 153/120 96 02/26/22 04:00 80 146/104 96 02/26/22 03:00 78 136/116 96 02/26/22 02:02 85 136/109 96 02/25/22 19:57 97.7 F 86 20 129/94 97 Intake and Output 02/25/22 02/26/22 02/26/22 22:59 06:59 14:59 Other: Weight 163.293 kg -GENERAL: The patient is alert and oriented x3, not in any acute distress. Morbidly obese HEENT: Pupils are round and equally reacting to light. EOMI. No scleral icterus. No conjunctival pallor. Normocephalic, atraumatic. No pharyngeal erythema. No thyromegaly. CARDIOVASCULAR: S1 and S2 present. No murmurs, rubs, or gallops. PULMONARY: Chest is clear to auscultation, no wheezing or crackles. -ABDOMEN: Soft, nontender, nondistended, normoactive bowel sounds. No palpable organomegaly. Abdominal wall edema MUSCULOSKELETAL: No joint swelling or deformity. -EXTREMITIES: No cyanosis, clubbing, bilateral pitting leg r pedal edema. Recent evidence of left leg cellulitis NEUROLOGICAL: Gross neurological examination did not reveal any focal deficits. SKIN: No rashes. No petechiae Results CBC & Chem 7: 02/26/22 03:03 02/26/22 02:28 Labs: Abnormal Lab Results - Last 24 Hours (Table) 02/26/22 02/26/22 02/26/22 Range/Units 02:28 02:28 02:28 RBC (4.30-5.90) m/uL MCV (80.0-100.0) fL MCH (25.0-35.0) pg PT 12.1 H (9.0-12.0) sec Creatinine 1.50 H (0.66-1.25) mg/dL Glucose 106 H (74-99) mg/dL Total Bilirubin 1.6 H (0.2-1.3) mg/dL Troponin I 0.055 H* (0.000-0.034) ng/mL 02/26/22 Range/Units 03:03 RBC 3.91 L (4.30-5.90) m/uL MCV 105.9 H (80.0-100.0) fL MCH 35.5 H (25.0-35.0) pg PT (9.0-12.0) sec Creatinine (0.66-1.25) mg/dL Glucose (74-99) mg/dL Total Bilirubin (0.2-1.3) mg/dL Troponin I (0.000-0.034) ng/mL Assessment and Plan Assessment: Probable acute pulmonary edema related to new CHF Elevated troponin, rule out cardiac causes Acute kidney injury versus chronic kidney disease Acute mild to moderate left leg cellulitis Mild lower abdominal pain and to the site Possibly mild diverticulitis cannot be excluded Bilateral nonobstructing renal calculi Morbidly obese Plan: this is a pleasant 31 male who presents with dyspnea and pulmonary edema with elevated troponin Check echocardiogram Continue with IV Lasix Cardiology consult Check urine analysis in the bladder scan. Also will check renal ultrasound . If renal function does not improve or worsen then may consider nephrology consult. Also we'll monitor input and output We'll start the patient on Levaquin for cellulitis and this might help his possible mild diverticulitis Labs and medication were reviewed.. Continue same treatment. Continue with symptomatic treatment. Resume home medication. Monitor lytes and vitals. DVT and GI prophylaxis. Further recommendations depends on the clinical course of the patient DVT prophylaxis: Subcutaneous heparin GI Prophylaxis: Pepcid PT/OT: Pending Prognosis is guarded
--- NOTE | 2022-02-26 11:23 | US ---
EXAMINATION TYPE: US renals and bladder DATE OF EXAM: 02/26/2022 COMPARISON: CT 02/24/2022 CLINICAL HISTORY: milvia. EXAM MEASUREMENTS: Right Kidney: 10.0 x 4.9 x 4.9 cm Left Kidney: 9.8 x 5.5 x 4.7 cm Post Void Residual Volume: mL Technically difficult study due to patient body habitus. Possible bilateral stones seen, unable to pr ove shadowing. Right Kidney: echogenic focus measures 0.6 x 0.7 cm. Left Kidney: echogenic focus measures 0.9 x 0.8 cm. Bladder: wnl There is no evidence for hydronephrosis at this point in time. No nephrolithiasis is seen. No rohan s are identified. The urinary bladder is anechoic. Bilateral ureteral jets are seen. IMPRESSION: Suspect bilateral nephrolithiasis.
--- NOTE | 2022-02-26 11:52 | CA ---
Transthoracic Echo Report Name: Mark Hernandez Age: 31 Gender: M : 1990 Exam Date: 02/26/2022 10:34 Exam Location: [facility] Ht (in): 70 Wt (lb): 360 Ordering Physician: Phan Bay MD Attending/Referring Phys: Hearing Examiner Bianca Nolasco RDCS Procedure CPT: Indications: Heart failure Cardiac Hx: Technical Quality: Poor Contrast 1: Total Dose (mL): Contrast 2: Total Dose (mL): MEASUREMENTS (Male / Female) Normal Values 2D ECHO LV Diastolic Diameter PLAX 5.1 cm 4.2 - 5.9 / 3.9 - 5.3 cm LV Systolic Diameter PLAX 4.0 cm IVS Diastolic Thickness 1.7 cm 0.6 - 1.0 / 0.6 - 0.9 cm LVPW Diastolic Thickness 1.7 cm 0.6 - 1.0 / 0.6 - 0.9 cm LV Relative Wall Thickness 0.7 RV Internal Dim ED PLAX 3.7 cm LA Systolic Diameter LX 5.5 cm 3.0 - 4.0 / 2.7 - 3.8 cm M-MODE Aortic Root Diameter MM 3.4 cm MV E Point Septal Separation 0.6 cm AV Cusp Separation MM 2.3 cm DOPPLER AV Peak Velocity 105.1 cm/s AV Peak Gradient 4.4 mmHg MV Area PHT 7.9 cm??? MV Deceleration Time 115.5 ms TR Peak Velocity 303.2 cm/s TR Peak Gradient 36.8 mmHg Right Ventricular Systolic Press 50.9 mmHg FINDINGS Left Ventricle Left ventricular ejection fraction is estimated at 30 %. Left ventricular cavity size normal. Severe concentric left ventricular hypertrophy. Right Ventricle Moderate right ventricular dilatation. Moderate pulmonary hypertension. Right Atrium Normal right atrial size. Left Atrium Severely increased left atrial diameter. Mitral Valve Mitral valve thickened. Mild mitral regurgitation. Aortic Valve No aortic valve stenosis or regurgitation. Tricuspid Valve [id number] tricuspid regurgitation. Pulmonic Valve Trace pulmonic regurgitation. Pericardium Large pericardial effusion. Aorta Normal size aortic root and proximal ascending aorta. CONCLUSIONS Dilated left ventricle with severely reduced LV systolic function and the posterior/posterior lateral pericardial effusion, moderate to large Previewed by: Dr. Jarred Fraser MD (Electronically Signed) Final Date: 26 February 2022 11:51
[2022-02-26] MEDS: LEVOFLOXACIN 500 MG TAB PO SCH (13:48)
[2022-02-26] MEDS: HEPARIN SODIUM,PORCINE/PF 5,000 UNIT/0.5 ML SYRINGE SQ SCH (20:54)
[2022-02-26] MEDS ORDERED: FAMOTIDINE 20 MG/2 ML VIAL IV SCH (21:00)
[2022-02-27] MEDS: FUROSEMIDE 10 MG/ML 4 ML VIAL IV SCH ×2 (08:21→20:00)
[2022-02-27] MEDS: LEVOFLOXACIN 500 MG TAB PO SCH (08:21)
[2022-02-27] MEDS: FAMOTIDINE 20 MG TAB PO SCH ×2 (08:21→20:00)
[2022-02-27] MEDS: ASPIRIN 325 MG TAB PO SCH (08:22)
[2022-02-27] MEDS: HEPARIN SODIUM,PORCINE/PF 5,000 UNIT/0.5 ML SYRINGE SQ SCH ×2 (08:22→20:00)
[2022-02-27 08:36] LABS: Calcium 8.3 mg/dL (8.4-10.2); Potassium 3.8 mmol/L (3.5-5.1)
--- NOTE | 2022-02-27 11:20 | US ---
EXAMINATION TYPE: US venous doppler duplex LE BI DATE OF EXAM: 02/27/2022 11:15 AM COMPARISON: NONE CLINICAL HISTORY: leg swelling. bilat leg swelling x 2 months SIDE PERFORMED: Bilateral TECHNIQUE: The lower extremity deep venous system is examined utilizing real time linear array sonog adore with graded compression, doppler sonography and color-flow sonography. VESSELS IMAGED: Common Femoral Vein Deep Femoral Vein Greater Saphenous Vein * Femoral Vein Popliteal Vein Small Saphenous Vein * Proximal Calf Veins (* superficial vessels) Right Leg: Negative for DVT Left Leg: Negative for DVT IMPRESSION: No evidence for DVT.
--- NOTE | 2022-02-27 15:01 | P.CRDCN ---
History of Present Illness Consult date: 02/27/22 History of present illness: This is a 31-year-old gentleman with asigmoid past cardiac history, was recently evaluated by computed tomography scan of the abdomen and pelvis for evaluation of the abdominal pain. He was noted to have small free fluid in the abdomen but evidence of significant pericardial effusion. Patient was advised to go to the hospital but patient beta sukh 24-48 hours before coming to the hospital. 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 Patient has been complaining of increasing shortness of breath with exertion and also increasing edema of the legs. He also complains of intermittent vague chest pains. At the time of my examination patient seemed to be relatively comfortable at rest. Slightly tachycardic. Has significant edema. His blood pressure is stable in the range of 130/80. The etiology of the pericardial effusion is not clear. His LV function also is impaired size to possible on ischemic cardio myopathy. EKG showed sinus rhythm. Patient has been on Lasix. I'm going continue diuretics and add small dose of Aldactone, lisinopril, and also Coreg. Continue to monitor him. Repeat echocardiogram on Tuesday. If there is a progression of the pericardial effusion or any signs of tamponade , pericardial Window to be considered. Review of Systems As per the chart Past Medical History Past Medical History: Chest Pain / Angina, Hypertension, Sleep Apnea/CPAP/BIPAP Additional Past Medical History / Comment(s): no cpap used, hemorrhoids, pinched nerve in neck, torn tendon rt foot History of Any Multi-Drug Resistant Organisms: None Reported Past Surgical History: Ear Surgery, Tonsillectomy Additional Past Surgical History / Comment(s): tube rt ear, colonoscopy Past Anesthesia/Blood Transfusion Reactions: No Reported Reaction Past Psychological History: Depression Smoking Status: Former smoker Past Alcohol Use History: None Reported Past Drug Use History: None Reported - Past Family History Mother Family Medical History: No Reported History Medications and Allergies Home Medications Medication Instructions Recorded Confirmed Type No Known Home Medications 01/17/21 02/26/22 History Allergies Allergy/AdvReac Type Severity Reaction Status Date / Time bee pollen Allergy Rash/Hives Verified 02/26/22 07:32 lactose Allergy Diarrhea Verified 02/26/22 07:32 Penicillins AdvReac Unknown Verified 02/26/22 07:32 Childhood Physical Exam Vitals: Vital Signs Temp Pulse Resp BP Pulse Ox 02/27/22 11:08 98.6 F 68 18 129/56 98 02/27/22 08:20 98.2 F 78 18 136/98 96 02/27/22 04:00 98.1 F 84 18 133/87 91 L 02/27/22 00:00 98.2 F 84 18 121/89 96 02/26/22 20:00 98.5 F 86 20 134/98 98 02/26/22 15:03 97.6 F 83 18 139/98 98 Intake and Output 02/26/22 02/27/22 02/27/22 22:59 06:59 14:59 Intake Total 462 222 260 Output Total 1525 875 250 Balance -1063 -103 10 Intake: IV 20 Invasive Line 1 20 Oral 462 222 240 Output: Urine 1525 875 250 Other: Voiding Method Urinal Urinal Urinal # Voids 1 1 Weight 161.3 kg 157.4 kg GENERAL EXAM: Patient is alert and oriented and doesn't appear to be in any acute distress HEENT: Normocephalic. Normal reaction of pupils, equal size, normal range of extraocular motion. No erythema or exudates in the throat. NECK: No masses, no nuchal rigidity. CHEST: No chest wall deformity. LUNGS: Diminished breath sounds at bases HEART: Distant heart sounds ABDOMEN: No hepatosplenomegaly, normal bowel sounds, no guarding or rigidity. SKIN: No rashes CENTRAL NERVOUS SYSTEM: No focal deficits. EXTREMITIES: 2-3+ edema Results 02/26/22 03:03 02/27/22 08:04 Cardiac Enzymes 02/26/22 Range/Units 14:23 Troponin I 0.034 (0.000-0.034) ng/mL Comprehensive Metabolic Panel 02/27/22 Range/Units 08:04 Sodium 137 (137-145) mmol/L Potassium 3.8 (3.5-5.1) mmol/L Chloride 101 (98-107) mmol/L Carbon Dioxide 27 (22-30) mmol/L BUN 10 (9-20) mg/dL Creatinine 1.24 (0.66-1.25) mg/dL Glucose 101 H (74-99) mg/dL Calcium 8.3 L (8.4-10.2) mg/dL Current Medications Generic Name Dose Route Start Last Admin Trade Name Freq PRN Reason Stop Dose Admin Aspirin 325 mg 02/27/22 09:00 02/27/22 08:22 Aspirin 325 Mg Tab PO 325 mg DAILY TETO Administration Carvedilol 3.125 mg 02/27/22 17:30 Carvedilol 3.125 Mg Tab PO BID-W/MEALS TETO Famotidine 20 mg 02/27/22 09:00 02/27/22 08:21 Famotidine 20 Mg Tab PO 20 mg BID TETO Administration Furosemide 40 mg 02/26/22 09:00 02/27/22 08:21 Furosemide 10 Mg/Ml 4 Ml Vial IV 40 mg Q12HR TETO Administration Heparin Sodium (Porcine) 5,000 unit 02/26/22 21:00 02/27/22 08:22 Heparin Sodium,Porcine/Pf 5,000 Unit/0.5 Ml Syringe SQ 5,000 unit Q12HR TETO Administration Levofloxacin 500 mg 02/26/22 12:00 02/27/22 08:21 Levofloxacin 500 Mg Tab PO 500 mg Q24H TETO Administration Protocol Lisinopril 5 mg 02/27/22 15:00 Lisinopril 5 Mg Tab PO DAILY TETO Sodium Chloride 10 ml 02/26/22 09:00 02/27/22 08:22 Sodium Chloride 0.9% Flush 10 Ml Syringe IV 10 ml BID TETO Administration Spironolactone 12.5 mg 02/28/22 09:00 Spironolactone 25 Mg Tab PO DAILY TETO Intake and Output 02/26/22 02/27/22 02/27/22 22:59 06:59 14:59 Intake Total 462 222 260 Output Total 1525 875 250 Balance -1063 -653 10 Intake: IV 20 Invasive Line 1 20 Oral 462 222 240 Output: Urine 1525 875 250 Other: Voiding Method Urinal Urinal Urinal # Voids 1 1 Weight 161.3 kg 157.4 kg 02/26/22 03:03 02/27/22 08:04 EKG Interpretations (text) Sinus rhythm Assessment and Plan (1) Cardiomyopathy Current Visit: Yes Status: Acute Code(s): I42.9 - CARDIOMYOPATHY, UNSPECIFIED SNOMED Code(s): 38000009 (2) Congestive heart failure Current Visit: Yes Status: Acute Code(s): I50.9 - HEART FAILURE, UNSPECIFIED SNOMED Code(s): 01050368 (3) Pericardial effusion Current Visit: Yes Status: Acute Code(s): I31.3 - PERICARDIAL EFFUSION (NONINFLAMMATORY) SNOMED Code(s): 758975089 Plan: Continue current medical therapy. Sed rate and thyroid function studies. Repe at echocardiogram. Further recommendations depend upon the clinical course. Cardiovascular consult may be needed
[2022-02-27] MEDS: carvediloL 3.125 MG TAB PO SCH (16:52)
[2022-02-27] MEDS: lisinopriL 5 MG TAB PO SCH (16:52)
[2022-02-27 17:53] VITALS: BMI 49.8
--- NOTE | 2022-02-27 18:06 | P.PN ---
Subjective This is a pleasant 31 male with past medical history of Hypertension, Sleep Apnea/CPAP/BIPAP Patient has been complaining of from lower abdominal pain radiating to both sides for about a month, his PCP is Dr. Alston and was following up with Dr. Elton boles ordered CT of the abdomen and pelvis for him with IV contrast which was done yesterday showing large pericardial effusion and cardiac tamponade cannot be excluded with bilateral basal pulmonary Mohs I perfusion pattern, possibly related to the pericardial effusion. Bilateral nonobstructing renal calculi. While the bowel showed unremarkable stomach, duodenum and small bowel. Colonic diverticulosis without gross signs of acute diverticulitis. Diffuse abdominal wall subcutaneous fat stranding, reactive fluid and scalp thickening merely along the anterior abdominal wall. Mild acute diverticulitis could be masked by free abdominal fluid. Patient received a call yesterday from both the surgeon Dr. Apodaca and Dr. Alston to come to emergency room. Also stated that he has been complaining of from shortness of breath and some chest pressure for about 2-3 months. His chest pressure is only for 1 month, and the middle sometimes radiating to the left side and to the extremity but it is mobile and minimally go away in the morning. However his dyspnea has been going on for about 2-3 months and especially with exertion. He quit smoking around that time. He denies any urinary complaints or burning. No diarrhea actually he states is been constipated. No vomiting. He quit smoking about 2 months ago, he used to smoke 1 pack per week. No alcohol or illicit drugs Patient presents because of dyspnea, Which was progressive over one month associated with bilateral leg swelling Associated with some chest pressure, and cough Patient Vitas looks stable and he is afebrile. Blood pressure 141/106. He is saturating 97% on room air. Labs show an unremarkable CBC, INR, BMP except for elevated creatinine of 1.5 0.7-1.1. Liver enzymes are within normal limits. Troponin slightly elevated 0.05. BNP is slightly elevated as well as 3770. Coronavirus not detected. Chest x-ray: Cardiomediastinal still OT, nonspecific course reticular opacity in the middle and lower lungs may be related to infection or edema In the emergency room he received aspirin and 1 dose of Lasix. 02/27/2022 Patient looks little more comfortable compared to yesterday while he is sitting in chair, he has very mild tinge of central chest pain or pressure, no other specific complaints. He has occasional cough, hearing assist chest pain as 4/10. History has bilateral leg edema but left leg cellulitis looks better Husbandry Technician input appreciated and patient was started on beta sukh, potassium sparing diuretic and ALMA inhibitor at small doses. Cardiovascular surgery have been consulted for tomorrow to evaluate the patient. Other than that he is hemodynamically stable Echo showing ejection fraction 30% with moderate right ventricle dilatation, moderate pulmonary hypertension, severe left atrial dilatation, mild to moderate tricuspid regurgitation and moderate to large pericardial effusion and dilated left ventricle. Objective - Vital Signs Vital signs: Vital Signs Temp 98.6 F 02/27/22 11:08 Pulse 68 02/27/22 11:08 Resp 18 02/27/22 11:08 BP 129/56 02/27/22 11:08 Pulse Ox 98 02/27/22 11:08 FiO2 Intake & Output 02/26/22 02/27/22 02/27/22 18:59 06:59 18:59 Intake Total 240 444 260 Output Total 3000 2400 250 Balance -2759 10 Weight 161.3 kg 157.4 kg Intake: IV 20 Invasive Line 1 20 Oral 240 444 240 Output: Urine 3000 2400 250 Other: Voiding Method Urinal Urinal # Voids 1 - Exam -GENERAL: The patient is alert and oriented x3, not in any acute distress. Morbidly obese HEENT: Pupils are round and equally reacting to light. EOMI. No scleral icterus. No conjunctival pallor. Normocephalic, atraumatic. No pharyngeal erythema. No thyromegaly. CARDIOVASCULAR: S1 and S2 present. No murmurs, rubs, or gallops. PULMONARY: Chest is clear to auscultation, no wheezing or crackles. -ABDOMEN: Soft, nontender, nondistended, normoactive bowel sounds. No palpable organomegaly. Abdominal wall edema MUSCULOSKELETAL: No joint swelling or deformity. -EXTREMITIES: No cyanosis, clubbing, bilateral pitting leg r pedal edema. Recent evidence of left leg cellulitis NEUROLOGICAL: Gross neurological examination did not reveal any focal deficits. SKIN: No rashes. No petechiae - Labs CBC & Chem 7: 02/26/22 03:03 02/27/22 08:04 Labs: Abnormal Lab Results - Last 24 Hours (Table) 02/26/22 02/27/22 Range/Units 14:23 08:04 ESR 25 H (0-15) mm/hr Glucose 101 H (74-99) mg/dL Calcium 8.3 L (8.4-10.2) mg/dL Assessment and Plan Assessment: Acute systolic CHF, ejection fraction 30% Moderate to large pericardial effusion Mild to moderate tricuspid tripped regurgitation and moderate pulmonary hypertension Acute kidney injury, Improved Acute mild to moderate left leg cellulitis Mild lower abdominal pain and to the site Possibly mild diverticulitis cannot be excluded Bilateral nonobstructing renal calculi Morbidly obese Plan: this is a pleasant 31 male who presents with dyspnea and pulmonary edema with elevated troponin Continue with IV Lasix Cardiology consult and cardiovascular consult Continue with oral Levaquin Continue with aspirin, Coreg, Aldactone and lisinopril. Labs and medication were reviewed.. Continue same treatment. Continue with symptomatic treatment. Resume home medication. Monitor lytes and vitals. DVT and GI prophylaxis. Further recommendations depends on the clinical course of the patient DVT prophylaxis: Subcutaneous heparin GI Prophylaxis: Pepcid PT/OT: Pending Prognosis is guarded
[2022-02-27 20:42] LABS: T4, Free (Free Thyroxine) 0.15 ng/dL (0.78-2.19)
[2022-02-28] MEDS: carvediloL 3.125 MG TAB PO SCH ×2 (06:38→17:30)
[2022-02-28 07:30] LABS: Calcium 8.2 mg/dL (8.4-10.2); Magnesium 1.9 mg/dL (1.6-2.3); Potassium 3.6 mmol/L (3.5-5.1)
[2022-02-28 07:52] LABS: Basophils # (A) 0.1 k/uL (0-0.2); Basophils % (A) 1 %; Eosinophils # (A) 0.4 k/uL (0-0.7); Eosinophils % (A) 5 %; HCT 39.8 % (39.0-53.0); HGB 13.4 gm/dL (13.0-17.5); Lymphocytes # (A) 2.2 k/uL (1.0-4.8); Lymphocytes % (A) 28 %; MCH 35.4 pg (25.0-35.0); MCHC 33.7 g/dL (31.0-37.0); MCV 104.9 fL (80.0-100.0); Macrocytosis Moderate; Mean Platelet Volume 7.8; Monocytes # (A) 0.6 k/uL (0-1.0); Monocytes % (A) 7 %; Neutrophils # (A) 4.5 k/uL (1.3-7.7); Neutrophils % (A) 57 %; Platelet Count 220 k/uL (150-450); RBC 3.79 m/uL (4.30-5.90); RDW 14.2 % (11.5-15.5); WBC 7.8 k/uL (3.8-10.6)
[2022-02-28] MEDS: ASPIRIN 325 MG TAB PO SCH (08:30)
[2022-02-28] MEDS: FUROSEMIDE 10 MG/ML 4 ML VIAL IV SCH ×2 (08:30→21:24)
[2022-02-28] MEDS: HEPARIN SODIUM,PORCINE/PF 5,000 UNIT/0.5 ML SYRINGE SQ SCH ×2 (08:30→21:24)
[2022-02-28] MEDS: SPIRONOLACTONE 25 MG TAB PO SCH (08:30)
[2022-02-28] MEDS: FAMOTIDINE 20 MG TAB PO SCH ×2 (08:30→21:24)
[2022-02-28] MEDS: LEVOFLOXACIN 500 MG TAB PO SCH (08:30)
[2022-02-28] MEDS: lisinopriL 5 MG TAB PO SCH (08:31)
--- NOTE | 2022-02-28 09:16 | P.PN ---
Subjective Progress Note Date: 02/28/22 This 31-year-old gentleman is admitted to the hospital with evidence of significant pericardial effusion and cardiomyopathy. Patient was initiated on beta blockers, diuretics and ALMA inhibitor. Patient seemed to be diuresing well. He doesn't appear to be in acute distress. His blood work, However ,juan jose wed significant elevation of TSH suggestive of myxedema and hypothyroidism. Most probably myxedema and hypothyroidism is responsible for pericardial effusion . Hopefully with thyroid supplement, his pericardial effusion and LV function may improve. She lungs show some diminished breath sounds. Heart is regular. His creatinine has gone up to 1.4. This needs to be watched carefully. Further examination depend upon the clinical course. Objective - Vital Signs Vital signs: Vital Signs Temp 98.3 F 02/28/22 08:29 Pulse 77 02/28/22 08:29 Resp 20 02/28/22 08:29 BP 116/83 02/28/22 08:29 Pulse Ox 98 02/28/22 08:29 FiO2 Intake & Output 02/27/22 02/28/22 02/28/22 18:59 06:59 18:59 Intake Total 1205 462 280 Output Total 1200 1100 Balance 5 -638 280 Weight 157.4 kg 157.7 kg Intake: IV 30 20 Invasive Line 1 30 20 Oral 1175 462 260 Output: Urine 1200 1100 Other: Voiding Method Urinal Urinal Urinal - Exam GENERAL EXAM: Patient is alert and oriented and doesn't appear to be in any acute distress HEENT: Normocephalic. Normal reaction of pupils, equal size, normal range of extraocular motion. No erythema or exudates in the throat. NECK: No masses, no nuchal rigidity. CHEST: No chest wall deformity. LUNGS: Equal air entry with no crackles or wheeze. HEART: S1 and S2 normal with no audible mumurs or gallops. Regular rhythm, femorals equal on both sides.. ABDOMEN: No hepatosplenomegaly, normal bowel sounds, no guarding or rigidity. SKIN: No rashes CENTRAL NERVOUS SYSTEM: No focal deficits. Slow in mentation EXTREMITIES: Moderate bilateral edema with some excoriation and cellulitis - Labs CBC & Chem 7: 02/28/22 06:28 02/28/22 06:28 Labs: Abnormal Lab Results - Last 24 Hours (Table) 02/27/22 02/28/22 02/28/22 Range/Units 15:01 06:28 06:28 RBC 3.79 L (4.30-5.90) m/uL MCV 104.9 H (80.0-100.0) fL MCH 35.4 H (25.0-35.0) pg Sodium 135 L (137-145) mmol/L Creatinine 1.41 H (0.66-1.25) mg/dL Calcium 8.2 L (8.4-10.2) mg/dL TSH >100.000 H (0.465-4.680) mIU/L Free T4 0.15 L (0.78-2.19) ng/dL Assessment and Plan (1) Cardiomyopathy Current Visit: Yes Status: Acute Code(s): I42.9 - CARDIOMYOPATHY, UNSPECIFIED SNOMED Code(s): 18008047 (2) Congestive heart failure Current Visit: Yes Status: Acute Code(s): I50.9 - HEART FAILURE, UNSPECIFIED SNOMED Code(s): 09221428 (3) Pericardial effusion Current Visit: Yes Status: Acute Code(s): I31.3 - PERICARDIAL EFFUSION (NONINFLAMMATORY) SNOMED Code(s): 457733176 (4) Myxedema Current Visit: Yes Status: Acute Code(s): E03.9 - HYPOTHYROIDISM, UNSPECIFIED SNOMED Code(s): 78425612 Plan: Continue current medical therapy. Thyroid supplement. Endocrinology consult. Repeat echocardiogram next week
--- NOTE | 2022-02-28 09:45 | P.GSCN ---
History of Present Illness Consult date: 02/28/22 Reason for Consult: Pericardial effusion Requesting physician: Gio E Sheet History of present illness: This is a 31-year-old morbidly obese gentleman who follows on an outpatient basis with Dr. Shields per primary care. He has a previous medical history of hypertension, previous tobacco dependence with recent cessation, and family history of heart failure. The patient has been complaining of cough and shortness of breath for approximately 2-3 months as well as stomach pain and lower extremity edema which started about a month ago. He states he reported to his primary care physician who sent him to see Dr. Monge. He had a CT of the abdomen/pelvis completed 02/24/2022 which demonstrated diverticulosis, as well as large pericardial effusion small right pleural effusion and small free abdominal fluid. He was recommended to report to the emergency room for evaluation treatment, however patient decided to go to work instead. He was again called by his physician the next day and was requested to report to the emergency room. He finally came in to [facility] emergency room on 02/26/2022 and was admitted for further evaluation and treatment. Transthoracic echocardiogram was completed demonstrating reduced left ventricular systolic function with EF 30% and severe concentric left ventricular hypertrophy, mild mitral regurgitation and mild to moderate tricuspid regurgitation with large per icardial effusion present. Due to these findings cardiothoracic surgery was consulted by internal medicine for recommendations. Review of Systems Review of systems was completed and negative except as noted - Cardiovascular Reports as per HPI, Reports leg edema, Reports shortness of breath - Respiratory Reports as per HPI, Reports cough - Gastrointestinal Reports as per HPI, Reports abdominal pain, Reports bloating Past Medical History Past Medical History: Chest Pain / Angina, Hypertension, Sleep Apnea/CPAP/BIPAP Additional Past Medical History / Comment(s): no cpap used (patient states he has had several nurses tell him he looks like he has sleep apnea, however he was tested by sleep medicine and was told he does not have sleep apnea) hemorrhoids, pinched nerve in neck, torn tendon rt foot History of Any Multi-Drug Resistant Organisms: None Reported Past Surgical History: Ear Surgery, Tonsillectomy Additional Past Surgical History / Comment(s): tube rt ear, colonoscopy, hemorrhoid removal Past Anesthesia/Blood Transfusion Reactions: No Reported Reaction Past Psychological History: Depression Smoking Status: Former smoker Past Alcohol Use History: None Reported Past Drug Use History: None Reported - Past Family History Mother Family Medical History: Congestive Heart Failure (CHF) Father Family Medical History: Liver Disease Additional Family Medical History / Comment(s): Father from cirrhosis of the liver Medications and Allergies Home Medications Medication Instructions Recorded Confirmed Type No Known Home Medications 01/17/21 02/26/22 History Allergies Allergy/AdvReac Type Severity Reaction Status Date / Time bee pollen Allergy Rash/Hives Verified 02/26/22 07:32 lactose Allergy Diarrhea Verified 02/26/22 07:32 Penicillins AdvReac Unknown Verified 02/26/22 07:32 Childhood Surgical - Exam Vital Signs Temp Pulse Resp BP Pulse Ox 97.7 F 86 20 129/94 97 02/25/22 19:57 02/25/22 19:57 02/25/22 19:57 02/25/22 19:57 02/25/22 19:57 CONSTITUTIONAL: Awake and alert, appears comfortable, cooperative, well- developed, well-nourished, no pain, no acute distress, morbidly obese EYES: Pupils equal, round, reactive to light, normal ocular movement ENT: Moist mucous membranes without oral lesions present NECK: No masses, no bruits, trachea midline RESPIRATORY: Lungs sounds diminished bilaterally, right greater than left. Respirations even, nonlabored. Currently on room air with oxygen saturation 98 %. Strong cough. No chest wall deformities. No clubbing or cyanosis present CARDIOVASCULAR: S1, S2 present. Regular rate and rhythm, sinus rhythm on telemetry. Palpable peripheral pulses bilaterally. Bilateral lower extremity edema present. GASTROINTESTINAL: Abdomen soft, nontender, nondistended, obese without masses or organomegaly noted. There is no rebound or guarding present. Active bowel sounds present 4 quadrants. GENITOURINARY: Deferred INTEGUMENTARY: Skin is warm and dry. Right lower extremity does appear a bit red with healed scratches, 2 x 2 dressing present to right anterior carrasco NEUROLOGIC: Cranial nerves II through XII intact, normal coordination, no obvious motor or sensory deficits, speech is normal MUSKULOSKELETAL: Able to move all extremities, strength equal bilaterally, normal posture PSYCHIATRIC: Alert and oriented to person place and time, appropriate affect, intact judgment and insight Results - Labs 02/28/22 06:28 02/28/22 06:28 Abnormal Lab Results - Last 24 Hours (Table) 02/27/22 02/28/22 02/28/22 Range/Units 15:01 06:28 06:28 RBC 3.79 L (4.30-5.90) m/uL MCV 104.9 H (80.0-100.0) fL MCH 35.4 H (25.0-35.0) pg Sodium 135 L (137-145) mmol/L Creatinine 1.41 H (0.66-1.25) mg/dL Calcium 8.2 L (8.4-10.2) mg/dL TSH >100.000 H (0.465-4.680) mIU/L Free T4 0.15 L (0.78-2.19) ng/dL Diabetes panel 02/28/22 Range/Units 06:28 Sodium 135 L (137-145) mmol/L Potassium 3.6 (3.5-5.1) mmol/L Chloride 100 (98-107) mmol/L Carbon Dioxide 29 (22-30) mmol/L BUN 13 (9-20) mg/dL Creatinine 1.41 H (0.66-1.25) mg/dL Glucose 89 (74-99) mg/dL Calcium 8.2 L (8.4-10.2) mg/dL Thyroid panel 02/27/22 Range/Units 15:01 TSH >100.000 H (0.465-4.680) mIU/L Calcium panel 02/28/22 Range/Units 06:28 Calcium 8.2 L (8.4-10.2) mg/dL Pituitary panel 02/27/22 02/28/22 Range/Units 15:01 06:28 Sodium 135 L (137-145) mmol/L Potassium 3.6 (3.5-5.1) mmol/L Chloride 100 (98-107) mmol/L Carbon Dioxide 29 (22-30) mmol/L BUN 13 (9-20) mg/dL Creatinine 1.41 H (0.66-1.25) mg/dL Glucose 89 (74-99) mg/dL Calcium 8.2 L (8.4-10.2) mg/dL TSH >100.000 H (0.465-4.680) mIU/L Adrenal panel 02/28/22 Range/Units 06:28 Sodium 135 L (137-145) mmol/L Potassium 3.6 (3.5-5.1) mmol/L Chloride 100 (98-107) mmol/L Carbon Dioxide 29 (22-30) mmol/L BUN 13 (9-20) mg/dL Creatinine 1.41 H (0.66-1.25) mg/dL Glucose 89 (74-99) mg/dL Calcium 8.2 L (8.4-10.2) mg/dL - Imaging Chest x-ray: report reviewed, image reviewed CT scan - abdomen: report reviewed, image reviewed Assessment and Plan Assessment: 1. Large pericardial effusion on CT and echocardiogram 2. History of shortness of breath/cough/stomach pain, lower extremities edema 3. History of hypertension on no home medications 4. Previous tobacco dependence, recent cessation 2-3 months ago 5. Family history of heart failure 6. Hypothyroid found on admitting lab work Plan: The patient was seen and examined this morning sitting up in bed eating breakfast in no acute distress on the cardiac stepdown unit. Denies any current pain or shortness of breath, although he does state when he tried to get out of bed he had significant pain to his right heel. Films were reviewed and discussed with Dr. Calles. The patient is clinically stable. There is no indication for surgical intervention for his pericardial effusion at this time. Pericardial effusion likely due to undiagnosed hypothyroidism which should be treated accordingly. In addition, we recommend anti-inflammatories, colchicine versus ibuprofen versus steroids, most likely the latter due to patient's current creatinine elevation. Will defer to internal medicine and cardiology for management. Dr. Jaimes plans to repeat echocardiogram, agree with management. Medical management of other comorbidities per internal medicine. Thank you Dr. Moreno for this consult. Please call us with any further questions. I have personally seen and examined the patient, performed the documentation and the assessment and plan as written. Number of minutes spent on the visit: 30. FLAKO Javier
[2022-02-28] MEDS: LEVOTHYROXINE 50 MCG TAB PO SCH (11:34)
--- NOTE | 2022-02-28 17:14 | XR ---
EXAMINATION TYPE: XR ankle limited LT DATE OF EXAM: 02/28/2022 COMPARISON: None HISTORY: Pain and swelling TECHNIQUE: 2 views FINDINGS: There is some soft tissue swelling around the lower leg and ankle. Ankle mortise is anatomi c. There is plantar calcaneal spurring. No fracture seen. IMPRESSION: Soft tissue swelling. No fracture.
--- NOTE | 2022-02-28 18:46 | P.PN ---
Subjective This is a pleasant 31 male with past medical history of Hypertension, Sleep Apnea/CPAP/BIPAP Patient has been complaining of from lower abdominal pain radiating to both sides for about a month, his PCP is Dr. Alston and was following up with Dr. Elton boles ordered CT of the abdomen and pelvis for him with IV contrast which was done yesterday showing large pericardial effusion and cardiac tamponade cannot be excluded with bilateral basal pulmonary Mohs I perfusion pattern, possibly related to the pericardial effusion. Bilateral nonobstructing renal calculi. While the bowel showed unremarkable stomach, duodenum and small bowel. Colonic diverticulosis without gross signs of acute diverticulitis. Diffuse abdominal wall subcutaneous fat stranding, reactive fluid and scalp thickening merely along the anterior abdominal wall. Mild acute diverticulitis could be masked by free abdominal fluid. Patient received a call yesterday from both the surgeon Dr. Apodaca and Dr. Alston to come to emergency room. Also stated that he has been complaining of from shortness of breath and some chest pressure for about 2-3 months. His chest pressure is only for 1 month, and the middle sometimes radiating to the left side and to the extremity but it is mobile and minimally go away in the morning. However his dyspnea has been going on for about 2-3 months and especially with exertion. He quit smoking around that time. He denies any urinary complaints or burning. No diarrhea actually he states is been constipated. No vomiting. He quit smoking about 2 months ago, he used to smoke 1 pack per week. No alcohol or illicit drugs Patient presents because of dyspnea, Which was progressive over one month associated with bilateral leg swelling Associated with some chest pressure, and cough Patient Vitas looks stable and he is afebrile. Blood pressure 141/106. He is saturating 97% on room air. Labs show an unremarkable CBC, INR, BMP except for elevated creatinine of 1.5 0.7-1.1. Liver enzymes are within normal limits. Troponin slightly elevated 0.05. BNP is slightly elevated as well as 3770. Coronavirus not detected. Chest x-ray: Cardiomediastinal still OT, nonspecific course reticular opacity in the middle and lower lungs may be related to infection or edema In the emergency room he received aspirin and 1 dose of Lasix. 02/27/2022 Patient looks little more comfortable compared to yesterday while he is sitting in chair, he has very mild tinge of central chest pain or pressure, no other specific complaints. He has occasional cough, hearing assist chest pain as 4/10. History has bilateral leg edema but left leg cellulitis looks better Draw Tender input appreciated and patient was started on beta sukh, potassium sparing diuretic and ALMA inhibitor at small doses. Cardiovascular surgery have been consulted for tomorrow to evaluate the patient. Other than that he is hemodynamically stable Echo showing ejection fraction 30% with moderate right ventricle dilatation, moderate pulmonary hypertension, severe left atrial dilatation, mild to moderate tricuspid regurgitation and moderate to large pericardial effusion and dilated left ventricle. 02/28/2022 Patient states improvement, and his breathing pattern, he has no cough or phlegm. He has no chest pain. He still has significant bilateral patellar leg edema, as well as mild cellulitis of the left leg which is slowly improving. He has had high TSH more 100 and low free T4 at 0.15. Most likely hypothyroidism is the cause of pericardial effusion per surgical team no need for surgical intervention, need to be treated medically. Replacement for thyroid started at 50 g. Creatinine is 1.4 Repeat echocardiogram in 1 week patient also complaining from left ankle pain, ultrasound showing no fracture or dislocation and soft tissue swelling which causes with patient condition of generalized edema Objective - Vital Signs Vital signs: Vital Signs Temp 98.6 F 02/28/22 17:27 Pulse 77 02/28/22 17:27 Resp 20 02/28/22 17:27 BP 118/83 02/28/22 17:27 Pulse Ox 96 02/28/22 17:27 FiO2 Intake & Output 02/27/22 02/28/22 02/28/22 18:59 06:59 18:59 Intake Total 6051 464 3382 Output Total 1200 1100 925 Balance 5 -628 555 Weight 157.4 kg 157.7 kg Intake: IV 30 30 Invasive Line 1 30 30 Oral [id number] 5515 Output: Urine 1200 1100 925 Other: Voiding Method Urinal Urinal Urinal - Exam -GENERAL: The patient is alert and oriented x3, not in any acute distress. Morbidly obese HEENT: Pupils are round and equally reacting to light. EOMI. No scleral icterus. No conjunctival pallor. Normocephalic, atraumatic. No pharyngeal erythema. No thyromegaly. CARDIOVASCULAR: S1 and S2 present. No murmurs, rubs, or gallops. PULMONARY: Chest is clear to auscultation, no wheezing or crackles. -ABDOMEN: Soft, nontender, nondistended, normoactive bowel sounds. No palpable organomegaly. Abdominal wall edema MUSCULOSKELETAL: No joint swelling or deformity. -EXTREMITIES: No cyanosis, clubbing, bilateral pitting leg r pedal edema. Recent evidence of left leg cellulitis NEUROLOGICAL: Gross neurological examination did not reveal any focal deficits. SKIN: No rashes. No petechiae - Labs CBC & Chem 7: 02/28/22 06:28 02/28/22 06:28 Labs: Abnormal Lab Results - Last 24 Hours (Table) 02/27/22 02/28/22 02/28/22 Range/Units 15:01 06: 06:28 RBC 3.79 L (4.30-5.90) m/uL MCV 104.9 H (80.0-100.0) fL MCH 35.4 H (25.0-35.0) pg Sodium 135 L (137-145) mmol/L Creatinine 1.41 H (0.66-1.25) mg/dL Calcium 8.2 L (8.4-10.2) mg/dL TSH >100.000 H (0.465-4.680) mIU/L Free T4 0.15 L (0.78-2.19) ng/dL Assessment and Plan Assessment: Acute hypothyroidism Acute systolic CHF, ejection fraction 30%, secondary to hypothyroidism Moderate to large pericardial effusion, secondary to hypothyroidism Mild to moderate tricuspid tripped regurgitation and moderate pulmonary hypertension Acute kidney injury, fluctuating creatinine Acute mild to moderate left leg cellulitis Mild lower abdominal pain and to the site Possibly mild diverticulitis cannot be excluded Bilateral nonobstructing renal calculi Morbidly obese Plan: this is a pleasant 31 male who presents with dyspnea and pulmonary edema with elevated troponin Continue with IV Lasix Cardiology consult and cardiovascular consult sought levothyroxine replacement therapy monitor creatinine Continue with oral Levaquin Continue with aspirin, Coreg, Aldactone and lisinopril. Labs and medication were reviewed.. Continue same treatment. Continue with symptomatic treatment. Resume home medication. Monitor lytes and vitals. DVT and GI prophylaxis. Further recommendations depends on the clinical course of the patient DVT prophylaxis: Subcutaneous heparin GI Prophylaxis: Pepcid PT/OT: Pending Prognosis is guarded
[2022-03-01] MEDS: LEVOTHYROXINE 50 MCG TAB PO SCH (06:40)
[2022-03-01] MEDS: carvediloL 3.125 MG TAB PO SCH ×2 (06:40→17:01)
[2022-03-01] MEDS: FUROSEMIDE 10 MG/ML 4 ML VIAL IV SCH ×2 (08:06→21:10)
[2022-03-01] MEDS: HEPARIN SODIUM,PORCINE/PF 5,000 UNIT/0.5 ML SYRINGE SQ SCH ×2 (08:06→21:10)
[2022-03-01] MEDS: FAMOTIDINE 20 MG TAB PO SCH ×2 (08:07→21:10)
[2022-03-01] MEDS: ASPIRIN 325 MG TAB PO SCH (08:07)
[2022-03-01] MEDS: LEVOFLOXACIN 500 MG TAB PO SCH (08:07)
[2022-03-01] MEDS: SPIRONOLACTONE 25 MG TAB PO SCH (08:07)
[2022-03-01] MEDS: lisinopriL 5 MG TAB PO SCH (08:07)
[2022-03-01 09:19] LABS: Calcium 8.3 mg/dL (8.4-10.2)
[2022-03-01 09:28] LABS: Magnesium 1.9 mg/dL (1.6-2.3); Potassium 4.1 mmol/L (3.5-5.1)
[2022-03-01] MEDS ORDERED: LEVOTHYROXINE 50 MCG TAB PO STA (10:16)
[2022-03-01] MEDS: predniSONE 20 MG TAB PO SCH (10:40)
--- NOTE | 2022-03-01 11:04 | P.CONS ---
History of Present Illness - Reason for Consult Consult date: 03/01/22 wound care - History of Present Illness This is a 31-year-old patient being seen on 3 for nonhealing ulceration to the left anterior leg. Patient states that the ulceration has been there for at least 2 weeks probably longer. He does get these ulcerations frequently due to swelling. Patient has 2+ bilateral pedal edema. The ulceration measures approximately 0.7 x 1 x 0.1 cm with significant amount of slough within the wound bed. Patient's past medical history significant for angina, hypertension, sleep apnea, former smoker quit in 2021 smoked apparently one pack a day. Review Of Systems: Constitutional: No fever, no chills, no night sweats. No weight change. No weakness, fatigue or lethargy. No daytime sleepiness. Integumentary:reports wounds, no lesions. No rash or pruritus. No unusual bruising. No change in hair or nails. Physical exam: General Appearance: Alert, cooperative, no distress, appears stated age. Skin: See HPI all other Skin color, texture, tugor normal, no rashes or lesions. Neurologic: Alert oriented x3 Assessment: 1. Nonhealing ulceration left lower extremity with fat layer exposure 2. Chronic venous hypertension with inflammation and ulceration of the left lower extremity 3. Chronic venous hypertension with inflammation of right lower extremity 4. Venous insufficiency Plan: 1.Apply honey gel, dry gauze, rolled gauze and secure with paper tape. Utilize Tubigrip or Jared wrap for compression. Change Tuesday.. Patient would benefit from advanced wound care and outpatient setting. We've happy to see him in the wound care center upon discharge. Thank you for the consultation any questions to contact the wound care center DNP note has been reviewed and discussed with Dr. Rivas and the impression and plan of care has been directed as dictated. Past Medical History Past Medical History: Chest Pain / Angina, Hypertension, Sleep Apnea/CPAP/BIPAP Additional Past Medical History / Comment(s): no cpap used (patient states he has had several nurses tell him he looks like he has sleep apnea, however he was tested by sleep medicine and was told he does not have sleep apnea) hemorrhoids, pinched nerve in neck, torn tendon rt foot History of Any Multi-Drug Resistant Organisms: None Reported Past Surgical History: Ear Surgery, Tonsillectomy Additional Past Surgical History / Comment(s): tube rt ear, colonoscopy, hemorrhoid removal Past Anesthesia/Blood Transfusion Reactions: No Reported Reaction Past Psychological History: Depression Smoking Status: Former smoker Past Alcohol Use History: None Reported Past Drug Use History: None Reported - Past Family History Mother Family Medical History: Congestive Heart Failure (CHF) Father Family Medical History: Liver Disease Additional Family Medical History / Comment(s): Father from cirrhosis of the liver Medications and Allergies Home Medications Medication Instructions Recorded Confirmed Type No Known Home Medications 01/17/21 02/26/22 History Allergies Allergy/AdvReac Type Severity Reaction Status Date / Time bee pollen Allergy Rash/Hives Verified 02/26/22 07:32 lactose Allergy Diarrhea Verified 02/26/22 07:32 Penicillins AdvReac Unknown Verified 02/26/22 07:32 Childhood Physical Exam Vitals: Vital Signs Temp Pulse Resp BP Pulse Ox 03/01/22 07:55 97.6 F 83 20 128/85 98 03/01/22 04:26 97.3 F L 75 20 105/69 98 02/28/22 23:55 76 20 105/72 99 02/28/22 20:55 98.1 F 75 20 109/74 97 02/28/22 17:27 98.6 F 77 20 118/83 96 02/28/22 11:36 98.2 F 78 20 115/79 97 Intake and Output 02/28/22 03/01/22 03/01/22 22:59 06:59 14:59 Intake Total 354 503 Output Total 500 750 Balance -146 -750 503 Intake: IV 30 Invasive Line 2 30 Oral 354 473 Output: Urine 500 750 Other: Voiding Method Urinal Urinal Urinal Weight 158.1 kg Results CBC & Chem 7: 02/28/22 06:28 03/01/22 08:48 Labs: Abnormal Lab Results - Last 24 Hours (Table) 03/01/22 Range/Units 08:48 Sodium 134 L (137-145) mmol/L Creatinine 1.53 H (0.66-1.25) mg/dL Calcium 8.3 L (8.4-10.2) mg/dL Assessment and Plan (1) Non-pressure ulcer of left lower extremity with fat layer exposed Current Visit: Yes Status: Acute Code(s): L97.922 - NON-PRS CHR ULC UNSP PRT OF L LOW LEG W FAT LAYER EXPOSED SNOMED Code(s): 67103435 (2) Chronic venous hypertension (idiopathic) with inflammation of right lower extremity Current Visit: Yes Status: Acute Code(s): I87.321 - CHRONIC VENOUS HYPERTENSION W INFLAMMATION OF R LOW EXTREM SNOMED Code(s): 529902370 (3) Chronic venous hypertension (idiopathic) with ulcer and inflammation of left lower extremity Current Visit: Yes Status: Acute Code(s): I87.332 - CHRONIC VENOUS HTN W ULCER AND INFLAMMATION OF L LOW EXTREM; L97.929 - NON-PRS CHRONIC ULC UNSP PRT OF L LOW LEG W UNSP SEVERITY SNOMED Code(s): 551951465415700
--- NOTE | 2022-03-01 12:26 | P.PN ---
Subjective This is a 31-year-old male with history of hypertension, former tobacco use recent quit 2-3 months ago, does not take any medications outpatient. 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 He presented to the emergency department with symptoms of increased shortness of breath, bilateral lower extremity swelling, generalized fatigue/tiredness. He has been having these symptoms for 2-3 months. He went to see his PCP, who referred the patient to Dr. Monge. Patient underwent CT abdomen and pelvis for evaluation of the abdominal pain. He was noted to have small free fluid in the abdomen but evidence of significant pericardial effusion. Patient was advised to go to the hospital but patient beta sukh 24-48 hours before coming to the hospital. Patient was found to have hypothyroidism. Echocardiogram revealed an EF of 30%, severe concentric LVH, moderate pulmonary hypertension, severely increased left atrial diameter, mild mitral regurgit ation, mild to moderate tricuspid regurgitation, large pericardial effusion. Patient was evaluated by CT surgery Films were reviewed and discussed with Dr. Calles. The patient is clinically stable. There is no indication for surgical intervention for his pericardial effusion at this time. 03/01/2022 Patient seen and examined at bedside, no acute distress. Breathing slightly improved. Continues to have bilateral lower extremity edema. Vital signs are stable. He is maintaining sinus mechanism with heart rate was 70-80s. Patient with 2.3L urine output over the past 24 hours. Weight has decreased since admission. BUN 14, sCr 1.53. GENERAL: Well-appearing, well-nourished and in no acute distress. NECK: Supple without JVD LUNGS: Breath sounds crackles in bases to auscultation bilaterally. Respiration equal and unlabored. No wheezes, rales or rhonchi. HEART: Regular rate and rhythm, Systolic murmur noted. No rubs or gallops. S1 and S2 heard. EXTREMITIES: Normal range of motion, 2+ bilateral lower extremity edema present. No clubbing or cyanosis. Peripheral pulses intact. ASSESSMENT Acute heart failure with reduced ejection fraction 30% Large pericardial effusion Hypothroidism History of tobacco use Hypertension PLAN Repeat echocardiogram tomorrow Continue aspirin, Coreg, lisinopril, and sprionolactone Continue IV Lasix 40mg BID Hypothyroid management per primary Monitor I/Os, daily weights, renal function and electrolytes Further recommendations based on clinical course Nurse Practitioner note has been reviewed, I agree with a documented findings and plan of care. Patient was seen and examined. Objective - Vital Signs Vital signs: Vital Signs Temp 98.3 F 03/01/22 11:23 Pulse 87 03/01/22 11:23 Resp 20 03/01/22 11:23 BP 114/83 03/01/22 11:23 Pulse Ox 97 03/01/22 11:23 FiO2 Intake & Output 02/28/22 03/01/22 03/01/22 18:59 06:59 18:59 Intake Total 1480 503 Output Total 925 1250 Balance 555 -1250 503 Weight 158.1 kg Intake: IV 30 30 Invasive Line 1 30 Invasive Line 2 30 Oral [id number] 473 Output: Urine 925 1250 Other: Voiding Method Urinal Urinal Urinal - Labs CBC & Chem 7: 02/28/22 06:28 03/01/22 08:48 Labs: Abnormal Lab Results - Last 24 Hours (Table) 03/01/22 Range/Units 08:48 Sodium 134 L (137-145) mmol/L Creatinine 1.53 H (0.66-1.25) mg/dL Calcium 8.3 L (8.4-10.2) mg/dL
--- NOTE | 2022-03-01 15:54 | P.PN ---
Subjective This is a pleasant 31 male with past medical history of Hypertension, Sleep Apnea/CPAP/BIPAP Patient has been complaining of from lower abdominal pain radiating to both sides for about a month, his PCP is Dr. Alston and was following up with Dr. Elton boles ordered CT of the abdomen and pelvis for him with IV contrast which was done yesterday showing large pericardial effusion and cardiac tamponade cannot be excluded with bilateral basal pulmonary Mohs I perfusion pattern, possibly related to the pericardial effusion. Bilateral nonobstructing renal calculi. While the bowel showed unremarkable stomach, duodenum and small bowel. Colonic diverticulosis without gross signs of acute diverticulitis. Diffuse abdominal wall subcutaneous fat stranding, reactive fluid and scalp thickening merely along the anterior abdominal wall. Mild acute diverticulitis could be masked by free abdominal fluid. Patient received a call yesterday from both the surgeon Dr. Apodaca and Dr. Alston to come to emergency room. Also stated that he has been complaining of from shortness of breath and some chest pressure for about 2-3 months. His chest pressure is only for 1 month, and the middle sometimes radiating to the left side and to the extremity but it is mobile and minimally go away in the morning. However his dyspnea has been going on for about 2-3 months and especially with exertion. He quit smoking around that time. He denies any urinary complaints or burning. No diarrhea actually he states is been constipated. No vomiting. He quit smoking about 2 months ago, he used to smoke 1 pack per week. No alcohol or illicit drugs Patient presents because of dyspnea, Which was progressive over one month associated with bilateral leg swelling Associated with some chest pressure, and cough Patient Vitas looks stable and he is afebrile. Blood pressure 141/106. He is saturating 97% on room air. Labs show an unremarkable CBC, INR, BMP except for elevated creatinine of 1.5 0.7-1.1. Liver enzymes are within normal limits. Troponin slightly elevated 0.05. BNP is slightly elevated as well as 3770. Coronavirus not detected. Chest x-ray: Cardiomediastinal still OT, nonspecific course reticular opacity in the middle and lower lungs may be related to infection or edema In the emergency room he received aspirin and 1 dose of Lasix. 02/27/2022 Patient looks little more comfortable compared to yesterday while he is sitting in chair, he has very mild tinge of central chest pain or pressure, no other specific complaints. He has occasional cough, hearing assist chest pain as 4/10. History has bilateral leg edema but left leg cellulitis looks better [employer] input appreciated and patient was started on beta sukh, potassium sparing diuretic and ALMA inhibitor at small doses. Cardiovascular surgery have been consulted for tomorrow to evaluate the patient. Other than that he is hemodynamically stable Echo showing ejection fraction 30% with moderate right ventricle dilatation, moderate pulmonary hypertension, severe left atrial dilatation, mild to moderate tricuspid regurgitation and moderate to large pericardial effusion and dilated left ventricle. 02/28/2022 Patient states improvement, and his breathing pattern, he has no cough or phlegm. He has no chest pain. He still has significant bilateral patellar leg edema, as well as mild cellulitis of the left leg which is slowly improving. He has had high TSH more 100 and low free T4 at 0.15. Most likely hypothyroidism is the cause of pericardial effusion per surgical team no need for surgical intervention, need to be treated medically. Replacement for thyroid started at 50 g. Creatinine is 1.4 Repeat echocardiogram in 1 week patient also complaining from left ankle pain, ultrasound showing no fracture or dislocation and soft tissue swelling which causes with patient condition of generalized edema 03/01/2022 Patient still complaining of from exertional dyspnea when he was trying to walk in the hallway. No coughing, no chest pain, no other complaints like the area or dysuria. He still has pain in the left lower extremity from possible cellulitis with x-rays negative for air and the tissue or fracture. Today repeat EKG showing normal sinus rhythm with no significant ST-T changes cause of this increased the dose of levothyroxine to 100 g daily starting today also we started him on prednisone 60 mg daily for his pericardial effusion related and secondary to hypothyroidism. Other than that he is still on Lasix 40 mg twice daily, aspirin dose lower to 81 mg today. While Levaquin continued for his left leg cellulitis, culture obtained from the small wound in the left leg which is pending. Objective - Vital Signs Vital signs: Vital Signs Temp 98.3 F 03/01/22 11:23 Pulse 87 03/01/22 11:23 Resp 20 03/01/22 11:23 BP 114/83 03/01/22 11:23 Pulse Ox 97 03/01/22 11:23 FiO2 Intake & Output 02/28/22 03/01/22 03/01/22 18:59 06:59 18:59 Intake Total 1480 861 Output Total 925 1250 1200 Balance 555 1250 -339 Weight 158.1 kg Intake: IV 30 30 Invasive Line 1 30 Invasive Line 2 30 Oral 1450 831 Output: Urine 925 1250 1200 Other: Voiding Method Urinal Urinal Urinal - Exam -GENERAL: The patient is alert and oriented x3, not in any acute distress. Morbidly obese HEENT: Pupils are round and equally reacting to light. EOMI. No scleral icterus. No conjunctival pallor. Normocephalic, atraumatic. No pharyngeal erythema. No thyromegaly. CARDIOVASCULAR: S1 and S2 present. No murmurs, rubs, or gallops. PULMONARY: Chest is clear to auscultation, no wheezing or crackles. -ABDOMEN: Soft, nontender, nondistended, normoactive bowel sounds. No palpable organomegaly. Abdominal wall edema MUSCULOSKELETAL: No joint swelling or deformity. -EXTREMITIES: No cyanosis, clubbing, bilateral pitting leg r pedal edema. Recent evidence of left leg cellulitis NEUROLOGICAL: Gross neurological examination did not reveal any focal deficits. SKIN: No rashes. No petechiae - Labs CBC & Chem 7: 02/28/22 06:28 03/01/22 08:48 Labs: Abnormal Lab Results - Last 24 Hours (Table) 03/01/22 Range/Units 08:48 Sodium 134 L (137-145) mmol/L Creatinine 1.53 H (0.66-1.25) mg/dL Calcium 8.3 L (8.4-10.2) mg/dL Assessment and Plan Assessment: Acute hypothyroidism Acute systolic CHF, ejection fraction 30%, secondary to hypothyroidism Moderate to large pericardial effusion, secondary to hypothyroidism Mild to moderate tricuspid tripped regurgitation and moderate pulmonary hypertension Acute kidney injury, fluctuating creatinine Acute mild to moderate left leg cellulitis Mild lower abdominal pain and to the site Possibly mild diverticulitis cannot be excluded Bilateral nonobstructing renal calculi Morbidly obese Plan: this is a pleasant 31 male who presents with dyspnea and pulmonary edema with elevated troponin Continue with IV Lasix Cardiology consult and cardiovascular consult increase hyroxine replacement therapy and 200 g daily Start prednisone 60 mg monitor creatinine Continue with oral Levaquin Continue with aspirin, Coreg, Aldactone and lisinopril. Labs and medication were reviewed.. Continue same treatment. Continue with symptomatic treatment. Resume home medication. Monitor lytes and vitals. DVT and GI prophylaxis. Further recommendations depends on the clinical course of the patient DVT prophylaxis: Subcutaneous heparin GI Prophylaxis: Pepcid PT/OT: Pending Prognosis is guarded
[2022-03-01] MEDS: LACTULOSE 20 GM/30 ML CUP PO SCH ×2 (20:00→20:01)
[2022-03-02 06:16] LABS: Glucose,Whole Blood 118 mg/dL (70-110)
[2022-03-02] MEDS: carvediloL 3.125 MG TAB PO SCH (06:48)
[2022-03-02] MEDS: LEVOTHYROXINE 100 MCG TAB PO SCH (06:49)
[2022-03-02] MEDS: HEPARIN SODIUM,PORCINE/PF 5,000 UNIT/0.5 ML SYRINGE SQ SCH ×2 (08:51→21:19)
[2022-03-02] MEDS: predniSONE 20 MG TAB PO SCH (08:53)
[2022-03-02] MEDS: lisinopriL 5 MG TAB PO SCH (08:53)
[2022-03-02] MEDS: ASPIRIN 81 MG PO SCH (08:53)
[2022-03-02] MEDS: SPIRONOLACTONE 25 MG TAB PO SCH (08:53)
[2022-03-02] MEDS: FUROSEMIDE 10 MG/ML 4 ML VIAL IV SCH ×2 (08:54→21:19)
[2022-03-02] MEDS: LACTULOSE 20 GM/30 ML CUP PO SCH ×2 (08:54→21:14)
[2022-03-02] MEDS: FAMOTIDINE 20 MG TAB PO SCH ×2 (08:54→21:19)
[2022-03-02] MEDS: INSULIN ASPART (NovoLOG) 100 UNIT/ML VIAL SQ SCH ×4 (08:54→21:19)
[2022-03-02 10:08] LABS: Basophils # (A) 0.1 k/uL (0-0.2); Basophils % (A) 1 %; Eosinophils # (A) 0.1 k/uL (0-0.7); Eosinophils % (A) 1 %; HCT 41.7 % (39.0-53.0); HGB 13.6 gm/dL (13.0-17.5); Lymphocytes # (A) 2.4 k/uL (1.0-4.8); Lymphocytes % (A) 23 %; MCH 34.3 pg (25.0-35.0); MCHC 32.5 g/dL (31.0-37.0); MCV 105.4 fL (80.0-100.0); Macrocytosis Moderate; Mean Platelet Volume 8.2; Monocytes # (A) 0.5 k/uL (0-1.0); Monocytes % (A) 5 %; Neutrophils # (A) 7.6 k/uL (1.3-7.7); Neutrophils % (A) 70 %; Platelet Count 253 k/uL (150-450); RBC 3.96 m/uL (4.30-5.90); RDW 13.4 % (11.5-15.5); WBC 10.8 k/uL (3.8-10.6)
[2022-03-02 10:20] LABS: Magnesium 2.2 mg/dL (1.6-2.3); Potassium 4.1 mmol/L (3.5-5.1)
--- NOTE | 2022-03-02 10:57 | P.PN ---
Subjective This is a pleasant 31 male with past medical history of Hypertension, Sleep Apnea/CPAP/BIPAP Patient has been complaining of from lower abdominal pain radiating to both sides for about a month, his PCP is Dr. Alston and was following up with Dr. Elton boles ordered CT of the abdomen and pelvis for him with IV contrast which was done yesterday showing large pericardial effusion and cardiac tamponade cannot be excluded with bilateral basal pulmonary Mohs I perfusion pattern, possibly related to the pericardial effusion. Bilateral nonobstructing renal calculi. While the bowel showed unremarkable stomach, duodenum and small bowel. Colonic diverticulosis without gross signs of acute diverticulitis. Diffuse abdominal wall subcutaneous fat stranding, reactive fluid and scalp thickening merely along the anterior abdominal wall. Mild acute diverticulitis could be masked by free abdominal fluid. Patient received a call yesterday from both the surgeon Dr. Apodaca and Dr. Alston to come to emergency room. Also stated that he has been complaining of from shortness of breath and some chest pressure for about 2-3 months. His chest pressure is only for 1 month, and the middle sometimes radiating to the left side and to the extremity but it is mobile and minimally go away in the morning. However his dyspnea has been going on for about 2-3 months and especially with exertion. He quit smoking around that time. He denies any urinary complaints or burning. No diarrhea actually he states is been constipated. No vomiting. He quit smoking about 2 months ago, he used to smoke 1 pack per week. No alcohol or illicit drugs Patient presents because of dyspnea, Which was progressive over one month associated with bilateral leg swelling Associated with some chest pressure, and cough Patient Vitas looks stable and he is afebrile. Blood pressure 141/106. He is saturating 97% on room air. Labs show an unremarkable CBC, INR, BMP except for elevated creatinine of 1.5 0.7-1.1. Liver enzymes are within normal limits. Troponin slightly elevated 0.05. BNP is slightly elevated as well as 3770. Coronavirus not detected. Chest x-ray: Cardiomediastinal still OT, nonspecific course reticular opacity in the middle and lower lungs may be related to infection or edema In the emergency room he received aspirin and 1 dose of Lasix. 02/27/2022 Patient looks little more comfortable compared to yesterday while he is sitting in chair, he has very mild tinge of central chest pain or pressure, no other specific complaints. He has occasional cough, hearing assist chest pain as 4/10. History has bilateral leg edema but left leg cellulitis looks better [employer] input appreciated and patient was started on beta sukh, potassium sparing diuretic and ALMA inhibitor at small doses. Cardiovascular surgery have been consulted for tomorrow to evaluate the patient. Other than that he is hemodynamically stable Echo showing ejection fraction 30% with moderate right ventricle dilatation, moderate pulmonary hypertension, severe left atrial dilatation, mild to moderate tricuspid regurgitation and moderate to large pericardial effusion and dilated left ventricle. 02/28/2022 Patient states improvement, and his breathing pattern, he has no cough or phlegm. He has no chest pain. He still has significant bilateral patellar leg edema, as well as mild cellulitis of the left leg which is slowly improving. He has had high TSH more 100 and low free T4 at 0.15. Most likely hypothyroidism is the cause of pericardial effusion per surgical team no need for surgical intervention, need to be treated medically. Replacement for thyroid started at 50 g. Creatinine is 1.4 Repeat echocardiogram in 1 week patient also complaining from left ankle pain, ultrasound showing no fracture or dislocation and soft tissue swelling which causes with patient condition of generalized edema 03/01/2022 Patient still complaining of from exertional dyspnea when he was trying to walk in the hallway. No coughing, no chest pain, no other complaints like the area or dysuria. He still has pain in the left lower extremity from possible cellulitis with x-rays negative for air and the tissue or fracture. Today repeat EKG showing normal sinus rhythm with no significant ST-T changes cause of this increased the dose of levothyroxine to 100 g daily starting today also we started him on prednisone 60 mg daily for his pericardial effusion related and secondary to hypothyroidism. Other than that he is still on Lasix 40 mg twice daily, aspirin dose lower to 81 mg today. While Levaquin continued for his left leg cellulitis, culture obtained from the small wound in the left leg which is pending. 03/02/2022 Patient dyspnea is improving, however not completely resolved, he still fluid overload significantly, he still on IV Lasix 40 mg twice daily having good urine output. Creatinine is stable around 1.4-1.5 since admission The his left leg is improving also cultures showing strep agalactiae , final results still pending. [employer] on the case and recommended repeat echocardiogram. Aspirin 81 mg started today. Patient was started on a prednisone 60 mg for his pericardial effusion recommended by surgical team, also he is on thyroid replacement therapy with levothyroxine 100 g daily. Discuss plan with the patient and upon his request with his mother's Allis and all their questions were answered to their satisfaction and they agree with the plan of care. We will keep monitoring for now Objective - Vital Signs Vital signs: Vital Signs Temp 98 F 03/02/22 04:10 Pulse 81 03/02/22 04:10 Resp 18 03/02/22 04:10 BP 119/83 03/02/22 04:10 Pulse Ox 93 L 03/02/22 04:10 FiO2 Intake & Output 03/01/22 03/02/22 03/02/22 18:59 06:59 18:59 Intake Total 1107 118 Output Total 1950 2375 Balance -843 -2375 118 Weight 156.1 kg Intake: IV 40 Invasive Line 2 40 Oral 1067 118 Output: Urine 1950 2375 Other: Voiding Method Urinal Urinal # Bowel Movements 1 - Exam -GENERAL: The patient is alert and oriented x3, not in any acute distress. Morbidly obese HEENT: Pupils are round and equally reacting to light. EOMI. No scleral icterus. No conjunctival pallor. Normocephalic, atraumatic. No pharyngeal erythema. No thyromegaly. CARDIOVASCULAR: S1 and S2 present. No murmurs, rubs, or gallops. PULMONARY: Chest is clear to auscultation, no wheezing or crackles. -ABDOMEN: Soft, nontender, nondistended, normoactive bowel sounds. No palpable organomegaly. Abdominal wall edema MUSCULOSKELETAL: No joint swelling or deformity. -EXTREMITIES: No cyanosis, clubbing, bilateral pitting leg r pedal edema. Recent evidence of left leg cellulitis NEUROLOGICAL: Gross neurological examination did not reveal any focal deficits. SKIN: No rashes. No petechiae - Labs CBC & Chem 7: 03/02/22 08:59 03/02/22 09:05 Labs: Abnormal Lab Results - Last 24 Hours (Table) 03/01/22 03/02/22 Range/Units 06:30 06:13 POC Glucose (mg/dL) 118 H (70-110) mg/dL Procalcitonin 0.11 H (0.02-0.09) ng/mL Microbiology - Last 24 Hours (Table) 03/01/22 11:05 Gram Stain - Preliminary Leg - Left Wound Culture - Preliminary Strep agalactiae - (group b) 03/01/22 11:05 Anaerobic Culture - Preliminary Leg - Left Assessment and Plan Assessment: Acute hypothyroidism Acute systolic CHF, ejection fraction 30%, secondary to hypothyroidism Moderate to large pericardial effusion, secondary to hypothyroidism Mild to moderate tricuspid tripped regurgitation and moderate pulmonary hypertension Acute kidney injury, fluctuating creatinine Acute mild to moderate left leg cellulitis Mild lower abdominal pain and to the site Possibly mild diverticulitis cannot be excluded Bilateral nonobstructing renal calculi Morbidly obese Plan: this is a pleasant 31 male who presents with dyspnea and pulmonary edema with elevated troponin Continue with IV Lasix levothyroxine Cardiology consult and cardiovascular consult increase hyroxine replacement therapy to 100 g daily Continue prednisone 60 mg , and insulin sliding scale monitor creatinine Continue with oral Levaquin and follow-up wound culture Continue with aspirin, Coreg, Aldactone and lisinopril. Labs and medication were reviewed.. Continue same treatment. Continue with symptomatic treatment. Resume home medication. Monitor lytes and vitals. DVT and GI prophylaxis. Further recommendations depends on the clinical course of the patient DVT prophylaxis: Subcutaneous heparin GI Prophylaxis: Pepcid PT/OT: Pending Prognosis is guarded
--- NOTE | 2022-03-02 11:43 | CA ---
Transthoracic Echo Report Name: Mark Hernandez Age: 31 Gender: M : 1990 Exam Date: 03/02/2022 08:12 Exam Location: [facility] Ht (in): 60 Wt (lb): 344 Ordering Physician: Tiffany Cooper MD ([id number]) Attending/Referring Phys: Electorate Officer Lynn Pacheco RDCS Procedure CPT: Indications: pericardial effusion Cardiac Hx: Echo done 02/26/22: Repeat to eval Pericardial effusion. Technical Quality: Fair Contrast 1: Total Dose (mL): Contrast 2: Total Dose (mL): MEASUREMENTS (Male / Female) Normal Values FINDINGS Left Ventricle Severely reduced global left ventricular systolic function. Right Ventricle Right Atrium Left Atrium Mitral Valve Aortic Valve Tricuspid Valve Pulmonic Valve Pericardium Moderate pericardial effusion. No change from echo 02/26/22. Aorta CONCLUSIONS Moderate pericardial effusion No significant change from prior study Previewed by: Dr. Mike Fleming MD (Electronically Signed) Final Date: 02 March 2022 11:42
[2022-03-02 11:52] LABS: Glucose,Whole Blood 99 mg/dL (70-110)
--- NOTE | 2022-03-02 12:08 | P.PN ---
Subjective This is a 31-year-old male with history of hypertension, former tobacco use recent quit 2-3 months ago, does not take any medications outpatient. Does not follow with a toolroom clerk. He presented to the emergency department with symptoms of increased shortness of breath, bilateral lower extremity swelling, generalized fatigue/tiredness. He has been having these symptoms for 2-3 months. He went to see his PCP, who referred the patient to Dr. Monge. Patient underwent CT abdomen and pelvis for evaluation of the abdominal pain. He was noted to have small free fluid in the abdomen but evidence of significant pericardial effusion. Patient was advised to go to the hospital but patient beta sukh 24-48 hours before coming to the hospital. Patient was found to have hypothyroidism. Echocardiogram revealed an EF of 30%, severe concentric LVH, moderate pulmonary hypertension, severely increased left atrial diameter, mild mitral regurgit ation, mild to moderate tricuspid regurgitation, large pericardial effusion. Patient was evaluated by CT surgery Films were reviewed and discussed with Dr. Calles. The patient is clinically stable. There is no indication for surgical intervention for his pericardial effusion at this time. 03/02/2022 Patient seen and examined at bedside, no acute distress. Breathing has improved. He is feeling much better. Continues to have bilateral lower extremity edema but improved. Vital signs are stable. He is maintaining sinus mechanism with heart rate was 70-80s. Patient with -3218mL fluid balance over the past 24 hours. Weight has decreased since admission. BUN 14 sCr 1.43 GENERAL: Well-appearing, well-nourished and in no acute distress. NECK: Supple without JVD LUNGS: Breath sounds diminished in bases to auscultation bilaterally. Respiration equal and unlabored. No wheezes, rales or rhonchi. HEART: Regular rate and rhythm, Systolic murmur noted. No rubs or gallops. S1 and S2 heard. EXTREMITIES: Normal range of motion, 2+ bilateral lower extremity edema present. No clubbing or cyanosis. Peripheral pulses intact. ASSESSMENT Acute heart failure with reduced ejection fraction 30% Large pericardial effusion Hypothroidism History of tobacco use Hypertension PLAN Repeat echocardiogram revealed no change in pericardial effusion from prior and severely reduced global left ventricular systolic function Continue aspirin, Coreg, lisinopril, and sprionolactone Continue IV Lasix 40mg BID while inpatient, hopefully transition to PO in 24 hours Hypothyroid management per primary Recommend discontinuing prednisone if not needed Monitor I/Os, daily weights, renal function and electrolytes Further recommendations based on clinical course Nurse Practitioner note has been reviewed, I agree with a documented findings and plan of care. Patient was seen and examined. Objective - Vital Signs Vital signs: Vital Signs Temp 97.7 F 03/02/22 08:00 Pulse 82 03/02/22 08:00 Resp 18 03/02/22 08:00 BP 153/92 03/02/22 08:00 Pulse Ox 98 03/02/22 08:00 FiO2 Intake & Output 03/01/22 03/02/22 03/02/22 18:59 06:59 18:59 Intake Total 1107 880 Output Total 1950 2375 1250 Balance -843 -7032 -370 Weight 156.1 kg Intake: IV 40 Invasive Line 2 40 Oral 1067 880 Output: Urine 1950 2375 1250 Other: Voiding Method Urinal Urinal Urinal # Bowel Movements 1 - Labs CBC & Chem 7: 03/02/22 08:59 03/02/22 09:05 Labs: Abnormal Lab Results - Last 24 Hours (Table) 03/01/22 03/02/22 03/02/22 Range/Units 06:30 06:13 08:59 WBC 10.8 H (3.8-10.6) k/uL RBC 3.96 L (4.30-5.90) m/uL MCV 105.4 H (80.0-100.0) fL Creatinine (0.66-1.25) mg/dL Glucose (74-99) mg/dL POC Glucose (mg/dL) 118 H (70-110) mg/dL Procalcitonin 0.11 H (0.02-0.09) ng/mL 03/02/22 Range/Units 09:05 WBC (3.8-10.6) k/uL RBC (4.30-5.90) m/uL MCV (80.0-100.0) fL Creatinine 1.43 H (0.66-1.25) mg/dL Glucose 115 H (74-99) mg/dL POC Glucose (mg/dL) (70-110) mg/dL Procalcitonin (0.02-0.09) ng/mL Microbiology - Last 24 Hours (Table) 03/01/22 11:05 Gram Stain - Preliminary Leg - Left Wound Culture - Preliminary Strep agalactiae - (group b) 03/01/22 11:05 Anaerobic Culture - Preliminary Leg - Left
[2022-03-02] MEDS: LEVOFLOXACIN 500 MG TAB PO SCH (15:31)
[2022-03-02 16:56] LABS: Glucose,Whole Blood 138 mg/dL (70-110)
[2022-03-02] MEDS: carvediloL 6.25 MG TAB PO SCH (17:37)
[2022-03-02 20:12] LABS: Glucose,Whole Blood 145 mg/dL (70-110)
--- NOTE | 2022-03-02 23:19 | CT ---
EXAMINATION TYPE: CT chest wo con DATE OF EXAM: 03/02/2022 COMPARISON: 07/09/2018 HISTORY: pericardial effusion CT DLP: 1213 mGycm Automated exposure control for dose reduction was used. Images obtained with no contrast from the thoracic inlet to the diaphragm. The lung bases are clear of consolidation. There are some patchy atelectasis at the lung bases. No pl eural effusion. There is a large pericardial effusion. This measures up to 2 cm in thickness. Upper a bdominal soft tissues show intact liver and spleen. No sign of pancreatic mass. Gallbladder is intact . There is 2 mm calculi in the upper pole left kidney. There are no hilar masses. No mediastinal adenopathy. The thoracic spine is intact. No compression fracture. IMPRESSION: Large pericardial effusion. Mild cardiomegaly. Mild subsegmental atelectasis in the lower lung peck . Pericardial fluid is mostly new compared to old exam. Atelectasis is mostly new compared to old exa m.
[2022-03-03 06:10] LABS: Glucose,Whole Blood 110 mg/dL (70-110)
[2022-03-03] MEDS: INSULIN ASPART (NovoLOG) 100 UNIT/ML VIAL SQ SCH ×5 (06:24→20:42)
[2022-03-03] MEDS: LEVOTHYROXINE 100 MCG TAB PO SCH (06:30)
[2022-03-03] MEDS: carvediloL 6.25 MG TAB PO SCH ×2 (06:31→17:24)
[2022-03-03 09:40] LABS: Basophils # (A) 0.1 k/uL (0-0.2); Basophils % (A) 1 %; Eosinophils # (A) 0.1 k/uL (0-0.7); Eosinophils % (A) 1 %; HCT 43.9 % (39.0-53.0); HGB 14.2 gm/dL (13.0-17.5); Lymphocytes # (A) 2.9 k/uL (1.0-4.8); Lymphocytes % (A) 27 %; MCH 34.2 pg (25.0-35.0); MCHC 32.3 g/dL (31.0-37.0); Macrocytosis Moderate; Mean Platelet Volume 7.9; Monocytes # (A) 0.4 k/uL (0-1.0); Monocytes % (A) 4 %; Neutrophils # (A) 7.1 k/uL (1.3-7.7); Neutrophils % (A) 66 %; Platelet Count 248 k/uL (150-450); RBC 4.15 m/uL (4.30-5.90); RDW 13.8 % (11.5-15.5); WBC 10.8 k/uL (3.8-10.6)
[2022-03-03] MEDS: ASPIRIN 81 MG PO SCH (09:40)
[2022-03-03] MEDS: predniSONE 20 MG TAB PO SCH (09:52)
[2022-03-03] MEDS: FUROSEMIDE 10 MG/ML 4 ML VIAL IV SCH ×2 (09:52→20:42)
[2022-03-03] MEDS: FAMOTIDINE 20 MG TAB PO SCH ×2 (09:52→20:42)
[2022-03-03] MEDS: lisinopriL 5 MG TAB PO SCH (09:53)
[2022-03-03] MEDS: SPIRONOLACTONE 25 MG TAB PO SCH (09:53)
[2022-03-03] MEDS: HEPARIN SODIUM,PORCINE/PF 5,000 UNIT/0.5 ML SYRINGE SQ SCH ×2 (09:53→20:42)
[2022-03-03] MEDS: LACTULOSE 20 GM/30 ML CUP PO SCH ×2 (09:53→20:37)
[2022-03-03 09:54] LABS: African American GFR (CKD) 68 (>60 ml/min/1.73 sqM); Anion Gap 11 mmol/L; Blood Urea Nitrogen 20 mg/dL (9-20); C Reactive Protein <0.5 mg/dL (<1.0); Calcium 8.7 mg/dL (8.4-10.2); Carbon Dioxide 28 mmol/L (22-30); Chloride 98 mmol/L (98-107); Glucose 102 mg/dL (74-99); Magnesium 2.1 mg/dL (1.6-2.3); Non-African American GFR(CKD) 59 (>60 ml/min/1.73 sqM); Potassium 3.8 mmol/L (3.5-5.1); Sodium 137 mmol/L (137-145)
[2022-03-03 10:08] LABS: T4, Free (Free Thyroxine) 0.24 ng/dL (0.78-2.19)
[2022-03-03 11:10] LABS: Erythrocyte Sedimentation Rate 16 mm/hr (0-15)
--- NOTE | 2022-03-03 11:48 | P.PN ---
Subjective This is a 31-year-old male with history of hypertension, former tobacco use recent quit 2-3 months ago, does not take any medications outpatient. Does not follow with a shot tube machine tender. He presented to the emergency department with symptoms of increased shortness of breath, bilateral lower extremity swelling, generalized fatigue/tiredness. He has been having these symptoms for 2-3 months. He went to see his PCP, who referred the patient to Dr. Monge. Patient underwent CT abdomen and pelvis for evaluation of the abdominal pain. He was noted to have small free fluid in the abdomen but evidence of significant pericardial effusion. Patient was advised to go to the hospital but patient beta sukh 24-48 hours before coming to the hospital. Patient was found to have hypothyroidism. Echocardiogram revealed an EF of 30%, severe concentric LVH, moderate pulmonary hypertension, severely increased left atrial diameter, mild mitral regurgit ation, mild to moderate tricuspid regurgitation, large pericardial effusion. Patient was evaluated by CT surgery Films were reviewed and discussed with Dr. Calles. The patient is clinically stable. There is no indication for surgical intervention for his pericardial effusion at this time. 03/03/2022 Patient seen and examined at bedside, no acute distress. Breathing has improved. He is feeling much better. Continues to have bilateral lower extremity edema but improved. Vital signs are stable. He is maintaining sinus mechanism. Patient with -2198 fluid balance over the past 24 hours. Weight has decreased since admission. BUN 20 sCr 1.55 GENERAL: Well-appearing, well-nourished and in no acute distress. NECK: Supple without JVD LUNGS: Breath sounds diminished in bases to auscultation bilaterally. Respiration equal and unlabored. No wheezes, rales or rhonchi. HEART: Regular rate and rhythm, Systolic murmur noted. No rubs or gallops. S1 and S2 heard. EXTREMITIES: Normal range of motion, 2+ bilateral lower extremity edema present. No clubbing or cyanosis. Peripheral pulses intact. ASSESSMENT Acute heart failure with reduced ejection fraction 30% Large pericardial effusion, secondary to hypothyroidism Hypothroidism History of tobacco use Hypertension PLAN Continue IV Lasix 40mg BID while inpatient, transition PO Diuretics tomorrow Repeat echocardiogram revealed no change in pericardial effusion from prior and severely reduced global left ventricular systolic function Continue aspirin, Coreg, lisinopril, and sprionolactone Hypothyroid management per primary Recommend discontinuing prednisone, not recommended for pericardial effusion. Discussed with primary, we will discontinue prednisone and start colchicine Monitor I/Os, daily weights, renal function and electrolytes Hopefully discharge in the next 24-48 hours Nurse Practitioner note has been reviewed, I agree with a documented findings and plan of care. Patient was seen and examined. Objective - Vital Signs Vital signs: Vital Signs Temp 98.5 F 03/03/22 03:35 Pulse 70 03/03/22 03:35 Resp 20 03/03/22 03:35 BP 99/63 03/03/22 03:35 Pulse Ox 95 03/03/22 03:35 FiO2 Intake & Output 03/02/22 03/03/22 03/03/22 18:59 06:59 18:59 Intake Total 1652 Output Total 2200 1650 Balance -548 -1650 Weight 154.8 kg Intake: Oral 1652 Output: Urine 2200 1650 Other: Voiding Method Urinal Urinal - Labs CBC & Chem 7: 03/03/22 09:19 03/03/22 09:19 Labs: Abnormal Lab Results - Last 24 Hours (Table) 03/02/22 03/02/22 03/03/22 Range/Units 16:54 20:11 09:19 WBC (3.8-10.6) k/uL RBC (4.30-5.90) m/uL MCV (80.0-100.0) fL Creatinine 1.55 H (0.66-1.25) mg/dL Glucose 102 H (74-99) mg/dL POC Glucose (mg/dL) 138 H 145 H (70-110) mg/dL TSH >100.000 H (0.465-4.680) mIU/L Free T4 0.24 L (0.78-2.19) ng/dL Free T3 pg/mL 1.8 L (2.8-5.3) pg/ml 03/03/22 Range/Units 09:19 WBC 10.8 H (3.8-10.6) k/uL RBC 4.15 L (4.30-5.90) m/uL MCV 106.0 H (80.0-100.0) fL Creatinine (0.66-1.25) mg/dL Glucose (74-99) mg/dL POC Glucose (mg/dL) (70-110) mg/dL TSH (0.465-4.680) mIU/L Free T4 (0.78-2.19) ng/dL Free T3 pg/mL (2.8-5.3) pg/ml Microbiology - Last 24 Hours (Table) 03/01/22 11:05 Gram Stain - Preliminary Leg - Left Wound Culture - Preliminary Strep agalactiae - (group b) Staphylococcus aureus
[2022-03-03 12:14] LABS: Glucose,Whole Blood 112 mg/dL (70-110)
[2022-03-03] MEDS: LEVOFLOXACIN 500 MG TAB PO SCH (12:40)
[2022-03-03] MEDS: COLCHICINE 0.6 MG EACH PO SCH (12:40)
[2022-03-03 16:44] LABS: Glucose,Whole Blood 157 mg/dL (70-110)
[2022-03-03 18:05] LABS: Anti-DNA, DS unit <1.0 IU/mL; DNA Double-Stranded NEGATIVE (NEGATIVE)
--- NOTE | 2022-03-03 19:22 | P.PN ---
Subjective This is a pleasant 31 male with past medical history of Hypertension, Sleep Apnea/CPAP/BIPAP Patient has been complaining of from lower abdominal pain radiating to both sides for about a month, his PCP is Dr. Alston and was following up with Dr. Elton boles ordered CT of the abdomen and pelvis for him with IV contrast which was done yesterday showing large pericardial effusion and cardiac tamponade cannot be excluded with bilateral basal pulmonary Mohs I perfusion pattern, possibly related to the pericardial effusion. Bilateral nonobstructing renal calculi. While the bowel showed unremarkable stomach, duodenum and small bowel. Colonic diverticulosis without gross signs of acute diverticulitis. Diffuse abdominal wall subcutaneous fat stranding, reactive fluid and scalp thickening merely along the anterior abdominal wall. Mild acute diverticulitis could be masked by free abdominal fluid. Patient received a call yesterday from both the surgeon Dr. Apodaca and Dr. Alston to come to emergency room. Also stated that he has been complaining of from shortness of breath and some chest pressure for about 2-3 months. His chest pressure is only for 1 month, and the middle sometimes radiating to the left side and to the extremity but it is mobile and minimally go away in the morning. However his dyspnea has been going on for about 2-3 months and especially with exertion. He quit smoking around that time. He denies any urinary complaints or burning. No diarrhea actually he states is been constipated. No vomiting. He quit smoking about 2 months ago, he used to smoke 1 pack per week. No alcohol or illicit drugs Patient presents because of dyspnea, Which was progressive over one month associated with bilateral leg swelling Associated with some chest pressure, and cough Patient Vitas looks stable and he is afebrile. Blood pressure 141/106. He is saturating 97% on room air. Labs show an unremarkable CBC, INR, BMP except for elevated creatinine of 1.5 0.7-1.1. Liver enzymes are within normal limits. Troponin slightly elevated 0.05. BNP is slightly elevated as well as 3770. Coronavirus not detected. Chest x-ray: Cardiomediastinal still OT, nonspecific course reticular opacity in the middle and lower lungs may be related to infection or edema In the emergency room he received aspirin and 1 dose of Lasix. 02/27/2022 Patient looks little more comfortable compared to yesterday while he is sitting in chair, he has very mild tinge of central chest pain or pressure, no other specific complaints. He has occasional cough, hearing assist chest pain as 4/10. History has bilateral leg edema but left leg cellulitis looks better Floor Surfacer input appreciated and patient was started on beta sukh, potassium sparing diuretic and ALMA inhibitor at small doses. Cardiovascular surgery have been consulted for tomorrow to evaluate the patient. Other than that he is hemodynamically stable Echo showing ejection fraction 30% with moderate right ventricle dilatation, moderate pulmonary hypertension, severe left atrial dilatation, mild to moderate tricuspid regurgitation and moderate to large pericardial effusion and dilated left ventricle. 02/28/2022 Patient states improvement, and his breathing pattern, he has no cough or phlegm. He has no chest pain. He still has significant bilateral patellar leg edema, as well as mild cellulitis of the left leg which is slowly improving. He has had high TSH more 100 and low free T4 at 0.15. Most likely hypothyroidism is the cause of pericardial effusion per surgical team no need for surgical intervention, need to be treated medically. Replacement for thyroid started at 50 g. Creatinine is 1.4 Repeat echocardiogram in 1 week patient also complaining from left ankle pain, ultrasound showing no fracture or dislocation and soft tissue swelling which causes with patient condition of generalized edema 03/01/2022 Patient still complaining of from exertional dyspnea when he was trying to walk in the hallway. No coughing, no chest pain, no other complaints like the area or dysuria. He still has pain in the left lower extremity from possible cellulitis with x-rays negative for air and the tissue or fracture. Today repeat EKG showing normal sinus rhythm with no significant ST-T changes cause of this increased the dose of levothyroxine to 100 g daily starting today also we started him on prednisone 60 mg daily for his pericardial effusion related and secondary to hypothyroidism. Other than that he is still on Lasix 40 mg twice daily, aspirin dose lower to 81 mg today. While Levaquin continued for his left leg cellulitis, culture obtained from the small wound in the left leg which is pending. 03/02/2022 Patient dyspnea is improving, however not completely resolved, he still fluid overload significantly, he still on IV Lasix 40 mg twice daily having good urine output. Creatinine is stable around 1.4-1.5 since admission The his left leg is improving also cultures showing strep agalactiae , final results still pending. Floor Surfacer on the case and recommended repeat echocardiogram. Aspirin 81 mg started today. Patient was started on a prednisone 60 mg for his pericardial effusion recommended by surgical team, also he is on thyroid replacement therapy with levothyroxine 100 g daily. Discuss plan with the patient and upon his request with his mother's Allis and all their questions were answered to their satisfaction and they agree with the plan of care. We will keep monitoring for now 03/03/2022 Patient breathing pattern is improving gradually and slowly, he denies any other new symptoms. Labs stable, creatinine is stable at 1.5. Glucose controlled. CRP less than 0.5, proBNP is 1660, TSH still elevated more than 100 and free T4 only slightly improved at 0.2 for which is still low. Free T3 is low at 1.8 and total T3 is low at 23. ESR is 60 Her workup for hypothyroidism showed rheumatoid factor less than 10, JUAN JOSE screen is negative, double-stranded DNA antibodies are negative and anti-DNA antibodies less than 1.0. While thyroglobulin antibody elevated at 175 and thyroid peroxidase antibodies also elevated at 154. 1 culture is growing Streptococcus agalactiae which is pending well Staphylococcus aureus MSSA sensitive to Levaquin. Final results of the culture is pending. CT of the chest without contrast showing pericardial effusion with no other significant abnormality. Also I discussed the case with cartilage team who strongly recommended to stop prednisone for pericardial effusion, yesterday started on colchicine 0.6 mg daily and he going to check his creatinine tomorrow and discuss the case with the patient and mother's Allis upon his request, the plan of care and they verbalized understanding and acceptance. Objective - Vital Signs Vital signs: Vital Signs Temp 98.5 F 03/03/22 03:35 Pulse 70 03/03/22 03:35 Resp 20 03/03/22 03:35 BP 99/63 03/03/22 03:35 Pulse Ox 95 03/03/22 03:35 FiO2 Intake & Output 03/02/22 03/03/22 03/03/22 18:59 06:59 18:59 Intake Total 1652 Output Total 2200 1650 Balance -548 -1650 Weight 154.8 kg Intake: Oral 1652 Output: Urine 2200 1650 Other: Voiding Method Urinal Urinal - Exam -GENERAL: The patient is alert and oriented x3, not in any acute distress. Morbidly obese HEENT: Pupils are round and equally reacting to light. EOMI. No scleral icterus. No conjunctival pallor. Normocephalic, atraumatic. No pharyngeal erythema. No thyromegaly. CARDIOVASCULAR: S1 and S2 present. No murmurs, rubs, or gallops. PULMONARY: Chest is clear to auscultation, no wheezing or crackles. -ABDOMEN: Soft, nontender, nondistended, normoactive bowel sounds. No palpable organomegaly. Abdominal wall edema MUSCULOSKELETAL: No joint swelling or deformity. -EXTREMITIES: No cyanosis, clubbing, bilateral pitting leg r pedal edema. Recent evidence of left leg cellulitis NEUROLOGICAL: Gross neurological examination did not reveal any focal deficits. SKIN: No rashes. No petechiae - Labs CBC & Chem 7: 03/03/22 09:19 03/03/22 09:19 Labs: Abnormal Lab Results - Last 24 Hours (Table) 03/02/22 03/02/22 03/03/22 Range/Units 16:54 20:11 09:19 WBC (3.8-10.6) k/uL RBC (4.30-5.90) m/uL MCV (80.0-100.0) fL ESR (0-15) mm/hr Creatinine 1.55 H (0.66-1.25) mg/dL Glucose 102 H (74-99) mg/dL POC Glucose (mg/dL) 138 H 145 H (70-110) mg/dL TSH >100.000 H (0.465-4.680) mIU/L Free T4 0.24 L (0.78-2.19) ng/dL Free T3 pg/mL 1.8 L (2.8-5.3) pg/ml 03/03/22 Range/Units 09:19 WBC 10.8 H (3.8-10.6) k/uL RBC 4.15 L (4.30-5.90) m/uL MCV 106.0 H (80.0-100.0) fL ESR 16 H (0-15) mm/hr Creatinine (0.66-1.25) mg/dL Glucose (74-99) mg/dL POC Glucose (mg/dL) (70-110) mg/dL TSH (0.465-4.680) mIU/L Free T4 (0.78-2.19) ng/dL Free T3 pg/mL (2.8-5.3) pg/ml Microbiology - Last 24 Hours (Table) 03/01/22 11:05 Anaerobic Culture - Preliminary Leg - Left 03/01/22 11:05 Gram Stain - Preliminary Leg - Left Wound Culture - Preliminary Strep agalactiae - (group b) Staphylococcus aureus Assessment and Plan Assessment: Acute hypothyroidism, with elevated thyroglobulin antibodies and thyroid peroxidase antibodies. Acute systolic CHF, ejection fraction 30%, secondary to hypothyroidism Moderate to large pericardial effusion, secondary to hypothyroidism, no cardiac tamponade Mild to moderate tricuspid tripped regurgitation and moderate pulmonary hypertension Chronic kidney disease and acute kidney injury Acute mild to moderate left leg cellulitis, secondary to MSSA and strep agalactiae Mild lower abdominal pain and to the site Possibly mild diverticulitis cannot be excluded Bilateral nonobstructing renal calculi Morbidly obese Plan: this is a pleasant 31 male who presents with dyspnea and pulmonary edema with elevated troponin Continue with IV Lasix Continue with levothyroxine 100 g daily Cardiology consult and cardiovascular consult Discontinue prednisone per cardiology recommendation and start colchicine, check creatinine tomorrow Continue with oral Levaquin and follow-up wound culture Continue with aspirin, Coreg, Aldactone and lisinopril. Labs and medication were reviewed.. Continue same treatment. Continue with symptomatic treatment. Resume home medication. Monitor lytes and vitals. DVT and GI prophylaxis. Further recommendations depends on the clinical course of the patient DVT prophylaxis: Subcutaneous heparin GI Prophylaxis: Pepcid Prognosis is guarded
[2022-03-03 20:03] LABS: Glucose,Whole Blood 145 mg/dL (70-110)
[2022-03-04 06:11] LABS: Glucose,Whole Blood 111 mg/dL (70-110)
[2022-03-04] MEDS: INSULIN ASPART (NovoLOG) 100 UNIT/ML VIAL SQ SCH (06:19)
[2022-03-04] MEDS: carvediloL 6.25 MG TAB PO SCH (06:41)
[2022-03-04] MEDS: LEVOTHYROXINE 100 MCG TAB PO SCH (06:41)
[2022-03-04 08:08] VITALS: TEMP 97.9
[2022-03-04] MEDS: LACTULOSE 20 GM/30 ML CUP PO SCH (08:09)
[2022-03-04] MEDS: SPIRONOLACTONE 25 MG TAB PO SCH (08:10)
[2022-03-04] MEDS: ASPIRIN 81 MG PO SCH (08:10)
[2022-03-04] MEDS: COLCHICINE 0.6 MG EACH PO SCH (08:11)
[2022-03-04] MEDS: HEPARIN SODIUM,PORCINE/PF 5,000 UNIT/0.5 ML SYRINGE SQ SCH ×2 (08:12→08:16)
[2022-03-04] MEDS: FAMOTIDINE 20 MG TAB PO SCH (08:12)
[2022-03-04] MEDS: lisinopriL 5 MG TAB PO SCH (08:12)
[2022-03-04] MEDS: FUROSEMIDE 10 MG/ML 4 ML VIAL IV SCH (08:12)
[2022-03-04 08:43] LABS: Calcium 8.9 mg/dL (8.4-10.2); Potassium 3.9 mmol/L (3.5-5.1)
--- NOTE | 2022-03-04 08:48 | P.PN ---
Subjective Progress Note Date: 03/04/22 PROGRESS NOTE The patient is a 31-year-old male who presented with evidence of CHF, cardiomyopathy and severely impaired systolic function with severe hypothyroidism. He's feeling better today, anxious to go home. He denies any chest discomfort, dizziness or palpitations. He is ambulating. He is being diuresed. Medications: Aspirin, Coreg 6.5 mg twice a day, Lasix 40 mg IV every 12 hours, insulin, Synthroid, Zestril 5 mg daily, spironolactone 12-1/2 mg daily, colchicine 0.6 mg daily PHYSICAL EXAMINATION: Blood pressure 109/76 heart rate 78 LUNGS: Clear to auscultation HEART: Regular rate and rhythm, S1, S2. No S3. No systolic murmur ABDOMEN: Soft, nontender, no organomegaly, obese EXTREMETIES: 1-2+ edema LAB: BUN 22, creatinine 1.53, potassium 3.9 IMPRESSION: 1. Congestive heart failure with severe cardiomyopathy, probably related to hypothyroidism 2. Pericardial effusion, secondary to hypothyroidism 3. Abnormal renal functions, duration unknown 4. Obesity 5. Severe hypothyroidism not treated in the past PLAN: 1. Changed to oral diuretics 2. Probable discharge home today 3. And follow-up in 2 weeks 4. Follow renal function as outpatient Objective - Vital Signs Vital signs: Vital Signs Temp 97.9 F 03/04/22 08:03 Pulse 78 03/04/22 08:03 Resp 19 03/04/22 08:03 BP 109/76 03/04/22 08:03 Pulse Ox 95 03/04/22 08:03 FiO2 Intake & Output 03/03/22 03/04/22 03/04/22 18:59 06:59 18:59 Output Total 1540 2375 Balance -1540 -2375 Weight 153.2 kg Output: Urine 1540 2375 Other: Voiding Method Urinal Urinal - Labs CBC & Chem 7: 03/03/22 09:19 03/04/22 07:41 Labs: Abnormal Lab Results - Last 24 Hours (Table) 03/03/22 03/03/22 03/03/22 Range/Units 09:19 09:19 09:19 WBC 10.8 H (3.8-10.6) k/uL RBC 4.15 L (4.30-5.90) m/uL MCV 106.0 H (80.0-100.0) fL ESR 16 H (0-15) mm/hr BUN (9-20) mg/dL Creatinine 1.55 H (0.66-1.25) mg/dL Glucose 102 H (74-99) mg/dL POC Glucose (mg/dL) (70-110) mg/dL TSH >100.000 H (0.465-4.680) mIU/L Free T4 0.24 L (0.78-2.19) ng/dL Free T3 pg/mL 1.8 L (2.8-5.3) pg/ml Total T3 23.0 L (60.0-180.0) ng/dL Thyroglobulin Antibody 175.0 H (0.0-114.0) U/mL Thyroid Peroxidase Ab 154.0 H (0.0-33.0) U/mL 03/03/22 03/03/22 03/03/22 Range/Units 12:12 16:43 19:59 WBC (3.8-10.6) k/uL RBC (4.30-5.90) m/uL MCV (80.0-100.0) fL ESR (0-15) mm/hr BUN (9-20) mg/dL Creatinine (0.66-1.25) mg/dL Glucose (74-99) mg/dL POC Glucose (mg/dL) 112 H 157 H 145 H (70-110) mg/dL TSH (0.465-4.680) mIU/L Free T4 (0.78-2.19) ng/dL Free T3 pg/mL (2.8-5.3) pg/ml Total T3 (60.0-180.0) ng/dL Thyroglobulin Antibody (0.0-114.0) U/mL Thyroid Peroxidase Ab (0.0-33.0) U/mL 03/04/22 03/04/22 Range/Units 06:09 07:41 WBC (3.8-10.6) k/uL RBC (4.30-5.90) m/uL MCV (80.0-100.0) fL ESR (0-15) mm/hr BUN 22 H (9-20) mg/dL Creatinine 1.53 H (0.66-1.25) mg/dL Glucose 109 H (74-99) mg/dL POC Glucose (mg/dL) 111 H (70-110) mg/dL TSH (0.465-4.680) mIU/L Free T4 (0.78-2.19) ng/dL Free T3 pg/mL (2.8-5.3) pg/ml Total T3 (60.0-180.0) ng/dL Thyroglobulin Antibody (0.0-114.0) U/mL Thyroid Peroxidase Ab (0.0-33.0) U/mL Microbiology - Last 24 Hours (Table) 03/01/22 11:05 Gram Stain - Final Leg - Left Wound Culture - Final Strep agalactiae - (group b) Staphylococcus aureus 03/01/22 11:05 Anaerobic Culture - Preliminary Leg - Left
[2022-03-04] MEDS: LEVOFLOXACIN 500 MG TAB PO SCH (12:07)
[2022-03-04 12:12] VITALS: BP 136/93; PULSE 80; RESP 18
--- NOTE | 2022-03-04 12:53 | P.NPCON ---
History of Present Illness - Reason for Consult acute renal failure - History of Present Illness Patient is a 31-year-old male with past history of hypertension, obstructive sleep apnea. He was admitted to the hospital with complaints of increased lower extremity swelling and shortness of breath. CT of the abdomen and pelvis done on admission showed large pericardial effusion and ejection fraction of about 30%. No tamponade was noted. Patient has been aggressively diuresed. He states he is feeling better with improvement in respiratory status and lower extremity edema. Serum creatinine has been about 1.4-1.5 mg/dL this admission. Review of previous labs shows a creatinine of 1.0 on 01/17/2021. UA is completely benign with no evidence of proteinuria or hematuria. Blood pressure has not been significantly low. Systolic pressure of 99 noted at one time. Review of Systems As per HPI other systems negative Past Medical History Past Medical History: Chest Pain / Angina, Hypertension, Sleep Apnea/CPAP/BIPAP Additional Past Medical History / Comment(s): no cpap used (patient states he has had several nurses tell him he looks like he has sleep apnea, however he was tested by sleep medicine and was told he does not have sleep apnea) hemorrhoids, pinched nerve in neck, torn tendon rt foot History of Any Multi-Drug Resistant Organisms: None Reported Past Surgical History: Ear Surgery, Tonsillectomy Additional Past Surgical History / Comment(s): tube rt ear, colonoscopy, hemorrhoid removal Past Anesthesia/Blood Transfusion Reactions: No Reported Reaction Past Psychological History: Depression Smoking Status: Former smoker Past Alcohol Use History: None Reported Past Drug Use History: None Reported - Past Family History Mother Family Medical History: Congestive Heart Failure (CHF) Father Family Medical History: Liver Disease Additional Family Medical History / Comment(s): Father from cirrhosis of the liver Medications and Allergies Home Medications Medication Instructions Recorded Confirmed Type No Known Home Medications 01/17/21 02/26/22 History Allergies Allergy/AdvReac Type Severity Reaction Status Date / Time bee pollen Allergy Rash/Hives Verified 02/26/22 07:32 lactose Allergy Diarrhea Verified 02/26/22 07:32 Penicillins AdvReac Unknown Verified 02/26/22 07:32 Childhood Physical Exam Vitals: Vital Signs Temp Pulse Resp BP Pulse Ox 03/04/22 12:11 80 18 136/93 98 03/04/22 10:44 78 19 03/04/22 08:03 97.9 F 78 19 109/76 95 03/04/22 03:30 97.7 F 73 20 124/81 98 03/03/22 23:30 98.2 F 76 21 119/79 96 03/03/22 20:20 98.4 F 81 20 111/76 96 03/03/22 16:00 98.0 F 80 20 127/79 97 03/03/22 14:00 76 20 Intake and Output 03/03/22 03/04/22 03/04/22 22:59 06:59 14:59 Intake Total 120 Output Total 1225 2150 1000 Balance -1225 -2150 -880 Intake: Oral 120 Output: Urine 1225 2150 1000 Other: Voiding Method Urinal Urinal Urinal Weight 153.2 kg Awake, comfortable not in any acute distress Alert oriented 3 Examination of the heart S1 and S2 Examination the lungs bilateral breath sounds are heard Abdomen is soft nontender morbidly obese Examination of the lower extremity shows chronic skin changes chronic edema which seems to have decreased significantly recently. Wrinkling of the skin is noted mostly in the left leg. Draining ulcer noted in the left leg CHEMICAL APPLICATOR exam grossly intact Results - Lab Results Most recent lab results Calcium 8.9 mg/dL (8.4-10.2) 03/04/22 07:41 Magnesium 2.1 mg/dL (1.6-2.3) 03/03/22 09:19 03/03/22 09:19 03/04/22 07:41 Assessment and Plan Assessment: 1. Acute kidney injury mostly cardiorenal. Renal function has been fairly stable during the hospitalization with creatinine staying at 1.5 mg/dL. UA is completely benign. Patient can continue current medications including diuretics and ALMA inhibitor's. 2. Cardiomyopathy with ejection fraction 30% 3. CHF acute on top of chronic systolic 4. Pericardial effusion with no evidence of tamponade most likely related to overall volume overload. Doubt underlying autoimmune disorder given the completely benign urine analysis. JUAN JOSE is negative. 5. Morbid obesity 6. Bilateral nonobstructive renal calculi Plan: Continue current dose of diuretics and ALMA inhibitor's Follow-up as outpatient for CK D Avoid any NSAIDs
--- NOTE | 2022-03-04 13:50 | CONS ---
CONSULTATION DATE OF SERVICE: 02/28/22 I met with this patient for 45 minutes during this consultation. I have seen, examined, and agree with the midlevel's findings. KLAUS / COLTN: [id number] / -05
[2022-03-04] MEDS ORDERED: CEPHALEXIN 500 MG CAP PO SCH (14:30)
[2022-03-04] MEDS ORDERED: FUROSEMIDE 40 MG TAB PO SCH (21:00)
--- NOTE | 2022-03-05 00:06 | P.DS ---
Providers Date of admission: 02/26/22 08:26 Attending physician: Vitaly Pringle MD Consults: 02/26/22 08:26 Consult Physician Routine Consulting Provider: Mike Fleming Consult Reason/Comments: New onset CHF Do you want consulting provider notified?: Yes 02/27/22 18:00 Consult Physician Routine Consulting Provider: Darion Calles Consult Reason/Comments: pericardial effusion Do you want consulting provider notified?: Yes, Notify in am 03/03/22 11:57 Consult Physician Urgent Consulting Provider: Melissa Brown Consult Reason/Comments: kidney injury , possible new Dx of CKD Do you want consulting provider notified?: Yes 03/04/22 11:57 Consult Physician Urgent Consulting Provider: Sarah Beth Dhaliwal Consult Reason/Comments: cellulitis Do you want consulting provider notified?: Already Contacted Primary care physician: Alyson Ham [facility] Course: Diagnoses: Acute hypothyroidism, with elevated thyroglobulin antibodies and thyroid peroxidase antibodies. 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 New- onset Moderate to large pericardial effusion, secondary to hypothyroidism, no cardiac tamponade Mild to moderate tricuspid tripped regurgitation and moderate pulmonary hypertension Chronic kidney disease vs acute kidney injury, mostly due to cardiorenal syndrome Acute mild to moderate left leg cellulitis, secondary to MSSA and strep agalactiae. Patient will be discharged on short course of oral Keflex per ID team Bilateral nonobstructing renal calculi Morbidly obese Hospital course: This is a pleasant 31 male with past medical history of Hypertension, Sleep Apnea/CPAP/BIPAP Patient has been complaining of from lower abdominal pain radiating to both sides for about a month, his PCP is Dr. Shields and was following up with Dr. Parra ordered CT of the abdomen and pelvis for him with IV contrast showing large pericardial effusion , so patient was sent to the emergency room. Workup revealed large pericardial effusion without tamponade and low ejection fraction about 30% with generalized swelling and redness are Especially the pericardium and bilateral leg swelling and abdominal wall, patient evaluated by consulting manager and treated with diuretics. This TSH was more than 100 and free T4 was less than 0.15 indicating hypothyroidism, never treated before also he has evidence of elevated antithy roid peroxidase antibodies suspicious for Jigar thyroiditis. Patient was started on hormone replacement therapy with levothyroxine up to 100 g daily with recommendation to follow up outpatient and decrease the dose accordingly With the treatment patient showed interval improvement on the day of the discharge his dyspnea is significantly improved as well as leg swelling. He denies chest pain. No diarrhea, no vomiting and he tolerates diet. No urinary complaints. No fever. Patient was cleared for discharge by all consultants including consulting manager, infectious disease team Problems and management plan were discussed with the patient and his mother Ade upon his request and they verbalized understanding and acceptance Patient was found stable and can be discharged home however he needs follow-up as an outpatient. Patient was instructed to follow up with PCP Dr. Alston within one week and patient agrees With the appointments made for him on . Also patient was instructed to follow up with consulting manager Dr. Cooper on and he agrees and with cover marker Dr. singh on 04/14 . I told these appointments to the patient and his mother upon his request and both agrees with them. Physical exam -Gen: patient is a AAOx3, no distress. Obesity CVS: S1-S2, RRR, no murmur Lungs: B/L CTA, no wheezing Abdomen: soft, no distention, no tenderness, positive bowel sounds -Extremity: Bilateral pitting leg edema . Left leg cellulitis improved and . Time spent more than 35 minutes Patient Condition at Discharge: Fair Plan - Discharge Summary Discharge Rx Participant: No New Discharge Prescriptions: New Aspirin 81 mg PO DAILY #30 tab carvediloL [Coreg] 6.25 mg PO BID #60 tablet lisinopriL [Zestril] 5 mg PO DAILY #30 tab Cephalexin [Keflex] 500 mg PO Q6HR 7 Days #28 cap Spironolactone [Aldactone] 12.5 mg PO DAILY #15 tab Furosemide [Lasix] 40 mg PO BID #60 tab Levothyroxine Sodium [Synthroid] 100 mcg PO DAILY@0630 #30 tab Discharge Medication List Aspirin 81 mg PO DAILY #30 tab 03/04/22 [Rx] Cephalexin [Keflex] 500 mg PO Q6HR 7 Days #28 cap 03/04/22 [Rx] Furosemide [Lasix] 40 mg PO BID #60 tab 03/04/22 [Rx] Levothyroxine Sodium [Synthroid] 100 mcg PO DAILY@0630 #30 tab 03/04/22 [Rx] Spironolactone [Aldactone] 12.5 mg PO DAILY #15 tab 03/04/22 [Rx] carvediloL [Coreg] 6.25 mg PO BID #60 tablet 03/04/22 [Rx] lisinopriL [Zestril] 5 mg PO DAILY #30 tab 03/04/22 [Rx] Follow up Appointment(s)/Referral(s): Tiffany Cooper MD [STAFF PHYSICIAN] - 03/19/22 9:30 am (Appt with Dr Fleming) Jitendra Shields MD [Primary Care Provider] - 03/09/22 10:30 am Maurice Singh MD [REFERRING] - 04/14/22 4:00 pm (cover marker , for your thyroid disease ) [facility] [NON-STAFF] - 1 Week Patient Instructions/Handouts: Famotidine (By mouth), Prednisone (By mouth), Thyroid Supplement (By mouth), Heparin (By injection), Carvedilol (By mouth), Heart Failure (ER), Seasoning Without Salt (DC), Hypothyroidism (ED), Pericardial Effusion (ED), Low-Sodium Diet (ED), Venous Insufficiency (DC), Chronic Wounds (ED) Activity/Diet/Wound Care/Special Instructions: We recommend restrict fluid to 1500 mL per day, also salt restriction Activity is restricted till you see your doctor Discharge Disposition: HOME SELF-CARE
== END 2022-03-04 16:14 | disposition home or self-care (01) | DRG 643 ==
LOC: EC 17:57 → 3SCARD 02-26 08:26
PROVIDERS: ADMIT Internal Medicine; ATTEND Internal Medicine
DX: E06.3 Autoimmune thyroiditis (principal); I50.23 Acute on chronic systolic (congestive) heart failure; I13.0 Hypertensive heart and chronic kidney disease with heart failure and stage 1 through stage 4 chronic kidney disease, or unspecified chronic kidney disease; I31.3 Pericardial effusion (noninflammatory); I42.9 Cardiomyopathy, unspecified; I87.332 Chronic venous hypertension (idiopathic) with ulcer and inflammation of left lower extremity; Z68.41 Body mass index [BMI] 40.0-44.9, adult; L03.116 Cellulitis of left lower limb; N17.9 Acute kidney failure, unspecified; K57.32 Diverticulitis of large intestine without perforation or abscess without bleeding; L97.922 Non-pressure chronic ulcer of unspecified part of left lower leg with fat layer exposed; Z20.822 Contact with and (suspected) exposure to COVID-19; Z71.6 Tobacco abuse counseling; I08.1 Rheumatic disorders of both mitral and tricuspid valves; E66.01 Morbid (severe) obesity due to excess calories; F32.A Depression, unspecified; I07.1 Rheumatic tricuspid insufficiency; I27.20 Pulmonary hypertension, unspecified; I87.2 Venous insufficiency (chronic) (peripheral); I87.321 Chronic venous hypertension (idiopathic) with inflammation of right lower extremity; B95.61 Methicillin susceptible Staphylococcus aureus infection as the cause of diseases classified elsewhere; B95.0 Streptococcus, group A, as the cause of diseases classified elsewhere; N18.9 Chronic kidney disease, unspecified; N20.0 Calculus of kidney; Z79.890 Hormone replacement therapy; Z79.899 Other long term (current) drug therapy; Z82.49 Family history of ischemic heart disease and other diseases of the circulatory system; Z87.891 Personal history of nicotine dependence; Z88.0 Allergy status to penicillin; Z91.030 Bee allergy status
CPT/HCPCS: 36415; 71046; 71250; 76770; 80048; 80053; 81003; 83036; 83605; 83735; 83880; 84145; 84436; 84439; 84443; 84480; 84481; 84482; 84484; 85025; 85610; 85652; 85730; 86038; 86140; 86225; 86376; 86431; 86480; 86800; 87070; 87075; 87077; 87186; 87205; 87635; 93005; 93306; 93308; 93970; 96374; 96376; 99285

== ENCOUNTER 2022-08-29 18:08 | Inpatient (IN) | payer OTHER ==
--- NOTE | 2022-08-29 18:31 | ED ---
SOB HPI - General Chief Complaint: Shortness of Breath Stated Complaint: SOB Time Seen by Provider: 08/29/22 18:16 Source: patient, RN notes reviewed Mode of arrival: ambulatory Limitations: no limitations - History of Present Illness Initial Comments: This is a pleasant 31-year-old male with a history of hypertension, sleep apnea, obesity, patient previously has taken blood pressure medications and medications for fluid retention. Kendall stating that he has had a cough, patient states he had to park the car in the ER parking lot to bring his mother in. Patient states that he had shortness of breath with exertion on the way to the emergency department. No headache, no fever or chills, no changes in vision or hearing, no sore throat or difficulty with speech, no neck pain, no chest pain, POSITIVE peripheral edema, no abdominal pain, no nausea or vomiting, no changes in urination or bowel movements, no numbness or tingling, no extremity pain, no skin rashes or lesions. Past medical, surgical, social, and family history reviewed. MD Complaint: shortness of breath - Related Data Home Medications Medication Instructions Recorded Confirmed No Known Home Medications 08/29/22 08/29/22 Allergies Allergy/AdvReac Type Severity Reaction Status Date / Time bee pollen Allergy Rash/Hives Verified 08/29/22 20:12 lactose Allergy Diarrhea Verified 08/29/22 20:12 Penicillins AdvReac Unknown Verified 08/29/22 20:12 Childhood Review of Systems ROS Statement: Those systems with pertinent positive or pertinent negative responses have been documented in the HPI. ROS Other: All systems not noted in ROS Statement are negative. Past Medical History Past Medical History: Chest Pain / Angina, Heart Failure, Hypertension, Sleep Apnea/CPAP/BIPAP Additional Past Medical History / Comment(s): no cpap used (patient states he has had several nurses tell him he looks like he has sleep apnea, however he was tested by sleep medicine and was told he does not have sleep apnea) hemorrhoids, pinched nerve in neck, torn tendon rt foot History of Any Multi-Drug Resistant Organisms: None Reported Past Surgical History: Ear Surgery, Tonsillectomy Additional Past Surgical History / Comment(s): tube rt ear, colonoscopy, hemorrhoid removal Past Anesthesia/Blood Transfusion Reactions: No Reported Reaction Past Psychological History: Depression Smoking Status: Former smoker Past Alcohol Use History: None Reported Past Drug Use History: None Reported - Past Family History Mother Family Medical History: Congestive Heart Failure (CHF) Father Family Medical History: Liver Disease Additional Family Medical History / Comment(s): Father from cirrhosis of the liver General Exam Limitations: no limitations General appearance: alert, in no apparent distress Head exam: Present: atraumatic, normocephalic, normal inspection Eye exam: Present: normal appearance, PERRL, EOMI. Absent: scleral icterus, conjunctival injection, periorbital swelling ENT exam: Present: normal exam, normal oropharynx, mucous membranes dry, mucous membranes moist. Absent: TM's normal bilaterally, normal external ear exam Neck exam: Present: normal inspection, full ROM. Absent: tenderness, meningismus, lymphadenopathy Respiratory exam: Present: normal lung sounds bilaterally, accessory muscle use. Absent: respiratory distress, wheezes, rales, rhonchi, stridor, chest wall tenderness, decreased breath sounds, prolonged expiratory Cardiovascular Exam: Present: regular rate, normal rhythm, normal heart sounds. Absent: systolic murmur, diastolic murmur, rubs, gallop, clicks GI/Abdominal exam: Present: soft, normal bowel sounds. Absent: distended, tenderness, guarding, rebound, rigid Extremities exam: Present: normal inspection, full ROM, normal capillary refill, pedal edema (Patient has 2+ pitting edema to bilateral lower extremities). Absent: tenderness, joint swelling, calf tenderness Back exam: Present: normal inspection Neurological exam: Present: alert, oriented X3, CN II-XII intact Psychiatric exam: Present: normal affect, normal mood Skin exam: Present: warm, dry, intact, normal color. Absent: rash Course Vital Signs 08/29/22 08/29/22 08/29/22 18:11 18:42 20:02 Temperature 98.5 F Pulse Rate 96 94 90 Respiratory 28 H 28 H 16 Rate Blood Pressure 150/73 129/88 129/94 O2 Sat by Pulse 97 96 98 Oximetry 08/29/22 21:03 Temperature Pulse Rate 90 Respiratory 20 Rate Blood Pressure 133/92 O2 Sat by Pulse 97 Oximetry - Reevaluation(s) Reevaluation #1: 08/29/22 20:03 Patient's troponin came back at 0.051. Patient has had elevated troponin the past. However given the patient's age, symptomology, his elevated BNP, patient will be admitted for further evaluation and treatment. 6 given, aspirin 324 mg given, Nitropaste 1 inch applied. - Consultations Consultation #1: Case discussed in detail with the hospitalist physician from [facility] hospitalist group, Dr. Mauricio Medical Decision Making - Medical Decision Making Was pt. sent in by a medical professional or institution? @ -no Did you speak to anyone other than the patient for history? @ -no Did you review nursing and triage notes? @ -yes Were old charts reviewed? @ -yes Differential Diagnosis? @ -Differential Dyspnea: Coronary syndrome, arrhythmia, tamponade, asthma, COPD, pulmonary embolism, pneumonia, pneumothorax, pulmonary effusion, anaphylaxis, diabetic ketoacidosis, anemia, neuromuscular, this is not meant to be an all-inclusive list. EKG interpreted by me (3pts min.)? @ -[Nonspecific ST changes] X-rays interpreted by me (1pt min.)? @ -[Interpreted by me, consistent with CHF] CT interpreted by me (1pt min.)? @ -[none] U/S interpreted by me (1pt. min.)? @ -[none] What testing was considered but not performed? (CT, X-rays, U/S, labs)? Why? @ [DIAGNOSTIC TESTING WAS COMPLETED] What meds were considered but not given? Why? @ -[I did consider sublingual nitroglycerin. However patient was in no distress. I.] Did you discuss the management of the patient with other professionals? @ -[Hospitalist physician from [facility] hospitalist [facility], ED attending physician.] Did you reconcile home meds? @ -[Patient currently not taking any of his prescription medications] Was smoking cessation discussed for >3mins.? @ -[I discussed smoking cessation for greater than 3 minutes. The risk of smo margot were discussed with the patient including but not limited to risks of cancer, stroke, coronary artery disease and COPD. Also discussed with patient were multiple methods of quitting smoking. Lastly we discussed the financial cost of smoking.] Was critical care preformed (if so, how long)? @ -[none] Were there social determinants of health that impacted care today? How? (Homelessness, low income, unemployed, alcoholism, drug addiction, transportation, low edu. Level, literacy, decrease access to med. care, penitentiary, rehab)? @ -[Patient noncompliant.] Was there de-escalation of care discussed even if they declined? (Discuss DNR or withdrawal of care, Hospice)? @ -[Discuss DNR or withdrawal of care, Hospice?] What co-morbidities impacted this encounter? (DM, HTN, Smoking, COPD, CAD, Cancer, CVA, Hep., AIDS, mental health diagnosis, sleep apnea, morbid obesity)? @ -[Obesity, sleep apnea, heart failure, hypertension] Was patient admitted / discharged? @ -[Patient's most recent echocardiogram showed an ejection fraction of 30%. Acute systolic CHF. Patient has had a history of hypothyroidism as well. We'll add on thyroid testing. The patient's workup here shows likely congestive heart failure with elevated BNP, positive troponin, patient be treated accordingly. Patient given Lasix, nitroglycerin, and aspirin. Patient will be heparinized for possible non-STEMI noted the patient is pain-free] Undiagnosed new problem with uncertain prognosis? @ -[Possible non-STEMI] Drug Therapy requiring intensive monitoring for toxicity (Heparin, Nitro, Insulin, Cardizem)? @ -[none] Were any procedures done? @ -[none] Diagnosis/symptom? @ -Acute congestive heart failure, non-STEMI Acute, or Chronic, or Acute on Chronic? @ -Acute on chronic Uncomplicated (without systemic symptoms) or Complicated (systemic symptoms)? @ -Complicated Side effects of treatment? @ -[none] Exacerbation, Progression, or Severe Exacerbation] @ -Medical record is reviewed Symptoms are improved here in the emergency department Patient is informed of results and questions answered Patient in no distress Poses a threat to life or bodily function? @ -[Yes The case was discussed in detail with ED attending physician. Presentation, findings, treatment plan discussed in detail. [employer] Director Dr. Rosales] - Lab Data Result diagrams: 08/29/22 18:39 08/29/22 18:39 Lab Results 08/29/22 08/29/22 08/29/22 Range/Units 18:39 18:39 18:39 WBC 9.1 (3.8-10.6) k/uL RBC 3.40 L (4.30-5.90) m/uL Hgb 12.1 L (13.0-17.5) gm/dL Hct 34.9 L (39.0-53.0) % MCV 102.6 H (80.0-100.0) fL MCH 35.5 H (25.0-35.0) pg MCHC 34.6 (31.0-37.0) g/dL RDW 14.1 (11.5-15.5) % Plt Count 223 (150-450) k/uL MPV 8.6 Neutrophils % 71 % Lymphocytes % 22 % Monocytes % 2 % Eosinophils % 3 % Basophils % 1 % Neutrophils # 6.5 (1.3-7.7) k/uL Lymphocytes # 2.0 (1.0-4.8) k/uL Monocytes # 0.2 (0-1.0) k/uL Eosinophils # 0.3 (0-0.7) k/uL Basophils # 0.1 (0-0.2) k/uL Macrocytosis Slight PT 12.7 H (9.0-12.0) sec INR 1.2 H (<1.2) APTT 28.7 (22.0-30.0) sec Sodium 140 (137-145) mmol/L Potassium 3.7 (3.5-5.1) mmol/L Chloride 106 (98-107) mmol/L Carbon Dioxide 26 (22-30) mmol/L Anion Gap 8 mmol/L BUN 11 (9-20) mg/dL Creatinine 1.73 H (0.66-1.25) mg/dL Est GFR (CKD-EPI)AfAm 60 (>60 ml/min/1.73 sqM) Est GFR (CKD-EPI)NonAf 52 (>60 ml/min/1.73 sqM) Glucose 108 H (74-99) mg/dL Calcium 8.5 (8.4-10.2) mg/dL Magnesium 1.8 (1.6-2.3) mg/dL Total Bilirubin 2.1 H (0.2-1.3) mg/dL AST 59 (17-59) U/L ALT 32 (4-49) U/L Alkaline Phosphatase 81 (38-126) U/L Troponin I (0.000-0.034) ng/mL NT-Pro-B Natriuret Pep pg/mL Total Protein 7.1 (6.3-8.2) g/dL Albumin 4.2 (3.5-5.0) g/dL Urine Color Urine Appearance (Clear) Urine pH (5.0-8.0) Ur Specific [place] (1.001-1.035) Urine Protein (Negative) Urine Glucose (UA) (Negative) Urine Ketones (Negative) Urine Blood (Negative) Urine Nitrite (Negative) Urine Bilirubin (Negative) Urine Urobilinogen (<2.0) mg/dL Ur Leukocyte Esterase (Negative) Urine RBC (0-5) /hpf Urine WBC (0-5) /hpf Urine Bacteria (None) /hpf Hyaline Casts (0-2) /lpf Urine Mucus (None) /hpf Influenza Type A (PCR) (Not Detectd) Influenza Type B (PCR) (Not Detectd) RSV (PCR) (Not Detectd) SARS-CoV-2 (PCR) (Not Detectd) 08/29/22 08/29/22 08/29/22 Range/Units 18:39 18:39 18:39 WBC (3.8-10.6) k/uL RBC (4.30-5.90) m/uL Hgb (13.0-17.5) gm/dL Hct (39.0-53.0) % MCV (80.0-100.0) fL MCH (25.0-35.0) pg MCHC (31.0-37.0) g/dL RDW (11.5-15.5) % Plt Count (150-450) k/uL MPV Neutrophils % % Lymphocytes % % Monocytes % % Eosinophils % % Basophils % % Neutrophils # (1.3-7.7) k/uL Lymphocytes # (1.0-4.8) k/uL Monocytes # (0-1.0) k/uL Eosinophils # (0-0.7) k/uL Basophils # (0-0.2) k/uL Macrocytosis PT (9.0-12.0) sec INR (<1.2) APTT (22.0-30.0) sec Sodium (137-145) mmol/L Potassium (3.5-5.1) mmol/L Chloride (98-107) mmol/L Carbon Dioxide (22-30) mmol/L Anion Gap mmol/L BUN (9-20) mg/dL Creatinine (0.66-1.25) mg/dL Est GFR (CKD-EPI)AfAm (>60 ml/min/1.73 sqM) Est GFR (CKD-EPI)NonAf (>60 ml/min/1.73 sqM) Glucose (74-99) mg/dL Calcium (8.4-10.2) mg/dL Magnesium (1.6-2.3) mg/dL Total Bilirubin (0.2-1.3) mg/dL AST (17-59) U/L ALT (4-49) U/L Alkaline Phosphatase (38-126) U/L Troponin I 0.051 H* (0.000-0.034) ng/mL NT-Pro-B Natriuret Pep 4580 pg/mL Total Protein (6.3-8.2) g/dL Albumin (3.5-5.0) g/dL Urine Color Urine Appearance (Clear) Urine pH (5.0-8.0) Ur Specific [place] (1.001-1.035) Urine Protein (Negative) Urine Glucose (UA) (Negative) Urine Ketones (Negative) Urine Blood (Negative) Urine Nitrite (Negative) Urine Bilirubin (Negative) Urine Urobilinogen (<2.0) mg/dL Ur Leukocyte Esterase (Negative) Urine RBC (0-5) /hpf Urine WBC (0-5) /hpf Urine Bacteria (None) /hpf Hyaline Casts (0-2) /lpf Urine Mucus (None) /hpf Influenza Type A (PCR) Not Detected (Not Detectd) Influenza Type B (PCR) Not Detected (Not Detectd) RSV (PCR) Not Detected (Not Detectd) SARS-CoV-2 (PCR) Not Detected (Not Detectd) 08/29/22 Range/Units 21:03 WBC (3.8-10.6) k/uL RBC (4.30-5.90) m/uL Hgb (13.0-17.5) gm/dL Hct (39.0-53.0) % MCV (80.0-100.0) fL MCH (25.0-35.0) pg MCHC (31.0-37.0) g/dL RDW (11.5-15.5) % Plt Count (150-450) k/uL MPV Neutrophils % % Lymphocytes % % Monocytes % % Eosinophils % % Basophils % % Neutrophils # (1.3-7.7) k/uL Lymphocytes # (1.0-4.8) k/uL Monocytes # (0-1.0) k/uL Eosinophils # (0-0.7) k/uL Basophils # (0-0.2) k/uL Macrocytosis PT (9.0-12.0) sec INR (<1.2) APTT (22.0-30.0) sec Sodium (137-145) mmol/L Potassium (3.5-5.1) mmol/L Chloride (98-107) mmol/L Carbon Dioxide (22-30) mmol/L Anion Gap mmol/L BUN (9-20) mg/dL Creatinine (0.66-1.25) mg/dL Est GFR (CKD-EPI)AfAm (>60 ml/min/1.73 sqM) Est GFR (CKD-EPI)NonAf (>60 ml/min/1.73 sqM) Glucose (74-99) mg/dL Calcium (8.4-10.2) mg/dL Magnesium (1.6-2.3) mg/dL Total Bilirubin (0.2-1.3) mg/dL AST (17-59) U/L ALT (4-49) U/L Alkaline Phosphatase (38-126) U/L Troponin I (0.000-0.034) ng/mL NT-Pro-B Natriuret Pep pg/mL Total Protein (6.3-8.2) g/dL Albumin (3.5-5.0) g/dL Urine Color Yellow Urine Appearance Clear (Clear) Urine pH 6.5 (5.0-8.0) Ur Specific [place] 1.016 (1.001-1.035) Urine Protein 3+ H (Negative) Urine Glucose (UA) Negative (Negative) Urine Ketones Negative (Negative) Urine Blood Negative (Negative) Urine Nitrite Negative (Negative) Urine Bilirubin Negative (Negative) Urine Urobilinogen 4.0 (<2.0) mg/dL Ur Leukocyte Esterase Negative (Negative) Urine RBC <1 (0-5) /hpf Urine WBC 3 (0-5) /hpf Urine Bacteria Rare H (None) /hpf Hyaline Casts 13 H (0-2) /lpf Urine Mucus Rare H (None) /hpf Influenza Type A (PCR) (Not Detectd) Influenza Type B (PCR) (Not Detectd) RSV (PCR) (Not Detectd) SARS-CoV-2 (PCR) (Not Detectd) - EKG Data -: EKG Interpreted by Me (EKG done at 2008 and independently interpreted by me shows sinus rhythm ) Interpretation: nonspecific ST-T wave changes, other (No ST elevation or depression, normal axis, normal intervals, rate 93) - Radiology Data Radiology results: report reviewed (One view chest x-ray independently interpreted by me shows cardiomegaly with cephalization. Reviewed radiology interpretation.), image reviewed Disposition Clinical Impression: Acute congestive heart failure, Dyspnea, Elevated troponin, Non-STEMI (non-ST elevated myocardial infarction) Disposition: ADMITTED IP TO THIS [facility] Condition: Fair Referrals: Jitendra Shields MD [Primary Care Provider] - 1-2 days Time of Disposition: 20:05 Decision to Admit Reason: Admit from EC Decision Time: 20:06
[2022-08-29 18:51] LABS: Basophils # (A) 0.1 k/uL (0-0.2); Basophils % (A) 1 %; Eosinophils # (A) 0.3 k/uL (0-0.7); Eosinophils % (A) 3 %; HCT 34.9 % (39.0-53.0); HGB 12.1 gm/dL (13.0-17.5); Lymphocytes % (A) 22 %; MCH 35.5 pg (25.0-35.0); MCHC 34.6 g/dL (31.0-37.0); MCV 102.6 fL (80.0-100.0); Macrocytosis Slight; Mean Platelet Volume 8.6; Monocytes # (A) 0.2 k/uL (0-1.0); Monocytes % (A) 2 %; Neutrophils # (A) 6.5 k/uL (1.3-7.7); Neutrophils % (A) 71 %; Platelet Count 223 k/uL (150-450); RDW 14.1 % (11.5-15.5); WBC 9.1 k/uL (3.8-10.6)
[2022-08-29 18:58] LABS: Albumin 4.2 g/dL (3.5-5.0); Calcium 8.5 mg/dL (8.4-10.2); Magnesium 1.8 mg/dL (1.6-2.3); Potassium 3.7 mmol/L (3.5-5.1); Total Bilirubin 2.1 mg/dL (0.2-1.3); Total Protein 7.1 g/dL (6.3-8.2)
[2022-08-29 18:59] LABS: INR 1.2 (<1.2); Partial Thromboplastin Time 28.7 sec (22.0-30.0); Prothrombin Time 12.7 sec (9.0-12.0)
--- NOTE | 2022-08-29 19:22 | XR ---
EXAMINATION TYPE: XR chest 2V DATE OF EXAM: 08/29/2022 COMPARISON: 02/26/2022 HISTORY: Short of breath TECHNIQUE: FINDINGS: Heart is moderately enlarged. No obvious heart failure. Exam limited by patient size. No ev idence of pleural effusion. No pulmonary consolidation. Bony thorax is intact. IMPRESSION: Moderately severe cardiomegaly which appears increased compared to old exam.
[2022-08-29] MEDS ORDERED: FUROSEMIDE 10 MG/ML 2 ML VIAL IV ONE (20:03)
[2022-08-29] MEDS ORDERED: NITROGLYCERIN OINT 1 INCH/GM PACKET TOPICAL STA (20:03)
[2022-08-29] MEDS ORDERED: ASPIRIN 81 MG PO STA (20:03)
[2022-08-29] MEDS ORDERED: HEPARIN SODIUM 1,000 UN/ML (10ML VL) IV ONE (20:23)
[2022-08-29] MEDS ORDERED: HEPARIN SODIUM 1,000 UN/ML (10ML VL) IV PRN (20:23)
[2022-08-29] MEDS ORDERED: HEPARIN SOD,PORK IN 0.45% NACL 25,000 UNIT in 0.45% NACL 1 250ML.BAG IV SCH (20:30)
[2022-08-29] MEDS: PRAVASTATIN SODIUM 40 MG TAB PO SCH (20:59)
[2022-08-29] MEDS: METOPROLOL TARTRATE 25 MG TAB PO SCH (21:00)
[2022-08-29 21:18] LABS: Appearance,Urine Clear (Clear); Bacteria,Urine Rare /hpf; Bilirubin,Urine Negative (Negative); Blood,Urine Negative (Negative); Color,Urine Yellow; Glucose,Urine (UA) Negative (Negative); Hyaline Casts,Urine 13 /lpf (0-2); Ketones,Urine Negative (Negative); Leukocyte Esterase,Urine Negative (Negative); Mucus,Urine Rare /hpf; Nitrite,Urine Negative (Negative); PH, Urine 6.5 (5.0-8.0); Protein,Urine 3+ (Negative); RBC,Urine <1 /hpf (0-5); Specific Gravity,Urine 1.016 (1.001-1.035); WBC,Urine 3 /hpf (0-5)
[2022-08-30 03:40] LABS: Basophils # (A) 0.1 k/uL (0-0.2); Basophils % (A) 1 %; Eosinophils # (A) 0.3 k/uL (0-0.7); Eosinophils % (A) 4 %; HCT 36.4 % (39.0-53.0); HGB 12.3 gm/dL (13.0-17.5); Lymphocytes # (A) 2.5 k/uL (1.0-4.8); Lymphocytes % (A) 29 %; MCH 35.1 pg (25.0-35.0); MCHC 33.9 g/dL (31.0-37.0); MCV 103.5 fL (80.0-100.0); Macrocytosis Slight; Mean Platelet Volume 8.9; Monocytes # (A) 0.2 k/uL (0-1.0); Monocytes % (A) 3 %; Neutrophils # (A) 5.1 k/uL (1.3-7.7); Neutrophils % (A) 61 %; Platelet Count 233 k/uL (150-450); RBC 3.51 m/uL (4.30-5.90); RDW 14.6 % (11.5-15.5); WBC 8.4 k/uL (3.8-10.6)
[2022-08-30 03:53] LABS: ALT 33 U/L (4-49); AST 54 U/L (17-59); African American GFR (CKD) 56 (>60 ml/min/1.73 sqM); Albumin 4.2 g/dL (3.5-5.0); Alkaline Phosphatase 93 U/L (38-126); Anion Gap 9 mmol/L; Blood Urea Nitrogen 13 mg/dL (9-20); Calcium 8.8 mg/dL (8.4-10.2); Carbon Dioxide 27 mmol/L (22-30); Chloride 105 mmol/L (98-107); Glucose 99 mg/dL (74-99); Non-African American GFR(CKD) 49 (>60 ml/min/1.73 sqM); Potassium 3.5 mmol/L (3.5-5.1); Sodium 141 mmol/L (137-145); Total Bilirubin 2.1 mg/dL (0.2-1.3); Total Protein 7.1 g/dL (6.3-8.2)
[2022-08-30 04:09] LABS: T4, Free (Free Thyroxine) <0.07 ng/dL (0.78-2.19)
[2022-08-30 04:21] LABS: INR 1.2 (<1.2); Prothrombin Time 12.7 sec (9.0-12.0)
[2022-08-30] MEDS: FUROSEMIDE 10 MG/ML 2 ML VIAL IV SCH ×3 (06:59→22:53)
[2022-08-30] MEDS ORDERED: ASPIRIN 325 MG TAB PO SCH (09:00)
[2022-08-30] MEDS: METOPROLOL TARTRATE 25 MG TAB PO SCH ×2 (09:19→20:05)
[2022-08-30] MEDS: lisinopriL 10 MG TAB PO SCH (09:19)
--- NOTE | 2022-08-30 09:31 | CONS ---
CONSULTATION CHIEF COMPLAINT: Elevated troponin. HISTORY OF PRESENT ILLNESS: Mark is a 31-year-old patient with a history of hypertension, sleep apnea, who presented to hospital with cough and shortness of breath with activity and bilateral leg edema. He does not have any chest pain. Denies PND or orthopnea. There is no history of focal neurological deficits. On his initial presentation, he had bilateral leg edema. His troponin is mildly elevated at 0.5, creatinine is elevated at 1.7, and BNP is elevated at 4580. He has chronic renal insufficiency. The patient had normal creatinine in January of 2021, but the creatinine level has gotten gradually worse over the last 1 year. The troponin elevation is probably related to renal insufficiency. He had elevated troponin on his prior to presentation in February. At the time of my evaluation, he appears comfortable at rest. Denies chest pain. An EKG showed sinus rhythm, nonspecific ST-T wave changes. The patient had an echocardiogram in February that revealed dilated left ventricle with severe LV systolic dysfunction and a moderate pericardial effusion. The chest x-ray on this admission revealed [id number] cardiomegaly, and his BNP is elevated at 4580. His TSH is elevated at more than 100, free T4 is extremely low. The patient's clinical presentation is consistent with acute exacerbation of chronic systolic heart failure. He has severe hypothyroidism and is not taking any medications at home. Some of his symptoms are probably related to the profound hypothyroidism. PAST MEDICAL HISTORY: Significant for cardiomyopathy with congestive heart failure, hypertension, sleep apnea. MEDICATIONS: Medications at home, he is not on any. ALLERGIES: Lactose and penicillin. FAMILY HISTORY: Negative for premature coronary artery disease. SOCIAL HISTORY: Negative for current smoking, EtOH abuse, or drug abuse. REVIEW OF SYSTEMS: HEENT: Unremarkable. CARDIAC: As described above. RESPIRATORY: Significant for sleep apnea. GI: Negative. GENITOURINARY: Negative. ALLERGY/IMMUNOLOGY: Negative. SKIN: Negative. MUSCULOSKELETAL: Significant for arthritis. PSYCHOSOCIAL: Negative. DERM: Negative. CONSTITUTIONAL: Negative. ONCOLOGICAL: Negative. Rest of the system review is not relevant. LABORATORY DATA: Labs show a hemoglobin of 12.3, platelet count is 233. Troponin is elevated. Creatinine is 1.8. ASSESSMENT: 1. Acute exacerbation of chronic systolic heart failure. 2. Dilated cardiomyopathy with severe left ventricular dysfunction. 3. Elevated troponin, probably due to a combination of renal failure and severe hypothyroidism. 4. Severe hypothyroidism. 5. Chronic renal insufficiency. PLAN: I will treat the patient with IV Lasix, ALMA inhibitors, and beta blockers along with statins. The patient needs to be on Synthroid supplement, both here and upon discharge. Troponin elevation is related to renal failure and does not require any further evaluation. I will stop the heparin at this time. I will obtain a 2D echo to reassess his LV function. KLAUS / COLTN: [id number] /
[2022-08-30 09:45] LABS: Chol/HDL Ratio 7.98 Ratio; LDL Cholesterol,Calculated 108.1 mg/dL (0.0-131.0)
[2022-08-30] MEDS: LEVOTHYROXINE 75 MCG TAB PO SCH (11:49)
[2022-08-30] MEDS: PRAVASTATIN SODIUM 40 MG TAB PO SCH (20:05)
--- NOTE | 2022-08-30 22:25 | P.HPIM ---
History of Present Illness H&P Date: 08/30/22 Chief Complaint: Shortness of breath Patient is a 31-year-old male with a known history of hypothyroidism, chronic CHF with systolic dysfunction, and recent admission February 2022 due to large pericardial effusion and other medical problems including morbid obesity and obstructive sleep apnea presents to ER with complaints of bilateral lower extremity swelling and shortness of breath. Patient also complaining of cough. Patient was brought to the hospital by his mother. Otherwise denied any complaints of chest pain. No fever no chills. No nausea vomiting abdominal jacques n or diarrhea. Patient does have generalized weakness and fatigue. Denies any dysuria or hematuria. Chest x-ray showed moderately severe cardiomegaly which appears increased compared to old exam. EKG showed sinus rhythm. Laboratory data showed WC 9.1 hemoglobin 12.1 and platelets 223 Sodium 140 potassium 3.7 chloride 106 bicarb is 26 BUN 11 and creatinine 1.73 bilirubin level is 2.1 liver enzymes are not elevated Troponin 0.051, 0.064 and 0.067 proBNP is 450 Triglycerides 391 and LDL 108 TSH greater than 100 and Free T4 level is 0.07 Urinalysis showed 3+ protein. Rare bacteria and hyaline casts. Influenza A, B, RSV and COVID-19 PCR not detected. Review of Systems Constitutional: Patient denies any fever or chills . Complains of generalized weakness and fatigue and Abdomen: Patient denied any nausea or vomiting or abd. pain Cardiovascular: Patient denies any chest pain. Does have short of breath no palpitations. Positive leg swelling. Respiratory: patient does have cough without sputum production and shortness of breath. Neurologic: Patient denied any numbness or tingling headache. Musculoskeletal: Patient denies any complaints of joint swelling or deformity. Skin: Negative Psychiatric: Negative Endocrine: cold intolerance. Patient does have weight gain. Genitourinary: No dysuria or hematuria. All other 14 point ROS negative except the above Past Medical History Past Medical History: Chest Pain / Angina, Heart Failure, Hypertension, Sleep Apnea/CPAP/BIPAP Additional Past Medical History / Comment(s): no cpap used (patient states he has had several nurses tell him he looks like he has sleep apnea, however he was tested by sleep medicine and was told he does not have sleep apnea) hemorrhoids, pinched nerve in neck, torn tendon rt foot History of Any Multi-Drug Resistant Organisms: None Reported Past Surgical History: Ear Surgery, Tonsillectomy Additional Past Surgical History / Comment(s): tube rt ear, colonoscopy, hemorrhoid removal Past Anesthesia/Blood Transfusion Reactions: No Reported Reaction Past Psychological History: Depression Smoking Status: Former smoker Past Alcohol Use History: None Reported Past Drug Use History: None Reported - Past Family History Mother Family Medical History: Congestive Heart Failure (CHF) Father Family Medical History: Liver Disease Additional Family Medical History / Comment(s): Father from cirrhosis of the liver Medications and Allergies Home Medications Medication Instructions Recorded Confirmed Type Aspirin 81 mg PO DAILY #30 tab 08/30/22 Rx Furosemide [Lasix] 20 mg PO BID #60 tab 08/30/22 Rx Levothyroxine Sodium 100 mcg PO DAILY #30 tab 08/30/22 Rx Metoprolol Tartrate [Lopressor] 25 mg PO BID #60 tab 08/30/22 Rx Pravastatin Sodium [Pravachol] 40 mg PO HS #30 tab 08/30/22 Rx Spironolactone [Aldactone] 12.5 mg PO DAILY #30 tablet 08/30/22 Rx lisinopriL [Zestril] 5 mg PO DAILY #30 tab 08/30/22 Rx Allergies Allergy/AdvReac Type Severity Reaction Status Date / Time bee pollen Allergy Rash/Hives Verified 08/29/22 20:12 lactose Allergy Diarrhea Verified 08/29/22 20:12 Penicillins AdvReac Unknown Verified 08/29/22 20:12 Childhood Physical Exam Vitals: Vital Signs Temp Pulse Resp BP Pulse Ox 08/30/22 09:19 98.7 F 80 20 127/99 99 08/30/22 07:15 98 08/30/22 06:33 83 20 118/83 96 08/30/22 05:20 78 20 130/94 97 08/29/22 23:54 80 20 108/82 97 08/29/22 22:45 90 16 133/95 97 08/29/22 22:30 92 16 99 08/29/22 21:03 90 20 133/92 97 08/29/22 20:02 90 16 129/94 98 08/29/22 18:42 94 28 H 129/88 96 08/29/22 18:11 98.5 F 96 28 H 150/73 97 Intake and Output 08/29/22 08/30/22 08/30/22 22:59 06:59 14:59 Other: Weight 171.004 kg PHYSICAL EXAMINATION: Patient is lying in the bed comfortably, mild distress, awake alert and oriented.. Morbidly obese. HEENT: Normocephalic. Neck is supple. Pupils reactive. Nostrils clear. Oral cavity is moist. Neck reveals no JVD, carotid bruits, or thyromegaly. CHEST EXAMINATION: Trachea is central. Symmetrical expansion bibasilar diminished sounds. No wheezing or rhonchi.. CARDIAC: Normal S1, S2 with no gallops. No murmurs ABDOMEN: Soft. Bowel sounds present. Nontender. No organomegaly. No abdominal bruits. Extremities: Bilateral lower extremity edema and generalized swelling, anasarca.. No clubbing or cyanosis Neurologically awake, alert, oriented x3 with well-coordinated movements. No gross focal deficits noted Skin: No rash or skin lesions. Psychiatric: Coperative. Nonsuicidal, Musculoskeletal: No joint swelling or deformity. Normal range of motion. Results CBC & Chem 7: 08/30/22 02:37 08/30/22 02:37 Labs: Abnormal Lab Results - Last 24 Hours (Table) 08/29/22 08/29/22 08/29/22 Range/Units 18:39 18:39 18:39 RBC 3.40 L (4.30-5.90) m/uL Hgb 12.1 L (13.0-17.5) gm/dL Hct 34.9 L (39.0-53.0) % MCV 102.6 H (80.0-100.0) fL MCH 35.5 H (25.0-35.0) pg PT 12.7 H (9.0-12.0) sec INR 1.2 H (<1.2) APTT (22.0-30.0) sec Creatinine 1.73 H (0.66-1.25) mg/dL Glucose 108 H (74-99) mg/dL Total Bilirubin 2.1 H (0.2-1.3) mg/dL Troponin I (0.000-0.034) ng/mL Triglycerides (0.00-149.00) mg/dL Cholesterol (0.00-200.00) mg/dL VLDL Cholesterol, Calc (5.00-40.00) mg/dL HDL Cholesterol (40.00-60.00) mg/dL TSH (0.465-4.680) mIU/L Free T4 (0.78-2.19) ng/dL Urine Protein (Negative) Urine Bacteria (None) /hpf Hyaline Casts (0-2) /lpf Urine Mucus (None) /hpf 08/29/22 08/29/22 08/29/22 Range/Units 18:39 20:58 20:58 RBC (4.30-5.90) m/uL Hgb (13.0-17.5) gm/dL Hct (39.0-53.0) % MCV (80.0-100.0) fL MCH (25.0-35.0) pg PT (9.0-12.0) sec INR (<1.2) APTT (22.0-30.0) sec Creatinine (0.66-1.25) mg/dL Glucose (74-99) mg/dL Total Bilirubin (0.2-1.3) mg/dL Troponin I 0.051 H* 0.064 H* (0.000-0.034) ng/mL Triglycerides 391.00 H (0.00-149.00) mg/dL Cholesterol 213.00 H (0.00-200.00) mg/dL VLDL Cholesterol, Calc 78.20 H (5.00-40.00) mg/dL HDL Cholesterol 26.70 L (40.00-60.00) mg/dL TSH >100.000 H (0.465-4.680) mIU/L Free T4 (0.78-2.19) ng/dL Urine Protein (Negative) Urine Bacteria (None) /hpf Hyaline Casts (0-2) /lpf Urine Mucus (None) /hpf 08/29/22 08/30/22 08/30/22 Range/Units 21:03 02:37 02:37 RBC 3.51 L (4.30-5.90) m/uL Hgb 12.3 L (13.0-17.5) gm/dL Hct 36.4 L (39.0-53.0) % MCV 103.5 H (80.0-100.0) fL MCH 35.1 H (25.0-35.0) pg PT (9.0-12.0) sec INR (<1.2) APTT (22.0-30.0) sec Creatinine (0.66-1.25) mg/dL Glucose (74-99) mg/dL Total Bilirubin (0.2-1.3) mg/dL Troponin I 0.067 H* (0.000-0.034) ng/mL Triglycerides (0.00-149.00) mg/dL Cholesterol (0.00-200.00) mg/dL VLDL Cholesterol, Calc (5.00-40.00) mg/dL HDL Cholesterol (40.00-60.00) mg/dL TSH (0.465-4.680) mIU/L Free T4 (0.78-2.19) ng/dL Urine Protein 3+ H (Negative) Urine Bacteria Rare H (None) /hpf Hyaline Casts 13 H (0-2) /lpf Urine Mucus Rare H (None) /hpf 08/30/22 08/30/22 08/30/22 Range/Units 02:37 02:37 02:37 RBC (4.30-5.90) m/uL Hgb (13.0-17.5) gm/dL Hct (39.0-53.0) % MCV (80.0-100.0) fL MCH (25.0-35.0) pg PT 12.7 H (9.0-12.0) sec INR 1.2 H (<1.2) APTT 44.0 H (22.0-30.0) sec Creatinine 1.81 H (0.66-1.25) mg/dL Glucose (74-99) mg/dL Total Bilirubin 2.1 H (0.2-1.3) mg/dL Troponin I (0.000-0.034) ng/mL Triglycerides (0.00-149.00) mg/dL Cholesterol (0.00-200.00) mg/dL VLDL Cholesterol, Calc (5.00-40.00) mg/dL HDL Cholesterol (40.00-60.00) mg/dL TSH (0.465-4.680) mIU/L Free T4 <0.07 L (0.78-2.19) ng/dL Urine Protein (Negative) Urine Bacteria (None) /hpf Hyaline Casts (0-2) /lpf Urine Mucus (None) /hpf Thrombosis Risk Factor Assmnt - DVT/VTE Prophylaxis DVT/VTE Prophylaxis: Pharmacologic Prophylaxis ordered Assessment and Plan Assessment: Acute on chronic CHF with systolic dysfunction Dilated cardiomyopathy ejection fraction 30% likely secondary to severe hypothyroidism Elevated troponin level likely due to renal insufficiency and severe hypothyroidism. Large pericardial effusion without tamponade during recent admission in February 2022 Chronic kidney disease stage III. Possible cardiorenal Obstructive sleep apnea Hypertension Depression Prior history of smoking Noncompliance with medications and follow-up DVT prophylaxis Heparin Plan: Patient will be continued on telemetry monitoring. Serial EKG and troponin x3. Continue with heparin drip and continue with Lasix 20 mg IV push every 8 hourly. Continue with metoprolol, lisinopril and statins. Spironolactone will be added. Cardiology is on board. Patient will be started on levothyroxine 75 mcg daily considering his acute heart failure and increase the dose later. Patient was counseled extensively for medication compliance and follow-up. Prognosis is guarded at this time. Discussed with the patient and his mother in detail. Time with Patient: Greater than 30
[2022-08-31] MEDS: FUROSEMIDE 10 MG/ML 2 ML VIAL IV SCH (05:50)
[2022-08-31] MEDS: LEVOTHYROXINE 75 MCG TAB PO SCH (05:51)
[2022-08-31 07:59] LABS: Basophils % (A) 1 %; Eosinophils # (A) 0.3 k/uL (0-0.7); Eosinophils % (A) 4 %; HCT 36.1 % (39.0-53.0); Hypochromasia Slight; Lymphocytes # (A) 0.9 k/uL (1.0-4.8); Lymphocytes % (A) 14 %; MCH 35.2 pg (25.0-35.0); MCHC 33.1 g/dL (31.0-37.0); MCV 106.3 fL (80.0-100.0); Macrocytosis Moderate; Mean Platelet Volume 8.5; Monocytes # (A) 0.2 k/uL (0-1.0); Monocytes % (A) 3 %; Neutrophils # (A) 5.2 k/uL (1.3-7.7); Neutrophils % (A) 78 %; Platelet Count 212 k/uL (150-450); RDW 14.1 % (11.5-15.5); WBC 6.7 k/uL (3.8-10.6)
[2022-08-31 08:16] LABS: Calcium 8.2 mg/dL (8.4-10.2); Potassium 3.9 mmol/L (3.5-5.1)
[2022-08-31 10:56] LABS: Glucose,Whole Blood 100 mg/dL (70-110)
[2022-08-31] MEDS: lisinopriL 10 MG TAB PO SCH (11:16)
[2022-08-31] MEDS: ASPIRIN 81 MG PO SCH (11:16)
[2022-08-31] MEDS: METOPROLOL TARTRATE 25 MG TAB PO SCH ×2 (11:16→20:51)
[2022-08-31] MEDS: HEPARIN SODIUM,PORCINE/PF 5,000 UNIT/0.5 ML SYRINGE SQ SCH (20:51)
[2022-08-31] MEDS: PRAVASTATIN SODIUM 40 MG TAB PO SCH (20:51)
[2022-08-31] MEDS: FUROSEMIDE 10 MG/ML 4 ML VIAL IV SCH (20:51)
--- NOTE | 2022-08-31 21:20 | PN ---
PROGRESS NOTE SUBJECTIVE: This is a 31-year-old gentleman with a history of hypothyroidism, not taking medicines regularly; hypertension; obstructive sleep apnea with a known history of LV dysfunction. Apparently, this patient has not been taking medications as advised. He came into the hospital with increasing shortness of breath. His TSH is over 100. BNP is 4550. Since yesterday, his breathing is better. He seems to be ambulating without any major symptoms. He also has a chronic renal insufficiency as well. At the time of my evaluation, he is breathing better. We will continue his current medical regimen. I will switch his Lasix to 40 mg q.12 hours, decrease the aspirin to 81 mg daily, place him on subcutaneous heparin, and increase his Synthroid from 75 to 100 mcg daily. OBJECTIVE: NECK: Revealed JVD of 1 cm. No carotid bruit. HEART: S1 and S2 heard normally without any significant murmurs. LUNGS: Revealed diminished air entry. ABDOMEN: Soft. EXTREMITIES: Lower extremities revealed diminished pulses. Bilateral mild edema. CENTRAL NERVOUS SYSTEM: Grossly within normal limits. PLAN: Plan is to increase Synthroid, IV Lasix to 40 q.12, and subcutaneous heparin. Increase activity. We will check a BMP tomorrow. MMODL / IJN: [id number] /
[2022-08-31] MEDS: guaiFENesin SYRUP 100MG/5ML 200 MG/10 ML CUP PO PRN (21:32)
[2022-09-01] MEDS: LEVOTHYROXINE 100 MCG TAB PO SCH (05:58)
[2022-09-01] MEDS: lisinopriL 10 MG TAB PO SCH (09:06)
[2022-09-01] MEDS: METOPROLOL TARTRATE 25 MG TAB PO SCH ×2 (09:06→20:55)
[2022-09-01] MEDS: HEPARIN SODIUM,PORCINE/PF 5,000 UNIT/0.5 ML SYRINGE SQ SCH ×2 (09:06→20:55)
[2022-09-01] MEDS: ASPIRIN 81 MG PO SCH (09:06)
[2022-09-01] MEDS: FUROSEMIDE 10 MG/ML 4 ML VIAL IV SCH ×2 (09:06→20:55)
[2022-09-01 10:29] LABS: Calcium 7.5 mg/dL (8.4-10.2); Potassium 3.9 mmol/L (3.5-5.1)
[2022-09-01 10:38] LABS: Basophils % (A) 1 %; Eosinophils # (A) 0.1 k/uL (0-0.7); Eosinophils % (A) 2 %; HCT 35.2 % (39.0-53.0); HGB 11.9 gm/dL (13.0-17.5); Lymphocytes # (A) 1.1 k/uL (1.0-4.8); Lymphocytes % (A) 19 %; MCH 35.5 pg (25.0-35.0); MCHC 33.7 g/dL (31.0-37.0); MCV 105.2 fL (80.0-100.0); Macrocytosis Moderate; Mean Platelet Volume 9.2; Monocytes # (A) 0.2 k/uL (0-1.0); Monocytes % (A) 3 %; Neutrophils # (A) 4.1 k/uL (1.3-7.7); Neutrophils % (A) 73 %; Platelet Count 182 k/uL (150-450); RBC 3.35 m/uL (4.30-5.90); RDW 14.5 % (11.5-15.5); WBC 5.6 k/uL (3.8-10.6)
--- NOTE | 2022-09-01 11:24 | P.PN ---
Subjective Progress Note Date: 08/31/22 Patient is a 31-year-old male with a known history of hypothyroidism, chronic CHF with systolic dysfunction, and recent admission February 2022 due to large pericardial effusion and other medical problems including morbid obesity and obstructive sleep apnea presents to ER with complaints of bilateral lower ex tremity swelling and shortness of breath. Patient also complaining of cough. Patient was brought to the hospital by his mother. Otherwise denied any complaints of chest pain. No fever no chills. No nausea vomiting abdominal pain or diarrhea. Patient does have generalized weakness and fatigue. Denies any dysuria or hematuria. Chest x-ray showed moderately severe cardiomegaly which appears increased compared to old exam. EKG showed sinus rhythm. Laboratory data showed WC 9.1 hemoglobin 12.1 and platelets 223 Sodium 140 potassium 3.7 chloride 106 bicarb is 26 BUN 11 and creatinine 1.73 bilirubin level is 2.1 liver enzymes are not elevated Troponin 0.051, 0.064 and 0.067 proBNP is 450 Triglycerides 391 and LDL 108 TSH greater than 100 and Free T4 level is 0.07 Urinalysis showed 3+ protein. Rare bacteria and hyaline casts. Influenza A, B, RSV and COVID-19 PCR not detected. 08/31/22 Patient is currently lying in the bed. Awake alert and oriented 3. Complains of tightness and weakness. No complaints of chest pain. Breathing status is better. No nausea vomiting or abdominal pain or diarrhea. Leg swelling also improved. Laboratory data showed WBC 6. 7112.0 and platelets 212 Sodium 139 potassium 3.9 bicarb is 32 BUN 18 and creatinine 1.95 Patient is being covered on IV Lasix and also levothyroxine. Current medications reviewed. Objective - Vital Signs Vital signs: Vital Signs Temp 98.6 F 08/31/22 05:53 Pulse 80 08/31/22 12:00 Resp 18 08/31/22 12:00 BP 104/60 08/31/22 12:00 Pulse Ox 98 08/31/22 11:00 FiO2 Intake & Output 08/30/22 08/31/22 08/31/22 18:59 06:59 18:59 Output Total 1025 Balance -1025 Output: Urine 1025 - Exam PHYSICAL EXAMINATION: Patient is lying in the bed comfortably, mild distress, awake alert and oriented.. Morbidly obese. HEENT: Normocephalic. Neck is supple. Pupils reactive. Nostrils clear. Oral cavity is moist. Neck reveals no JVD, carotid bruits, or thyromegaly. CHEST EXAMINATION: Trachea is central. Symmetrical expansion bibasilar diminished sounds. No wheezing or rhonchi.. CARDIAC: Normal S1, S2 with no gallops. No murmurs ABDOMEN: Soft. Bowel sounds present. Nontender. No organomegaly. No abdominal bruits. Extremities: Bilateral lower extremity edema and generalized swelling, anasarca.. No clubbing or cyanosis Neurologically awake, alert, oriented x3 with well-coordinated movements. No gross focal deficits noted Skin: No rash or skin lesions. Psychiatric: Coperative. Nonsuicidal, Musculoskeletal: No joint swelling or deformity. Normal range of motion. - Labs CBC & Chem 7: 09/01/22 09:44 09/01/22 09:44 Labs: Abnormal Lab Results - Last 24 Hours (Table) 08/31/22 08/31/22 Range/Units 07:39 07:39 RBC 3.40 L (4.30-5.90) m/uL Hgb 12.0 L (13.0-17.5) gm/dL Hct 36.1 L (39.0-53.0) % MCV 106.3 H (80.0-100.0) fL MCH 35.2 H (25.0-35.0) pg Lymphocytes # 0.9 L (1.0-4.8) k/uL Carbon Dioxide 32 H (22-30) mmol/L Creatinine 1.95 H (0.66-1.25) mg/dL Calcium 8.2 L (8.4-10.2) mg/dL Assessment and Plan Assessment: Acute on chronic CHF with systolic dysfunction. Dilated cardiomyopathy ejection fraction 30% likely secondary to severe hypothyroidism Elevated troponin level likely due to renal insufficiency and severe hypothyroidism. Large pericardial effusion without tamponade during recent admission in February 2022 Chronic kidney disease stage III. Possible cardiorenal Obstructive sleep apnea Hypertension Depression Prior history of smoking Noncompliance with medications and follow-up DVT prophylaxis Heparin Plan: Patient will be continued on telemetry monitoring. Serial EKG and troponin x3. Continue with heparin drip and continue with Lasix 20 mg IV push every 8 hourly. Continue with metoprolol, lisinopril and statins. Spironolactone will be added. Cardiology is on board. 2-D echocardiogram is pending. Continue on levothyroxine 75 mcg daily considering his acute heart failure and increase the dose at discharge.. Patient was counseled extensively for medication compliance and follow-up. Prognosis is guarded at this time. Time with Patient: Greater than 30
[2022-09-01 13:55] VITALS: BMI 54.3
[2022-09-01] MEDS: guaiFENesin SYRUP 100MG/5ML 200 MG/10 ML CUP PO PRN ×2 (15:05→21:08)
--- NOTE | 2022-09-01 18:24 | PN ---
PROGRESS NOTE SUBJECTIVE: Mr. Hernandez is doing much better. This gentleman has nonischemic cardiomyopathy-type picture. He was being hydrated yesterday. He has improved breathing today. He has lost a lot of urine. Denies any chest discomfort. His breathing is much better. Edema has improved. We will continue diuresis for 1 more day and monitor his renal status and also potassium levels. OBJECTIVE: VITAL SIGNS: Stable. NECK: There is JVD of 1 cm. No carotid bruit. HEART: S1 and S2 heard normally. Short systolic murmur. LUNGS: Reveal diminished air entry. ABDOMEN: Soft. EXTREMITIES: Lower extremity edema is improved. PLAN: We will continue the current regimen for another day and check BMP. MMODL / IJN: [id number] /
[2022-09-01] MEDS: PRAVASTATIN SODIUM 40 MG TAB PO SCH (20:55)
[2022-09-02] MEDS: LEVOTHYROXINE 100 MCG TAB PO SCH (06:01)
[2022-09-02] MEDS: ASPIRIN 81 MG PO SCH (09:17)
[2022-09-02] MEDS: FUROSEMIDE 10 MG/ML 4 ML VIAL IV SCH (09:17)
[2022-09-02] MEDS: METOPROLOL TARTRATE 25 MG TAB PO SCH ×2 (09:17→20:44)
[2022-09-02] MEDS: lisinopriL 10 MG TAB PO SCH (09:18)
[2022-09-02] MEDS: HEPARIN SODIUM,PORCINE/PF 5,000 UNIT/0.5 ML SYRINGE SQ SCH ×2 (09:18→20:44)
[2022-09-02 09:58] LABS: Calcium 7.6 mg/dL (8.4-10.2)
[2022-09-02 10:58] LABS: Basophils # (A) 0.1 k/uL (0-0.2); Basophils % (A) 1 %; Eosinophils # (A) 0.3 k/uL (0-0.7); Eosinophils % (A) 4 %; HCT 35.3 % (39.0-53.0); HGB 12.2 gm/dL (13.0-17.5); Lymphocytes # (A) 1.9 k/uL (1.0-4.8); Lymphocytes % (A) 24 %; MCH 35.9 pg (25.0-35.0); MCHC 34.6 g/dL (31.0-37.0); MCV 103.6 fL (80.0-100.0); Macrocytosis Slight; Mean Platelet Volume 10.5; Monocytes # (A) 0.4 k/uL (0-1.0); Monocytes % (A) 5 %; Neutrophils # (A) 5.2 k/uL (1.3-7.7); Neutrophils % (A) 65 %; Platelet Count 167 k/uL (150-450); RBC 3.41 m/uL (4.30-5.90); RDW 14.2 % (11.5-15.5)
[2022-09-02] MEDS ORDERED: FUROSEMIDE 10 MG/ML 4 ML VIAL IV STA (10:58)
--- NOTE | 2022-09-02 11:43 | CA ---
Transthoracic Echo Report Name: Mark Hernandez Age: 31 Gender: M : 1990 Exam Date: 09/01/2022 14:30 Exam Location: [facility] Ht (in): 70 Wt (lb): 379 Ordering Physician: Garo Martínez Attending/Referring Phys: Chief Operator Hydroformer Morenita Linton RDCS Procedure CPT: Indications: Heart failure Cardiac Hx: Technical Quality: Technically difficult study Contrast 1: Lumason Total Dose (mL): 4 Contrast 2: Total Dose (mL): MEASUREMENTS (Male / Female) Normal Values 2D ECHO RV Internal Dim ED PLAX 3.6 cm M-MODE Aortic Root Diameter MM 2.5 cm LA Systolic Diameter MM 4.7 cm LA Ao Ratio MM 1.9 DOPPLER LVOT Peak Velocity 51.8 cm/s LVOT Peak Gradient 1.1 mmHg TR Peak Velocity 182.2 cm/s TR Peak Gradient 13.3 mmHg Right Ventricular Systolic Press 18.3 mmHg FINDINGS Left Ventricle Severely reduced global left ventricular systolic function. Left ventricular ejection fraction is estimated at 10-15 %. Right Ventricle Moderate right ventricular dilatation. Right Atrium Right atrium not well visualized. Left Atrium Moderate left atrial dilatation. Mitral Valve Mitral valve not well visualized. Aortic Valve Aortic valve not well visualized. No aortic valve stenosis or regurgitation. Tricuspid Valve Tricuspid valve not well visualized. Mild tricuspid regurgitation. Pulmonic Valve Trace pulmonic regurgitation. Pericardium Moderate pericardial effusion. Aorta Normal size aortic root and proximal ascending aorta, same size as previous study. CONCLUSIONS Lumason ECHO contrast used for improved visualization of the endocardial borders (inadequate visualization of two or more contiguous segments). Severely impaired left ventricular systolic function with global hypokinesis Valvular structures were not well visualized. Previewed by: Dr. Tiffany Cooper MD (Electronically Signed) Final Date: 02 September 2022 11:42
[2022-09-02] MEDS: FUROSEMIDE 100 MG in SODIUM CHLORIDE 0.9% 90 ML IV SCH ×2 (11:52→20:44)
--- NOTE | 2022-09-02 12:06 | P.PN ---
Subjective Progress Note Date: 09/01/22 Patient is a 31-year-old male with a known history of hypothyroidism, chronic CHF with systolic dysfunction, and recent admission February 2022 due to large pericardial effusion and other medical problems including morbid obesity and obstructive sleep apnea presents to ER with complaints of bilateral lower ex tremity swelling and shortness of breath. Patient also complaining of cough. Patient was brought to the hospital by his mother. Otherwise denied any complaints of chest pain. No fever no chills. No nausea vomiting abdominal pain or diarrhea. Patient does have generalized weakness and fatigue. Denies any dysuria or hematuria. Chest x-ray showed moderately severe cardiomegaly which appears increased compared to old exam. EKG showed sinus rhythm. Laboratory data showed WC 9.1 hemoglobin 12.1 and platelets 223 Sodium 140 potassium 3.7 chloride 106 bicarb is 26 BUN 11 and creatinine 1.73 bilirubin level is 2.1 liver enzymes are not elevated Troponin 0.051, 0.064 and 0.067 proBNP is 450 Triglycerides 391 and LDL 108 TSH greater than 100 and Free T4 level is 0.07 Urinalysis showed 3+ protein. Rare bacteria and hyaline casts. Influenza A, B, RSV and COVID-19 PCR not detected. 08/31/22 Patient is currently lying in the bed. Awake alert and oriented 3. Complains of tightness and weakness. No complaints of chest pain. Breathing status is better. No nausea vomiting or abdominal pain or diarrhea. Leg swelling also improved. Laboratory data showed WBC 6. 7112.0 and platelets 212 Sodium 139 potassium 3.9 bicarb is 32 BUN 18 and creatinine 1.95 Patient is being covered on IV Lasix and also levothyroxine. 09/01/2022 Patient is sitting on the Seroquel. Still having shortness of breath and exertional dyspnea and orthopnea. Still having significant leg swelling and requiring oxygen via nasal cannula. Patient is being continued on IV diuresis.. Also on levothyroxine. Laboratory data showed WBC 5.6 hemoglobin 11.9 and platelets 182 sodium 136 potassium 3.9 chloride 100 bicarb is 27 BUN 22 and creatinine 1.69 Cardiology is on board. Continue with IV diuresis for another 24 hours. Current medications reviewed. Objective - Vital Signs Vital signs: Vital Signs Temp 98.8 F 09/01/22 11:37 Pulse 73 09/01/22 11:37 Resp 19 09/01/22 11:37 BP 111/74 09/01/22 11:37 Pulse Ox 98 09/01/22 11:37 FiO2 Intake & Output 08/31/22 09/01/22 09/01/22 18:59 06:59 18:59 Intake Total 540 240 Output Total 725 Balance -185 240 Weight 171.004 kg 172 kg Intake: Oral 540 240 Output: Urine 725 Other: Voiding Method Toilet Toilet Toilet - Exam PHYSICAL EXAMINATION: Patient is lying in the bed comfortably, mild distress, awake alert and oriented.. Morbidly obese. HEENT: Normocephalic. Neck is supple. Pupils reactive. Nostrils clear. Oral cavity is moist. Neck reveals no JVD, carotid bruits, or thyromegaly. CHEST EXAMINATION: Trachea is central. Symmetrical expansion bibasilar diminished sounds. No wheezing or rhonchi.. CARDIAC: Normal S1, S2 with no gallops. No murmurs ABDOMEN: Soft. Bowel sounds present. Nontender. No organomegaly. No abdominal bruits. Extremities: Bilateral lower extremity edema and generalized swelling, anasarca.. No clubbing or cyanosis Neurologically awake, alert, oriented x3 with well-coordinated movements. No gross focal deficits noted Skin: No rash or skin lesions. Psychiatric: Coperative. Nonsuicidal, Musculoskeletal: No joint swelling or deformity. Normal range of motion. - Labs CBC & Chem 7: 09/02/22 08:40 09/02/22 08:40 Labs: Abnormal Lab Results - Last 24 Hours (Table) 09/01/22 09/01/22 Range/Units 09:44 09:44 RBC 3.35 L (4.30-5.90) m/uL Hgb 11.9 L (13.0-17.5) gm/dL Hct 35.2 L (39.0-53.0) % MCV 105.2 H (80.0-100.0) fL MCH 35.5 H (25.0-35.0) pg Sodium 136 L (137-145) mmol/L BUN 22 H (9-20) mg/dL Creatinine 1.69 H (0.66-1.25) mg/dL Glucose 104 H (74-99) mg/dL Calcium 7.5 L (8.4-10.2) mg/dL Assessment and Plan Assessment: Acute on chronic CHF with systolic dysfunction. Dilated cardiomyopathy ejection fraction 30% likely secondary to severe hypothyroidism Elevated troponin level likely due to renal insufficiency and severe hypothyroidism. Large pericardial effusion without tamponade during recent admission in February 2022 Chronic kidney disease stage III. Possible cardiorenal Obstructive sleep apnea Hypertension Depression Prior history of smoking Noncompliance with medications and follow-up DVT prophylaxis Heparin Plan: Patient will be continued on telemetry monitoring. Troponin peaked at 0.0 67.. Patient was on heparin drip. Currently continued on Lasix 40 mg IV twice daily.. Continue with metoprolol, lisinopril and statins. Spironolactone will be added. Cardiology is on board. 2-D echocardiogram is pending. Continue on levothyroxine 75 mcg daily considering his acute heart failure and increase the dose at discharge.. Patient was counseled extensively for medication compliance and follow-up. Prognosis is guarded at this time. Time with Patient: Greater than 30
--- NOTE | 2022-09-02 12:39 | P.NPCON ---
History of Present Illness - Reason for Consult acute renal failure, chronic renal failure - History of Present Illness Reason for consultation: Acute kidney injury on chronic any disease History of present illness: Patient is a 31-year-old male seen in renal consultation for acute kidney injury on chronic kidney disease. Patient has chronic kidney disease stage III a baseline creatinine near 1.3-1.5 secondary to cardiorenal syndrome. Patient presented to the hospital with worsening shortness of breath and edema going on for the last few days. Patient also admits to orthopnea. Patient's ejection fraction is noted to be tender 15% and also has a moderate pericardial effusion. He denies history of diabetes or cardiac stents. Patient's creatinine this admission has been fairly stable in the range of 1.7-1.9. He is currently receiving Lasix drip which was started today and is also on IV Lasix 40 mg twice daily. He is also on lisinopril. Blood pressure is on the lower side and was 97/58 this morning. UA from February 2022 showed no proteinuria from this admission was 3+. No blood noted. Does admit to shortness of breath especially with exertion. No chest pain. Denies use of nonsteroidals. No fever or chills. No cough. Vital signs are stable. General: Awake. No acute distress. HEENT: Head exam is unremarkable. LUNGS: Breath sounds decreased. HEART: Rate and Rhythm are regular. ABDOMEN: Soft, obese. EXTREMITITES: 3+ pitting edema. Past Medical History Past Medical History: Chest Pain / Angina, Heart Failure, Hypertension, Sleep Apnea/CPAP/BIPAP Additional Past Medical History / Comment(s): no cpap used (patient states he has had several nurses tell him he looks like he has sleep apnea, however he was tested by sleep medicine and was told he does not have sleep apnea) hemorrhoids, pinched nerve in neck, torn tendon rt foot History of Any Multi-Drug Resistant Organisms: None Reported Past Surgical History: Ear Surgery, Tonsillectomy Additional Past Surgical History / Comment(s): tube rt ear, colonoscopy, hemorrhoid removal Past Anesthesia/Blood Transfusion Reactions: No Reported Reaction Past Psychological History: Depression Additional Psychological History / Comment(s): past hx Smoking Status: Former smoker Past Alcohol Use History: None Reported Additional Past Alcohol Use History / Comment(s): QUIT SMOKING 1 week ago 2021, approx 1 PPD Past Drug Use History: None Reported - Past Family History Mother Family Medical History: Congestive Heart Failure (CHF) Father Family Medical History: Liver Disease Additional Family Medical History / Comment(s): Father from cirrhosis of the liver Medications and Allergies Home Medications Medication Instructions Recorded Confirmed Type Aspirin 81 mg PO DAILY #30 tab 08/30/22 Rx Furosemide [Lasix] 20 mg PO BID #60 tab 08/30/22 Rx Levothyroxine Sodium 100 mcg PO DAILY #30 tab 08/30/22 Rx Metoprolol Tartrate [Lopressor] 25 mg PO BID #60 tab 08/30/22 Rx Pravastatin Sodium [Pravachol] 40 mg PO HS #30 tab 08/30/22 Rx Spironolactone [Aldactone] 12.5 mg PO DAILY #30 tablet 08/30/22 Rx lisinopriL [Zestril] 5 mg PO DAILY #30 tab 08/30/22 Rx Allergies Allergy/AdvReac Type Severity Reaction Status Date / Time bee pollen Allergy Rash/Hives Verified 08/29/22 20:12 lactose Allergy Diarrhea Verified 08/29/22 20:12 Penicillins AdvReac Unknown Verified 08/29/22 20:12 Childhood Physical Exam Vitals: Vital Signs Temp Pulse Resp BP Pulse Ox 09/02/22 08:00 98.4 F 72 18 97/58 96 09/02/22 04:00 98.5 F 71 20 109/76 95 09/02/22 01:58 75 22 09/02/22 00:00 70 20 140/70 96 09/01/22 20:00 98.2 F 78 20 114/75 95 09/01/22 16:00 75 22 110/76 97 09/01/22 14:00 73 19 Intake and Output 09/01/22 09/02/22 09/02/22 22:59 06:59 14:59 Intake Total 480 240 180 Output Total 500 350 Balance -20 -110 180 Intake: Oral 480 240 180 Output: Urine 500 350 Other: Voiding Method Toilet Toilet Toilet Weight 172.9 kg Results - Lab Results Most recent lab results Calcium 7.6 mg/dL (8.4-10.2) L 09/02/22 08:40 Magnesium 1.8 mg/dL (1.6-2.3) 08/29/22 18:39 09/02/22 08:40 09/02/22 08:40 Assessment and Plan Plan: Assessment: 1. Acute kidney injury mostly prerenal secondary to cardiorenal syndrome. Creatinine 1.88 today. UA from February 2022 showed no proteinuria. 3+ proteinuria noted on UA done this admission. 2. Chronic kidney disease stage III with baseline creatinine 1.3 1.5 secondary to cardiorenal syndrome. 3. Acute on chronic systolic CHF with ejection fraction of 10-15%. 4. Volume overload. 5. Obesity. Plan: Repeat UA. Check protein to creatinine ratio. Check renal ultrasound. Low-salt diet and 1500 mL fluid restriction. Maintain Lasix drip. Add metolazone 5 mg twice a day. Decrease dose of lisinopril to 5 mg once daily. Avoid nephrotoxins. Continue to monitor renal function and urine output. Will also benefit from sgl2i if gfr remains stable. Thank you for the consultation. I will continue to follow the patient with you during his hospital stay.
--- NOTE | 2022-09-02 15:05 | US ---
EXAMINATION TYPE: US kidneys/renal and bladder DATE OF EXAM: 09/02/2022 COMPARISON: 03/16/2018 CLINICAL HISTORY: [email or web address]. LAZARO EXAM MEASUREMENTS: Right Kidney: 10.5 x 5.0 x 5.1 cm Left Kidney: 10.2 x 6.0 x 5.7 cm Technical limitations due to patient's body habitus, morbidly obese, and large amount of overlying bowel content Right Kidney: possible stone as on prior exam = 0.6cm Left Kidney: possible stone as on prior exam = 0.7cm Bladder: not fully distended Bilateral Jets seen: no IMPRESSION: 1. Bilateral nonobstructing renal calculi
[2022-09-02] MEDS: PRAVASTATIN SODIUM 40 MG TAB PO SCH (20:44)
[2022-09-02] MEDS: metOLazone 5 MG TAB PO SCH (20:44)
[2022-09-02] MEDS: guaiFENesin SYRUP 100MG/5ML 200 MG/10 ML CUP PO PRN (23:35)
--- NOTE | 2022-09-03 01:13 | PN ---
PROGRESS NOTE SUBJECTIVE: Mr. Hernandez is a 31-year-old gentleman with dilated cardiomyopathy type picture with congestive heart failure. He appears more congested today. He is more edematous. I am recommending we give him Lasix 40 mg IV push and place him on a Lasix drip and seek Nephrology input. We will also obtain BMP in the morning. This gentleman is noncompliant. He has also not taken his medications including the thyroid pills and his TSH is very elevated. OBJECTIVE: NECK: JVD is increased. HEART: S1, S2 heard normally, but distantly. Short systolic murmur is noted. LUNGS: Reveal diminished air entry over both lung peck, especially bases. ABDOMEN: Soft. LOWER EXTREMITY: Edema is evident. IMPRESSION: Worsening congestive heart failure, probably poor ejection fraction. Advised to have a repeat limited echo to assess LV function. I will place him on a Lasix drip. Seek Nephrology consult and electrolyte will be checked very closely. Prognosis is poor for this young man and he is aware of it. He has not been compliant with medications. MMODL / IJN: [id number] /
[2022-09-03] MEDS: FUROSEMIDE 100 MG in SODIUM CHLORIDE 0.9% 90 ML IV SCH ×3 (05:34→19:59)
[2022-09-03] MEDS: LEVOTHYROXINE 100 MCG TAB PO SCH (05:35)
[2022-09-03 08:04] LABS: Basophils # (A) 0.1 k/uL (0-0.2); Basophils % (A) 1 %; Eosinophils # (A) 0.3 k/uL (0-0.7); Eosinophils % (A) 4 %; HCT 37.1 % (39.0-53.0); HGB 12.6 gm/dL (13.0-17.5); Lymphocytes # (A) 2.2 k/uL (1.0-4.8); Lymphocytes % (A) 28 %; MCH 35.3 pg (25.0-35.0); MCV 103.8 fL (80.0-100.0); Macrocytosis Slight; Mean Platelet Volume 9.4; Monocytes # (A) 0.3 k/uL (0-1.0); Monocytes % (A) 4 %; Neutrophils # (A) 4.6 k/uL (1.3-7.7); Neutrophils % (A) 61 %; Platelet Count 202 k/uL (150-450); RBC 3.58 m/uL (4.30-5.90); RDW 14.4 % (11.5-15.5); WBC 7.6 k/uL (3.8-10.6)
[2022-09-03 08:32] LABS: Calcium 7.8 mg/dL (8.4-10.2); Magnesium 1.8 mg/dL (1.6-2.3); Potassium 3.8 mmol/L (3.5-5.1)
[2022-09-03] MEDS: HEPARIN SODIUM,PORCINE/PF 5,000 UNIT/0.5 ML SYRINGE SQ SCH ×2 (09:48→20:01)
[2022-09-03] MEDS: metOLazone 5 MG TAB PO SCH (09:48)
[2022-09-03] MEDS: METOPROLOL TARTRATE 25 MG TAB PO SCH ×2 (09:48→20:01)
[2022-09-03] MEDS: lisinopriL 5 MG TAB PO SCH (09:48)
[2022-09-03] MEDS: ASPIRIN 81 MG PO SCH (09:48)
[2022-09-03 11:42] LABS: Appearance,Urine Clear (Clear); Bilirubin,Urine Negative (Negative); Blood,Urine Negative (Negative); Color,Urine Colorless; Glucose,Urine (UA) Negative (Negative); Ketones,Urine Negative (Negative); Leukocyte Esterase,Urine Negative (Negative); Nitrite,Urine Negative (Negative); Protein,Urine Negative (Negative); Specific Gravity,Urine 1.006 (1.001-1.035); Urobilinogen,Urine <2.0 mg/dL (<2.0)
[2022-09-03 11:57] LABS: Creatinine,Urine Random 31.3 mg/dL; Protein/Creatinine Ratio,Urine 0.479
[2022-09-03] MEDS: DOBUTamine DRIP 500 MG in DEXTROSE/WATER 1 250ML.BAG IV SCH ×2 (13:11→20:01)
--- NOTE | 2022-09-03 13:50 | P.PN ---
Subjective Patient is seen in follow-up for acute kidney injury on chronic kidney disease. Renal function a little worse from diuresis. Maintain on Lasix drip and metolazone. Urine output 1200 mL overnight and 625 mL so far today. Denies chest pain or shortness of breath. Vital signs are stable. General: Awake. Distress. HEENT: Head exam is unremarkable. LUNGS: Breath sounds decreased. HEART: Rate and Rhythm are regular. ABDOMEN: Soft, obese. EXTREMITITES: 2+ edema. Objective - Vital Signs Vital signs: Vital Signs Temp 97.9 F 09/03/22 12:00 Pulse 68 09/03/22 12:00 Resp 20 09/03/22 12:00 BP 117/90 09/03/22 12:00 Pulse Ox 98 09/03/22 12:00 FiO2 Intake & Output 09/02/22 09/03/22 09/03/22 18:59 06:59 18:59 Intake Total 180 1147.000 558.25 Output Total 1200 625 Balance 180 -53.000 -66.75 Weight 170.8 kg Intake: Intake, IV Titration 177.000 82.25 Amount Furosemide 100 mg In 177.000 82.25 Sodium Chloride 0.9% 90 ml @ 15 MG/HR 15 mls/hr IV .Q6H40M [facility] Rx#: [id number] Oral 180 970 476 Output: Urine 1200 625 Other: Voiding Method Toilet Toilet Urinal # Voids 1 - Labs CBC & Chem 7: 09/03/22 07:05 09/03/22 07:05 Labs: Abnormal Lab Results - Last 24 Hours (Table) 09/03/22 09/03/22 Range/Units 07:05 07:05 RBC 3.58 L (4.30-5.90) m/uL Hgb 12.6 L (13.0-17.5) gm/dL Hct 37.1 L (39.0-53.0) % MCV 103.8 H (80.0-100.0) fL MCH 35.3 H (25.0-35.0) pg Sodium 135 L (137-145) mmol/L Chloride 97 L (98-107) mmol/L BUN 28 H (9-20) mg/dL Creatinine 2.05 H (0.66-1.25) mg/dL Glucose 104 H (74-99) mg/dL Calcium 7.8 L (8.4-10.2) mg/dL Assessment and Plan Plan: Assessment: 1. Acute kidney injury mostly prerenal secondary to cardiorenal syndrome. Creatinine 2.05 today. UA from February 2022 showed no proteinuria. 3+ proteinuria noted on UA done this admission - repeat UA benign. UPC 0.47. No hydronephrosis noted on kidney ultrasound. 2. Chronic kidney disease stage IIIa with baseline creatinine 1.3 1.5 secondary to cardiorenal syndrome. 3. Acute on chronic systolic CHF with ejection fraction of 10-15%. 4. Volume overload. 5. Obesity. Plan: Increase Lasix drip to 15 mL an hour. Maintain metolazone. Low-salt diet and 1500 mL fluid restriction. Will discuss with cardiology if dobutamine can be added. Avoid nephrotoxins. Continue to monitor renal function and urine output. Add farxiga.
[2022-09-03] MEDS: DAPAGLIFLOZIN PROPANEDIOL 5 MG TABLET PO SCH (17:41)
[2022-09-03] MEDS: PRAVASTATIN SODIUM 40 MG TAB PO SCH (20:01)
--- NOTE | 2022-09-03 21:13 | PN ---
PROGRESS NOTE SUBJECTIVE: Mr. Hernandez is in sinus rhythm. He may have nonischemic cardiomyopathy. His ejection fraction is less than 15%. We can increase his Lasix and also try a small dose of dobutamine. His overall prognosis is poor. I spent a lot of time explaining to the patient explaining how bad his LV function is, and the patient I am not sure understands or complement the seriousness. There is no family available. OBJECTIVE: VITAL SIGNS: Stable. NECK: JVD 1 cm. No carotid bruit. HEART: S1 and S2 heard normally. Heart sounds heard distantly. LUNGS: Reveal fine bilateral basal rales. ABDOMEN: Soft. EXTREMITIES: Lower extremities reveal significant edema. Prognosis remains poor. MMODL / IJN: [id number] /
[2022-09-04] MEDS: FUROSEMIDE 100 MG in SODIUM CHLORIDE 0.9% 90 ML IV SCH ×4 (01:32→20:33)
--- NOTE | 2022-09-04 05:25 | P.PN ---
Subjective Progress Note Date: 09/04/22 Principal diagnosis: Severe cardiomyopathy/congestive heart failure The patient is a 31-year-old gentleman with a past medical history significant for severe cardiomyopathy with an ejection fraction of 15% who presented to the hospital and was admitted with heart failure with evidence of right more than left heart failure. He was also found to be in renal failure. He was started on Lasix IV as well as dobutamine IV. 09/04/2022 The patient was seen this morning. He remains in heart failure. He is to have severe bilateral lower extremities edema noted. He has been diuresing very well. The creatinine remains stable. I will suggest continue the patient on Lasix IV for at least additional 24 hours and continue monitor the kidney function and electrolytes as well. Objective - Vital Signs Vital signs: Vital Signs Temp 98.1 F 09/03/22 20:00 Pulse 74 09/03/22 23:53 Resp 18 09/03/22 23:53 BP 103/66 09/03/22 23:53 Pulse Ox 96 09/03/22 23:53 FiO2 Intake & Output 09/03/22 09/03/22 09/04/22 06:59 18:59 06:59 Intake Total 1147.000 558.25 1023.32 Output Total 1200 2450 3100 Balance -53.000 -1891.75 -2076.68 Weight 170.8 kg Intake: Intake, IV Titration 177.000 82.25 358.32 Amount DOBUTamine DRIP 500 mg In 175.07 Dextrose/Water 1 250ml. bag @ 5 MCG/KG/MIN 25.62 mls/hr IV .Q9H46M [facility] Rx# :[id number] Furosemide 100 mg In 177.000 82.25 183.25 Sodium Chloride 0.9% 90 ml @ 15 MG/HR 15 mls/hr IV .Q6H40M [facility] Rx#: [id number] Oral 970 476 665 Output: Urine 1200 2450 3100 Other: Voiding Method Toilet Urinal Urinal # Voids 1 - Constitutional General appearance: Present: no acute distress - Respiratory Respiratory: bilateral: diminished - Cardiovascular Rhythm: regular - Labs CBC & Chem 7: 09/03/22 07:05 09/03/22 07:05 Labs: Abnormal Lab Results - Last 24 Hours (Table) 09/03/22 09/03/22 Range/Units 07:05 07:05 RBC 3.58 L (4.30-5.90) m/uL Hgb 12.6 L (13.0-17.5) gm/dL Hct 37.1 L (39.0-53.0) % MCV 103.8 H (80.0-100.0) fL MCH 35.3 H (25.0-35.0) pg Sodium 135 L (137-145) mmol/L Chloride 97 L (98-107) mmol/L BUN 28 H (9-20) mg/dL Creatinine 2.05 H (0.66-1.25) mg/dL Glucose 104 H (74-99) mg/dL Calcium 7.8 L (8.4-10.2) mg/dL Assessment and Plan Assessment: Assessment Severe cardiomyopathy Congestive heart failure with evidence of right more now left heart failure Severe bilateral lower extremities edema secondary to the above Renal failure Obesity Plan Continue the current dose of Lasix IV Continue monitor the kidney function and electrolytes Follow-up with the patient
[2022-09-04] MEDS: LEVOTHYROXINE 100 MCG TAB PO SCH (05:43)
[2022-09-04] MEDS: DOBUTamine DRIP 500 MG in DEXTROSE/WATER 1 250ML.BAG IV SCH ×2 (06:28→17:32)
[2022-09-04 09:31] LABS: Basophils % (A) 1 %; Eosinophils # (A) 0.2 k/uL (0-0.7); Eosinophils % (A) 4 %; HCT 36.2 % (39.0-53.0); HGB 12.3 gm/dL (13.0-17.5); Lymphocytes # (A) 1.2 k/uL (1.0-4.8); Lymphocytes % (A) 22 %; MCH 34.6 pg (25.0-35.0); MCV 101.6 fL (80.0-100.0); Macrocytosis Slight; Mean Platelet Volume 8.6; Monocytes # (A) 0.2 k/uL (0-1.0); Monocytes % (A) 4 %; Neutrophils # (A) 3.8 k/uL (1.3-7.7); Neutrophils % (A) 67 %; Platelet Count 165 k/uL (150-450); RBC 3.57 m/uL (4.30-5.90); RDW 13.7 % (11.5-15.5); WBC 5.7 k/uL (3.8-10.6)
[2022-09-04 09:42] LABS: Calcium 8.6 mg/dL (8.4-10.2); Magnesium 1.6 mg/dL (1.6-2.3); Potassium 2.9 mmol/L (3.5-5.1)
[2022-09-04] MEDS ORDERED: Potassium Replacement Protocol 1 EACH MISC MISCELLANE PRN (09:46)
[2022-09-04] MEDS ORDERED: Magnesium Replacement Protocol 1 EACH MISC MISCELLANE PRN (09:46)
[2022-09-04] MEDS: METOPROLOL TARTRATE 25 MG TAB PO SCH ×2 (09:56→20:32)
[2022-09-04] MEDS: HEPARIN SODIUM,PORCINE/PF 5,000 UNIT/0.5 ML SYRINGE SQ SCH ×2 (09:56→20:32)
[2022-09-04] MEDS: lisinopriL 5 MG TAB PO SCH (09:56)
[2022-09-04] MEDS: DAPAGLIFLOZIN PROPANEDIOL 5 MG TABLET PO SCH (09:56)
[2022-09-04] MEDS: ASPIRIN 81 MG PO SCH (09:56)
[2022-09-04] MEDS: metOLazone 5 MG TAB PO SCH (09:57)
[2022-09-04] MEDS ORDERED: POTASSIUM CHLORIDE ER 20 MEQ TAB.ER PO SCH (10:00)
[2022-09-04] MEDS: POTASSIUM CHLORIDE ER 20 MEQ TAB.ER PO SCH ×3 (11:13→13:43)
[2022-09-04] MEDS: MAGNESIUM SULFATE-D5W PMX 1 GM in DEXTROSE/WATER 1 100ML.BAG IVPB SCH ×2 (11:14→13:42)
--- NOTE | 2022-09-04 12:03 | P.PN ---
Subjective Patient is seen in follow-up for acute kidney injury on chronic kidney disease. Renal function a little better. Maintained on Lasix drip and metolazone. Dobutamine was also started yesterday. Urine output is significantly improved. It is documented as over 6 L in the last 24 hours. Denies chest pain or shortness of breath. Vital signs are stable. General: Awake. Distress. HEENT: Head exam is unremarkable. LUNGS: Breath sounds decreased. HEART: Rate and Rhythm are regular. ABDOMEN: Soft, obese. EXTREMITITES: 2+ edema. Objective - Vital Signs Vital signs: Vital Signs Temp 97.7 F 09/04/22 08:00 Pulse 74 09/04/22 08:00 Resp 18 09/04/22 08:00 BP 108/68 09/04/22 08:00 Pulse Ox 96 09/04/22 08:00 FiO2 Intake & Output 09/03/22 09/04/22 09/04/22 18:59 06:59 18:59 Intake Total 558.25 1347.32 Output Total 2450 3900 Balance -1891.75 -2552.68 Weight 160.9 kg Intake: Intake, IV Titration 82.25 682.32 Amount DOBUTamine DRIP 500 mg In 425.07 Dextrose/Water 1 250ml. bag @ 5 MCG/KG/MIN 25.62 mls/hr IV .Q9H46M [facility] Rx# :[id number] Furosemide 100 mg In 82.25 257.25 Sodium Chloride 0.9% 90 ml @ 15 MG/HR 15 mls/hr IV .Q6H40M [facility] Rx#: [id number] Oral 476 665 Output: Urine 2450 3900 Other: Voiding Method Urinal Urinal # Voids 1 - Labs CBC & Chem 7: 09/04/22 09:00 09/04/22 09:00 Labs: Abnormal Lab Results - Last 24 Hours (Table) 09/04/22 09/04/22 Range/Units 09:00 09:00 RBC 3.57 L (4.30-5.90) m/uL Hgb 12.3 L (13.0-17.5) gm/dL Hct 36.2 L (39.0-53.0) % MCV 101.6 H (80.0-100.0) fL Sodium 135 L (137-145) mmol/L Potassium 2.9 L (3.5-5.1) mmol/L Chloride 86 L (98-107) mmol/L Carbon Dioxide 40 H (22-30) mmol/L BUN 26 H (9-20) mg/dL Creatinine 1.89 H (0.66-1.25) mg/dL Glucose 106 H (74-99) mg/dL Assessment and Plan Plan: Assessment: 1. Acute kidney injury mostly prerenal secondary to cardiorenal syndrome. Creatinine 1.89 today. UA from February 2022 showed no proteinuria. 3+ proteinuria noted on UA done this admission - repeat UA benign. UPC 0.47. No hydronephrosis noted on kidney ultrasound. 2. Chronic kidney disease stage IIIa with baseline creatinine 1.3 1.5 secondary to cardiorenal syndrome. 3. Acute on chronic systolic CHF with ejection fraction of 10-15%. 4. Volume overload. 5. Obesity. 6. Hypokalemia secondary to diuresis. 7. Hypomagnesemia from diuresis. Plan: Maintain Lasix drip at 15 mL an hour. Maintain metolazone. Maintain dobutamine. Low-salt diet and 1500 mL fluid restriction. Avoid nephrotoxins. Continue to monitor renal function and urine output. Maintain farxiga. Monitor GFR. Potassium and magnesium being replaced.
--- NOTE | 2022-09-04 12:54 | P.PN ---
Subjective Progress Note Date: 09/02/22 Patient is a 31-year-old male with a known history of hypothyroidism, chronic CHF with systolic dysfunction, and recent admission February 2022 due to large pericardial effusion and other medical problems including morbid obesity and obstructive sleep apnea presents to ER with complaints of bilateral lower ex tremity swelling and shortness of breath. Patient also complaining of cough. Patient was brought to the hospital by his mother. Otherwise denied any complaints of chest pain. No fever no chills. No nausea vomiting abdominal pain or diarrhea. Patient does have generalized weakness and fatigue. Denies any dysuria or hematuria. Chest x-ray showed moderately severe cardiomegaly which appears increased compared to old exam. EKG showed sinus rhythm. Laboratory data showed WC 9.1 hemoglobin 12.1 and platelets 223 Sodium 140 potassium 3.7 chloride 106 bicarb is 26 BUN 11 and creatinine 1.73 bilirubin level is 2.1 liver enzymes are not elevated Troponin 0.051, 0.064 and 0.067 proBNP is 450 Triglycerides 391 and LDL 108 TSH greater than 100 and Free T4 level is 0.07 Urinalysis showed 3+ protein. Rare bacteria and hyaline casts. Influenza A, B, RSV and COVID-19 PCR not detected. 08/31/22 Patient is currently lying in the bed. Awake alert and oriented 3. Complains of tightness and weakness. No complaints of chest pain. Breathing status is better. No nausea vomiting or abdominal pain or diarrhea. Leg swelling also improved. Laboratory data showed WBC 6. 7112.0 and platelets 212 Sodium 139 potassium 3.9 bicarb is 32 BUN 18 and creatinine 1.95 Patient is being covered on IV Lasix and also levothyroxine. 09/01/2022 Patient is sitting on the Seroquel. Still having shortness of breath and exertional dyspnea and orthopnea. Still having significant leg swelling and requiring oxygen via nasal cannula. Patient is being continued on IV diuresis.. Also on levothyroxine. Laboratory data showed WBC 5.6 hemoglobin 11.9 and platelets 182 sodium 136 potassium 3.9 chloride 100 bicarb is 27 BUN 22 and creatinine 1.69 Cardiology is on board. Continue with IV diuresis for another 24 hours. 09/02/2022 Patient is currently sitting on side of bed. Awake alert and oriented. Still having shortness of breath and exertional dyspnea. Still having significant leg swelling. Patient has been afebrile. No complaints of nausea or vomiting. Tolerating oral intake. Continued on IV diuresis and thyroid supplementation. Laboratory data showed WBC 8.0 hemoglobin 12.1 platelets 167 Sodium 136 potassium 4.0 chloride 102 bicarb is 26 BUN 25 creatinine increased to 1.88. Nephrology was consulted and patient was started on Lasix drip. Cardiology is on board. Current medications reviewed. Objective - Vital Signs Vital signs: Vital Signs Temp 98.4 F 09/02/22 08:00 Pulse 72 09/02/22 08:00 Resp 18 09/02/22 08:00 BP 97/58 09/02/22 08:00 Pulse Ox 96 09/02/22 08:00 FiO2 Intake & Output 09/01/22 09/02/22 09/02/22 18:59 06:59 18:59 Intake Total 240 720 180 Output Total 850 Balance 240 -130 180 Weight 172 kg 172.9 kg Intake: Oral 240 720 180 Output: Urine 850 Other: Voiding Method Toilet Toilet Toilet # Voids 2 - Exam PHYSICAL EXAMINATION: Patient is lying in the bed comfortably, mild distress, awake alert and oriented.. Morbidly obese. HEENT: Normocephalic. Neck is supple. Pupils reactive. Nostrils clear. Oral cavity is moist. Neck reveals no JVD, carotid bruits, or thyromegaly. CHEST EXAMINATION: Trachea is central. Symmetrical expansion bibasilar diminished sounds. No wheezing or rhonchi.. CARDIAC: Normal S1, S2 with no gallops. No murmurs ABDOMEN: Soft. Bowel sounds present. Nontender. No organomegaly. No abdominal bruits. Extremities: Bilateral lower extremity edema and generalized swelling, anasarca.. No clubbing or cyanosis Neurologically awake, alert, oriented x3 with well-coordinated movements. No gross focal deficits noted Skin: No rash or skin lesions. Psychiatric: Coperative. Nonsuicidal, Musculoskeletal: No joint swelling or deformity. Normal range of motion. - Labs CBC & Chem 7: 09/04/22 09:00 09/04/22 09:00 Labs: Abnormal Lab Results - Last 24 Hours (Table) 09/02/22 09/02/22 Range/Units 08:40 08:40 RBC 3.41 L (4.30-5.90) m/uL Hgb 12.2 L (13.0-17.5) gm/dL Hct 35.3 L (39.0-53.0) % MCV 103.6 H (80.0-100.0) fL MCH 35.9 H (25.0-35.0) pg Sodium 136 L (137-145) mmol/L BUN 25 H (9-20) mg/dL Creatinine 1.88 H (0.66-1.25) mg/dL Glucose 101 H (74-99) mg/dL Calcium 7.6 L (8.4-10.2) mg/dL Assessment and Plan Assessment: Acute on chronic CHF with systolic dysfunction. Dilated cardiomyopathy ejection fraction 30% likely secondary to severe hypothyroidism Elevated troponin level likely due to renal insufficiency and severe hypothyroidism. Large pericardial effusion without tamponade during recent admission in February 2022 Acute on Chronic kidney disease stage III. Possible cardiorenal Obstructive sleep apnea Hypertension Depression Prior history of smoking Noncompliance with medications and follow-up DVT prophylaxis Heparin Plan: Patient will be continued on telemetry monitoring. Troponin peaked at 0.0 67.. Patient was on heparin drip. was continued on Lasix 40 mg IV twice daily..changed to Lasix drip. Continue with metoprolol, lisinopril and statins. Spironolactone will be added. Cardiology is on board. Continue on levothyroxine 100 mcg daily Patient was counseled extensively for medication compliance and follow-up. Prognosis is guarded at this time. Time with Patient: Greater than 30
--- NOTE | 2022-09-04 12:56 | P.PN ---
Subjective Progress Note Date: 09/03/22 Patient is a 31-year-old male with a known history of hypothyroidism, chronic CHF with systolic dysfunction, and recent admission February 2022 due to large pericardial effusion and other medical problems including morbid obesity and obstructive sleep apnea presents to ER with complaints of bilateral lower ex tremity swelling and shortness of breath. Patient also complaining of cough. Patient was brought to the hospital by his mother. Otherwise denied any complaints of chest pain. No fever no chills. No nausea vomiting abdominal pain or diarrhea. Patient does have generalized weakness and fatigue. Denies any dysuria or hematuria. Chest x-ray showed moderately severe cardiomegaly which appears increased compared to old exam. EKG showed sinus rhythm. Laboratory data showed WC 9.1 hemoglobin 12.1 and platelets 223 Sodium 140 potassium 3.7 chloride 106 bicarb is 26 BUN 11 and creatinine 1.73 bilirubin level is 2.1 liver enzymes are not elevated Troponin 0.051, 0.064 and 0.067 proBNP is 450 Triglycerides 391 and LDL 108 TSH greater than 100 and Free T4 level is 0.07 Urinalysis showed 3+ protein. Rare bacteria and hyaline casts. Influenza A, B, RSV and COVID-19 PCR not detected. 08/31/22 Patient is currently lying in the bed. Awake alert and oriented 3. Complains of tightness and weakness. No complaints of chest pain. Breathing status is better. No nausea vomiting or abdominal pain or diarrhea. Leg swelling also improved. Laboratory data showed WBC 6. 7112.0 and platelets 212 Sodium 139 potassium 3.9 bicarb is 32 BUN 18 and creatinine 1.95 Patient is being covered on IV Lasix and also levothyroxine. 09/01/2022 Patient is sitting on the Seroquel. Still having shortness of breath and exertional dyspnea and orthopnea. Still having significant leg swelling and requiring oxygen via nasal cannula. Patient is being continued on IV diuresis.. Also on levothyroxine. Laboratory data showed WBC 5.6 hemoglobin 11.9 and platelets 182 sodium 136 potassium 3.9 chloride 100 bicarb is 27 BUN 22 and creatinine 1.69 Cardiology is on board. Continue with IV diuresis for another 24 hours. 09/02/2022 Patient is currently sitting on side of bed. Awake alert and oriented. Still having shortness of breath and exertional dyspnea. Still having significant leg swelling. Patient has been afebrile. No complaints of nausea or vomiting. Tolerating oral intake. Continued on IV diuresis and thyroid supplementation. Laboratory data showed WBC 8.0 hemoglobin 12.1 platelets 167 Sodium 136 potassium 4.0 chloride 102 bicarb is 26 BUN 25 creatinine increased to 1.88. Nephrology was consulted and patient was started on Lasix drip. Cardiology is on board. 09/03/2022 Patient is sitting in the recliner. Awake alert and oriented x3. Shortness of breath is better today. Patient still having exertional dyspnea and significant leg swelling. Currently continued on Lasix drip. No nausea vomiting or abdominal pain. No cough or sputum production. Patient is tolerating oral t. Laboratory data showed WBC 7.6 hemoglobin 12.6 and platelets 202 Sodium 134 potassium 3.8 chloride 97 bicarb is 28 BUN 28 and creatinine increased to 2.05. And magnesium 1.8 which is being replaced. Cardiology and nephrology is on board. Current medications reviewed. Objective - Vital Signs Vital signs: Vital Signs Temp 98.1 F 09/03/22 20:00 Pulse 71 09/03/22 20:00 Resp 18 09/03/22 20:00 BP 112/72 09/03/22 20:00 Pulse Ox 99 09/03/22 20:00 FiO2 Intake & Output 09/03/22 09/03/22 09/04/22 06:59 18:59 06:59 Intake Total 1147.000 558.25 455.07 Output Total 1200 2450 1200 Balance -53.000 -1891.75 -744.93 Weight 170.8 kg Intake: Intake, IV Titration 177.000 82.25 275.07 Amount DOBUTamine DRIP 500 mg In 175.07 Dextrose/Water 1 250ml. bag @ 5 MCG/KG/MIN 25.62 mls/hr IV .Q9H46M TETO Rx# :[id number] Furosemide 100 mg In 177.000 82.25 100 Sodium Chloride 0.9% 90 ml @ 15 MG/HR 15 mls/hr IV .Q6H40M TETO Rx#: [id number] Oral 970 476 180 Output: Urine 1200 2450 1200 Other: Voiding Method Toilet Urinal Urinal # Voids 1 - Exam PHYSICAL EXAMINATION: Patient is lying in the bed comfortably, mild distress, awake alert and oriente d.. Morbidly obese. HEENT: Normocephalic. Neck is supple. Pupils reactive. Nostrils clear. Oral cav ity is moist. Neck reveals no JVD, carotid bruits, or thyromegaly. CHEST EXAMINATION: Trachea is central. Symmetrical expansion bibasilar diminished sounds. No wheezing or rhonchi.. CARDIAC: Normal S1, S2 with no gallops. No murmurs ABDOMEN: Soft. Bowel sounds present. Nontender. No organomegaly. No abdominal bruits. Extremities: Bilateral lower extremity edema and generalized swelling, an asarca.. No clubbing or cyanosis Neurologically awake, alert, oriented x3 with well-coordinated movements. No gross focal deficits noted Skin: No rash or skin lesions. Psychiatric: Coperative. Nonsuicidal, Musculoskeletal: No joint swelling or deformity. Normal range of motion. - Labs CBC & Chem 7: 09/04/22 09:00 09/04/22 09:00 Labs: Abnormal Lab Results - Last 24 Hours (Table) 09/03/22 09/03/22 Range/Units 07:05 07:05 RBC 3.58 L (4.30-5.90) m/uL Hgb 12.6 L (13.0-17.5) gm/dL Hct 37.1 L (39.0-53.0) % MCV 103.8 H (80.0-100.0) fL MCH 35.3 H (25.0-35.0) pg Sodium 135 L (137-145) mmol/L Chloride 97 L (98-107) mmol/L BUN 28 H (9-20) mg/dL Creatinine 2.05 H (0.66-1.25) mg/dL Glucose 104 H (74-99) mg/dL Calcium 7.8 L (8.4-10.2) mg/dL Assessment and Plan Assessment: Acute on chronic CHF with systolic dysfunction. Dilated cardiomyopathy ejection fraction 30% likely secondary to severe hypothyroidism Elevated troponin level likely due to renal insufficiency and severe hypothyroidism. Large pericardial effusion without tamponade during recent admission in February 2022 Acute on Chronic kidney disease stage III. Possible cardiorenal Obstructive sleep apnea Hypertension Depression Prior history of smoking Noncompliance with medications and follow-up DVT prophylaxis Heparin Plan: Patient will be continued on telemetry monitoring. Troponin peaked at 0.0 67.. Patient was on heparin drip. was continued on Lasix 40 mg IV twice daily..changed to Lasix drip. Continue with metoprolol, lisinopril and statins. Spironolactone will be added. Cardiology is on board. Continue on levothyroxine 100 mcg daily Patient was counseled extensively for medication compliance and follow-up. Prognosis is guarded at this time. Time with Patient: Greater than 30
[2022-09-04] MEDS: PRAVASTATIN SODIUM 40 MG TAB PO SCH (20:32)
[2022-09-04] MEDS ORDERED: TERBUTALINE FOR EXTRAVASATION 1 MG/ML VIAL SQ STA (21:29)
[2022-09-04] MEDS: guaiFENesin SYRUP 100MG/5ML 200 MG/10 ML CUP PO PRN (22:31)
[2022-09-05] MEDS: FUROSEMIDE 100 MG in SODIUM CHLORIDE 0.9% 90 ML IV SCH ×2 (02:06→20:38)
[2022-09-05] MEDS: DOBUTamine DRIP 500 MG in DEXTROSE/WATER 1 250ML.BAG IV SCH ×2 (02:07→16:23)
[2022-09-05] MEDS ORDERED: Potassium Replacement Protocol 1 EACH MISC MISCELLANE PRN (03:09)
--- NOTE | 2022-09-05 04:05 | P.PN ---
Subjective Progress Note Date: 09/04/22 Patient is a 31-year-old male with a known history of hypothyroidism, chronic CHF with systolic dysfunction, and recent admission February 2022 due to large pericardial effusion and other medical problems including morbid obesity and obstructive sleep apnea presents to ER with complaints of bilateral lower extremity swelling and shortness of breath. Patient also complaining of cough. Patient was brought to the hospital by his mother. Otherwise denied any complaints of chest pain. No fever no chills. No nausea vomiting abdominal pain or diarrhea. Patient does have generalized weakness and fatigue. Denies any dysuria or hematuria. Chest x-ray showed moderately severe cardiomegaly which appears increased compared to old exam. EKG showed sinus rhythm. Laboratory data showed WC 9.1 hemoglobin 12.1 and platelets 223 Sodium 140 potassium 3.7 chloride 106 bicarb is 26 BUN 11 and creatinine 1.73 b ilirubin level is 2.1 liver enzymes are not elevated Troponin 0.051, 0.064 and 0.067 proBNP is 450 Triglycerides 391 and LDL 108 TSH greater than 100 and Free T4 level is 0.07 Urinalysis showed 3+ protein. Rare bacteria and hyaline casts. Influenza A, B, RSV and COVID-19 PCR not detected. 08/31/22 Patient is currently lying in the bed. Awake alert and oriented 3. Complains of tightness and weakness. No complaints of chest pain. Breathing status is better. No nausea vomiting or abdominal pain or diarrhea. Leg swelling also improved. Laboratory data showed WBC 6. 7112.0 and platelets 212 Sodium 139 potassium 3.9 bicarb is 32 BUN 18 and creatinine 1.95 Patient is being covered on IV Lasix and also levothyroxine. 09/01/2022 Patient is sitting on the Seroquel. Still having shortness of breath and exertional dyspnea and orthopnea. Still having significant leg swelling and requiring oxygen via nasal cannula. Patient is being continued on IV diuresis.. Also on levothyroxine. Laboratory data showed WBC 5.6 hemoglobin 11.9 and platelets 182 sodium 136 potassium 3.9 chloride 100 bicarb is 27 BUN 22 and creatinine 1.69 Cardiology is on board. Continue with IV diuresis for another 24 hours. 09/03/2022 Patient is sitting in the recliner. Awake alert and oriented x3. Shortness of breath is better today. Patient still having exertional dyspnea and significant leg swelling. Currently continued on Lasix drip. No nausea vomiting or abdominal pain. No cough or sputum production. Patient is tolerating oral diet. Laboratory data showed WBC 7.6 hemoglobin 12.6 and platelets 202 Sodium 134 potassium 3.8 chloride 97 bicarb is 28 BUN 28 and creatinine increased to 2.05. And magnesium 1.8 which is being replaced. Cardiology and nephrology is on board. 09/04/2022 Patient was seen and evaluated and follow-up with nephrology and cardiology following. Patient is continued on IV Lasix drip along with dobutamine drip. Patient potassium found to be 2.9 today and will replace with a total of 100 mEq of potassium and also magnesium found to be low at 1.6 and will replace per protocol recommend repeat labs this afternoon. Will add daily supplementation and continue to monitor closely. Patient with significant lower extremity swelling and overall generalized edema noted throughout including abdomen and recommend Jared wraps to bilateral lower extremities from the toes up to the thighs and elevate lower extremities, rest. Patient reports to voiding well and is diuresing. Continue diuresis with nephrology and cardiology following closely. Patient is afebrile denies chest pain or worsening shortness of breath. Patient reports to tolerating diet with no reports of nausea or vomiting noted. Recommend continue fluid restrictions. Review of systems: Constitutional: No reports of fatigue, fever, or chills Cardiovascular: No reports of chest pain or palpitations Respiratory: No reports of worsening shortness of breath or cough GI: No reports of nausea, vomiting, or diarrhea : No reports of dysuria or retention Neurovascular: reports of generalized weakness and continued swelling All medications have been reviewed Active Medications Aspirin (Aspirin 81 Mg) 81 mg PO DAILY [facility] Last Admin: 09/03/22 09:48 Dose: 81 mg Dapagliflozin (Dapagliflozin Propanediol 5 Mg Tablet) 5 mg PO DAILY [facility] Last Admin: 09/03/22 17:41 Dose: 5 mg Guaifenesin (Guaifenesin Syrup 100mg/5ml 200 Mg/10 Ml Cup) 200 mg PO TID PRN PRN Reason: Cough Last Admin: 09/02/22 23:35 Dose: 200 mg Heparin Sodium (Porcine) (Heparin Sodium 1,000 Un/Ml (10ml Vl)) 0 unit IV PER PROTOCOL PRN; Protocol PRN Reason: Low PTT Heparin Sodium (Porcine) (Heparin Sodium,Porcine/Pf 5,000 Unit/0.5 Ml Syringe) 5,000 unit SQ Q12HR [facility] Last Admin: 09/03/22 20:01 Dose: 5,000 unit Furosemide 100 mg/ Sodium (Chloride) 100 mls @ 15 mls/hr IV .Q6H40M [facility] Last Admin: 09/04/22 06:28 Dose: 15 mg/hr, 15 mls/hr Dobutamine HCl/Dextrose 500 mg (/ IV Solution) 250 mls @ 25.62 mls/hr IV .Q9H46M [facility] Last Admin: 09/04/22 06:28 Dose: 5 mcg/kg/min, 25.62 mls/hr Magnesium Sulfate/Dextrose 1 (gm/ IV Solution) 100 mls @ 100 mls/hr IVPB Q1H [facility] Stop: 09/04/22 11:59 Levothyroxine Sodium (Levothyroxine 100 Mcg Tab) 100 mcg PO DAILY@0630 [facility] Last Admin: 09/04/22 05:43 Dose: 100 mcg Lisinopril (Lisinopril 5 Mg Tab) 5 mg PO DAILY [facility] Last Admin: 09/03/22 09:48 Dose: 5 mg Metolazone (Metolazone 5 Mg Tab) 5 mg PO DAILY [facility] Last Admin: 09/03/22 09:48 Dose: 5 mg Metoprolol Tartrate (Metoprolol Tartrate 25 Mg Tab) 25 mg PO BID [facility] Last Admin: 09/03/22 20:01 Dose: 25 mg Miscellaneous Information (Potassium Replacement Protocol 1 Each Misc) 1 each MISCELLANE DAILY PRN; Protocol PRN Reason: Per Protocol Miscellaneous Information (Magnesium Replacement Protocol 1 Each Misc) 1 each MISCELLANE DAILY PRN; Protocol PRN Reason: Per Protocol Potassium Chloride (Potassium Chloride Er 20 Meq Tab.Er) 20 meq PO Q1HR [facility]; Protocol Stop: 09/04/22 12:01 Potassium Chloride (Potassium Chloride Er 20 Meq Tab.Er) 20 meq PO Q1HR [facility]; Protocol Stop: 09/04/22 11:01 Pravastatin Sodium (Pravastatin Sodium 40 Mg Tab) 40 mg PO HS [facility] Last Admin: 09/03/22 20:01 Dose: 40 mg PHYSICAL EXAMINATION: Patient is up in the chair comfortably, awake alert and oriented.. Morbidly obese. HEENT: Normocephalic. Neck is supple. Pupils reactive. Nostrils clear. Oral cavity is moist. Neck reveals no JVD, carotid bruits, or thyromegaly. CHEST EXAMINATION: Trachea is central. Symmetrical expansion bibasilar diminished sounds. No wheezing or rhonchi.. CARDIAC: Normal S1, S2 with no gallops. No murmurs ABDOMEN: Soft. Bowel sounds present. Nontender. No organomegaly. No abdominal bruits. Extremities: Bilateral lower extremity edema and generalized swelling, anasarca.. No clubbing or cyanosis Neurologically awake, alert, oriented x3 with well-coordinated movements. No gross focal deficits noted Skin: No rash or skin lesions. Psychiatric: [id number]. Non-suicidal, Musculoskeletal: No joint swelling or deformity. Normal range of motion. Assessment: Acute on chronic CHF with systolic dysfunction. Dilated cardiomyopathy ejection fraction 30% likely secondary to severe hypothyroidism Elevated troponin level likely due to renal insufficiency and severe hypothyroidism. Large pericardial effusion without tamponade during recent admission in February 2022 Chronic kidney disease stage III. Possible cardiorenal Obstructive sleep apnea Hypertension Depression Prior history of smoking Noncompliance with medications and follow-up DVT prophylaxis Heparin Plan: Patient will be continued on telemetry monitoring. Cardiology and nephrology following. Patient is placed on dobutamine along with Lasix drip Continue with metoprolol, lisinopril and statins. Spironolactone was added. Cardiology is on board. 2-D echocardiogram is pending. Potassium and magnesium will and will replace per protocol and add daily supplementation. Recommend follow-up labs in the a.m. Continue on levothyroxine 75 mcg daily considering his acute heart failure and increase the dose at discharge.. Bilateral lower extremities continue to be swollen and recommend Jared wraps from the toes up to the thighs and elevating while at rest Patient was counseled extensively for medication compliance and follow-up. Prognosis is guarded at this time. The impression and plan of care has been dictated by Haven Donahue, Nurse Practitioner as directed. Dr. Ren MD I have performed a history and examination and MDM of this patient, discussed the same with the dictator, and agree with the dictator's assessment and plan as written ,documented as a scribe. Based on total visit time, I have performed more than 50% of the visit. Objective - Vital Signs Vital signs: Vital Signs Temp 98.1 F 09/03/22 20:00 Pulse 64 09/04/22 04:00 Resp 18 09/04/22 04:00 BP 116/72 09/04/22 04:00 Pulse Ox 94 L 09/04/22 07:23 FiO2 Intake & Output 09/03/22 09/04/22 09/04/22 18:59 06:59 18:59 Intake Total 558.25 1347.32 Output Total 2450 3900 Balance -1891.75 -2552.68 Weight 160.9 kg Intake: Intake, IV Titration 82.25 682.32 Amount DOBUTamine DRIP 500 mg In 425.07 Dextrose/Water 1 250ml. bag @ 5 MCG/KG/MIN 25.62 mls/hr IV .Q9H46M TETO Rx# :[id number] Furosemide 100 mg In 82.25 257.25 Sodium Chloride 0.9% 90 ml @ 15 MG/HR 15 mls/hr IV .Q6H40M TETO Rx#: [id number] Oral [id number] 665 Output: Urine 2450 3900 Other: Voiding Method Urinal Urinal - Labs CBC & Chem 7: 09/04/22 09:00 09/04/22 16:42 Labs: Abnormal Lab Results - Last 24 Hours (Table) 09/04/22 09/04/22 Range/Units 09:00 09:00 RBC 3.57 L (4.30-5.90) m/uL Hgb 12.3 L (13.0-17.5) gm/dL Hct 36.2 L (39.0-53.0) % MCV 101.6 H (80.0-100.0) fL Sodium 135 L (137-145) mmol/L Potassium 2.9 L (3.5-5.1) mmol/L Chloride 86 L (98-107) mmol/L Carbon Dioxide 40 H (22-30) mmol/L BUN 26 H (9-20) mg/dL Creatinine 1.89 H (0.66-1.25) mg/dL Glucose 106 H (74-99) mg/dL
[2022-09-05] MEDS: POTASSIUM CHLORIDE 10 MEQ in WATER FOR INJECTION 1 100ML.BAG IVPB SCH ×4 (04:21→08:12)
[2022-09-05] MEDS: POTASSIUM CHLORIDE ER 20 MEQ TAB.ER PO SCH ×5 (04:21→20:48)
[2022-09-05] MEDS: LEVOTHYROXINE 100 MCG TAB PO SCH (06:42)
--- NOTE | 2022-09-05 07:53 | P.PN ---
Subjective Progress Note Date: 09/05/22 Principal diagnosis: Severe cardiomyopathy/congestive heart failure The patient is a 31-year-old gentleman with a past medical history significant for severe cardiomyopathy with an ejection fraction of 15% who presented to the hospital and was admitted with heart failure with evidence of right more than left heart failure. He was also found to be in renal failure. He was started on Lasix IV as well as dobutamine IV. 09/04/2022 The patient was seen this morning. He remains in heart failure. He is to have severe bilateral lower extremities edema noted. He has been diuresing very well. The creatinine remains stable. I will suggest continue the patient on Lasix IV for at least additional 24 hours and continue monitor the kidney function and electrolytes as well. September 052022 The patient was seen and evaluated this morning. He lost about 5 pounds since yesterday. He is not on oxygen at this point and he seems to be satting well. He is overall feeling better. The lower extremity edema has improved but he continues to have edema and continues to have chronic skin changes currently the legs are wrapped. The shortness of breath is better. No symptoms of chest pain or chest discomfort. Currently is on Lasix IV and he is on dobutamine IV as well. The creatinine seems to be trending down in the right direction. Objective - Vital Signs Vital signs: Vital Signs Temp 97.7 F 09/05/22 04:00 Pulse 73 09/05/22 04:00 Resp 18 09/05/22 04:00 BP 113/76 09/05/22 04:00 Pulse Ox 98 09/05/22 04:00 FiO2 Intake & Output 09/04/22 09/05/22 09/05/22 18:59 06:59 18:59 Intake Total 350 1163.155 Output Total 1000 5075 Balance -650 3911.845 Weight 156.6 kg Intake: Intake, IV Titration 350 401.155 Amount DOBUTamine DRIP 500 mg In 250 219.905 Dextrose/Water 1 250ml. bag @ 5 MCG/KG/MIN 25.62 mls/hr IV .Q9H46M TETO Rx# :[id number] Furosemide 100 mg In 100 181.25 Sodium Chloride 0.9% 90 ml @ 15 MG/HR 15 mls/hr IV .Q6H40M TETO Rx#: [id number] Oral 762 Output: Urine 1000 5075 Other: Voiding Method Urinal Urinal # Voids 1 2 - Constitutional General appearance: Present: no acute distress - Respiratory Respiratory: bilateral: diminished - Cardiovascular Rhythm: regular - Labs CBC & Chem 7: 09/04/22 09:00 09/04/22 16:42 Labs: Abnormal Lab Results - Last 24 Hours (Table) 09/04/22 09/04/22 09/04/22 Range/Units 09:00 09:00 16:42 RBC 3.57 L (4.30-5.90) m/uL Hgb 12.3 L (13.0-17.5) gm/dL Hct 36.2 L (39.0-53.0) % MCV 101.6 H (80.0-100.0) fL Sodium 135 L (137-145) mmol/L Potassium 2.9 L 3.0 L (3.5-5.1) mmol/L Chloride 86 L (98-107) mmol/L Carbon Dioxide 40 H (22-30) mmol/L BUN 26 H (9-20) mg/dL Creatinine 1.89 H (0.66-1.25) mg/dL Glucose 106 H (74-99) mg/dL Assessment and Plan Assessment: Assessment Severe cardiomyopathy Congestive heart failure with evidence of right more now left heart failure Severe bilateral lower extremities edema secondary to the above Renal failure Obesity Plan Continue the current dose of Lasix IV continue IV dobutamine for additional 24- hour Continue monitor the kidney function and electrolytes Follow-up with the patient
[2022-09-05] MEDS: metOLazone 5 MG TAB PO SCH (08:12)
[2022-09-05] MEDS: ASPIRIN 81 MG PO SCH (08:12)
[2022-09-05] MEDS: DAPAGLIFLOZIN PROPANEDIOL 5 MG TABLET PO SCH (08:12)
[2022-09-05] MEDS: METOPROLOL TARTRATE 25 MG TAB PO SCH ×2 (08:12→20:47)
[2022-09-05] MEDS: HEPARIN SODIUM,PORCINE/PF 5,000 UNIT/0.5 ML SYRINGE SQ SCH ×2 (08:12→20:47)
[2022-09-05] MEDS: lisinopriL 5 MG TAB PO SCH (08:12)
[2022-09-05 10:16] LABS: Calcium 9.1 mg/dL (8.4-10.2); Magnesium 1.8 mg/dL (1.6-2.3); Potassium 3.5 mmol/L (3.5-5.1)
--- NOTE | 2022-09-05 10:49 | P.PN ---
Subjective Patient is seen in follow-up for acute kidney injury on chronic kidney disease. Renal function a little better. Maintained on Lasix drip at 15 mg an hour and metolazone. Dobutamine was also started yesterday. Urine output is significantly improved. It is documented as over 6 L in the last 24 hours. Denies chest pain or shortness of breath. Overall feels better Serum creatinine 1.98 today Objective - Vital Signs Vital signs: Vital Signs Temp 98 F 09/05/22 08:10 Pulse 68 09/05/22 08:10 Resp 17 09/05/22 08:10 BP 119/78 09/05/22 08:10 Pulse Ox 96 09/05/22 08:10 FiO2 Intake & Output 09/04/22 09/05/22 09/05/22 18:59 06:59 18:59 Intake Total 350 1163.155 Output Total 1000 5075 350 Balance -650 -3911.845 -350 Weight 156.6 kg Intake: Intake, IV Titration 350 401.155 Amount DOBUTamine DRIP 500 mg In 250 219.905 Dextrose/Water 1 250ml. bag @ 5 MCG/KG/MIN 25.62 mls/hr IV .Q9H46M TETO Rx# :[id number] Furosemide 100 mg In 100 181.25 Sodium Chloride 0.9% 90 ml @ 15 MG/HR 15 mls/hr IV .Q6H40M TETO Rx#: [id number] Oral 762 Output: Urine 1000 5075 350 Other: Voiding Method Urinal Urinal Urinal # Voids 1 2 - Exam Awake, comfortable, alert oriented 3 Heart of hearing Examination of the heart S1 and S2 Examination lungs decreased breath sounds at the bases Abdomen is soft obese nontender Examination lower extremity shows edema 3-4+ bilaterally. Both legs are wrapped. [employer]MENT exam grossly intact - Labs CBC & Chem 7: 09/04/22 09:00 09/05/22 08:09 Labs: Abnormal Lab Results - Last 24 Hours (Table) 09/04/22 09/05/22 Range/Units 16:42 08:09 Sodium 133 L (137-145) mmol/L Potassium 3.0 L (3.5-5.1) mmol/L Chloride 82 L (98-107) mmol/L Carbon Dioxide 40 H (22-30) mmol/L BUN 26 H (9-20) mg/dL Creatinine 1.98 H (0.66-1.25) mg/dL Glucose 115 H (74-99) mg/dL Assessment and Plan Assessment: 1. Acute kidney injury mostly prerenal secondary to cardiorenal syndrome. Creatinine 1.98 today. UA from February 2022 showed no proteinuria. 3+ proteinuria noted on UA done this admission - repeat UA benign. UPC 0.47. No hydronephrosis noted on kidney ultrasound. 2. Chronic kidney disease stage IIIa with baseline creatinine 1.3 1.5 secondary to cardiorenal syndrome. 3. Acute on chronic systolic CHF with ejection fraction of 10-15%. 4. Volume overload, maintained on Lasix drip 5. Obesity. 6. Hypokalemia secondary to diuresis. 7. Hypomagnesemia from diuresis. Plan: Decrease Lasix drip Replace potassium Repeat labs in a.m.
[2022-09-05] MEDS: MAGNESIUM OXIDE 400 MG TAB PO SCH (11:37)
[2022-09-05] MEDS: PRAVASTATIN SODIUM 40 MG TAB PO SCH (20:48)
[2022-09-06] MEDS: DOBUTamine DRIP 500 MG in DEXTROSE/WATER 1 250ML.BAG IV SCH ×2 (00:29→08:56)
--- NOTE | 2022-09-06 01:16 | P.PN ---
Subjective Progress Note Date: 09/05/22 Patient is a 31-year-old male with a known history of hypothyroidism, chronic CHF with systolic dysfunction, and recent admission February 2022 due to large pericardial effusion and other medical problems including morbid obesity and obstructive sleep apnea presents to ER with complaints of bilateral lower extremity swelling and shortness of breath. Patient also complaining of cough. Patient was brought to the hospital by his mother. Otherwise denied any complaints of chest pain. No fever no chills. No nausea vomiting abdominal pain or diarrhea. Patient does have generalized weakness and fatigue. Denies any dysuria or hematuria. Chest x-ray showed moderately severe cardiomegaly which appears increased compared to old exam. EKG showed sinus rhythm. Laboratory data showed WC 9.1 hemoglobin 12.1 and platelets 223 Sodium 140 potassium 3.7 chloride 106 bicarb is 26 BUN 11 and creatinine 1.73 b ilirubin level is 2.1 liver enzymes are not elevated Troponin 0.051, 0.064 and 0.067 proBNP is 450 Triglycerides 391 and LDL 108 TSH greater than 100 and Free T4 level is 0.07 Urinalysis showed 3+ protein. Rare bacteria and hyaline casts. Influenza A, B, RSV and COVID-19 PCR not detected. 08/31/22 Patient is currently lying in the bed. Awake alert and oriented 3. Complains of tightness and weakness. No complaints of chest pain. Breathing status is better. No nausea vomiting or abdominal pain or diarrhea. Leg swelling also improved. Laboratory data showed WBC 6. 7112.0 and platelets 212 Sodium 139 potassium 3.9 bicarb is 32 BUN 18 and creatinine 1.95 Patient is being covered on IV Lasix and also levothyroxine. 09/01/2022 Patient is sitting on the Seroquel. Still having shortness of breath and exertional dyspnea and orthopnea. Still having significant leg swelling and requiring oxygen via nasal cannula. Patient is being continued on IV diuresis.. Also on levothyroxine. Laboratory data showed WBC 5.6 hemoglobin 11.9 and platelets 182 sodium 136 potassium 3.9 chloride 100 bicarb is 27 BUN 22 and creatinine 1.69 Cardiology is on board. Continue with IV diuresis for another 24 hours. 09/03/2022 Patient is sitting in the recliner. Awake alert and oriented x3. Shortness of breath is better today. Patient still having exertional dyspnea and significant leg swelling. Currently continued on Lasix drip. No nausea vomiting or abdominal pain. No cough or sputum production. Patient is tolerating oral diet. Laboratory data showed WBC 7.6 hemoglobin 12.6 and platelets 202 Sodium 134 potassium 3.8 chloride 97 bicarb is 28 BUN 28 and creatinine increased to 2.05. And magnesium 1.8 which is being replaced. Cardiology and nephrology is on board. 09/04/2022 Patient was seen and evaluated and follow-up with nephrology and cardiology following. Patient is continued on IV Lasix drip along with dobutamine drip. Patient potassium found to be 2.9 today and will replace with a total of 100 mEq of potassium and also magnesium found to be low at 1.6 and will replace per protocol recommend repeat labs this afternoon. Will add daily supplementation and continue to monitor closely. Patient with significant lower extremity swelling and overall generalized edema noted throughout including abdomen and recommend Jared wraps to bilateral lower extremities from the toes up to the thighs and elevate lower extremities, rest. Patient reports to voiding well and is diuresing. Continue diuresis with nephrology and cardiology following closely. Patient is afebrile denies chest pain or worsening shortness of breath. Patient reports to tolerating diet with no reports of nausea or vomiting noted. Recommend continue fluid restrictions. 09/05/2022 Patient is seen and evaluated and follow-up continues to be on a dobutamine and Lasix drip. Potassium continues to be low and will replace and have added daily supplementation. Most recent potassium was 3.0 and awaiting repeat labs this morning. Magnesium is pending as well and was replaced yesterday. Patient is afebrile denies chest pain or shortness of breath. Patient currently sitting up in a chair on room air and has been diuresing well. Patient's lower extremities are wrapped and will encouraged to continue elevating while at rest. Per cardiology and nephrology, Lasix drip is being titrated down. Encouraged increase activity as tolerated Review of systems: Constitutional: No reports of fatigue, fever, or chills Cardiovascular: No reports of chest pain or palpitations Respiratory: No reports of worsening shortness of breath or cough, patient reports breathing is better today GI: No reports of nausea, vomiting, or diarrhea : No reports of dysuria or retention Neurovascular: reports of generalized weakness and continued swelling although somewhat improved from yesterday All medications have been reviewed Active Medications Aspirin (Aspirin 81 Mg) 81 mg PO DAILY [facility] Last Admin: 09/05/22 08:12 Dose: 81 mg Dapagliflozin (Dapagliflozin Propanediol 5 Mg Tablet) 5 mg PO DAILY [facility] Last Admin: 09/05/22 08:12 Dose: 5 mg Guaifenesin (Guaifenesin Syrup 100mg/5ml 200 Mg/10 Ml Cup) 200 mg PO TID PRN PRN Reason: Cough Last Admin: 09/04/22 22:31 Dose: 200 mg Heparin Sodium (Porcine) (Heparin Sodium 1,000 Un/Ml (10ml Vl)) 0 unit IV PER PROTOCOL PRN; Protocol PRN Reason: Low PTT Heparin Sodium (Porcine) (Heparin Sodium,Porcine/Pf 5,000 Unit/0.5 Ml Syringe) 5,000 unit SQ Q12HR [facility] Last Admin: 09/05/22 08:12 Dose: 5,000 unit Furosemide 100 mg/ Sodium (Chloride) 100 mls @ 15 mls/hr IV .Q6H40M [facility] Last Admin: 09/05/22 02:06 Dose: 15 mg/hr, 15 mls/hr Dobutamine HCl/Dextrose 500 mg (/ IV Solution) 250 mls @ 25.62 mls/hr IV .Q9H46M [facility] Last Admin: 09/05/22 02:07 Dose: 5 mcg/kg/min, 25.62 mls/hr Levothyroxine Sodium (Levothyroxine 100 Mcg Tab) 100 mcg PO DAILY@0630 [facility] Last Admin: 09/05/22 06:42 Dose: 100 mcg Lisinopril (Lisinopril 5 Mg Tab) 5 mg PO DAILY [facility] Last Admin: 09/05/22 08:12 Dose: 5 mg Magnesium Oxide (Magnesium Oxide 400 Mg Tab) 400 mg PO DAILY [facility] Metolazone (Metolazone 5 Mg Tab) 5 mg PO DAILY [facility] Last Admin: 09/05/22 08:12 Dose: 5 mg Metoprolol Tartrate (Metoprolol Tartrate 25 Mg Tab) 25 mg PO BID [facility] Last Admin: 09/05/22 08:12 Dose: 25 mg Miscellaneous Information (Potassium Replacement Protocol 1 Each Misc) 1 each MISCELLANE DAILY PRN; Protocol PRN Reason: Per Protocol Miscellaneous Information (Magnesium Replacement Protocol 1 Each Misc) 1 each MISCELLANE DAILY PRN; Protocol PRN Reason: Per Protocol Potassium Chloride (Potassium Chloride Er 20 Meq Tab.Er) 20 meq PO BID [facility] Last Admin: 09/05/22 08:12 Dose: 20 meq Pravastatin Sodium (Pravastatin Sodium 40 Mg Tab) 40 mg PO HS [facility] Last Admin: 09/04/22 20:32 Dose: 40 mg PHYSICAL EXAMINATION: Patient is up in the chair comfortably, awake alert and oriented.. Morbidly obese. HEENT: Normocephalic. Neck is supple. Pupils reactive. Nostrils clear. Oral cavity is moist. Neck reveals no JVD, carotid bruits, or thyromegaly. CHEST EXAMINATION: Trachea is central. Symmetrical expansion bibasilar diminished sounds. No wheezing or rhonchi.. CARDIAC: Normal S1, S2 with no gallops. No murmurs ABDOMEN: Soft. Bowel sounds present. Nontender. No organomegaly. No abdominal bruits. Extremities: Bilateral lower extremity edema and generalized swelling, anasarca.. No clubbing or cyanosis Neurologically awake, alert, oriented x3 with well-coordinated movements. No gross focal deficits noted Skin: No rash or skin lesions. Psychiatric: Cooperative. Non-suicidal, Musculoskeletal: No joint swelling or deformity. Normal range of motion. Assessment: Acute on chronic CHF with systolic dysfunction. Dilated cardiomyopathy ejection fraction 30% likely secondary to severe hypothyroidism Elevated troponin level likely due to renal insufficiency and severe hypothyroidism. Large pericardial effusion without tamponade during recent admission in February 2022 Chronic kidney disease stage III. Possible cardiorenal Obstructive sleep apnea Hypertension Depression Prior history of smoking Noncompliance with medications and follow-up DVT prophylaxis Heparin Plan: Patient will be continued on telemetry monitoring. Cardiology and nephrology following. Patient is continued on dobutamine along with Lasix drip. Lasix drip being titrated down Continue with metoprolol, lisinopril and statins. Spironolactone was added. Cardiology is on board. Repeat 2-D echocardiogram is showing severely reduced global left ventricular systolic function with an EF of 10-15% Potassium and magnesium replaced per protocol and have added daily supplementation. Recommend follow-up labs in the a.m. Continue on levothyroxine 75 mcg daily considering his acute heart failure and increase the dose at discharge.. Bilateral lower extremities continue to be swollen and recommend to continue with Jared wraps from the toes up to the thighs and elevating while at rest. Some improvement noted Encouraged increased activity as tolerated. Patient was counseled extensively for medication compliance and follow-up. Prognosis is guarded at this time. The impression and plan of care has been dictated by Haven Donahue, Nurse Practitioner as directed. Dr. Ren MD I have performed a history and examination and MDM of this patient, discussed the same with the dictator, and agree with the dictator's assessment and plan as written ,documented as a scribe. Based on total visit time, I have performed more than 50% of the visit. Objective - Vital Signs Vital signs: Vital Signs Temp 98 F 09/05/22 08:10 Pulse 68 09/05/22 08:10 Resp 17 09/05/22 08:10 BP 119/78 09/05/22 08:10 Pulse Ox 96 09/05/22 08:10 FiO2 Intake & Output 09/04/22 09/05/22 09/05/22 18:59 06:59 18:59 Intake Total 350 1163.155 Output Total 1000 5075 350 Balance -650 -3911.845 -350 Weight 156.6 kg Intake: Intake, IV Titration 350 401.155 Amount DOBUTamine DRIP 500 mg In 250 219.905 Dextrose/Water 1 250ml. bag @ 5 MCG/KG/MIN 25.62 mls/hr IV .Q9H46M [facility] Rx# :[id number] Furosemide 100 mg In 100 181.25 Sodium Chloride 0.9% 90 ml @ 15 MG/HR 15 mls/hr IV .Q6H40M [facility] Rx#: [id number] Oral 762 Output: Urine 1000 5075 350 Other: Voiding Method Urinal Urinal Urinal # Voids 1 2 - Labs CBC & Chem 7: 09/04/22 09:00 09/05/22 08:09 Labs: Abnormal Lab Results - Last 24 Hours (Table) 09/04/22 Range/Units 16:42 Potassium 3.0 L (3.5-5.1) mmol/L
[2022-09-06] MEDS: FUROSEMIDE 100 MG in SODIUM CHLORIDE 0.9% 90 ML IV SCH (01:44)
[2022-09-06] MEDS: LEVOTHYROXINE 100 MCG TAB PO SCH (06:20)
--- NOTE | 2022-09-06 06:27 | P.PN ---
Subjective Progress Note Date: 09/06/22 Principal diagnosis: Severe cardiomyopathy/congestive heart failure The patient is a 31-year-old gentleman with a past medical history significant for severe cardiomyopathy with an ejection fraction of 15% who presented to the hospital and was admitted with heart failure with evidence of right more than left heart failure. He was also found to be in renal failure. He was started on Lasix IV as well as dobutamine IV. 09/04/2022 The patient was seen this morning. He remains in heart failure. He is to have severe bilateral lower extremities edema noted. He has been diuresing very well. The creatinine remains stable. I will suggest continue the patient on Lasix IV for at least additional 24 hours and continue monitor the kidney function and electrolytes as well. September 052022 The patient was seen and evaluated this morning. He lost about 5 pounds since yesterday. He is not on oxygen at this point and he seems to be satting well. He is overall feeling better. The lower extremity edema has improved but he continues to have edema and continues to have chronic skin changes currently the legs are wrapped. The shortness of breath is better. No symptoms of chest pain or chest discomfort. Currently is on Lasix IV and he is on dobutamine IV as well. The creatinine seems to be trending down in the right direction. 09/06/2022 The patient was seen and evaluated this morning. He would like to go home. He still have bilateral lower extremities edema. On examination he does have diminished breathing sounds bilaterally with a few crackles bilaterally but overall is feeling better. The dose of Lasix drip was decreased yesterday by the nephrology team. He continues to be on dobutamine. Kidney function remains stable. Objective - Vital Signs Vital signs: Vital Signs Temp 98.2 F 09/06/22 04:24 Pulse 72 09/06/22 04:24 Resp 20 09/06/22 04:24 BP 103/70 09/06/22 04:24 Pulse Ox 95 09/06/22 04:24 FiO2 Intake & Output 09/05/22 09/05/22 09/06/22 06:59 18:59 06:59 Intake Total 1163.155 850 281.855 Output Total 5075 2230 2380 Balance -3911.845 -1380 -2098.145 Weight 156.6 kg 154.6 kg Intake: Intake, IV Titration 401.155 350 281.855 Amount DOBUTamine DRIP 500 mg In 219.905 250 207.522 Dextrose/Water 1 250ml. bag @ 5 MCG/KG/MIN 25.62 mls/hr IV .Q9H46M [facility] Rx# :[id number] Furosemide 100 mg In 181.25 100 74.333 Sodium Chloride 0.9% 90 ml @ 5 MG/HR 5 mls/hr IV .Q20H [facility] Rx#:[id number] Oral 762 500 Output: Urine 5075 2230 2380 Other: Voiding Method Urinal Urinal Urinal # Voids 2 - Constitutional General appearance: Present: no acute distress - Respiratory Respiratory: bilateral: diminished - Cardiovascular Rhythm: regular - Labs CBC & Chem 7: 09/04/22 09:00 09/05/22 08:09 Labs: Abnormal Lab Results - Last 24 Hours (Table) 09/05/22 Range/Units 08:09 Sodium 133 L (137-145) mmol/L Chloride 82 L (98-107) mmol/L Carbon Dioxide 40 H (22-30) mmol/L BUN 26 H (9-20) mg/dL Creatinine 1.98 H (0.66-1.25) mg/dL Glucose 115 H (74-99) mg/dL Assessment and Plan Assessment: Assessment Severe cardiomyopathy Congestive heart failure with evidence of right more now left heart failure Severe bilateral lower extremities edema secondary to the above Renal failure Obesity Plan The patient would like to consider switching the Lasix to oral Continue monitor the kidney function and electrolytes Follow-up with the patient
[2022-09-06 08:07] LABS: Calcium 9.3 mg/dL (8.4-10.2); Magnesium 1.8 mg/dL (1.6-2.3); Potassium 3.4 mmol/L (3.5-5.1)
[2022-09-06] MEDS: MAGNESIUM OXIDE 400 MG TAB PO SCH (08:52)
[2022-09-06] MEDS: lisinopriL 5 MG TAB PO SCH (08:53)
[2022-09-06] MEDS: HEPARIN SODIUM,PORCINE/PF 5,000 UNIT/0.5 ML SYRINGE SQ SCH (08:53)
[2022-09-06] MEDS: DAPAGLIFLOZIN PROPANEDIOL 5 MG TABLET PO SCH (08:53)
[2022-09-06] MEDS: METOPROLOL TARTRATE 25 MG TAB PO SCH (08:53)
[2022-09-06] MEDS: metOLazone 5 MG TAB PO SCH (08:53)
[2022-09-06] MEDS: POTASSIUM CHLORIDE ER 20 MEQ TAB.ER PO SCH (08:53)
[2022-09-06] MEDS: ASPIRIN 81 MG PO SCH (08:56)
--- NOTE | 2022-09-06 10:41 | P.PN ---
Subjective Patient is seen in follow-up for acute kidney injury on chronic kidney disease. Renal function a little better. Maintained on Lasix drip at 15 mg an hour and metolazone. Maintained on dobutamine drip. Urine output is documented at 4.6 L in the last 24 hours. Denies chest pain or shortness of breath. Overall feels better Serum creatinine 2.29 today Lasix drip was decreased to 5 mg an hour yesterday. Patient remains on dobutamine Objective - Vital Signs Vital signs: Vital Signs Temp 98.2 F 09/06/22 04:24 Pulse 72 09/06/22 04:24 Resp 20 09/06/22 04:24 BP 103/70 09/06/22 04:24 Pulse Ox 95 09/06/22 04:24 FiO2 Intake & Output 09/05/22 09/06/22 09/06/22 18:59 06:59 18:59 Intake Total 850 281.855 Output Total 2230 2380 200 Balance -1380 -2098.145 -200 Weight 154.6 kg Intake: Intake, IV Titration 350 281.855 Amount DOBUTamine DRIP 500 mg In 250 207.522 Dextrose/Water 1 250ml. bag @ 5 MCG/KG/MIN 25.62 mls/hr IV .Q9H46M [facility] Rx# :[id number] Furosemide 100 mg In 100 74.333 Sodium Chloride 0.9% 90 ml @ 5 MG/HR 5 mls/hr IV .Q20H [facility] Rx#:[id number] Oral 500 Output: Urine 2230 2380 200 Other: Voiding Method Urinal Urinal - Exam Awake, comfortable, alert oriented 3 Heart of hearing Examination of the heart S1 and S2 Examination lungs decreased breath sounds at the bases Abdomen is soft obese nontender Examination lower extremity shows edema 3-4+ bilaterally. Both legs are wr apped. [employer]TER exam grossly intact - Labs CBC & Chem 7: 09/04/22 09:00 09/06/22 07:06 Labs: Abnormal Lab Results - Last 24 Hours (Table) 09/06/22 Range/Units 07:06 Sodium 131 L (137-145) mmol/L Potassium 3.4 L (3.5-5.1) mmol/L Chloride 80 L (98-107) mmol/L Carbon Dioxide 40 H (22-30) mmol/L BUN 29 H (9-20) mg/dL Creatinine 2.29 H (0.66-1.25) mg/dL Assessment and Plan Assessment: 1. Acute kidney injury mostly prerenal secondary to cardiorenal syndrome. Creatinine 1.98 today. UA from February 2022 showed no proteinuria. 3+ proteinuria noted on UA done this admission - repeat UA benign. UPC 0.47. No hydronephrosis noted on kidney ultrasound. 2. Chronic kidney disease stage IIIa with baseline creatinine 1.3 1.5 secondary to cardiorenal syndrome. 3. Acute on chronic systolic CHF with ejection fraction of 10-15%. 4. Volume overload, maintained on Lasix drip 5. Obesity. 6. Hypokalemia secondary to diuresis. 7. Hypomagnesemia from diuresis. Plan: Switch to IV push Lasix Replace potassium Repeat labs in a.m.
[2022-09-06] MEDS ORDERED: FUROSEMIDE 10 MG/ML 10 ML VIAL IV SCH (10:45)
[2022-09-06 10:59] VITALS: TEMP 97.9
[2022-09-06] MEDS ORDERED: POTASSIUM CHLORIDE ER 20 MEQ TAB.ER PO STA (11:40)
[2022-09-06 12:05] VITALS: BP 96/63; PULSE 75; RESP 18
[2022-09-06] MEDS ORDERED: TERBUTALINE FOR EXTRAVASATION 1 MG/ML VIAL SQ STA (12:26)
--- NOTE | 2022-09-08 10:30 | P.DS ---
Providers Date of admission: 08/29/22 20:12 Expected date of discharge: 09/06/22 Attending physician: Vitaly Pringle MD Consults: 08/29/22 20:38 Consult Physician Urgent Consulting Provider: Christopher Valdez Consult Reason/Comments: CHF, non-STEMI Do you want consulting provider notified?: Yes 09/02/22 10:58 Consult Physician Routine Consulting Provider: Flavio Mckeon Consult Reason/Comments: acute renal failure chf Do you want consulting provider notified?: Yes Primary care physician: Alyson Ham Hospital Course: Final diagnosis Acute on chronic CHF with systolic dysfunction. Dilated cardiomyopathy ejection fraction 30% likely secondary to severe hypothyroidism Elevated troponin level likely due to renal insufficiency and severe hypothyroidism. Large pericardial effusion without tamponade during recent admission in February 2022 Chronic kidney disease stage III. Possible cardiorenal Obstructive sleep apnea Hypertension Depression Prior history of smoking Noncompliance with medications and follow-up DVT prophylaxis Discharge disposition Patient is being discharged in a stable condition with guarded prognosis to home. Patient will follow-up with Dr. Shields in the outpatient setting upon discharge. Patient is to continue with oral Demadex as prescribed per nephrology and close outpatient follow-up with cardiology and nephrology as scheduled. Total time taken is greater than 35 minutes. Hospital course This is a 31-year-old male who was recently admitted with CHF exacerbation with extensive bilateral lower edema and worsening shortness of breath. Patient has history of noncompliance with medications and follow-up with significant medical comorbidities. Patient was seen and evaluated by nephrology and cardiology maintained on IV Lasix drip along with dobutamine and will continue on oral Demadex 40 mg twice daily and recommend repeat labs and close outpatient follow- up with nephrology and cardiology. Patient diuresed well and reports would like to go home. Patient is high risk for readmissions given his noncompliance. Patient instructed to follow-up with primary care provider this week along with cardiology and nephrology. Patient has been cleared by consultations for discharge home and recommend repeat labs in the next few days Currently no reports of chest pain, shortness of breath, or palpitations. Patient is afebr ile. No reports of nausea or vomiting and patient is tolerating diet. Patient will be discharged home today. Extremely guarded prognosis. Physical exam: Gen: This is a 31-year-old male who is awake, alert and oriented 3, well- developed, well-nourished, morbidly obese HEENT: Head is atraumatic, normocephalic. Pupils equal, round. Sclerae is anicteric. NECK: Supple. No JVD. No lymphadenopathy. No thyromegaly. LUNGS: Diminished breath sounds bilaterally with some scattered rhonchi noted. No intercostal retractions. HEART: S1, S2 are muffled ABDOMEN: Soft. Bowel sounds are present. No masses. No tenderness. EXTREMITIES: Extensive chronic pedal edema bilateral upper extremity and abdominal edema with sarcoid noted. No calf tenderness. NEUROLOGICAL: Patient is awake, alert and oriented x3. Cranial nerves 2 through 12 are grossly intact. Please refer to medication reconciliation sheet for a list of medications. The impression and plan of care has been dictated by Haven Donahue, Nurse Practitioner as directed. Dr. Elijah MD I have performed a history and examination and MDM of this patient, discussed the same with the dictator, and agree with the dictator's assessment and plan as written ,documented as a scribe. Based on total visit time, I have performed more than 50% of the visit. Patient Condition at Discharge: Fair Plan - Discharge Summary Discharge Rx Participant: No New Discharge Prescriptions: New Aspirin 81 mg PO DAILY #30 tab Levothyroxine Sodium 100 mcg PO DAILY #30 tab Metoprolol Tartrate [Lopressor] 25 mg PO BID #60 tab Pravastatin Sodium [Pravachol] 40 mg PO HS #30 tab lisinopriL [Zestril] 5 mg PO DAILY #30 tab Torsemide [Demadex] 40 mg PO BID 30 Days #120 tablet Dapagliflozin Propanediol [Farxiga] 5 mg PO DAILY #30 tab Spironolactone [Aldactone] 12.5 mg PO DAILY #30 tablet Potassium Chloride ER [K-Dur 20] 20 meq PO BID 30 Days #60 tab Magnesium Oxide [Mag-Ox] 400 mg PO DAILY #30 tab metOLazone [Zaroxolyn] 5 mg PO DAILY 30 Days #30 tab Discharge Medication List Aspirin 81 mg PO DAILY #30 tab 08/30/22 [Rx] Levothyroxine Sodium 100 mcg PO DAILY #30 tab 08/30/22 [Rx] Metoprolol Tartrate [Lopressor] 25 mg PO BID #60 tab 08/30/22 [Rx] Pravastatin Sodium [Pravachol] 40 mg PO HS #30 tab 08/30/22 [Rx] Spironolactone [Aldactone] 12.5 mg PO DAILY #30 tablet 08/30/22 [Rx] lisinopriL [Zestril] 5 mg PO DAILY #30 tab 08/30/22 [Rx] Dapagliflozin Propanediol [Farxiga] 5 mg PO DAILY #30 tab 09/06/22 [Rx] Magnesium Oxide [Mag-Ox] 400 mg PO DAILY #30 tab 09/06/22 [Rx] Potassium Chloride ER [K-Dur 20] 20 meq PO BID 30 Days #60 tab 09/06/22 [Rx] Torsemide [Demadex] 40 mg PO BID 30 Days #120 tablet 09/06/22 [Rx] metOLazone [Zaroxolyn] 5 mg PO DAILY 30 Days #30 tab 09/06/22 [Rx] Follow up Appointment(s)/Referral(s): Melissa Brown MD [STAFF PHYSICIAN] - 1 Week (office closed, call for follow up appointment tomorrow. ) Jitendra Shields MD [Primary Care Provider] - 09/08/22 2:00 pm Crow Carlson MD [STAFF PHYSICIAN] - 1 Week (office closed, call for follow up appointment tomorrow. ) Ambulatory/Diagnostic Orders: Basic Metabolic Panel [LAB.AMB] Time Frame: 3 Days, Location: None Selected Patient Instructions/Handouts: Heart Failure (DC) Activity/Diet/Wound Care/Special Instructions: Activity Limited until follow-up Follow-up with primary care provider on discharge Follow-up with nephrology outpatient in one week Follow-up cardiology outpatient Recommend repeat labs in the next 2-3 days Continue to Jared wrap lower extremities from the toes up to the thighs and elevate while at rest Continue taking medications as prescribed Continue with fluid restrictions of 40 ounces per day only including all fluids that you drink Continue renal, heart healthy diet Discharge Disposition: HOME SELF-CARE
== END 2022-09-06 15:10 | disposition home or self-care (01) | DRG 291 ==
LOC: EC 18:08 → 3SCARD 20:12
PROVIDERS: ADMIT Internal Medicine; ATTEND Internal Medicine
DX: I13.0 Hypertensive heart and chronic kidney disease with heart failure and stage 1 through stage 4 chronic kidney disease, or unspecified chronic kidney disease (principal); I50.23 Acute on chronic systolic (congestive) heart failure; N17.9 Acute kidney failure, unspecified; Z68.42 Body mass index [BMI] 45.0-49.9, adult; I31.39 Other pericardial effusion (noninflammatory); N18.31 Chronic kidney disease, stage 3a; T50.1X5A Adverse effect of loop [high-ceiling] diuretics, initial encounter; I42.8 Other cardiomyopathies; E87.6 Hypokalemia; E83.42 Hypomagnesemia; R77.8 Other specified abnormalities of plasma proteins; E03.9 Hypothyroidism, unspecified; F32.A Depression, unspecified; I42.0 Dilated cardiomyopathy; Z20.822 Contact with and (suspected) exposure to COVID-19; F17.210 Nicotine dependence, cigarettes, uncomplicated; E66.01 Morbid (severe) obesity due to excess calories; Z71.6 Tobacco abuse counseling; T38.1X6A Underdosing of thyroid hormones and substitutes, initial encounter; Z91.14 Patient's other noncompliance with medication regimen; G47.33 Obstructive sleep apnea (adult) (pediatric); Z79.899 Other long term (current) drug therapy; Z79.890 Hormone replacement therapy; Z79.82 Long term (current) use of aspirin; Z88.0 Allergy status to penicillin; Z91.199 Patient's noncompliance with other medical treatment and regimen due to unspecified reason
CPT/HCPCS: 36415; 71046; 76770; 80048; 80053; 80061; 81001; 81003; 82570; 82607; 82747; 83735; 83880; 84132; 84156; 84439; 84443; 84484; 85025; 85610; 85730; 87636; 93005; 93306; 94760; 96365; 96366; 96375; 96376; 99285

== ENCOUNTER → 2023-04-04 | Outpatient (CLI) | payer OTHER ==
--- NOTE | 2023-04-05 13:05 | CA ---
Transthoracic Echo Report Name: Mark Hernandez Age: 32 Gender: M : 1990 Exam Date: 04/04/2023 08:45 Exam Location: [facility] Ht (in): 70 Wt (lb): 354 Ordering Physician: Marcelino Parsons MD Attending/Referring Phys: Issa CANALES [employer] Representative Renetta PEÑA Procedure CPT: Indications: I50.9 Congestive heart failure Cardiac Hx: Technical Quality: Very technically difficult study Contrast 1: Total Dose (mL): Contrast 2: Total Dose (mL): MEASUREMENTS (Male / Female) Normal Values 2D ECHO LV Diastolic Diameter PLAX 5.5 cm 4.2 - 5.9 / 3.9 - 5.3 cm LV Systolic Diameter PLAX 4.9 cm IVS Diastolic Thickness 1.1 cm 0.6 - 1.0 / 0.6 - 0.9 cm LVPW Diastolic Thickness 1.2 cm 0.6 - 1.0 / 0.6 - 0.9 cm LV Relative Wall Thickness 0.4 DOPPLER AV Peak Velocity 134.4 cm/s AV Peak Gradient 7.2 mmHg AV Mean Velocity 96.5 cm/s AV Mean Gradient 4.0 mmHg AV Velocity Time Integral 20.7 cm LVOT Peak Velocity 64.9 cm/s LVOT Peak Gradient 1.7 mmHg LVOT Velocity Time Integral 11.6 cm Mitral E Point Velocity 68.3 cm/s Mitral A Point Velocity 25.0 cm/s Mitral E to A Ratio 2.7 MV Deceleration Time 167.3 ms LV E' Lateral Velocity 6.0 cm/s Mitral E to LV E' Lateral Ratio 11.4 LV E' Septal Velocity 4.9 cm/s Mitral E to LV E' Septal Ratio 13.8 Right Atrial Pressure 3.0 mmHg FINDINGS Left Ventricle Unable to get IV for Lumason. Mildly increased left ventricular wall thickness. Left ventricular cavity size at the upper limits of normal. Unable to quantify ejection fraction given no contrast agent used however ejection fraction appears to be less than 35%. Right Ventricle Right ventricle not well visualized. Right Atrium Right atrium not well visualized. Left Atrium Normal left atrial size. Mitral Valve Mitral valve not well visualized. Aortic Valve Aortic valve not well visualized. Tricuspid Valve Tricuspid valve not well visualized. Pulmonic Valve Pulmonic valve not well visualized. Pericardium Moderate pericardial effusion. Aorta Aortic root and proximal ascending aorta not well visualized. CONCLUSIONS Very technically difficult study Unable to quantify ejection fraction given no contrast agent used however ejection fraction appears to be less than 35%. Consider repeating echo with contrast if clinically indicated. Previewed by: Dr. Christopher Valdez DO (Electronically Signed) Final Date: 05 April 2023 13:03
== END | disposition home or self-care (01) ==
LOC: RADECHMAIN 08:34
PROVIDERS: ATTEND Family Medicine
DX: I50.9 Heart failure, unspecified (principal)
CPT/HCPCS: 93306

== ENCOUNTER 2023-08-09 09:35 | Emergency (ER) | payer OTHER ==
--- NOTE | 2023-08-09 10:22 | ED ---
URI HPI - General Chief Complaint: Upper Respiratory Infection Stated Complaint: PATRICE Time Seen by Provider: 08/09/23 09:48 Source: patient, RN notes reviewed Mode of arrival: ambulatory Limitations: no limitations - History of Present Illness Initial Comments: 32-year-old male presents emergency Department with chief complaint of cough and cold symptoms. Patient has been sick with increased nasal congestion with productive cough. He does admit that he is a smoker he occasionally has some shortness of breath. Patient was at [facility] and sent here for evaluation. Patient denies any chest pain, abdominal pain, nausea vomiting diarrhea constipation. - Related Data Previous Rx's Medication Instructions Recorded Aspirin 81 mg PO DAILY #30 tab 08/30/22 Levothyroxine Sodium 100 mcg PO DAILY #30 tab 08/30/22 Metoprolol Tartrate [Lopressor] 25 mg PO BID #60 tab 08/30/22 Pravastatin Sodium [Pravachol] 40 mg PO HS #30 tab 08/30/22 Spironolactone [Aldactone] 12.5 mg PO DAILY #30 tablet 08/30/22 lisinopriL [Zestril] 5 mg PO DAILY #30 tab 08/30/22 Dapagliflozin Propanediol [Farxiga] 5 mg PO DAILY #30 tab 09/06/22 Magnesium Oxide [Mag-Ox] 400 mg PO DAILY #30 tab 09/06/22 Potassium Chloride ER [K-Dur 20] 20 meq PO BID 30 Days #60 tab 09/06/22 Torsemide [Demadex] 40 mg PO BID 30 Days #120 tablet 09/06/22 metOLazone [Zaroxolyn] 5 mg PO DAILY 30 Days #30 tab 09/06/22 Albuterol Inhaler [Ventolin Hfa 1 - 2 puff INHALATION Q6H PRN #1 08/09/23 Inhaler] each predniSONE 50 mg PO DAILY #5 tab 08/09/23 Allergies Allergy/AdvReac Type Severity Reaction Status Date / Time bee pollen Allergy Rash/Hives Verified 08/09/23 09:44 lactose Allergy Diarrhea Verified 08/09/23 09:44 Penicillins AdvReac Unknown Verified 08/09/23 09:44 Childhood Review of Systems ROS Statement: Those systems with pertinent positive or pertinent negative responses have been documented in the HPI. ROS Other: All systems not noted in ROS Statement are negative. Past Medical History Past Medical History: Chest Pain / Angina, Heart Failure, Hearing Disorder / Deafness, Hypertension, Sleep Apnea/CPAP/BIPAP Additional Past Medical History / Comment(s): no cpap used (patient states he has had several nurses tell him he looks like he has sleep apnea, however he was tested by sleep medicine and was told he does not have sleep apnea) hemorrhoids, pinched nerve in neck, torn tendon rt foot History of Any Multi-Drug Resistant Organisms: None Reported Past Surgical History: Ear Surgery, Tonsillectomy Additional Past Surgical History / Comment(s): tube rt ear, colonoscopy, hemorrhoid removal Past Anesthesia/Blood Transfusion Reactions: No Reported Reaction Past Psychological History: Depression Smoking Status: Former smoker Past Alcohol Use History: None Reported Past Drug Use History: None Reported - Past Family History Mother Family Medical History: Congestive Heart Failure (CHF) Father Family Medical History: Liver Disease Additional Family Medical History / Comment(s): Father from cirrhosis of the liver General Exam Limitations: no limitations General appearance: alert, in no apparent distress Head exam: Present: atraumatic, normocephalic, normal inspection Eye exam: Present: normal appearance, PERRL, EOMI. Absent: scleral icterus, conjunctival injection, periorbital swelling ENT exam: Present: normal exam, normal oropharynx, mucous membranes moist, TM's normal bilaterally Neck exam: Present: normal inspection, full ROM. Absent: tenderness, meningismus, lymphadenopathy Respiratory exam: Present: normal lung sounds bilaterally. Absent: respiratory distress, wheezes, rales, rhonchi, stridor Cardiovascular Exam: Present: regular rate, normal rhythm, normal heart sounds. Absent: systolic murmur, diastolic murmur, rubs, gallop, clicks Neurological exam: Present: alert, oriented X3 Course Vital Signs 08/09/23 08/09/23 09:44 11:35 Temperature 97.0 F L 97.5 F L Pulse Rate 89 92 Respiratory 17 20 Rate Blood Pressure 133/93 136/88 O2 Sat by Pulse 96 98 Oximetry Medical Decision Making - Medical Decision Making Was pt. sent in by a medical professional or institution (, PA, RESTAURANT ASSOCIATE, urgent care, hospital, or fci...) When possible be specific @ -No Did you speak to anyone other than the patient for history (EMS, parent, family, police, friend...)? What history was obtained from this source @ -No Did you review nursing and triage notes (agree or disagree)? Why? @ -I reviewed and agree with nursing and triage notes Were old charts reviewed (outside hosp., previous admission, EMS record, old EKG, old radiological studies, urgent care reports/EKG's, fci records)? Report findings @ -No old charts were reviewed Differential Diagnosis (chest pain, altered mental status, abdominal pain women, abdominal pain men, vaginal bleeding, weakness, fever, dyspnea, syncope, headache, dizziness, GI bleed, back pain, seizure, CVA, palpatations, mental health, musculoskeletal)? @ -COVID 19, RSV, influenza, pneumonia, acute bronchitis, URI, this list is not all inclusiveable EKG interpreted by me (3pts min.). @ -None X-rays interpreted by me (1pt min.). @ -Chest x-ray shows no acute carpal in process CT interpreted by me (1pt min.). @ -None done U/S interpreted by me (1pt. min.). @ -None done What testing was considered but not performed or refused? (CT, X-rays, U/S, labs)? Why? @ -None What meds were considered but not given or refused? Why? @ -None Did you discuss the management of the patient with other professionals (professionals i.e. , PA, RESTAURANT ASSOCIATE, lab, RT, psych nurse, director of social services, costume specialist, teacher, sales officer, casey saw operator)? Give summary @ -No Was smoking cessation discussed for >3mins.? @ -No Was critical care preformed (if so, how long)? @ -No Were there social determinants of health that impacted care today? How? (Homelessness, low income, unemployed, alcoholism, drug addiction, transportation, low edu. Level, literacy, decrease access to med. care, detention, rehab)? @ -No Was there de-escalation of care discussed even if they declined (Discuss DNR or withdrawal of care, Hospice)? DNR status @ -No What co-morbidities impacted this encounter? (DM, HTN, Smoking, COPD, CAD, Cancer, CVA, ARF, Chemo, Hep., AIDS, mental health diagnosis, sleep apnea, morbid obesity)? @ -Smoking history Was patient admitted / discharged? Hospital course, mention meds given and route, prescriptions, significant lab abnormalities, going to OR and other pertinent info. @ -Discharge patient x-ray, viral swab is negative patient has a viral sinusitis, cough from smoking history. Patient discharged with prednisone, albuterol Undiagnosed new problem with uncertain prognosis? @ -No Drug Therapy requiring intensive monitoring for toxicity (Heparin, Nitro, Insulin, Cardizem)? @ -No Were any procedures done? @ -No Diagnosis/symptom? @ -[Viral sinusitis, bronchitis Acute, or Chronic, or Acute on Chronic? @ -Acute Uncomplicated (without systemic symptoms) or Complicated (systemic symptoms)? @ -Uncomplicated Side effects of treatment? @ -No Exacerbation, Progression, or Severe Exacerbation? @ -No Poses a threat to life or bodily function? How? (Chest pain, [place], [place], pneumonia, PE, COPD, DKA, ARF, appy, cholecystitis, CVA, Diverticulitis, Homicidal, Suicidal, threat to staff... and all critical care pts) @ -No - Lab Data Lab Results 08/09/23 Range/Units 10:26 Influenza Type A (PCR) Not Detected (Not Detectd) Influenza Type B (PCR) Not Detected (Not Detectd) RSV (PCR) Not Detected (Not Detectd) SARS-CoV-2 (PCR) Not Detected (Not Detectd) Disposition Clinical Impression: Viral sinusitis, Bronchitis Disposition: HOME SELF-CARE Condition: Stable Instructions (If sedation given, give patient instructions): Upper Respiratory Infection (ED) Additional Instructions: Please return to the Emergency Department if symptoms worsen or any other concerns. Prescriptions: predniSONE 50 mg PO DAILY #5 tab Albuterol Inhaler [Ventolin Hfa Inhaler] 1 - 2 puff INHALATION Q6H PRN #1 each PRN Reason: Shortness Of Breath Is patient prescribed a controlled substance at d/c from ED?: No Referrals: Marcelino Parsons MD [Primary Care Provider] - 1-2 days Time of Disposition: 11:14
--- NOTE | 2023-08-09 10:43 | XR ---
EXAMINATION TYPE: XR chest 2V DATE OF EXAM: 08/09/2023 COMPARISON: 08/29/2022 HISTORY: 32 year-old male shortness of breath TECHNIQUE: PA and lateral views FINDINGS: The heart is mildly enlarged. Diffuse interstitial/vascular prominence. No sizable pleural effusion. IMPRESSION: Cardiomegaly and mild interstitial density. Correlate for fluid overload state/mild CHF vs atypical p neumonias. BNP and cardiac echo as clinically indicated.
[2023-08-09 11:52] VITALS: BP 136/88; PULSE 92; RESP 20; TEMP 97.5
== END 2023-08-09 11:37 | disposition home or self-care (01) ==
LOC: EC 09:35
DX: J40 Bronchitis, not specified as acute or chronic (principal); J32.9 Chronic sinusitis, unspecified; B97.89 Other viral agents as the cause of diseases classified elsewhere; I11.0 Hypertensive heart disease with heart failure; I50.9 Heart failure, unspecified; Z20.822 Contact with and (suspected) exposure to COVID-19; Z88.0 Allergy status to penicillin; Z91.011 Allergy to milk products; Z91.030 Bee allergy status; Z87.891 Personal history of nicotine dependence
CPT/HCPCS: 71046; 87636; 99285

== ENCOUNTER 2023-09-02 14:45 | Emergency (ER) | payer OTHER ==
[2023-09-02 15:58] VITALS: RESP 18
--- NOTE | 2023-09-02 16:28 | ED ---
General Adult HPI - General Chief complaint: Upper Respiratory Infection Stated complaint: Chest Pain,Sob Time Seen by Provider: 09/02/23 16:28 Source: patient, RN notes reviewed Mode of arrival: ambulatory - History of Present Illness Initial comments: 32 year old male presents to the emergency department for evaluation of persistent non-productive cough x3 months. Patient states that this is worse when he is lying down in bed at night and reports that he has to sleep in his recliner because he is coughing so much. He does report that he has some shortness of breath while lying flat in bed. He does admit to history of CHF. He is not currently taking his cardiac medications. He states that he's been off them for around one month. He denies recent fever, chills. - Related Data Home Medications Medication Instructions Recorded Confirmed Albuterol Inhaler [Ventolin Hfa 1 - 2 puff INHALATION RT-Q6H PRN 09/02/23 09/02/23 Inhaler] Ammonium Lactate Lotion 1 applic TOPICAL BID 09/02/23 09/02/23 [Lac-Hydrin 12% Lotion] Budesonide/Formoterol Fumarate 2 puff INHALATION RT-BID 09/02/23 09/02/23 [Symbicort 160-4.5 Mcg Inhaler] Cholecalciferol (Vitamin D3) 1,250 mcg PO QMONTHLY 09/02/23 09/02/23 [Vitamin D3] Fenofibrate [Lofibra] 160 mg PO DAILY 09/02/23 09/02/23 Furosemide [Lasix] 40 mg PO DAILY 09/02/23 09/02/23 Sacubitril/Valsartan [Entresto 49 1 tab PO BID 09/02/23 09/02/23 mg-51 mg Tablet] Spironolactone [Aldactone] 25 mg PO DAILY 09/02/23 09/02/23 Previous Rx's Medication Instructions Recorded Levothyroxine Sodium 100 mcg PO DAILY #30 tab 08/30/22 Ciprofloxacin-Dexameth [Ciprodex 4 drops LEFT EAR BID #7.5 ml 09/02/23 Otic Susp] Fluticasone Nasal [place] [Flonase 2 spr EA NOSTRIL DAILY #16 gm 09/02/23 Nasal [place]] Furosemide [Lasix] 40 mg PO DAILY #30 tablet 09/02/23 Sacubitril/Valsartan [Entresto 49 1 each PO BID #60 tab 09/02/23 mg-51 mg Tablet] Spironolactone [Aldactone] 25 mg PO DAILY #30 tablet 09/02/23 Allergies Allergy/AdvReac Type Severity Reaction Status Date / Time bee pollen Allergy Rash/Hives Verified 09/02/23 17:46 Penicillins Allergy Unknown Verified 09/02/23 17:46 Childhood lactose AdvReac Diarrhea Verified 09/02/23 17:46 Review of Systems ROS Statement: Those systems with pertinent positive or pertinent negative responses have been documented in the HPI. ROS Other: All systems not noted in ROS Statement are negative. Past Medical History Past Medical History: Chest Pain / Angina, Heart Failure, Hearing Disorder / Deafness, Hypertension, Sleep Apnea/CPAP/BIPAP Additional Past Medical History / Comment(s): no cpap used (patient states he has had several nurses tell him he looks like he has sleep apnea, however he was tested by sleep medicine and was told he does not have sleep apnea) hemorrhoids, pinched nerve in neck, torn tendon rt foot History of Any Multi-Drug Resistant Organisms: None Reported Past Surgical History: Ear Surgery, Tonsillectomy Additional Past Surgical History / Comment(s): tube rt ear, colonoscopy, hemorrhoid removal Past Anesthesia/Blood Transfusion Reactions: No Reported Reaction Past Psychological History: Depression Smoking Status: Former smoker Past Alcohol Use History: None Reported Past Drug Use History: None Reported - Past Family History Mother Family Medical History: Congestive Heart Failure (CHF) Father Family Medical History: Liver Disease Additional Family Medical History / Comment(s): Father from cirrhosis of the liver General Exam Limitations: no limitations General appearance: alert, in no apparent distress Head exam: Present: atraumatic, normocephalic, normal inspection Eye exam: Present: normal appearance, PERRL, EOMI. Absent: scleral icterus, conjunctival injection, periorbital swelling ENT exam: Present: normal exam, mucous membranes moist Neck exam: Present: normal inspection. Absent: tenderness, meningismus, lymphadenopathy Respiratory exam: Present: normal lung sounds bilaterally. Absent: respiratory distress, wheezes, rales, rhonchi, stridor Cardiovascular Exam: Present: regular rate, normal rhythm, normal heart sounds. Absent: systolic murmur, diastolic murmur, rubs, gallop, clicks GI/Abdominal exam: Present: soft, normal bowel sounds. Absent: distended, tenderness, guarding, rebound, rigid Extremities exam: Present: full ROM, normal capillary refill, pedal edema. Absent: calf tenderness Back exam: Present: normal inspection Neurological exam: Present: alert, oriented X3 Psychiatric exam: Present: normal affect, normal mood Course Vital Signs 09/02/23 09/02/23 09/02/23 15:38 17:15 18:16 Temperature 98.5 F 98.4 F Pulse Rate 80 89 Respiratory 18 18 18 Rate Blood Pressure 128/85 132/87 O2 Sat by Pulse 97 97 Oximetry Medical Decision Making - Medical Decision Making Was pt. sent in by a medical professional or institution (, PA, FRUIT PEELER, urgent care, hospital, or assisted...) When possible be specific @ -No Did you speak to anyone other than the patient for history (EMS, parent, family, police, friend...)? What history was obtained from this source @ -No Did you review nursing and triage notes (agree or disagree)? Why? @ -I reviewed and agree with nursing and triage notes Were old charts reviewed (outside hosp., previous admission, EMS record, old EKG, old radiological studies, urgent care reports/EKG's, assisted records)? Report findings @ -No old charts were reviewed Differential Diagnosis (chest pain, altered mental status, abdominal pain women, abdominal pain men, vaginal bleeding, weakness, fever, dyspnea, syncope, headache, dizziness, GI bleed, back pain, seizure, CVA, palpatations, mental health, musculoskeletal)? @ -Differential Dyspnea: Coronary syndrome, arrhythmia, tamponade, asthma, COPD, pulmonary embolism, pneu monia, pneumothorax, pulmonary effusion, anaphylaxis, diabetic ketoacidosis, flailed chest, pulmonary contusion, diaphragmatic rupture, anemia, neuromuscular, this is not meant to be an all-inclusive list. EKG interpreted by me (3pts min.). @ -EKG@1707 shows sinus rhythm rate 79, AL 171, QRS 94, QTQTc [id number] X-rays interpreted by me (1pt min.). @ -Chest x-ray shows cardiomegaly with no acute process CT interpreted by me (1pt min.). @ -None done U/S interpreted by me (1pt. min.). @ -None done What testing was considered but not performed or refused? (CT, X-rays, U/S, labs)? Why? @ -None What meds were considered but not given or refused? Why? @ -None Did you discuss the management of the patient with other professionals (professionals i.e. , PA, FRUIT PEELER, lab, RT, psych nurse, social work faculty member, milk pasteurizer, teacher, real estate utilization officer, caseworker protective services)? Give summary @ -No Was smoking cessation discussed for >3mins.? @ -No Was critical care preformed (if so, how long)? @ -No Were there social determinants of health that impacted care today? How? (Homelessness, low income, unemployed, alcoholism, drug addiction, transportation, low edu. Level, literacy, decrease access to med. care, [facility], rehab)? @ -No Was there de-escalation of care discussed even if they declined (Discuss DNR or withdrawal of care, Hospice)? DNR status @ -No What co-morbidities impacted this encounter? (DM, HTN, Smoking, COPD, CAD, Cancer, CVA, ARF, Chemo, Hep., AIDS, mental health diagnosis, sleep apnea, morbid obesity)? @ -None Was patient admitted / discharged? Hospital course, mention meds given and route, prescriptions, significant lab abnormalities, going to OR and other pertinent info. @ -Discharged. Patient presented to the emergency department for evaluation of cough 3 months. Patient states that he has a history of CHF and has not been taking his medications. He states that the cough is worse when he lies down flat in bed. CBC CMP is essentially unremarkable. BMP 2200. Patient does have some mild lower extremity edema bilaterally. Influenza, RSV, Covid negative. Chest x-ray shows no acute process with cardiomegaly. Patient is not taking his prescription medication including entresto, spironolactone, Lasix. Advised patient on the importance of taking these medications and re-sent prescriptions for these medicines. Advised to follow up with his lock up worker. Strict return precautions discussed. Patient stable at discharge. Case discussed with Dr. Chapin. Undiagnosed new problem with uncertain prognosis? @ -No Drug Therapy requiring intensive monitoring for toxicity (Heparin, Nitro, Insulin, Cardizem)? @ -No Were any procedures done? @ -No Diagnosis/symptom? @ -CHF, cough Acute, or Chronic, or Acute on Chronic? @ -acute Uncomplicated (without systemic symptoms) or Complicated (systemic symptoms)? @ -uncomplicated Side effects of treatment? @ -No Exacerbation, Progression, or Severe Exacerbation? @ -No Poses a threat to life or bodily function? How? (Chest pain, [place], [place], pneumonia, PE, COPD, DKA, ARF, appy, cholecystitis, CVA, Diverticulitis, Homicidal, Suici brian, threat to staff... and all critical care pts) @ -No - Lab Data Result diagrams: 09/02/23 16:41 09/02/23 16:41 Lab Results 09/02/23 09/02/23 09/02/23 Range/Units 16:41 16:41 16:41 WBC 8.7 (3.8-10.6) k/uL RBC 4.15 L (4.30-5.90) m/uL Hgb 13.8 (13.0-17.5) gm/dL Hct 40.6 (39.0-53.0) % MCV 97.7 (80.0-100.0) fL MCH 33.2 (25.0-35.0) pg MCHC 34.0 (31.0-37.0) g/dL RDW 13.2 (11.5-15.5) % Plt Count 264 (150-450) k/uL MPV 7.6 Neutrophils % 56 % Lymphocytes % 30 % Monocytes % 3 % Eosinophils % 9 % Basophils % 2 % Neutrophils # 4.8 (1.3-7.7) k/uL Lymphocytes # 2.6 (1.0-4.8) k/uL Monocytes # 0.2 (0-1.0) k/uL Eosinophils # 0.7 (0-0.7) k/uL Basophils # 0.1 (0-0.2) k/uL Sodium 139 (137-145) mmol/L Potassium 4.3 (3.5-5.1) mmol/L Chloride 103 (98-107) mmol/L Carbon Dioxide 24 (22-30) mmol/L Anion Gap 12 mmol/L BUN 11 (9-20) mg/dL Creatinine 1.06 (0.66-1.25) mg/dL Est GFR (CKD-EPI)AfAm >90 (>60 ml/min/1.73 sqM) Est GFR (CKD-EPI)NonAf >90 (>60 ml/min/1.73 sqM) Glucose 96 (74-99) mg/dL Calcium 8.6 (8.4-10.2) mg/dL Total Bilirubin 1.1 (0.2-1.3) mg/dL AST 64 H (17-59) U/L ALT 32 (4-49) U/L Alkaline Phosphatase 74 (38-126) U/L NT-Pro-B Natriuret Pep 2220 pg/mL Total Protein 7.9 (6.3-8.2) g/dL Albumin 4.1 (3.5-5.0) g/dL Influenza Type A (PCR) Not Detected (Not Detectd) Influenza Type B (PCR) Not Detected (Not Detectd) RSV (PCR) Not Detected (Not Detectd) SARS-CoV-2 (PCR) Not Detected (Not Detectd) Disposition Clinical Impression: CHF (congestive heart failure), Cough Disposition: HOME SELF-CARE Condition: Stable Additional Instructions: Your medications were sent to your pharmacy. Please pick them up and take as prescribed. Follow up with your lock up worker. Return to the emergency department for new or worsening symptoms. Prescriptions: Spironolactone [Aldactone] 25 mg PO DAILY #30 tablet Ciprofloxacin-Dexameth [Ciprodex Otic Susp] 4 drops LEFT EAR BID #7.5 ml Sacubitril/Valsartan [Entresto 49 mg-51 mg Tablet] 1 each PO BID #60 tab Fluticasone Nasal [place] [Flonase Nasal [place]] 2 spr EA NOSTRIL DAILY #16 gm Furosemide [Lasix] 40 mg PO DAILY #30 tablet Is patient prescribed a controlled substance at d/c from ED?: No Referrals: Marcelino Parsons MD [Primary Care Provider] - 1-2 days Christopher Valdez DO [STAFF PHYSICIAN] - 1-2 days Crow Carlson MD [STAFF PHYSICIAN] - 1-2 days Jarred Fraser MD [STAFF PHYSICIAN] - 1-2 days Iggy Hammonds MD [STAFF PHYSICIAN] - 1-2 days
--- NOTE | 2023-09-02 16:48 | XR ---
EXAMINATION TYPE: XR chest 2V DATE OF EXAM: 09/02/2023 4:36 PM CLINICAL INDICATION:Male, 32 years old with history of cough; [facility] COMPARISON: Chest radiographs from 08/09/2023 TECHNIQUE: XR chest 2V Frontal and lateral views of the chest. FINDINGS: Lungs/Pleura: There is no evidence of pleural effusion, focal consolidation, or pneumothorax. Pulmonary vascularity: Unremarkable. Heart/mediastinum: Cardiomediastinal silhouette is unremarkable. Musculoskeletal: No acute osseous pathology. Other findings: None IMPRESSION: 1. No acute cardiopulmonary disease/process. 2. Cardiomegaly.
[2023-09-02 17:01] LABS: Basophils # (A) 0.1 k/uL (0-0.2); Basophils % (A) 2 %; Eosinophils # (A) 0.7 k/uL (0-0.7); Eosinophils % (A) 9 %; HCT 40.6 % (39.0-53.0); HGB 13.8 gm/dL (13.0-17.5); Lymphocytes # (A) 2.6 k/uL (1.0-4.8); Lymphocytes % (A) 30 %; MCH 33.2 pg (25.0-35.0); MCV 97.7 fL (80.0-100.0); Mean Platelet Volume 7.6; Monocytes # (A) 0.2 k/uL (0-1.0); Monocytes % (A) 3 %; Neutrophils # (A) 4.8 k/uL (1.3-7.7); Neutrophils % (A) 56 %; Platelet Count 264 k/uL (150-450); RBC 4.15 m/uL (4.30-5.90); RDW 13.2 % (11.5-15.5); WBC 8.7 k/uL (3.8-10.6)
[2023-09-02 17:19] LABS: ALT 32 U/L (4-49); African American GFR (CKD) >90 (>60 ml/min/1.73 sqM); Anion Gap 12 mmol/L; Blood Urea Nitrogen 11 mg/dL (9-20); Calcium 8.6 mg/dL (8.4-10.2); Carbon Dioxide 24 mmol/L (22-30); Chloride 103 mmol/L (98-107); Glucose 96 mg/dL (74-99); Non-African American GFR(CKD) >90 (>60 ml/min/1.73 sqM); Sodium 139 mmol/L (137-145); Total Bilirubin 1.1 mg/dL (0.2-1.3)
[2023-09-02 17:27] LABS: NT-Pro-B-Type Natriuretic Pept 2220 pg/mL
[2023-09-02 17:32] LABS: AST 64 U/L (17-59); Potassium 4.3 mmol/L (3.5-5.1)
[2023-09-02 17:33] LABS: Albumin 4.1 g/dL (3.5-5.0); Alkaline Phosphatase 74 U/L (38-126); Total Protein 7.9 g/dL (6.3-8.2)
[2023-09-02 18:34] VITALS: BP 132/87; PULSE 89; TEMP 98.4
== END 2023-09-02 19:25 | disposition home or self-care (01) ==
LOC: EC 14:45
DX: I11.0 Hypertensive heart disease with heart failure (principal); I50.9 Heart failure, unspecified; F32.A Depression, unspecified; Z20.822 Contact with and (suspected) exposure to COVID-19; Z79.899 Other long term (current) drug therapy; Z87.891 Personal history of nicotine dependence; Z88.0 Allergy status to penicillin; Z91.030 Bee allergy status; Z91.011 Allergy to milk products
CPT/HCPCS: 36415; 71046; 80053; 83880; 85025; 87636; 93005; 99285

== ENCOUNTER 2023-10-03 13:15 | Inpatient (IN) | payer OTHER ==
--- NOTE | 2023-10-03 13:59 | ED ---
URI HPI - General Source: patient, RN notes reviewed Mode of arrival: ambulatory Limitations: no limitations <Ac Gomez - Last Filed: 10/03/23 13:58> - General Source: patient, RN notes reviewed Mode of arrival: ambulatory Limitations: no limitations <Glory Perea - Last Filed: 10/07/23 10:12> - General Chief Complaint: Upper Respiratory Infection Stated Complaint: shortness of breath Time Seen by Provider: 10/03/23 13:58 - History of Present Illness Initial Comments: 32-year-old male presents emergency department complaint of cough congestion. Patient states he felt like his been sick on and off for last 3 to 4 months. Symptoms worsened recently. Patient has seen his PCP. Patient states he is a former smoker. He does admit to nausea without vomiting currently. Patient states his cough is productive at times. (Ac Gomez) This is a 32-year-old male who presents to the emergency department for shortness of breath, coughing, and congestion. States that this has been ongoing for the last 3-4 months, but seems to be worsening. He is at the point where he is no longer able to sleep in his bed, as laying flat makes the symptoms much worse. States that last night he slept on his toilet crying. Patient has a history of congestive heart failure, and was previously noncompliant. However he states over the last month he's been taking the diuretics as prescribed. He does report associated chest pain. (Glory Perea) - Related Data Home Medications Medication Instructions Recorded Confirmed Albuterol Inhaler [Ventolin Hfa 1 - 2 puff INHALATION RT-Q6H PRN 09/02/23 10/03/23 Inhaler] Ammonium Lactate Lotion 1 applic TOPICAL BID 09/02/23 10/03/23 [Lac-Hydrin 12% Lotion] Budesonide/Formoterol Fumarate 2 puff INHALATION RT-BID 09/02/23 10/03/23 [Symbicort 160-4.5 Mcg Inhaler] Cholecalciferol (Vitamin D3) 1,250 mcg PO QMONTHLY 09/02/23 10/03/23 [Vitamin D3] Fenofibrate [Lofibra] 160 mg PO DAILY 09/02/23 10/03/23 Furosemide [Lasix] 40 mg PO DAILY 09/02/23 10/03/23 Sacubitril/Valsartan [Entresto 49 1 tab PO BID 09/02/23 10/03/23 mg-51 mg Tablet] Spironolactone [Aldactone] 25 mg PO DAILY 09/02/23 10/03/23 Levothyroxine Sodium [Synthroid] 300 mcg PO DAILY 10/03/23 10/03/23 Previous Rx's Medication Instructions Recorded Fluticasone Nasal [place] [Flonase 2 spr EA NOSTRIL DAILY #16 gm 09/02/23 Nasal [place]] Allergies Allergy/AdvReac Type Severity Reaction Status Date / Time bee pollen Allergy Rash/Hives Verified 10/03/23 22:56 Penicillins Allergy Unknown Verified 10/03/23 22:56 Childhood lactose AdvReac Diarrhea Verified 10/03/23 22:56 Review of Systems ROS Other: All systems not noted in ROS Statement are negative. <Ac Gomez - Last Filed: 10/03/23 13:58> ROS Other: All systems not noted in ROS Statement are negative. <Glory Perea - Last Filed: 10/07/23 10:12> ROS Statement: Those systems with pertinent positive or pertinent negative responses have been documented in the HPI. Past Medical History Past Medical History: Chest Pain / Angina, Heart Failure, Hearing Disorder / D eafness, Hypertension, Sleep Apnea/CPAP/BIPAP Additional Past Medical History / Comment(s): no cpap used (patient states he has had several nurses tell him he looks like he has sleep apnea, however he was tested by sleep medicine and was told he does not have sleep apnea) hemorrhoids, pinched nerve in neck, torn tendon rt foot History of Any Multi-Drug Resistant Organisms: None Reported Past Surgical History: Ear Surgery, Tonsillectomy Additional Past Surgical History / Comment(s): tube rt ear, colonoscopy, hemorrhoid removal Past Anesthesia/Blood Transfusion Reactions: No Reported Reaction Past Psychological History: Depression Smoking Status: Former smoker Past Alcohol Use History: None Reported Past Drug Use History: None Reported - Past Family History Mother Family Medical History: Congestive Heart Failure (CHF) Father Family Medical History: Liver Disease Additional Family Medical History / Comment(s): Father from cirrhosis of the liver <Ac Gomez - Last Filed: 10/03/23 13:58> General Exam Limitations: no limitations <Ac oGmez - Last Filed: 10/03/23 13:58> Limitations: no limitations General appearance: alert, in no apparent distress Head exam: Present: atraumatic, normocephalic, normal inspection Respiratory exam: Present: normal lung sounds bilaterally. Absent: respiratory distress, wheezes, rales, rhonchi, stridor Cardiovascular Exam: Present: regular rate, normal rhythm, normal heart sounds. Absent: systolic murmur, diastolic murmur, rubs, gallop, clicks Neurological exam: Present: alert, oriented X3, CN II-XII intact Psychiatric exam: Present: normal affect, normal mood Skin exam: Present: warm, dry, intact, normal color. Absent: rash <Glory Perea - Last Filed: 10/07/23 10:12> - General Exam Comments Initial Comments: Visual Physical Exam Vital signs reviewed General: Well-appearing, nontoxic, no acute distress. Head: Normocephalic, atraumatic Eyes: PERRLA, EOMI ENT: Airway patent Chest: Nonlabored breathing Skin: No visual rash, normal skin tone Neuro: Alert and oriented 3 Musculoskeletal: No gross abnormalities (Ac Gomez) Course Vital Signs 10/03/23 10/03/23 10/03/23 13:52 18:24 19:24 Temperature 98.8 F Pulse Rate 93 80 Pulse Rate [ Processing Technologist ] Respiratory 20 16 Rate Blood Pressure 114/77 Blood Pressure [Right Arm] O2 Sat by Pulse 92 L Oximetry 10/03/23 10/03/23 10/03/23 19:34 21:23 22:25 Temperature Pulse Rate 82 109 H 88 Pulse Rate [ Processing Technologist ] Respiratory 22 20 Rate Blood Pressure 135/94 Blood Pressure [Right Arm] O2 Sat by Pulse 92 L 95 Oximetry 10/04/23 10/04/23 10/04/23 00:37 04:00 08:00 Temperature 98.9 F 98.1 F Pulse Rate Pulse Rate [ 105 H 92 87 Processing Technologist ] Respiratory 24 20 20 Rate Blood Pressure Blood Pressure 125/81 159/100 146/105 [Right Arm] O2 Sat by Pulse 89 L 94 L 99 Oximetry 10/04/23 10/04/23 10/04/23 09:00 09:13 12:00 Temperature Pulse Rate 86 82 Pulse Rate [ 79 Processing Technologist ] Respiratory Rate Blood Pressure Blood Pressure 129/86 [Right Arm] O2 Sat by Pulse 99 97 Oximetry 10/04/23 10/04/23 10/04/23 14:00 16:00 20:01 Temperature Pulse Rate 84 Pulse Rate [ 79 73 Processing Technologist ] Respiratory 20 20 Rate Blood Pressure 120/84 Blood Pressure 122/88 [Right Arm] O2 Sat by Pulse 96 98 Oximetry 10/04/23 10/04/23 20:57 21:10 Temperature Pulse Rate 82 86 Pulse Rate [ Processing Technologist ] Respiratory Rate Blood Pressure Blood Pressure [Right Arm] O2 Sat by Pulse Oximetry Medical Decision Making <Ac Gomez - Last Filed: 10/03/23 13:58> - Lab Data Result diagrams: 10/05/23 15:32 10/06/23 12:04 - Radiology Data Radiology results: report reviewed, image reviewed <Glory Perea - Last Filed: 10/07/23 10:12> - Medical Decision Making I completed the quick note portion of this chart signed Ac Gomez PA-C (Ac Gomez) This is a 32-year-old male who presents to the emergency department for coughing and shortness of breath. Was pt. sent in by a medical professional or institution? @ -No Did you speak to anyone other than the patient for history? @ -No Did you review nursing and triage notes? @ -Yes, and I agree, it is accurate with regards to the patient's symptoms. Were old charts reviewed? @ -No Differential Diagnosis? @ -Differential Dyspnea: Coronary syndrome, arrhythmia, tamponade, asthma, COPD, pulmonary embolism, pneumonia, pneumothorax, pulmonary effusion, anaphylaxis, diabetic ketoacidosis, flailed chest, pulmonary contusion, diaphragmatic rupture, anemia, neuromuscular , this is not meant to be an all-inclusive list. EKG interpreted by me (3pts min.)? @ -EKG interpreted by me demonstrating the following: Sinus rhythm. Ventricu lar rate 90 beats per minute, DE interval 154 ms, QRS duration 101 ms, QTC 421 ms. X-rays interpreted by me (1pt min.)? @ -Chest x-ray obtained, my interpretation identifies no localized consolidations or infiltrates. CT interpreted by me (1pt min.)? @ -CTA of the chest obtained. My interpretation identifies no evidence of a pulmonary embolus. U/S interpreted by me (1pt. min.)? @ -Not obtained What testing was considered but not performed? (CT, X-rays, U/S, labs)? Why? @ -None What meds were considered but not given? Why? @ -None Did you discuss the management of the patient with other professionals? @ -Yes, Dr. Parsons, who accepts the patient for admission. Did you reconcile home meds? @ -Yes Was smoking cessation discussed for >3mins.? @ -No Was critical care preformed (if so, how long)? @ -No Were there social determinants of health that impacted care today? How? (Homelessness, low income, unemployed, alcoholism, drug addiction, transportation, low edu. Level, literacy, decrease access to med. care, residential, rehab)? @ -No Was there de-escalation of care discussed even if they declined? (Discuss DNR or withdrawal of care, Hospice)? @ -No What co-morbidities impacted this encounter? (DM, HTN, Smoking, COPD, CAD, Cancer, CVA, Hep., AIDS, mental health diagnosis, sleep apnea, morbid obesity)? @ -CHF, morbid obesity, HTN Was patient admitted / discharged? @ -Admitted. Lab work obtained demonstrating an elevated BNP of 7160, which is significantly elevated when compared with prior. Troponin elevated at 0.094, likely secondary to BNP elevation and patient's history of CHF. D-dimer also elevated at 0.73. COVID, influenza, and RSV testing were negative. Chest x-ray obtained revealing no acute process. Patient was exhibiting notable conversational dyspnea. He was struggling to breathe adequately and could not control his coughing. Given the patient's progressive symptoms and notable increase in BNP value, patient admitted to medicine for further management of CHF. Echocardiogram ordered. Consult placed for cardiology. A CTA of the chest was ordered due to the elevated d-dimer and the patient's symptoms, however results were pending at the time of admission. Serial troponins ordered as well. Undiagnosed new problem with uncertain prognosis? @ -None Drug Therapy requiring intensive monitoring for toxicity (Heparin, Nitro, Insulin, Cardizem)? @ -None Were any procedures done? @ -None Diagnosis/symptom? @ -CHF Acute, or Chronic, or Acute on Chronic? @ -Acute on chronic Uncomplicated (without systemic symptoms) or Complicated (systemic symptoms)? @ -Complicated Side effects of treatment? @ -None Exacerbation, Progression, or Severe Exacerbation] @ -Severe exacerbation Poses a threat to life or bodily function? @ -Yes This case was discussed in detail with the attending ED physician, Dr. Rosales. Presentation, findings, and treatment plan discussed in detail as well. (Glory Schulz) - Lab Data Lab Results 10/03/23 10/03/23 10/03/23 Range/Units 13:59 20:30 20:30 WBC 9.3 (3.8-10.6) k/uL RBC 3.82 L (4.30-5.90) m/uL Hgb 12.7 L (13.0-17.5) gm/dL Hct 37.8 L (39.0-53.0) % MCV 98.8 (80.0-100.0) fL MCH 33.4 (25.0-35.0) pg MCHC 33.8 (31.0-37.0) g/dL RDW 14.0 (11.5-15.5) % Plt Count 257 (150-450) k/uL MPV 8.8 Neutrophils % 69 % Lymphocytes % 23 % Monocytes % 3 % Eosinophils % 1 % Basophils % 1 % Neutrophils # 6.4 (1.3-7.7) k/uL Lymphocytes # 2.2 (1.0-4.8) k/uL Monocytes # 0.3 (0-1.0) k/uL Eosinophils # 0.1 (0-0.7) k/uL Basophils # 0.1 (0-0.2) k/uL PT 11.8 (10.0-12.5) sec INR 1.1 (<1.2) APTT 26.4 (22.0-30.0) sec D-Dimer 0.73 H (<0.60) mg/L FEU Sodium (137-145) mmol/L Potassium (3.5-5.1) mmol/L Chloride (98-107) mmol/L Carbon Dioxide (22-30) mmol/L Anion Gap mmol/L BUN (9-20) mg/dL Creatinine (0.66-1.25) mg/dL Est GFR (CKD-EPI)AfAm (>60 ml/min/1.73 sqM) Est GFR (CKD-EPI)NonAf (>60 ml/min/1.73 sqM) Glucose (74-99) mg/dL Plasma Lactic Acid Moisés (0.7-2.0) mmol/L Calcium (8.4-10.2) mg/dL Total Bilirubin (0.2-1.3) mg/dL AST (17-59) U/L ALT (4-49) U/L Alkaline Phosphatase (38-126) U/L Troponin I (0.000-0.034) ng/mL NT-Pro-B Natriuret Pep pg/mL Total Protein (6.3-8.2) g/dL Albumin (3.5-5.0) g/dL Influenza Type A (PCR) Not Detected (Not Detectd) Influenza Type B (PCR) Not Detected (Not Detectd) RSV (PCR) Not Detected (Not Detectd) SARS-CoV-2 (PCR) Not Detected (Not Detectd) 10/03/23 10/03/23 10/03/23 Range/Units 20:30 20:30 20:30 WBC (3.8-10.6) k/uL RBC (4.30-5.90) m/uL Hgb (13.0-17.5) gm/dL Hct (39.0-53.0) % MCV (80.0-100.0) fL MCH (25.0-35.0) pg MCHC (31.0-37.0) g/dL RDW (11.5-15.5) % Plt Count (150-450) k/uL MPV Neutrophils % % Lymphocytes % % Monocytes % % Eosinophils % % Basophils % % Neutrophils # (1.3-7.7) k/uL Lymphocytes # (1.0-4.8) k/uL Monocytes # (0-1.0) k/uL Eosinophils # (0-0.7) k/uL Basophils # (0-0.2) k/uL PT (10.0-12.5) sec INR (<1.2) APTT (22.0-30.0) sec D-Dimer (<0.60) mg/L FEU Sodium 138 (137-145) mmol/L Potassium 4.0 (3.5-5.1) mmol/L Chloride 101 (98-107) mmol/L Carbon Dioxide 27 (22-30) mmol/L Anion Gap 10 mmol/L BUN 18 (9-20) mg/dL Creatinine 1.26 H (0.66-1.25) mg/dL Est GFR (CKD-EPI)AfAm 87 (>60 ml/min/1.73 sqM) Est GFR (CKD-EPI)NonAf 75 (>60 ml/min/1.73 sqM) Glucose 102 H (74-99) mg/dL Plasma Lactic Acid Moisés 1.5 (0.7-2.0) mmol/L Calcium 8.7 (8.4-10.2) mg/dL Total Bilirubin 1.7 H (0.2-1.3) mg/dL AST 43 (17-59) U/L ALT 23 (4-49) U/L Alkaline Phosphatase 81 (38-126) U/L Troponin I 0.094 H* (0.000-0.034) ng/mL NT-Pro-B Natriuret Pep 7160 pg/mL Total Protein 7.8 (6.3-8.2) g/dL Albumin 4.3 (3.5-5.0) g/dL Influenza Type A (PCR) (Not Detectd) Influenza Type B (PCR) (Not Detectd) RSV (PCR) (Not Detectd) SARS-CoV-2 (PCR) (Not Detectd) 10/04/23 10/04/23 Range/Units 00:24 03:14 WBC (3.8-10.6) k/uL RBC (4.30-5.90) m/uL Hgb (13.0-17.5) gm/dL Hct (39.0-53.0) % MCV (80.0-100.0) fL MCH (25.0-35.0) pg MCHC (31.0-37.0) g/dL RDW (11.5-15.5) % Plt Count (150-450) k/uL MPV Neutrophils % % Lymphocytes % % Monocytes % % Eosinophils % % Basophils % % Neutrophils # (1.3-7.7) k/uL Lymphocytes # (1.0-4.8) k/uL Monocytes # (0-1.0) k/uL Eosinophils # (0-0.7) k/uL Basophils # (0-0.2) k/uL PT (10.0-12.5) sec INR (<1.2) APTT (22.0-30.0) sec D-Dimer (<0.60) mg/L FEU Sodium (137-145) mmol/L Potassium (3.5-5.1) mmol/L Chloride (98-107) mmol/L Carbon Dioxide (22-30) mmol/L Anion Gap mmol/L BUN (9-20) mg/dL Creatinine (0.66-1.25) mg/dL Est GFR (CKD-EPI)AfAm (>60 ml/min/1.73 sqM) Est GFR (CKD-EPI)NonAf (>60 ml/min/1.73 sqM) Glucose (74-99) mg/dL Plasma Lactic Acid Moisés (0.7-2.0) mmol/L Calcium (8.4-10.2) mg/dL Total Bilirubin (0.2-1.3) mg/dL AST (17-59) U/L ALT (4-49) U/L Alkaline Phosphatase (38-126) U/L Troponin I 0.091 H* 0.080 H* (0.000-0.034) ng/mL NT-Pro-B Natriuret Pep pg/mL Total Protein (6.3-8.2) g/dL Albumin (3.5-5.0) g/dL Influenza Type A (PCR) (Not Detectd) Influenza Type B (PCR) (Not Detectd) RSV (PCR) (Not Detectd) SARS-CoV-2 (PCR) (Not Detectd) Disposition <Ac Gomez - Last Filed: 10/03/23 13:58> Time of Disposition: 22:35 <Glory Perea - Last Filed: 10/07/23 10:12> Clinical Impression: CHF (congestive heart failure), Shortness of breath, Chest pain Disposition: ADMITTED IP TO THIS HOSP
--- NOTE | 2023-10-03 14:31 | XR ---
EXAMINATION TYPE: XR chest 2V DATE OF EXAM: 10/03/2023 COMPARISON: 09/02/2023 HISTORY: Chest pain TECHNIQUE: Frontal and lateral views of the chest are obtained. FINDINGS: There is no focal air space opacity. No evidence for pneumothorax. No pleural effusion. Stable Moderate cardiomegaly. The osseous structures are grossly intact. IMPRESSION: 1. No acute cardiopulmonary process.
[2023-10-03] MEDS: IPRATROPIUM-ALBUTEROL 3 ML NEB INHALATION STA (19:22)
[2023-10-03 20:41] LABS: Basophils # (A) 0.1 k/uL (0-0.2); Basophils % (A) 1 %; Eosinophils # (A) 0.1 k/uL (0-0.7); Eosinophils % (A) 1 %; HCT 37.8 % (39.0-53.0); HGB 12.7 gm/dL (13.0-17.5); Lymphocytes # (A) 2.2 k/uL (1.0-4.8); Lymphocytes % (A) 23 %; MCH 33.4 pg (25.0-35.0); MCHC 33.8 g/dL (31.0-37.0); MCV 98.8 fL (80.0-100.0); Mean Platelet Volume 8.8; Monocytes # (A) 0.3 k/uL (0-1.0); Monocytes % (A) 3 %; Neutrophils # (A) 6.4 k/uL (1.3-7.7); Neutrophils % (A) 69 %; Platelet Count 257 k/uL (150-450); RBC 3.82 m/uL (4.30-5.90); WBC 9.3 k/uL (3.8-10.6)
[2023-10-03 20:50] LABS: ALT 23 U/L (4-49); AST 43 U/L (17-59); African American GFR (CKD) 87 (>60 ml/min/1.73 sqM); Albumin 4.3 g/dL (3.5-5.0); Alkaline Phosphatase 81 U/L (38-126); Anion Gap 10 mmol/L; Blood Urea Nitrogen 18 mg/dL (9-20); Calcium 8.7 mg/dL (8.4-10.2); Carbon Dioxide 27 mmol/L (22-30); Chloride 101 mmol/L (98-107); Glucose 102 mg/dL (74-99); Non-African American GFR(CKD) 75 (>60 ml/min/1.73 sqM); Sodium 138 mmol/L (137-145); Total Bilirubin 1.7 mg/dL (0.2-1.3); Total Protein 7.8 g/dL (6.3-8.2)
[2023-10-03 20:56] LABS: INR 1.1 (<1.2); Partial Thromboplastin Time 26.4 sec (22.0-30.0); Prothrombin Time 11.8 sec (10.0-12.5)
[2023-10-03 20:59] LABS: NT-Pro-B-Type Natriuretic Pept 7160 pg/mL
[2023-10-03] MEDS ORDERED: HYDROcodone/APAP 5-325MG 1 EACH TAB PO PRN (22:32)
[2023-10-03] MEDS ORDERED: ONDANSETRON 4 MG/2 ML VIAL IVP PRN (22:32)
[2023-10-03] MEDS ORDERED: MORPHINE SULFATE 4 MG/ML SYRINGE IV PRN (22:32)
[2023-10-03] MEDS ORDERED: NALOXONE 0.4 MG/ML 1 ML VIAL IV PRN (22:32)
[2023-10-03] MEDS: FUROSEMIDE 10 MG/ML 4 ML VIAL IV STA (23:18)
[2023-10-04] MEDS: guaiFENesin 600 MG TABLET.ER PO SCH (00:44)
--- NOTE | 2023-10-04 01:03 | CT ---
EXAMINATION TYPE: CT chest angio for PE CT DLP: 1347.8 mGycm, Automated exposure control for dose reduction was used. DATE OF EXAM: 10/03/2023 9:44 PM COMPARISON: Chest x-ray earlier today CLINICAL INDICATION:Male, 32 years old with history of PATRICE, elevated d-dimer; PATRICE, elevated dimer. TECHNIQUE/CONTRAST: CTA scan of the thorax is performed with IV Contrast, patient injected with 100 ml mL of Isovue 370, MIP images are created and reviewed these are created on a separate workstation.. FINDINGS: There is adequate contrast bolus and timing. There are limitations from respiratory motion, lung opac ities, and body habitus. PULMONARY ARTERIES: There is no evidence for a central filling defect within the pulmonary vasculatur e to suggest acute central or saddle pulmonary embolism. Limited evaluation of the segmental and subs egmental branches, without definite filling defect to convincingly call PE. The pulmonary trunk is mi ldly enlarged, this can be seen with pulmonary hypertension. Trunk measures 3.2 CM. HEART: Heart is moderately enlarged with four-chamber enlargement. There is also a moderate sized per icardial effusion, thickest portion on the right lateral to the cavoatrial junction measures 2.8 cm, and greatest thickness on the left along the inferior aspect of the left ventricle is 2.1 cm. No sign ificant coronary artery calcifications are seen. AORTA: No significant atherosclerotic changes. Ascending aorta is 3 CM, descending is 2.5 CM. Aorta is considered normal in size. No evidence of dissection flap. LOWER NECK: No significant findings. MEDIASTINUM: No gross evidence of adenopathy. Mildly prominent nodes seen are likely reactive. SOFT TISSUES/LYMPH NODES: Unremarkable chest wall soft tissues. No axillary adenopathy. LUNGS/ PLEURA: No pleural effusion or pneumothorax. There are multiple small scattered patchy and sli ghtly nodular appearing areas of groundglass infiltrate bilaterally, greatest in the lower lobes. Mi ld subsegmental changes in the right upper and middle lobes, suggestive of atelectasis. AIRWAY: Central airways are patent. MUSCULOSKELETAL: No acute osseous abnormality. Mild disc degeneration changes are present throughout the included thoracolumbar spine. UPPER ABDOMEN: Mild reflux of contrast to the hepatic level IVC and slightly into the hepatic veins. Possible small sliding hiatal hernia. IMPRESSION: 1. No evidence of central pulmonary embolism. Limited evaluation of the segmental and subsegmental b ranches without convincing evidence of PE. 2. Multiple small pulmonary infiltrates bilaterally, suggestive of infectious or inflammatory proces s. Consider atypical viral infections in the differential. 3. Mildly enlarged pulmonary trunk, can be seen with pulmonary hypertension. 4. Moderate cardiomegaly and moderate sized pericardial effusion. 5. Slight reflux of contrast to the liver, suggesting an element of right heart insufficiency.
[2023-10-04] MEDS: LEVOTHYROXINE 100 MCG TAB PO SCH (06:01)
[2023-10-04] MEDS: SYMBICORT 160-4.5 MCG INHALER INHALATION SCH (08:59)
[2023-10-04] MEDS: ALBUTEROL NEBULIZED 2.5 MG/3 ML INHALATION PRN (08:59)
[2023-10-04] MEDS ORDERED: FUROSEMIDE 40 MG TAB PO SCH (09:00)
[2023-10-04] MEDS: FUROSEMIDE 10 MG/ML 4 ML VIAL IV SCH (09:06)
[2023-10-04] MEDS: SPIRONOLACTONE 25 MG TAB PO SCH (09:06)
[2023-10-04] MEDS: FENOFIBRATE 160 MG TAB PO SCH (09:06)
[2023-10-04] MEDS: AMMONIUM LACTATE 12% LOTION 225 GM BTL TOPICAL SCH (09:08)
[2023-10-04] MEDS: FLUTICASONE 50MCG/SPRAY NASAL 16GM EA NOSTRIL SCH (09:34)
[2023-10-04] MEDS: SACUBITRIL/VALSARTAN 49 MG-51 MG TABLET PO SCH (09:35)
--- NOTE | 2023-10-04 12:05 | P.CRDCN ---
History of Present Illness Consult date: 10/04/23 Consult reason: chest pain (PATRICE, CHF) History of present illness: History of present illness: This is a 32-year-old male patient of Dr. Fleming with past medical history of hypertension, previous pericardial effusion secondary to hypothyroidism, severe cardiomyopathy with a EF of 15% in 2021, right heart failure, chronic kidney disease stage IIIa. We have been asked to evaluate the patient for chest pain, difficulty in breathing, CHF. Patient is seen today in the emergency center waiting for a bed on the cardiac stepdown unit. Patient states that he has had a cough for 4 months along with shortness of breath. He states that he has no s putum production but is felt hot and cold. He states he has recently had some weight gain and weight loss. Patient has significant dyspnea on exertion with minimal activity. He also has orthopnea. Patient also relates that he has had left-sided chest pain for the past week when he is walking but sometimes happens when he sitting. Chest pain is worse when he has a hard cough. Patient states that he has been taking all of his medications as directed and not getting improvement. Patient received 1 dose of IV Lasix 40 mg and started on oral 40 mg and received nebulizer treatment. Patient states that he is smoking half pack per day. He denies any marijuana, illicit drug use or alcohol use. Patient's mom has history of heart failure. EKG sinus rhythm Chest x-ray: No acute process. CTA of the chest revealed no evidence of central pulmonary embolism. Limited evaluation of the segmental and subsegmental branches. Multiple small pulmonary infiltrates bilaterally suggestive of infectious or inflammatory process. Consider atypical viral infections. Mildly enlarged pulmonary trunk can be seen with pulmonary hypertension. Moderate cardiomegaly and moderate-sized pericardial effusion. Slight reflux and contrast in the liver suggesting right heart insufficiency. WBC 9.3, hemoglobin 12.7, platelet count 257. INR 1.1. D-dimer 0.73. Electrolytes are within normal limits. BUN 18 creatinine 1.26. Blood sugar 102. Total bilirubin 1.7. Troponin 0.094, 0.091 and 0.080. Influenza A, influenza B, RSV, COVID-19 not detected. Home cardiac medications: Lasix 40 mg daily, Entresto 49-51 mg 1 twice daily, Aldactone 25 mg daily, patient is also on levothyroxine 300 mg daily Echocardiogram performed 04/04/2023 revealed very technically difficult study. Unable to quantify EF given no contrast agent used however EF appears to be less than 35%. Review Of Systems: At the time of my evaluation: Constitutional: No fever, no chills. No weakness, fatigue or lethargy. EENT: No headache. No dizziness. Lungs: + Shortness of breath, + cough, no sputum production. No wheezing. + PRICE. Cardiovascular: + chest pain, + lower extremity edema. No palpitations. No paroxysmal nocturnal dyspnea. + orthopnea. No lightheadedness or dizziness. No syncopal episodes. Abdominal: No abdominal pain. No nausea, vomiting. No diarrhea. No constipation. No bloody or tarry stools. Musculoskeletal: No myalgias. No muscle weakness, no frequent falls. Integumentary: No wounds. No rash. No unusual bruising. Neurologic: No aphasia. No facial droop. No change in mentation. Physical examination: Gen: This is a 32-year-old morbidly obese male, no acute distress VS: reviewed HEENT: Head is atraumatic, normocephalic. Pupils equal, round. Sclerae is anicteric. NECK: Supple. No JVD. LUNGS: Diminished with scattered rhonchi. No intercostal retractions. HEART: Distant heart sounds. Regular rate and rhythm. No murmur. ABDOMEN: Soft, obese. No tenderness. EXTREMITIES: 2+ right, 1+ left pedal edema. No calf tenderness. Dorsalis pedis +2 bilaterally. NEUROLOGICAL: Patient is awake, alert and oriented x3. Assessment: Acute on chronic systolic heart failure Severe cardiomyopathy Right heart failure Hypertension Chronic kidney disease Tobacco use and dependence Plan: Continue patient's home cardiac medications Start patient on IV Lasix 40 mg every 12 hours Monitor RALPH, daily weights, electrolytes and renal function Obtain 2-D echocardiogram and Doppler study to assess cardiac structure and function Plan on cardiac catheterization most likely in about 2 days once patient's heart failure is stabilized. Further recommendations to follow based upon clinical course Thank you kindly for this consultation. Nurse practitioner note has been reviewed, I agree with documented findings and plan of care. Patient was seen and examined. Past Medical History Past Medical History: Chest Pain / Angina, Heart Failure, Hearing Disorder / Deafness, Hypertension, Sleep Apnea/CPAP/BIPAP Additional Past Medical History / Comment(s): no cpap used (patient states he has had several nurses tell him he looks like he has sleep apnea, however he was tested by sleep medicine and was told he does not have sleep apnea) hemorrhoids, pinched nerve in neck, torn tendon rt foot History of Any Multi-Drug Resistant Organisms: None Reported Past Surgical History: Ear Surgery, Tonsillectomy Additional Past Surgical History / Comment(s): tube rt ear, colonoscopy, hemorrhoid removal Past Anesthesia/Blood Transfusion Reactions: No Reported Reaction Past Psychological History: Depression Additional Psychological History / Comment(s): past hx Smoking Status: Former smoker Past Alcohol Use History: None Reported Additional Past Alcohol Use History / Comment(s): QUIT SMOKING 1 week ago 2021, approx 1 PPD Past Drug Use History: None Reported - Past Family History Mother Family Medical History: Congestive Heart Failure (CHF) Father Family Medical History: Liver Disease Additional Family Medical History / Comment(s): Father from cirrhosis of the liver Medications and Allergies Home Medications Medication Instructions Recorded Confirmed Type Albuterol Inhaler [Ventolin Hfa 1 - 2 puff INHALATION RT-Q6H PRN 09/02/23 10/03/23 History Inhaler] Ammonium Lactate Lotion 1 applic TOPICAL BID 09/02/23 10/03/23 History [Lac-Hydrin 12% Lotion] Budesonide/Formoterol Fumarate 2 puff INHALATION RT-BID 09/02/23 10/03/23 History [Symbicort 160-4.5 Mcg Inhaler] Cholecalciferol (Vitamin D3) 1,250 mcg PO QMONTHLY 09/02/23 10/03/23 History [Vitamin D3] Fenofibrate [Lofibra] 160 mg PO DAILY 09/02/23 10/03/23 History Fluticasone Nasal [place] [Flonase 2 spr EA NOSTRIL DAILY #16 gm 09/02/23 10/03/23 Rx Nasal [place]] Furosemide [Lasix] 40 mg PO DAILY 09/02/23 10/03/23 History Sacubitril/Valsartan [Entresto 49 1 tab PO BID 09/02/23 10/03/23 History mg-51 mg Tablet] Spironolactone [Aldactone] 25 mg PO DAILY 09/02/23 10/03/23 History Levothyroxine Sodium [Synthroid] 300 mcg PO DAILY 10/03/23 10/03/23 History Allergies Allergy/AdvReac Type Severity Reaction Status Date / Time bee pollen Allergy Rash/Hives Verified 10/03/23 22:56 Penicillins Allergy Unknown Verified 10/03/23 22:56 Childhood lactose AdvReac Diarrhea Verified 10/03/23 22:56 Physical Exam Vitals: Vital Signs Temp Pulse Pulse Resp BP BP Pulse Ox 10/04/23 04:00 92 20 159/100 94 L 10/04/23 00:37 98.9 F 105 H 24 125/81 89 L 10/03/23 22:25 88 20 135/94 95 10/03/23 21:23 109 H 22 92 L 10/03/23 19:34 82 10/03/23 19:24 80 10/03/23 18:24 16 10/03/23 13:52 98.8 F 93 20 114/77 92 L Intake and Output 10/03/23 10/04/23 10/04/23 22:59 06:59 14:59 Intake Total 500 Output Total 800 Balance -300 Intake: Oral 500 Output: Urine 800 Other: Voiding Method Urinal Weight 157.85 kg Results 10/03/23 20:30 10/03/23 20:30 Cardiac Enzymes 10/03/23 10/03/23 10/04/23 Range/Units 20:30 20:30 00:24 AST 43 (17-59) U/L Troponin I 0.094 H* 0.091 H* (0.000-0.034) ng/mL 10/04/23 Range/Units 03:14 AST (17-59) U/L Troponin I 0.080 H* (0.000-0.034) ng/mL Coagulation 10/03/23 Range/Units 20:30 PT 11.8 (10.0-12.5) sec APTT 26.4 (22.0-30.0) sec CBC 10/03/23 Range/Units 20:30 WBC 9.3 (3.8-10.6) k/uL RBC 3.82 L (4.30-5.90) m/uL Hgb 12.7 L (13.0-17.5) gm/dL Hct 37.8 L (39.0-53.0) % Plt Count 257 (150-450) k/uL Comprehensive Metabolic Panel 10/03/23 Range/Units 20:30 Sodium 138 (137-145) mmol/L Potassium 4.0 (3.5-5.1) mmol/L Chloride 101 (98-107) mmol/L Carbon Dioxide 27 (22-30) mmol/L BUN 18 (9-20) mg/dL Creatinine 1.26 H (0.66-1.25) mg/dL Glucose 102 H (74-99) mg/dL Calcium 8.7 (8.4-10.2) mg/dL AST 43 (17-59) U/L ALT 23 (4-49) U/L Alkaline Phosphatase 81 (38-126) U/L Total Protein 7.8 (6.3-8.2) g/dL Albumin 4.3 (3.5-5.0) g/dL Current Medications Generic Name Dose Route Start Last Admin Trade Name Freq PRN Reason Stop Dose Admin Acetaminophen 650 mg 10/03/23 22:32 Acetaminophen Tab 325 Mg Tab PO Q6HR PRN Mild Pain or Fever > 100.5 Hydrocodone Bitart/Acetaminophen 1 each 10/03/23 22:32 Hydrocodone/Apap 5-325mg 1 Each Tab PO Q4HR PRN Moderate Pain (Scale 4 to 6) Albuterol Sulfate 2.5 mg 10/04/23 00:34 Albuterol Nebulized 2.5 Mg/3 Ml INHALATION RT-Q6H PRN Shortness Of Breath Benzonatate 200 mg 10/03/23 23:59 Benzonatate 100 Mg Cap PO TID PRN Cough Budesonide/Formoterol Fumarate 2 puff 10/04/23 08:00 Symbicort 160-4.5 Mcg Inhaler INHALATION RT-BID TETO Ergocalciferol 1,250 mcg 10/11/23 09:00 Ergocalciferol 1,250 Mcg (50,000 Iu) Capsule PO QMONTHLY TETO Fenofibrate 160 mg 10/04/23 09:00 Fenofibrate 160 Mg Tab PO DAILY TETO Fluticasone Propionate 2 spray 10/04/23 09:00 Fluticasone 50mcg/Parkman Nasal 16gm EA NOSTRIL DAILY TETO Furosemide 40 mg 10/04/23 09:00 Furosemide 40 Mg Tab PO DAILY TETO Guaifenesin 1,200 mg 10/04/23 00:00 10/04/23 00:44 Guaifenesin 600 Mg Tablet.Er PO 1,200 mg Q12HR TETO Administration Lactic Acid 1 applic 10/04/23 09:00 Ammonium Lactate 12% Lotion 225 Gm Btl TOPICAL BID [facility] Protocol Levothyroxine Sodium 300 mcg 10/04/23 06:30 10/04/23 06:01 Levothyroxine 100 Mcg Tab PO 300 mcg DAILY@0630 [facility] Administration Morphine Sulfate 4 mg 10/03/23 22:32 Morphine Sulfate 4 Mg/Ml Syringe IV Q4HR PRN Severe Pain (Scale 7 to 10) Naloxone HCl 0.2 mg 10/03/23 22:32 Naloxone 0.4 Mg/Ml 1 Ml Vial IV Q2M PRN Opioid Reversal Ondansetron HCl 4 mg 10/03/23 22:32 Ondansetron 4 Mg/2 Ml Vial IVP Q8HR PRN Nausea And Vomiting Sacubitril/Valsartan 1 each 10/04/23 09:00 Sacubitril/Valsartan 49 Mg-51 Mg Tablet PO BID [facility] Spironolactone 25 mg 10/04/23 09:00 Spironolactone 25 Mg Tab PO DAILY [facility] Intake and Output 10/03/23 10/04/23 10/04/23 22:59 06:59 14:59 Intake Total 500 Output Total 800 Balance -300 Intake: Oral 500 Output: Urine 800 Other: Voiding Method Urinal Weight 157.85 kg 10/03/23 20:30 10/03/23 20:30
--- NOTE | 2023-10-04 21:43 | HP ---
HISTORY AND PHYSICAL CHIEF COMPLAINT: Chest pain and shortness of breath. HISTORY OF PRESENT ILLNESS: This is the first known admission for this 32-year-old white male. He has been coming to the office somewhat irregularly over the last few months for treatment of congestive heart failure and profound hypothyroidism. Gradually as his medications has been increased, he has improved. However, he still has cardiomegaly and shortness of breath. He came into the emergency room because of some chest congestion and shortness of breath. Studies in the ER were unremarkable. His blood pressure was elevated, however. He had no radiation of the pain, syncope, nausea, vomiting, melena, hematochezia, etc. Past medical history, family history, and personal and social histories are otherwise unremarkable. ALLERGIES: He is not allergic to any medication. CURRENT MEDICATIONS: 1. Aldactone 25 mg once a day. 2. Levothyroxine 0.3 mg a day. 3. Lasix 40 mg once a day. 4. Entresto 49/51 b.i.d. 5. Fenofibrate 160 mg once a day. 6. Symbicort 160/4.5 two puffs twice a day. 7. Ventolin HFA. SOCIAL HISTORY: He used to smoke, but does not any longer. He does not drink. PHYSICAL EXAMINATION: VITAL SIGNS: Blood pressure is elevated at 146/105, pulse is 80. HEAD, EARS, EYES, NOSE, MOUTH AND THROAT: Demonstrated some acne like rash or seborrhea on the face. Pupils equally round. NECK: Neck veins could not be assessed. CHEST: Clear. There were no significant rales or rhonchi. CARDIAC: Normal with no arrhythmia. ABDOMEN: Slightly protuberant, soft and nontender. EXTREMITIES: Normal. NEUROLOGICAL: He is intact. ASSESSMENT: He is admitted to the hospital with diagnoses of: 1. Chest pain. 2. Shortness of breath. 3. Congestive heart failure. 4. Cardiomyopathy. 5. Hypothyroidism. PLAN: 1. Bedrest. 2. IV fluids. 3. Controlled hypertension. 4. Serial EKGs and enzymes. 5. Lipid evaluation. 6. Echocardiogram. MMODL / IJN: [id number] /
[2023-10-04] MEDS: BENZONATATE 100 MG CAP PO PRN (23:51)
[2023-10-05] MEDS: ACETAMINOPHEN TAB 325 MG TAB PO PRN (08:54)
[2023-10-05 11:56] VITALS: RESP 18
[2023-10-05] MEDS ORDERED: NITROGLYCERIN SL TABS 0.4 MG TAB SUBLINGUAL PRN (15:12)
[2023-10-05] MEDS ORDERED: ALPRAZolam 0.5 MG TAB PO PRN (15:12)
[2023-10-05] MEDS ORDERED: ALPRAZolam 0.25 MG TAB PO PRN (15:12)
--- NOTE | 2023-10-05 15:14 | P.PN ---
Subjective Progress Note Date: 10/05/23 Consult reason: chest pain (PATRICE, CHF) History of present illness: History of present illness: This is a 32-year-old male patient of Dr. Fleming with past medical history of hypertension, previous pericardial effusion secondary to hypothyroidism, severe cardiomyopathy with a EF of 15% in 2021, right heart failure, chronic kidney disease stage IIIa. We have been asked to evaluate the patient for chest pain, difficulty in breathing, CHF. Patient is seen today in the emergency center waiting for a bed on the cardiac stepdown unit. Patient states that he has had a cough for 4 months along with shortness of breath. He states that he has no sputum production but is felt hot and cold. He states he has recently had some weight gain and weight loss. Patient has significant dyspnea on exertion with minimal activity. He also has orthopnea. Patient also relates that he has had left-sided chest pain for the past week when he is walking but sometimes happens when he sitting. Chest pain is worse when he has a hard cough. Patient states that he has been taking all of his medications as directed and not getting improvement. Patient received 1 dose of IV Lasix 40 mg and started on oral 40 mg and received nebulizer treatment. Patient states that he is smoking half pack per day. He denies any marijuana, illicit drug use or alcohol use. Len barger's mom has history of heart failure. EKG sinus rhythm Chest x-ray: No acute process. CTA of the chest revealed no evidence of central pulmonary embolism. Limited evaluation of the segmental and subsegmental branches. Multiple small pulmonary infiltrates bilaterally suggestive of infectious or inflammatory process. Consider atypical viral infections. Mildly enlarged pulmonary trunk can be seen with pulmonary hypertension. Moderate cardiomegaly and moderate-sized pericardial effusion. Slight reflux and contrast in the liver suggesting right heart insufficiency. WBC 9.3, hemoglobin 12.7, platelet count 257. INR 1.1. D-dimer 0.73. Electrolytes are within normal limits. BUN 18 creatinine 1.26. Blood sugar 102. Total bilirubin 1.7. Troponin 0.094, 0.091 and 0.080. Influenza A, i nfluenza B, RSV, COVID-19 not detected. Home cardiac medications: Lasix 40 mg daily, Entresto 49-51 mg 1 twice daily, Aldactone 25 mg daily, patient is also on levothyroxine 300 mg daily Echocardiogram performed 04/04/2023 revealed very technically difficult study. Unable to quantify EF given no contrast agent used however EF appears to be less than 35%. 10/05 Patient is seen in follow-up today on the cardiac stepdown unit. Echocardiogram verbally reported as EF of 15 to 20%. Blood pressure 99/66, heart rate in the 90s. Pulse ox 97% on 2 L nasal cannula. Chemistry panel ordered for tomorrow. Patient complains of chest hurting when he coughs and when he walks to the bathroom. Patient states he feels a little better from yesterday. Frequent coughing noted. Physical examination: Gen: This is a 32-year-old morbidly obese male, no acute distress VS: reviewed HEENT: Head is atraumatic, normocephalic. Pupils equal, round. Sclerae is anicteric. NECK: Supple. No JVD. LUNGS: Diminished with scattered rhonchi. No intercostal retractions. HEART: Distant heart sounds. Regular rate and rhythm. No murmur. ABDOMEN: Soft, obese. No tenderness. EXTREMITIES: 2+ right, 1+ left pedal edema. No calf tenderness. Dorsalis pedis +2 bilaterally. NEUROLOGICAL: Patient is awake, alert and oriented x3. Assessment: Acute on chronic systolic heart failure Severe cardiomyopathy with a EF of 15 to 20% Right heart failure Pericardial effusion, chronic Hypertension Chronic kidney disease Tobacco use and dependence Plan: Continue patient's home cardiac medications Continue patient on IV Lasix 40 mg every 12 hours Monitor RALPH, daily weights, electrolytes and renal function Obtain 2-D echocardiogram and Doppler report Plan on cardiac catheterization as long as renal function is stable in the morning. Further recommendations to follow based upon clinical course Nurse practitioner note has been reviewed, I agree with documented findings and plan of care. Patient was seen and examined. Objective - Vital Signs Vital signs: Vital Signs Temp 97.6 F 10/05/23 07:49 Pulse 90 10/05/23 13:11 Resp 18 10/05/23 13:11 BP 99/66 10/05/23 11:38 Pulse Ox 97 10/05/23 11:38 FiO2 Intake & Output 10/04/23 10/05/23 10/05/23 18:59 06:59 18:59 Intake Total 480 476 Output Total 5470 300 900 Balance -1570 -300 -424 Weight 148.8 kg Intake: Oral 480 906 Output: Urine 0 300 900 Other: Voiding Method Urinal Urinal Urinal - Labs CBC & Chem 7: 10/03/23 20:30 10/03/23 20:30
[2023-10-05 16:11] LABS: Basophils # (A) 0.1 k/uL (0-0.2); Basophils % (A) 2 %; Eosinophils # (A) 0.2 k/uL (0-0.7); Eosinophils % (A) 3 %; HCT 41.6 % (39.0-53.0); HGB 14.2 gm/dL (13.0-17.5); Lymphocytes # (A) 2.7 k/uL (1.0-4.8); Lymphocytes % (A) 32 %; MCH 34.5 pg (25.0-35.0); MCHC 34.2 g/dL (31.0-37.0); MCV 100.7 fL (80.0-100.0); Macrocytosis Slight; Mean Platelet Volume 8.4; Monocytes # (A) 0.3 k/uL (0-1.0); Monocytes % (A) 4 %; Neutrophils # (A) 5.1 k/uL (1.3-7.7); Neutrophils % (A) 58 %; Platelet Count 287 k/uL (150-450); RBC 4.13 m/uL (4.30-5.90); RDW 13.7 % (11.5-15.5); WBC 8.7 k/uL (3.8-10.6)
[2023-10-05 16:38] LABS: ALT 22 U/L (4-49); AST 40 U/L (17-59); African American GFR (CKD) 82 (>60 ml/min/1.73 sqM); Albumin 4.2 g/dL (3.5-5.0); Alkaline Phosphatase 78 U/L (38-126); Anion Gap 9 mmol/L; Blood Urea Nitrogen 24 mg/dL (9-20); Calcium 8.8 mg/dL (8.4-10.2); Carbon Dioxide 30 mmol/L (22-30); Chloride 100 mmol/L (98-107); Glucose 94 mg/dL (74-99); Non-African American GFR(CKD) 71 (>60 ml/min/1.73 sqM); Potassium 3.9 mmol/L (3.5-5.1); Sodium 139 mmol/L (137-145); Total Protein 7.9 g/dL (6.3-8.2)
[2023-10-05 16:39] LABS: African American GFR (CKD) 83 (>60 ml/min/1.73 sqM); Anion Gap 10 mmol/L; Blood Urea Nitrogen 24 mg/dL (9-20); Calcium 8.8 mg/dL (8.4-10.2); Carbon Dioxide 30 mmol/L (22-30); Chloride 100 mmol/L (98-107); Glucose 92 mg/dL (74-99); Non-African American GFR(CKD) 72 (>60 ml/min/1.73 sqM); Sodium 140 mmol/L (137-145)
[2023-10-05 16:55] LABS: T4, Free (Free Thyroxine) 1.19 ng/dL (0.78-2.19)
--- NOTE | 2023-10-05 18:20 | XR ---
EXAMINATION TYPE: XR chest 2V DATE OF EXAM: 10/05/2023 6:14 PM CLINICAL INDICATION:Male, 32 years old with history of progress CHF; [facility] COMPARISON: Multiple dating back to 08/29/2022 TECHNIQUE: XR chest 2V Frontal and lateral views of the chest. FINDINGS: Lungs/Pleura: There is no evidence of pleural effusion, focal consolidation, or pneumothorax. Pulmonary vascularity: Pulmonary vascularity not significantly changed from 10/03/2023 Heart/mediastinum: Cardiomediastinal silhouette is unremarkable. Musculoskeletal: No acute osseous pathology. IMPRESSION: Stable exam with cardiomegaly and pulmonary vascular prominence.
[2023-10-05] MEDS: MINOCYCLINE 50 MG CAP PO SCH (21:21)
--- NOTE | 2023-10-06 00:39 | PN ---
PROGRESS NOTE DATE OF SERVICE: 10/05/2023 CHIEF COMPLAINT: Congestive heart failure and chest discomfort. HISTORY OF PRESENT ILLNESS: This gentleman is doing well. He is not having any further chest discomfort. His troponins were elevated, however. He is less short of breath. PHYSICAL EXAMINATION: VITAL SIGNS: Normal. His blood pressure is slightly low with a diastolic around 100. HEENT: Face demonstrates erythematous scaly rash and this is probably rosacea. CHEST: Demonstrates very few rales and rhonchi at this point. CARDIAC: Normal. ABDOMEN: Protuberant, soft and nontender. EXTREMITIES: Normal. IMPRESSION: 1. Acute congestive heart failure. 2. Chronic congestive heart failure. 3. Hypothyroidism. 4. Rosacea. PLAN: 1. Repeat laboratory studies. 2. Minocin 100 mg twice a day and Flagyl cream to the face twice a day. Continue management of his heart failure. Thyroid functions will also be repeated. MMODL / IJN: [id number] /
[2023-10-06 06:15] LABS: Glucose,Whole Blood 90 mg/dL (70-110)
[2023-10-06] MEDS: ASPIRIN 325 MG TAB PO ONE (06:15)
[2023-10-06] MEDS: ATORVASTATIN 80 MG TAB PO ONE (06:15)
[2023-10-06] MEDS ORDERED: HEPARIN SODIUM,PORCINE (1 ML) 2,500 UNIT in SODIUM CHLORIDE 0.9% 250 ML IRRIGATION PRN (07:00)
[2023-10-06] MEDS ORDERED: HEPARIN SODIUM,PORCINE 10,000 UNIT in SODIUM CHLORIDE 0.9% 1,000 ML IRRIGATION PRN (07:00)
[2023-10-06] MEDS: SODIUM CHLORIDE 0.9% 1,000 ML IV SCH (07:48)
[2023-10-06] MEDS ORDERED: VERAPAMIL 2.5 MG/ML 2 ML AMP ONE (08:41)
[2023-10-06] MEDS ORDERED: HEPARIN SODIUM 1,000 UN/ML (10ML VL) ONE (08:41)
[2023-10-06] MEDS ORDERED: LIDOCAINE 1% INJ 10MG/ML (20 ML MDV) ONE (08:41)
[2023-10-06] MEDS ORDERED: fentaNYL (PF) 50 MCG/ML 2 ML AMP ONE (08:42)
[2023-10-06] MEDS: fentaNYL (PF) 50 MCG/ML 2 ML AMP IVP ONE (09:11)
[2023-10-06] MEDS: MIDAZOLAM 2 MG/2 ML VIAL IVP ONE (09:11)
[2023-10-06] MEDS: LIDOCAINE 1% INJ 10MG/ML (20 ML MDV) SQ ONE (09:12)
[2023-10-06] MEDS: VERAPAMIL SYRINGE (5 MG/10 ML) INTRAARTER ONE (09:14)
[2023-10-06] MEDS: HEPARIN SODIUM 1,000 UN/ML (10ML VL) IVP ONE (09:16)
[2023-10-06] MEDS: IOPAMIDOL-370 100ML BTL INJ ONE (09:23)
[2023-10-06] MEDS: SODIUM CHLORIDE 0.9% 1,000 ML IV ONE (09:23)
--- NOTE | 2023-10-06 09:28 | P.CARDCATH ---
Description of Procedure: PROCEDURES PERFORMED: Left heart catheterization, bilateral coronary angiography, ultrasound guided arterial access INDICATION: NSTEMI, cardiomyopathy CONSENT:I have discussed the risks, benefits and alternative therapies for the above-mentioned procedure and for both sedation/analgesia as well as necessary blood product administration, if indicated, as they pertain to this patient. The patient has indicated understanding and acceptance of the risks and procedures discussed. PROCEDURE: After the risks, benefits and alternatives of the above mentioned procedure explained in detail with the patient, informed consent was obtained. Patient was taken to the catheterization lab and prepped and draped in usual fashion. Ultrasound guidance was used to assess for arterial access. 1% lidocaine was used to anesthetize the right radial artery. A 6-Fijian sheath was placed in the right radial artery using modified Seldinger technique and ultrasound guidance. Left coronary angiography was performed with a 5-Fijian JL 3.5 catheter and right coronary angiography was performed with a 5-Fijian FR5 catheter in various views. A 5-Fijian FR5 catheter was inserted into the left ventricle and pressure measurements were obtained. The right radial sheath was removed and a TR band was placed with hemostasis achieved. The patient tolerated the procedure well. Patient was transported back to the post catheterization holding area in stable condition. Conscious Sedation: Patient was monitored under the direct supervision of myself for conscious sedation using Versed and fentanyl for a total duration of 12 minutes HEMODYNAMICS: Aorta: 111/79 LV: 121/21, LVEDP 39 SELECTIVE CORONARY ARTERIOGRAPHY: LEFT MAIN: The left main is a large caliber vessel which bifurcates into the LAD and circumflex. There is no significant stenosis. LEFT ANTERIOR DESCENDING CORONARY ARTERY: LAD is a large caliber vessel which wraps around to the apex. There is no significant stenosis. LEFT CIRCUMFLEX CORONARY ARTERY: Left circumflex is a moderate caliber vessel without significant stenosis. RIGHT CORONARY ARTERY: The right coronary artery is a large caliber vessel which gives off a PDA and PLV branch and is the dominant vessel. There is no significant stenosis. FINAL IMPRESSION: 1. Normal coronary arteries as described above. 2. Significantly elevated left sided filling pressures PLAN: 1. Aggressive risk factor modification per most recent ACC/AHA guidelines. 2. Follow-up in the office in 1-2 weeks.
[2023-10-06 12:47] LABS: African American GFR (CKD) >90 (>60 ml/min/1.73 sqM); Calcium 8.7 mg/dL (8.4-10.2); Glucose 97 mg/dL (74-99); Non-African American GFR(CKD) 89 (>60 ml/min/1.73 sqM)
[2023-10-06 12:49] LABS: Anion Gap 9 mmol/L; Blood Urea Nitrogen 21 mg/dL (9-20); Carbon Dioxide 29 mmol/L (22-30); Chloride 101 mmol/L (98-107); Sodium 139 mmol/L (137-145)
[2023-10-06 12:58] LABS: Potassium 4.6 mmol/L (3.5-5.1)
[2023-10-06 15:28] LABS: Albumin 4.1 g/dL (3.8-4.9); Protein, Total 7.5 g/dL (6.2-8.2)
--- NOTE | 2023-10-06 19:19 | PN ---
PROGRESS NOTE DATE OF SERVICE: 10/06/2023 CHIEF COMPLAINT: Chest pain. HISTORY OF PRESENT ILLNESS: This gentleman is doing well. He went for cardiac cath today and coronary arteries are clear. PHYSICAL EXAMINATION: CHEST: Clear. CARDIAC: Normal. ABDOMEN: Soft and nontender. IMPRESSION: 1. Chest pain. 2. Congestive heart failure. 3. Cardiomyopathy. 4. Hypothyroidism. 5. Rosacea. Continue to monitor his congestive heart failure. His TSH is elevated and I may raise his Synthroid above 0.3. IMPRESSION: 1. Acute on chronic congestive heart failure. 2. Cardiomyopathy. 3. Profound hypothyroidism. 4. Rosacea. PLAN: Probably release in the next day or 2. MMODL / IJN: [id number] /
[2023-10-07 09:13] VITALS: TEMP 98.6
[2023-10-07 11:45] LABS: Free Lambda Lt Chain Qnt, Seru 3.15 mg/dL (0.57-2.63)
[2023-10-07 15:36] VITALS: BP 104/76; PULSE 81
--- NOTE | 2023-10-07 16:02 | P.PN ---
Subjective Progress Note Date: 10/07/23 Consult reason: chest pain (PATRICE, CHF) History of present illness: History of present illness: This is a 32-year-old male patient of Dr. Fleming with past medical history of hypertension, previous pericardial effusion secondary to hypothyroidism, severe cardiomyopathy with a EF of 15% in 2021, right heart failure, chronic kidney disease stage IIIa. We have been asked to evaluate the patient for chest pain, difficulty in breathing, CHF. Patient is seen today in the emergency center waiting for a bed on the cardiac stepdown unit. Patient states that he has had a cough for 4 months along with shortness of breath. He states that he has no sputum production but is felt hot and cold. He states he has recently had some weight gain and weight loss. Patient has significant dyspnea on exertion with minimal activity. He also has orthopnea. Patient also relates that he has had left-sided chest pain for the past week when he is walking but sometimes happens when he sitting. Chest pain is worse when he has a hard cough. Patient states that he has been taking all of his medications as directed and not getting improvement. Patient received 1 dose of IV Lasix 40 mg and started on oral 40 mg and received nebulizer treatment. Patient states that he is smoking half pack per day. He denies any marijuana, illicit drug use or alcohol use. Tristin edge's mom has history of heart failure. EKG sinus rhythm Chest x-ray: No acute process. CTA of the chest revealed no evidence of central pulmonary embolism. Limited evaluation of the segmental and subsegmental branches. Multiple small pulmonary infiltrates bilaterally suggestive of infectious or inflammatory process. Consider atypical viral infections. Mildly enlarged pulmonary trunk can be seen with pulmonary hypertension. Moderate cardiomegaly and moderate-sized pericardial effusion. Slight reflux and contrast in the liver suggesting right heart insufficiency. WBC 9.3, hemoglobin 12.7, platelet count 257. INR 1.1. D-dimer 0.73. Electrolytes are within normal limits. BUN 18 creatinine 1.26. Blood sugar 102. Total bilirubin 1.7. Troponin 0.094, 0.091 and 0.080. Influenza A, in fluenza B, RSV, COVID-19 not detected. Home cardiac medications: Lasix 40 mg daily, Entresto 49-51 mg 1 twice daily, Aldactone 25 mg daily, patient is also on levothyroxine 300 mg daily Echocardiogram performed 04/04/2023 revealed very technically difficult study. Unable to quantify EF given no contrast agent used however EF appears to be less than 35%. 10/05 Patient is seen in follow-up today on the cardiac stepdown unit. Echocardiogram verbally reported as EF of 15 to 20%. Blood pressure 99/66, heart rate in the 90s. Pulse ox 97% on 2 L nasal cannula. Chemistry panel ordered for tomorrow. Patient complains of chest hurting when he coughs and when he walks to the bathroom. Patient states he feels a little better from yesterday. Frequent coughing noted. 10/07 Yesterday, patient underwent cardiac catheterization that showed normal coronary arteries and increased left-sided filling pressures. Patient continues to have cough. He has been maintained on Aldactone and Entresto, systolic blood pressure has been on the lower side. Patient has been maintained on IV Lasix 40 mg twice daily. Physical examination: Gen: This is a 32-year-old morbidly obese male, no acute distress VS: reviewed HEENT: Head is atraumatic, normocephalic. Pupils equal, round. Sclerae is anicteric. LUNGS: Diminished with scattered rhonchi. No intercostal retractions. HEART: Distant heart sounds. Regular rate and rhythm. No murmur. ABDOMEN: Soft, obese. No tenderness. EXTREMITIES: 2+ right, 1+ left pedal edema. No calf tenderness. Dorsalis pedis +2 bilaterally. NEUROLOGICAL: Patient is awake, alert and oriented x3. Assessment: Acute on chronic systolic heart failure Severe cardiomyopathy with a EF of 15 to 20%, nonischemic Right heart failure Pericardial effusion, chronic Hypertension Chronic kidney disease Tobacco use and dependence Plan: Continue patient's home cardiac medications Transition IV Lasix to oral 40 mg every 12 hours Monitor RALPH, daily weights, electrolytes and renal function Start patient on Jardiance 10 mg daily and Toprol 12.5 mg daily Patient is cleared for discharge home. Nurse practitioner note has been reviewed, I agree with documented findings and plan of care. Patient was seen and examined. Objective - Vital Signs Vital signs: Vital Signs Temp 98.6 F 10/07/23 08:43 Pulse 81 10/07/23 15:30 Resp 18 10/07/23 15:30 BP 104/76 10/07/23 15:30 Pulse Ox 95 10/07/23 15:30 FiO2 Intake & Output 10/06/23 10/07/23 10/07/23 18:59 06:59 18:59 Intake Total 515 360 Output Total 1850 575 600 Balance -8875 -575 -000 Weight 148.5 kg Intake: IV 75 Oral 440 360 Output: Urine 1850 575 600 Other: Voiding Method Toilet Toilet Toilet Urinal Urinal Urinal # Voids 1 1 - Labs CBC & Chem 7: 10/05/23 15:32 10/06/23 12:04 Labs: Abnormal Lab Results - Last 24 Hours (Table) 10/06/23 10/06/23 Range/Units 12:05 12:05 Free H. [place] LC, Quant 4.81 H (0.33-1.94) mg/dL Free L[place] LC, Quant 3.15 H (0.57-2.63) mg/dL
[2023-10-07] MEDS: METOPROLOL SUCCINATE (ER) 25 MG TAB.ER.24H PO SCH (16:09)
[2023-10-07] MEDS: FUROSEMIDE 40 MG TAB PO SCH (16:09)
[2023-10-07] MEDS: DAPAGLIFLOZIN PROPANEDIOL 10 MG TABLET PO SCH (16:09)
--- NOTE | 2023-10-07 19:58 | DS ---
DISCHARGE SUMMARY CHIEF COMPLAINT: Chest pain, and shortness of breath. HISTORY OF PRESENT ILLNESS AND PHYSICAL EXAMINATION: Details of this man's history and physical can be found in the initial workup. LABORATORY STUDIES: While he was in the hospital, he had laboratory studies, details of which can be found in the laboratory section of his chart. COURSE IN THE HOSPITAL: After admission, he was placed on bedrest and started on intravenous fluids and had serial EKGs and enzymes. Troponins are elevated. He was taken to the operating room for cardiac cath and his coronary arteries were normal. He did well postoperatively. He has been profoundly hypothyroid and his TSH was still very high, even though his free T4 is borderline low normal. He will be discharged on his usual activity and medications and his thyroid will be increased to 0.4 mg a day and to be followed up in several days. FINAL DIAGNOSES: 1. Chest pain, noncardiac. 2. Congestive heart failure. 3. Elevated troponin. 4. Cardiomyopathy. 5. Profound hypothyroidism. 6. Rosacea. OPERATIONS: Cardiac cath. CONSULTATIONS: Cardiology. He is improved. MMSHANELLE / COLTN: [id number] /
[2023-10-08] MEDS ORDERED: LEVOTHYROXINE 100 MCG TAB PO SCH (06:30)
--- NOTE | 2023-10-09 22:16 | HP ---
HISTORY AND PHYSICAL CHIEF COMPLAINT: Chest pain and shortness of breath. HISTORY OF PRESENT ILLNESS AND PHYSICAL EXAMINATION: Details of this man's history and physical can be found in the initial workup. LABORATORY STUDIES: While he was in the hospital, he had laboratory studies, details of which can be found in the laboratory section of his chart. COURSE IN THE HOSPITAL: After admission, he was placed on bedrest, started on intravenous fluids and had serial EKGs and enzymes. His troponin was elevated. He was seen by Cardiology. He was eventually taken for cardiac cath, and coronary arteries were normal. REVIEW OF SYSTEMS: He had no diaphoresis, syncope, confusion, etc. He does have cardiomyopathy, congestive heart failure, and profound hypothyroidism. Past medical history, family history, and personal and social histories are all otherwise unremarkable. PHYSICAL EXAMINATION: VITAL SIGNS: Normal. HEAD, EARS, EYES, NOSE, MOUTH AND THROAT: Demonstrated a facial rash probably consistent with rosacea. It could be seborrhea. He did have some periorbital edema. CHEST: Clear. CARDIAC: Sinus with no murmurs or extra sounds. ABDOMEN: Soft, nontender. EXTREMITIES: Normal. NEUROLOGIC: He is intact. ASSESSMENT: He is admitted to the hospital with diagnoses of: 1. Chest pain. 2. Elevated troponins. 3. Cardiomyopathy. 4. Acute on chronic congestive heart failure. 5. Profound hypothyroidism. PLAN: 1. Bedrest. 2. IV fluids. 3. Serial EKGs and enzymes. 4. Cardiology consult. 5. Reassess hypothyroidism. MMODL / IJN: [id number] /
[2023-10-10 07:25] LABS: Gamma Globulin 1.5 g/dL (0.70-1.50)
--- NOTE | 2023-10-10 21:53 | CDI ---
Documentation Clarification Form Date: 10/10/2023 09:37:47 PM From: More Santiago Phone: Admit Date: 10/04/2023 07:06:00 AM Patient Name: Mark Hernandez Visit Number: [id number] Discharge Date: 10/07/2023 05:54:00 PM ATTENTION: The Clinical Documentation Specialists (CDI) and [facility] Coding Staff appreciate your assistance in clarifying documentation. Please respond to the clarification below the line at the bottom and electronically sign. The CDI & [facility] Coding staff will review the response and follow-up if needed. Please note: Queries are made part of the Legal Health Record. If you have any questions, please contact the author of this message via ITS. Dr. Christopher Valdez Your patient has the documented diagnosis of Rt heart failure per Cardio Consult and Progress Notes. Additional information regarding the type and acuity of CHF is requested. History/Risk Factors: 32yo M, ACSHF, HTN, CKD IIIa, severe NICM EF of 15% in 2021, PHTN, morbid obesity, profound hypothyroidism, Rt heart failure, chronic pericardial effusion Clinical Indicators: VS/Pulse OX: 89-95% BNP: 7160 Echocardiogram Results: Echocardiogram verbally reported as EF of 15 to 20%. Chest x ray: Stable exam withcardiomegalyand pulmonary vascular prominence. Treatment: Transition IV Lasix to oral 40 mg every 12 hours. Monitor RALPH, daily weights, electrolytes and renal function. Start patient on Jardiance 10 mg daily and Toprol 12.5 mg daily. Patient is cleared for discharge home. In your professional opinion, can you please clarify the type and acuity of right heart failure if known? [ ] Right heart failure due to Acute on chronic systolic (congestive) heart failure [ X] Biventricular heart failure [ ] Right heart failure ruled out [ ] Other, please specify [ ] Unable to determine (Template Last Revised: October 2020) MTDD
[2023-10-11] MEDS ORDERED: ERGOCALCIFEROL 1,250 MCG (50,000 IU) CAPSULE PO SCH (09:00)
== END 2023-10-07 17:54 | disposition home or self-care (01) | DRG 192 ==
LOC: EC 13:15 → 3SCARD 22:34 → OBSVTOIN 10-04 07:06 → 3SCARD 10-04 15:58
PROVIDERS: ADMIT Family Medicine; ATTEND Family Medicine
PROC: 4A023N7 Measurement of Cardiac Sampling and Pressure, Left Heart, Percutaneous Approach (ICD-10-PCS; principal; 2023-10-06 08:30)
PROC: B2111ZZ Fluoroscopy of Multiple Coronary Arteries using Low Osmolar Contrast (ICD-10-PCS; 2023-10-06 08:30)
DX: I13.0 Hypertensive heart and chronic kidney disease with heart failure and stage 1 through stage 4 chronic kidney disease, or unspecified chronic kidney disease (principal); I31.39 Other pericardial effusion (noninflammatory); I27.22 Pulmonary hypertension due to left heart disease; I42.8 Other cardiomyopathies; N18.31 Chronic kidney disease, stage 3a; Z68.42 Body mass index [BMI] 45.0-49.9, adult; E66.01 Morbid (severe) obesity due to excess calories; E03.8 Other specified hypothyroidism; I50.23 Acute on chronic systolic (congestive) heart failure; I50.82 Biventricular heart failure; J30.1 Allergic rhinitis due to pollen; H91.90 Unspecified hearing loss, unspecified ear; L71.9 Rosacea, unspecified; Z79.51 Long term (current) use of inhaled steroids; Z79.890 Hormone replacement therapy; Z87.891 Personal history of nicotine dependence; Z11.52 Encounter for screening for COVID-19; Z82.49 Family history of ischemic heart disease and other diseases of the circulatory system; Z79.899 Other long term (current) drug therapy; Z88.0 Allergy status to penicillin; Z91.011 Allergy to milk products
CPT/HCPCS: 36415; 71046; 71275; 76937; 80048; 80053; 83605; 83880; 83883; 84165; 84436; 84439; 84443; 84484; 85025; 85379; 85610; 85730; 87636; 93005; 93306; 93458; 94640; 94760; 96374; 96376; 99285

== ENCOUNTER → 2023-11-28 | Outpatient (CLI) | payer OTHER ==
--- NOTE | 2023-12-05 10:11 | P.HOLTER ---
24 Hour Holter monitor note: Patient wore a Holter monitor for 24 hrs from 11/28/2023 through 11/29/2023. Findings: Patient's baseline heart rate was normal sinus rhythm. There were no signficant atrial fibrillation, atrial flutter, or ventricular tachycardia episodes. There were no significant pauses greater than 2 seconds. Patient's minimum heart rate was 56. Patient's maximum heart rate was 114. Patient's average heart rate was 81. There were rare PVCs and PACs which were asymptomatic There were 5 patient activated events which corresponded with normal sinus rhythm Conclusions: 24-hour Holter monitor showing normal sinus rhythm and rare asymptomatic PVCs and PACs. Patient activated events corresponding with normal sinus rhythm.
--- NOTE | 2023-12-06 10:01 | HM ---
24 Hour Holter monitor note: Patient wore a Holter monitor for 24 hrs from 11/28/2023 through 11/29/2023. Findings: Patient's baseline heart rate was normal sinus rhythm. There were no significant atrial fibrillation, atrial flutter, or ventricular tachycardia episodes. There were no significant pauses greater than 2 seconds. Patient's minimum heart rate was 56. Patient's maximum heart rate was 114. Patient's average heart rate was 81. There were rare PVCs and PACs which were asymptomatic There were 5 patient activated events which corresponded with normal sinus rhythm Conclusions: 24-hour Holter monitor showing normal sinus rhythm and rare asymptomatic PVCs and PACs. Patient activated events corresponding with normal sinus rhythm. [facility]
== END | disposition home or self-care (01) ==
LOC: RADECHMAIN 12:41
PROVIDERS: ATTEND Family Medicine
DX: I50.9 Heart failure, unspecified (principal); R55 Syncope and collapse; I49.8 Other specified cardiac arrhythmias
CPT/HCPCS: 93225; 93226

== ENCOUNTER 2024-08-12 19:05 | Observation (INO) | payer OTHER ==
--- NOTE | 2024-08-12 19:40 | ED ---
Back Pain HPI - General Chief Complaint: Back Pain/Injury Stated Complaint: sharp pain on left side of back Time Seen by Provider: 08/12/24 19:12 Source: patient, RN notes reviewed Mode of arrival: ambulatory Limitations: no limitations - History of Present Illness Initial Comments: This is a 33-year-old male who presents to the emergency department for back pain. Patient reports left lower back pain over the last month. Denies any known injuries. States that he usually takes ibuprofen and this gets better. However, today he took ibuprofen and the pain was still severe. Pain is much worse with movement. States that inhalation also makes it worse. Additionally, patient has a history of cardiomyopathy and heart failure. He ran out of his ca rdiac medication and has not taken any of it for at least a month. States that he has recently started to experience chest pain as well, most recently today. Chest pain is most noticeable with exertion. Reports some associated shortness of breath as well. MD Complaint: back pain - Related Data Home Medications Medication Instructions Recorded Confirmed Albuterol Inhaler [Ventolin Hfa 1 - 2 puff INHALATION RT-Q6H PRN 09/02/23 Inhaler] Budesonide/Formoterol Fumarate 2 puff INHALATION RT-BID 09/02/23 10/03/23 [Symbicort 160-4.5 Mcg Inhaler] Cholecalciferol (Vitamin D3) 1,250 mcg PO QMONTHLY 09/02/23 10/03/23 [Vitamin D3 (1250 Mcg = 50,000 Iu)] Fenofibrate [Lofibra] 160 mg PO DAILY 09/02/23 10/03/23 Sacubitril/Valsartan [Entresto 49 1 tab PO BID 09/02/23 10/03/23 mg-51 mg Tablet] Spironolactone [Aldactone] 25 mg PO DAILY 09/02/23 10/03/23 Previous Rx's Medication Instructions Recorded Fluticasone Nasal [place] [Flonase 2 spr EA NOSTRIL DAILY #16 gm 09/02/23 Nasal [place]] Empagliflozin [Jardiance] 10 mg PO DAILY #90 tablet 10/07/23 Furosemide [Lasix] 40 mg PO BID #180 tab 10/07/23 Levothyroxine Sodium [Synthroid] 400 mcg PO DAILY@0630 #30 tab 10/07/23 Metoprolol Succinate (ER) [Toprol 12.5 mg PO DAILY #90 tab 10/07/23 XL] Minocycline [Minocin] 100 mg PO Q12HR #60 cap 10/07/23 metroNIDAZOLE 0.75% CREAM 1 applic TOPICAL BID 30 Days #60 gm 10/07/23 [Metrocream 0.75%] Allergies Allergy/AdvReac Type Severity Reaction Status Date / Time bee pollen Allergy Rash/Hives Verified 08/12/24 19:08 Penicillins Allergy Unknown Verified 08/12/24 19:08 Childhood lactose AdvReac Diarrhea Verified 08/12/24 19:08 Review of Systems ROS Statement: Those systems with pertinent positive or pertinent negative responses have been documented in the HPI. ROS Other: All systems not noted in ROS Statement are negative. Past Medical History Past Medical History: Chest Pain / Angina, Heart Failure, Hearing Disorder / Deafness, Hypertension, Sleep Apnea/CPAP/BIPAP Additional Past Medical History / Comment(s): no cpap used (patient states he has had several nurses tell him he looks like he has sleep apnea, however he was tested by sleep medicine and was told he does not have sleep apnea) hemorrhoids, pinched nerve in neck, torn tendon rt foot History of Any Multi-Drug Resistant Organisms: None Reported Past Surgical History: Ear Surgery, Tonsillectomy Additional Past Surgical History / Comment(s): tube rt ear, colonoscopy, hemorrhoid removal Past Anesthesia/Blood Transfusion Reactions: No Reported Reaction Past Psychological History: Depression Smoking Status: Former smoker Past Alcohol Use History: None Reported Past Drug Use History: None Reported - Past Family History Mother Family Medical History: Congestive Heart Failure (CHF) Father Family Medical History: Liver Disease Additional Family Medical History / Comment(s): Father from cirrhosis of the liver General Exam Limitations: no limitations General appearance: alert, in no apparent distress Head exam: Present: atraumatic, normocephalic, normal inspection Respiratory exam: Present: normal lung sounds bilaterally. Absent: respiratory distress, wheezes, rales, rhonchi, stridor Cardiovascular Exam: Present: regular rate, normal rhythm, normal heart sounds. Absent: systolic murmur, diastolic murmur, rubs, gallop, clicks GI/Abdominal exam: Present: soft, normal bowel sounds. Absent: distended, tenderness, guarding, rebound, rigid Neurological exam: Present: alert, oriented X3, CN II-XII intact Psychiatric exam: Present: normal affect, normal mood Skin exam: Present: warm, dry, intact, normal color. Absent: rash Course Vital Signs 08/12/24 08/12/24 08/12/24 19:06 21:18 21:43 Temperature 99.4 F Pulse Rate 92 79 73 Respiratory 18 17 16 Rate Blood Pressure 163/110 163/116 142/100 O2 Sat by Pulse 97 96 95 Oximetry Medical Decision Making - Medical Decision Making This is a 33-year-old male who presents to the emergency department for back pain and chest pain. Was pt. sent in by a medical professional or institution? @ -No Did you speak to anyone other than the patient for history? @ -No Did you review nursing and triage notes? @ -Yes, and I agree, it is accurate with regards to the patient's symptoms. Were old charts reviewed? @ -No Differential Diagnosis? @ -Differential Back Pain: Strain, zoster, cauda equina syndrome, epidural abscess, vertebral osteo myelitis, discitis, fracture, subluxation, disc herniation, DJD, spinal stenosis, dissection, AAA, pancreatitis, peptic ulcer disease, pyelonephritis, kidney stone, this is not meant to be an all-inclusive list. EKG interpreted by me (3pts min.)? @ -EKG interpreted by me demonstrating the following: Sinus rhythm. Ventricular rate 79 bpm, [place] interval 176 ms, QRS duration 104 ms, QTc 441 ms. X-rays interpreted by me (1pt min.)? @ -Chest x-ray obtained, my interpretation identifies no localized consolidations or infiltrates. X-ray of the lumbar spine obtained. My interpretation identifies no acute fractures. CT interpreted by me (1pt min.)? @ -CTA of the chest obtained. My interpretation identifies no evidence of a pulmonary embolus. CT scan of the abdomen and pelvis obtained. My interpretation identifies no evidence of a ureteral calculus. U/S interpreted by me (1pt. min.)? @ -Not obtained What testing was considered but not performed? (CT, X-rays, U/S, labs)? Why? @ -None What meds were considered but not given? Why? @ -None Did you discuss the management of the patient with other professionals? @ -Yes, Dr. Parsons, who accepts the patient for admission. Did you reconcile home meds? @ -No Was smoking cessation discussed for >3mins.? @ -No Was critical care preformed (if so, how long)? @ -Yes, >35 minutes Were there social determinants of health that impacted care today? How? (Homelessness, low income, unemployed, alcoholism, drug addiction, transportation, low edu. Level, literacy, decrease access to med. care, [facility], rehab)? @ -No Was there de-escalation of care discussed even if they declined? (Discuss DNR or withdrawal of care, Hospice)? @ -No What co-morbidities impacted this encounter? (DM, HTN, Smoking, COPD, CAD, Cancer, CVA, Hep., AIDS, mental health diagnosis, sleep apnea, morbid obesity)? @ -Cardiomyopathy, heart failure Was patient admitted / discharged? @ -Admitted. Lab work demonstrates an elevated troponin of 0.041. Patient has had elevated troponins in the past, most recently in September of this year. However, he does report experiencing acute chest pain today. Patient was subs equently started on a heparin drip. X-rays of the chest and lumbar spine revealed no acute process. When the patient was able to provide a urine sample that did demonstrate blood. We subsequently proceeded with a CT scan of the abdomen and pelvis to evaluate for any signs of a ureteral calculus to account for the patient's back pain. CTA of the chest was obtained as well to evaluate for any potential pulmonary embolus. Both CT scans were unremarkable aside from a small pericardial effusion. Patient admitted to medicine for chest pain, back pain, and elevated troponin. Consult placed for cardiology and serial troponins ordered. Case discussed with ED attending Dr. Bay. Undiagnosed new problem with uncertain prognosis? @ -None Drug Therapy requiring intensive monitoring for toxicity (Heparin, Nitro, Insulin, Cardizem)? @ -Heparin Were any procedures done? @ -None Diagnosis/symptom? @ -Chest pain, back pain, elevated troponin Acute, or Chronic, or Acute on Chronic? @ -Acute Uncomplicated (without systemic symptoms) or Complicated (systemic symptoms)? @ -Complicated Side effects of treatment? @ -None Exacerbation, Progression, or Severe Exacerbation] @ -Not applicable Poses a threat to life or bodily function? @ -Yes, if due to ACS can lead to cardiac arrest and - Lab Data Result diagrams: 08/12/24 19:39 12/08/24 19:39 Lab Results 08/12/24 08/12/24 08/12/24 Range/Units 19:39 19:39 19:39 WBC 8.0 (3.8-10.6) k/uL RBC 4.38 (4.30-5.90) m/uL Hgb 14.4 (13.0-17.5) gm/dL Hct 42.1 (39.0-53.0) % MCV 96.1 (80.0-100.0) fL MCH 32.8 (25.0-35.0) pg MCHC 34.2 (31.0-37.0) g/dL RDW 13.2 (11.5-15.5) % Plt Count 211 (150-450) k/uL MPV 7.3 Neutrophils % 62 % Lymphocytes % 26 % Monocytes % 4 % Eosinophils % 5 % Basophils % 1 % Neutrophils # 5.0 (1.3-7.7) k/uL Lymphocytes # 2.1 (1.0-4.8) k/uL Monocytes # 0.3 (0-1.0) k/uL Eosinophils # 0.4 (0-0.7) k/uL Basophils # 0.1 (0-0.2) k/uL PT 11.3 (10.0-12.5) sec INR 1.0 (<1.2) APTT 28.6 (22.0-30.0) sec Sodium 137 (137-145) mmol/L Potassium 3.7 (3.5-5.1) mmol/L Chloride 107 (98-107) mmol/L Carbon Dioxide 25 (22-30) mmol/L Anion Gap 5 mmol/L BUN 10 (9-20) mg/dL Creatinine 0.89 (0.66-1.25) mg/dL Est GFR (CKD-EPI)AfAm >90 (>60 ml/min/1.73 sqM) Est GFR (CKD-EPI)NonAf >90 (>60 ml/min/1.73 sqM) Glucose 115 H (74-99) mg/dL Calcium 8.7 (8.4-10.2) mg/dL Magnesium 1.8 (1.6-2.3) mg/dL Total Bilirubin 0.7 (0.2-1.3) mg/dL AST 66 H (17-59) U/L ALT 61 H (4-49) U/L Alkaline Phosphatase 99 (38-126) U/L Troponin I (0.000-0.034) ng/mL NT-Pro-B Natriuret Pep 474 pg/mL Total Protein 7.4 (6.3-8.2) g/dL Albumin 4.1 (3.5-5.0) g/dL Lipase 106 (23-300) U/L Urine Color Urine Appearance (Clear) Urine pH (5.0-8.0) Ur Specific [place] (1.001-1.035) Urine Protein (Negative) Urine Glucose (UA) (Negative) Urine Ketones (Negative) Urine Blood (Negative) Urine Nitrite (Negative) Urine Bilirubin (Negative) Urine Urobilinogen (<2.0) mg/dL Ur Leukocyte Esterase (Negative) Urine RBC (0-5) /hpf Urine WBC (0-5) /hpf Urine Mucus (None) /hpf 08/12/24 08/12/24 Range/Units 19:39 21:04 WBC (3.8-10.6) k/uL RBC (4.30-5.90) m/uL Hgb (13.0-17.5) gm/dL Hct (39.0-53.0) % MCV (80.0-100.0) fL MCH (25.0-35.0) pg MCHC (31.0-37.0) g/dL RDW (11.5-15.5) % Plt Count (150-450) k/uL MPV Neutrophils % % Lymphocytes % % Monocytes % % Eosinophils % % Basophils % % Neutrophils # (1.3-7.7) k/uL Lymphocytes # (1.0-4.8) k/uL Monocytes # (0-1.0) k/uL Eosinophils # (0-0.7) k/uL Basophils # (0-0.2) k/uL PT (10.0-12.5) sec INR (<1.2) APTT (22.0-30.0) sec Sodium (137-145) mmol/L Potassium (3.5-5.1) mmol/L Chloride (98-107) mmol/L Carbon Dioxide (22-30) mmol/L Anion Gap mmol/L BUN (9-20) mg/dL Creatinine (0.66-1.25) mg/dL Est GFR (CKD-EPI)AfAm (>60 ml/min/1.73 sqM) Est GFR (CKD-EPI)NonAf (>60 ml/min/1.73 sqM) Glucose (74-99) mg/dL Calcium (8.4-10.2) mg/dL Magnesium (1.6-2.3) mg/dL Total Bilirubin (0.2-1.3) mg/dL AST (17-59) U/L ALT (4-49) U/L Alkaline Phosphatase (38-126) U/L Troponin I 0.041 H* (0.000-0.034) ng/mL NT-Pro-B Natriuret Pep pg/mL Total Protein (6.3-8.2) g/dL Albumin (3.5-5.0) g/dL Lipase (23-300) U/L Urine Color Light Yellow Urine Appearance Clear (Clear) Urine pH 6.0 (5.0-8.0) Ur Specific [place] 1.016 (1.001-1.035) Urine Protein Trace H (Negative) Urine Glucose (UA) Negative (Negative) Urine Ketones Negative (Negative) Urine Blood Moderate H (Negative) Urine Nitrite Negative (Negative) Urine Bilirubin Negative (Negative) Urine Urobilinogen <2.0 (<2.0) mg/dL Ur Leukocyte Esterase Negative (Negative) Urine RBC 33 H (0-5) /hpf Urine WBC 2 (0-5) /hpf Urine Mucus Rare H (None) /hpf - Radiology Data Radiology results: report reviewed, image reviewed Critical Care Time Critical Care Time: Yes Critical Care Time: >35 minutes Disposition Clinical Impression: Chest pain, Back pain, Elevated troponin Disposition: ADMITTED IP TO THIS HOSP Referrals: Marcelino Parsons MD [Primary Care Provider] - 1-2 days
[2024-08-12] MEDS: ORPHENADRINE 30 MG/ML 2 ML VIAL IVP STA (19:43)
[2024-08-12] MEDS: KETOROLAC 15 MG/ML 1 ML VIAL IVP STA (19:43)
[2024-08-12] MEDS: LIDOCAINE 4% PATCH TOPICAL ONE (19:44)
[2024-08-12] MEDS: MORPHINE SULFATE 4 MG/ML SYRINGE IVP STA (19:44)
[2024-08-12 19:59] LABS: Basophils # (A) 0.1 k/uL (0-0.2); Basophils % (A) 1 %; Eosinophils # (A) 0.4 k/uL (0-0.7); Eosinophils % (A) 5 %; HCT 42.1 % (39.0-53.0); HGB 14.4 gm/dL (13.0-17.5); Lymphocytes # (A) 2.1 k/uL (1.0-4.8); Lymphocytes % (A) 26 %; MCH 32.8 pg (25.0-35.0); MCHC 34.2 g/dL (31.0-37.0); MCV 96.1 fL (80.0-100.0); Mean Platelet Volume 7.3; Monocytes # (A) 0.3 k/uL (0-1.0); Monocytes % (A) 4 %; Neutrophils % (A) 62 %; Platelet Count 211 k/uL (150-450); RBC 4.38 m/uL (4.30-5.90); RDW 13.2 % (11.5-15.5)
--- NOTE | 2024-08-12 20:01 | XR ---
EXAMINATION TYPE: XR chest 2V DATE OF EXAM: 08/12/2024 7:54 PM COMPARISON: Previous chest 10/05/2023. CLINICAL INDICATION: Male, 33 years old with history of Chest Pain; [facility] TECHNIQUE: XR chest 2V Frontal and lateral views of the chest. FINDINGS: Lungs/Pleura: There is no evidence of pleural effusion, focal consolidation, or pneumothorax. Pulmonary vascularity: Unremarkable. Heart/mediastinum: Borderline cardiomegaly, possibly technique related. Musculoskeletal: No acute oss eous pathology. Other findings: None IMPRESSION: No acute cardiopulmonary disease/process. [facility], , 08/12/2024 7:58 PM
--- NOTE | 2024-08-12 20:04 | XR ---
EXAMINATION TYPE: XR lumbar spine 2 or 3V DATE OF EXAM: 08/12/2024 7:54 PM COMPARISON: Previous radiograph of 17,020. CLINICAL INDICATION: Male, 33 years old with history of Pain; H TECHNIQUE: XR lumbar spine 2 or 3V - Frontal, lateral and coned in L5-S1 lateral views of the spine. FINDINGS: No evidence of any acute osseous pathology. No evidence of loss of vertebral body height i s seen. There is normal alignment of the lumbar vertebral bodies. Mild multilevel facet arthropathy a nd minimal intervertebral disc space loss. Minimal anterior osteophyte formation. No evidence of spon dylolysis or spondylolisthesis. IMPRESSION: No acute fracture or subluxation. [facility], , 08/12/2024 8:01 PM
[2024-08-12 20:05] LABS: Partial Thromboplastin Time 28.6 sec (22.0-30.0); Prothrombin Time 11.3 sec (10.0-12.5)
[2024-08-12 20:37] LABS: ALT 61 U/L (4-49); AST 66 U/L (17-59); African American GFR (CKD) >90 (>60 ml/min/1.73 sqM); Albumin 4.1 g/dL (3.5-5.0); Alkaline Phosphatase 99 U/L (38-126); Anion Gap 5 mmol/L; Blood Urea Nitrogen 10 mg/dL (9-20); Calcium 8.7 mg/dL (8.4-10.2); Carbon Dioxide 25 mmol/L (22-30); Chloride 107 mmol/L (98-107); Glucose 115 mg/dL (74-99); Lipase 106 U/L (23-300); Magnesium 1.8 mg/dL (1.6-2.3); Non-African American GFR(CKD) >90 (>60 ml/min/1.73 sqM); Potassium 3.7 mmol/L (3.5-5.1); Sodium 137 mmol/L (137-145); Total Bilirubin 0.7 mg/dL (0.2-1.3); Total Protein 7.4 g/dL (6.3-8.2)
[2024-08-12 20:45] LABS: NT-Pro-B-Type Natriuretic Pept 474 pg/mL
[2024-08-12] MEDS: HYDROmorphone 1 MG/ML 1 ML SYRINGE IVP STA (20:47)
[2024-08-12 21:11] LABS: Appearance,Urine Clear (Clear); Bilirubin,Urine Negative (Negative); Blood,Urine Moderate (Negative); Color,Urine Light Yellow; Glucose,Urine (UA) Negative (Negative); Ketones,Urine Negative (Negative); Leukocyte Esterase,Urine Negative (Negative); Mucus,Urine Rare /hpf; Nitrite,Urine Negative (Negative); Protein,Urine Trace (Negative); RBC,Urine 33 /hpf (0-5); Specific Gravity,Urine 1.016 (1.001-1.035); Urobilinogen,Urine <2.0 mg/dL (<2.0); WBC,Urine 2 /hpf (0-5)
[2024-08-12] MEDS ORDERED: ONDANSETRON 4 MG/2 ML VIAL IVP PRN (21:38)
[2024-08-12] MEDS ORDERED: NALOXONE 0.4 MG/ML 1 ML VIAL IV PRN (21:38)
[2024-08-12] MEDS ORDERED: ACETAMINOPHEN TAB 325 MG TAB PO PRN (21:38)
[2024-08-12] MEDS: HEPARIN SODIUM 1,000 UN/ML (10ML VL) IV ONE (21:40)
[2024-08-12] MEDS: HEPARIN SOD,PORK IN 0.45% NACL 25,000 UNIT in 0.45% NACL 1 250ML.BAG IV SCH (21:40)
--- NOTE | 2024-08-12 21:53 | CT ---
EXAMINATION TYPE: CT chest angio for PE DATE OF EXAM: 08/12/2024 9:44 PM COMPARISON: CT chest study dated 10/03/2023.c CLINICAL INDICATION: Male, 33 years old with history of Chest pain, back pain, PATRICE; Chest pain, back pain, PATRICE TECHNIQUE/CONTRAST: CTA scan of the thorax is performed with IV Contrast, patient injected with 100ml mL of Isovue 370, M IP images are created and reviewed these are created on a separate workstation.. CT DLP: 3761.6 mGycm, Automated exposure control for dose reduction was used. FINDINGS: Pulmonary Artery: There is no evidence for a filling defect within the pulmonary vasculature to sugge st acute pulmonary embolism. The pulmonary artery is of normal size. Lungs/Pleura: No evidence of focal consolidation, pleural effusion or pneumothorax. Airway: Large airways are patent. Heart: Cardiomegaly and small volume pericardial effusion. Vasculature: No evidence of aortic aneurysm. Mediastinum: No gross evidence of adenopathy. Musculoskeletal: No acute osseous abnormalities Soft Tissues/lymph nodes: Unremarkable. Lower neck: No significant findings. Upper Abdomen: No significant findings. Hepatic steatosis. IMPRESSION: 1. No evidence of acute pulmonary embolism. 2. Cardiomegaly and small volume pericardial effusion. [facility], , 08/12/2024 9:51 PM
--- NOTE | 2024-08-12 22:00 | CT ---
EXAMINATION TYPE: CT abdomen pelvis w con DATE OF EXAM: 08/12/2024 9:44 PM COMPARISON: Previous CT study 02/22/2022. CLINICAL INDICATION: Male, 33 years old with history of Hematuria, left sided back pain; Chest pain, back pain, PATRICE TECHNIQUE: Axial CT abdomen pelvis w con;Sagittal and coronal reformats were created on a separate w orkstation. Contrast used:100ml mL of Isovue 370 with IV Contrast, (none if empty) Oral contrast used: without Oral Contrast (none if empty) CT DLP: 3761.6 mGycm, Automated exposure control for dose reduction was used. FINDINGS: LOWER CHEST: Unremarkable ABDOMEN LIVER: Diffusely hypoattenuating parenchyma. GALLBLADDER AND BILE DUCTS: Layering increased densities within the lumen consistent with gallstones are present. PANCREAS: Unremarkable. SPLEEN: Splenomegaly measuring 13.8 cm in craniocaudal dimension. ADRENAL GLANDS: Unremarkable. KIDNEYS AND URETERS: Nonobstructing bilateral renal calculi. No evidence of hydronephrosis. Simple ap pearing cysts in the right kidney. PELVIS BLADDER: No evidence for wall thickening or mass given limitations of exam. REPRODUCTIVE: Unremarkable. ABDOMEN & PELVIS STOMACH AND BOWEL: Stomach and duodenum are unremarkable No evidence of bowel obstruction. PERITONEUM/RETROPERITONEUM: No evidence of pneumoperitoneum or free fluid. VASCULATURE: No evidence of aortic aneurysm. Retroaortic left renal vein. MUSCULOSKELETAL: No acute osseous abnormalities LYMPH NODES: No gross evidence for lymphadenopathy. SOFT TISSUE/ABDOMINAL WALL: Unremarkable IMPRESSION: No acute abnormality in the abdomen/pelvis. [facility], , 08/12/2024 9:58 PM
[2024-08-13] MEDS: MORPHINE SULFATE 4 MG/ML SYRINGE IV PRN (02:51)
[2024-08-13 03:19] LABS: Basophils # (A) 0.1 k/uL (0-0.2); Basophils % (A) 1 %; Eosinophils # (A) 0.4 k/uL (0-0.7); Eosinophils % (A) 6 %; HCT 41.7 % (39.0-53.0); HGB 14.4 gm/dL (13.0-17.5); Lymphocytes # (A) 2.2 k/uL (1.0-4.8); Lymphocytes % (A) 31 %; MCH 33.8 pg (25.0-35.0); MCHC 34.6 g/dL (31.0-37.0); MCV 97.9 fL (80.0-100.0); Mean Platelet Volume 7.6; Monocytes # (A) 0.3 k/uL (0-1.0); Monocytes % (A) 4 %; Neutrophils # (A) 4.1 k/uL (1.3-7.7); Neutrophils % (A) 57 %; Platelet Count 200 k/uL (150-450); RBC 4.26 m/uL (4.30-5.90); RDW 14.2 % (11.5-15.5); WBC 7.2 k/uL (3.8-10.6)
[2024-08-13 03:28] LABS: Partial Thromboplastin Time 33.9 sec (22.0-30.0); Prothrombin Time 10.8 sec (10.0-12.5)
[2024-08-13] MEDS: HEPARIN SODIUM 1,000 UN/ML (10ML VL) IV PRN (04:57)
[2024-08-13] MEDS: PANTOPRAZOLE 40 MG/10 ML VIAL IV SCH (08:33)
[2024-08-13] MEDS ORDERED: LOSARTAN 50 MG TAB PO SCH (18:15)
--- NOTE | 2024-08-13 18:30 | P.CRDCN ---
History of Present Illness History of present illness: This is Dr. Fraser dictating a consult on this patient The patient was interviewed and examined IMPRESSION / ASSESSMENT: Impression patient presented with low back pain ongoing for about a month He also complains of shortness of breath and chest pain according to the note by the ER Hence troponins were sent which although abnormal have a flat trend Patient has a known cardiomyopathy with normal coronary arteries by recent cardiac catheterization and significantly elevated left-sided pressures by Dr. Valdez transfer to Left ventricular ejection fraction less than 35% with moderate pericardial effusion in 2022 His pericardial effusion is chronic Abnormal troponins in the setting of chronic cardiomyopathy PLAN: Continue Entresto Continue Aldactone Switch to Lasix p.o. 40 daily Start carvedilol 6.25 mg twice daily He has had a detailed workup regarding cardiomyopathy and now he needs to be compliant with his medications Follow-up 2D echo and Doppler study with Definity contrast HPI Patient presented to the hospital for low back pain which she has been experie ncing for the last 1 month. He has been taking a lot of ibuprofen He also started complaining of chest pain recently mostly with exertion. He also has shortness of breath on exertion He has known cardiomyopathy and he says he has a family history of cardiomyopathy and has seen Dr. Caballero in the past but has not seen him for at least 1 to 2 years. Noncompliant with cardiomyopathy medications Past history of hypertension sleep apnea congestive heart failure ROS: No fever chills or rigors, no cough, phlegm or expectoration, no nausea, vomiting or diarrhea, no hematuria, dysuria, no musculoskeletal complaints, no strokes or seizures, no skin lesions. EXAMINATION: Normal heart sounds are regular Normal breath sounds Blood pressure 153/97 mmHg pulse rate in the 80s afebrile REVIEW OF LABS, ECG & MEDICAL DATA Chest x-ray does not show any acute process CT of the chest did not show any pulmonary embolism. Small pericardial effusion on CT EKG shows sinus rhythm with QRS fractionation in the inferior leads with a narrow QRS normal QT interval Normal white count normal hemoglobin normal platelet count Normal electrolytes normal renal function Mildly abnormal troponins but flat trend of 0.04 x 3 Past Medical History Past Medical History: Chest Pain / Angina, Heart Failure, Hearing Disorder / Deafness, Hypertension, Sleep Apnea/CPAP/BIPAP Additional Past Medical History / Comment(s): no cpap used (patient states he has had several nurses tell him he looks like he has sleep apnea, however he was tested by sleep medicine and was told he does not have sleep apnea) hemorrhoids, pinched nerve in neck, torn tendon rt foot History of Any Multi-Drug Resistant Organisms: None Reported Past Surgical History: Ear Surgery, Tonsillectomy Additional Past Surgical History / Comment(s): tube rt ear, colonoscopy, hemo rrhoid removal Past Anesthesia/Blood Transfusion Reactions: No Reported Reaction Past Psychological History: Depression Smoking Status: Former smoker Past Alcohol Use History: None Reported Past Drug Use History: None Reported - Past Family History Mother Family Medical History: Congestive Heart Failure (CHF) Father Family Medical History: Liver Disease Additional Family Medical History / Comment(s): Father from cirrhosis of the liver Medications and Allergies Home Medications Medication Instructions Recorded Confirmed Type Ibuprofen [Motrin Ib] 400 mg PO Q6H PRN 08/13/24 08/13/24 History Allergies Allergy/AdvReac Type Severity Reaction Status Date / Time bee pollen Allergy Rash/Hives Verified 08/13/24 07:16 Penicillins Allergy Unknown Verified 08/13/24 07:16 Childhood lactose AdvReac Diarrhea Verified 08/13/24 07:16 Physical Exam Vitals: Vital Signs Temp Pulse Resp BP Pulse Ox 08/13/24 12:41 98.0 F 78 20 152/94 98 08/13/24 11:37 18 08/13/24 09:41 85 17 98 08/13/24 08:36 78 15 153/97 98 08/13/24 07:37 16 08/13/24 06:25 67 16 153/97 98 08/13/24 02:56 97.8 F 67 15 145/96 97 08/13/24 02:49 73 16 144/100 98 08/13/24 00:47 71 14 140/99 93 L 08/12/24 23:11 71 16 134/91 93 L 08/12/24 21:43 73 16 142/100 95 08/12/24 21:18 79 17 163/116 96 08/12/24 19:06 99.4 F 92 18 163/110 97 Intake and Output 08/13/24 08/13/24 08/13/24 06:59 14:59 22:59 Intake Total 72.848 113.191 63.961 Output Total 230 Balance -157.152 113.191 63.961 Intake: Intake, IV Titration 72.848 113.191 63.961 Amount Heparin Sod,Pork in 0.45% 72.848 113.191 63.961 NaCl 25,000 unit In 0.45 % NaCl 1 250ml.bag @ 6.3 UNITS/KG/HR 10.002 mls/hr IV .Q24H [facility] Rx#: [id number] Output: Urine 230 Other: # Voids 1 Results 08/13/24 03:08 08/12/24 19:39 Cardiac Enzymes 08/12/24 08/12/24 08/13/24 Range/Units 19:39 19:39 00:36 AST 66 H (17-59) U/L Troponin I 0.041 H* 0.044 H* (0.000-0.034) ng/mL 08/13/24 Range/Units 03:08 AST (17-59) U/L Troponin I 0.041 H* (0.000-0.034) ng/mL Coagulation 08/12/24 08/13/24 08/13/24 Range/Units 19:39 03:08 11:16 PT 11.3 10.8 (10.0-12.5) sec APTT 28.6 33.9 H 47.5 H (22.0-30.0) sec CBC 08/12/24 08/13/24 Range/Units 19:39 03:08 WBC 8.0 7.2 (3.8-10.6) k/uL RBC 4.38 4.26 L (4.30-5.90) m/uL Hgb 14.4 14.4 (13.0-17.5) gm/dL Hct 42.1 41.7 (39.0-53.0) % Plt Count 211 200 (150-450) k/uL Comprehensive Metabolic Panel 08/12/24 Range/Units 19:39 Sodium 137 (137-145) mmol/L Potassium 3.7 (3.5-5.1) mmol/L Chloride 107 (98-107) mmol/L Carbon Dioxide 25 (22-30) mmol/L BUN 10 (9-20) mg/dL Creatinine 0.89 (0.66-1.25) mg/dL Glucose 115 H (74-99) mg/dL Calcium 8.7 (8.4-10.2) mg/dL AST 66 H (17-59) U/L ALT 61 H (4-49) U/L Alkaline Phosphatase 99 (38-126) U/L Total Protein 7.4 (6.3-8.2) g/dL Albumin 4.1 (3.5-5.0) g/dL Current Medications Generic Name Dose Route Start Last Admin Trade Name Freq PRN Reason Stop Dose Admin Acetaminophen 650 mg 08/12/24 21:38 Acetaminophen Tab 325 Mg Tab PO Q6HR PRN Mild Pain or Fever > 100.5 Hydrocodone Bitart/Acetaminophen 1 each 08/12/24 21:38 Hydrocodone/Apap 5-325mg 1 Each Tab PO Q4HR PRN Moderate Pain (Scale 4 to 6) Furosemide 40 mg 08/13/24 18:15 Furosemide 40 Mg Tab PO TID [facility] Heparin Sodium (Porcine) 0 unit 08/12/24 21:06 08/13/24 04:57 Heparin Sodium 1,000 Un/Ml (10ml Vl) IV 4,000 unit PER PROTOCOL PRN Administration Low PTT Protocol Heparin Sodium/Sodium Chloride 250 mls @ 10.002 mls/hr 08/12/24 21:15 08/13/24 17:06 25,000 unit/ Sodium Chloride IV 9.3 units/kg/hr .Q24H [facility] 14.764 mls/hr Administration Protocol 6.3 UNITS/KG/HR Levothyroxine Sodium 100 mcg 08/14/24 06:30 Levothyroxine 100 Mcg Tab PO DAILY@0630 [facility] Morphine Sulfate 4 mg 08/12/24 21:38 08/13/24 02:51 Morphine Sulfate 4 Mg/Ml Syringe IV 4 mg Q4HR PRN Administration Severe Pain (Scale 7 to 10) Naloxone HCl 0.2 mg 08/12/24 21:38 Naloxone 0.4 Mg/Ml 1 Ml Vial IV Q2M PRN Opioid Reversal Ondansetron HCl 4 mg 08/12/24 21:38 Ondansetron 4 Mg/2 Ml Vial IVP Q8HR PRN Nausea And Vomiting Pantoprazole Sodium 40 mg 08/13/24 09:00 08/13/24 08:33 Pantoprazole 40 Mg/10 Ml Vial IV 40 mg DAILY [facility] Administration Sacubitril/Valsartan 1 each 08/13/24 21:00 Sacubitril/Valsartan 97 Mg-103 Mg Tablet PO BID [facility] Spironolactone 25 mg 08/14/24 09:00 Spironolactone 25 Mg Tab PO DAILY [facility] Intake and Output 08/13/24 08/13/24 08/13/24 06:59 14:59 22:59 Intake Total 72.848 113.191 63.961 Output Total 230 Balance -157.152 113.191 63.961 Intake: Intake, IV Titration 72.848 113.191 63.961 Amount Heparin Sod,Pork in 0.45% 72.848 113.191 63.961 NaCl 25,000 unit In 0.45 % NaCl 1 250ml.bag @ 6.3 UNITS/KG/HR 10.002 mls/hr IV .Q24H [facility] Rx#: [id number] Output: Urine 230 Other: # Voids 1 08/13/24 03:08 08/12/24 19:39
[2024-08-13 19:02] LABS: T4, Free (Free Thyroxine) 0.17 ng/dL (0.78-2.19)
[2024-08-13] MEDS: carvediloL 6.25 MG TAB PO SCH (19:38)
[2024-08-13] MEDS: FUROSEMIDE 40 MG TAB PO SCH ×2 (19:38→19:42)
[2024-08-13] MEDS: SACUBITRIL/VALSARTAN 97 MG-103 MG TABLET PO SCH (23:39)
[2024-08-13] MEDS: HYDROcodone/APAP 5-325MG 1 EACH TAB PO PRN (23:39)
--- NOTE | 2024-08-14 00:25 | HP ---
HISTORY AND PHYSICAL CHIEF COMPLAINT: Chest pain. HISTORY OF PRESENT ILLNESS: This is another admission for this 33-year-old white male, who came to the emergency room with chest pain and his troponins were elevated. He is also complaining of low back pain. His past history is significant and that he is profoundly hypothyroid and has secondary cardiomyopathy and congestive heart failure. He was doing well on his medication program a year or 2 ago and then disappeared from followup. He states that there is a definitive family and he no longer in transportation. REVIEW OF SYSTEMS: Otherwise unremarkable. He denies significant shortness of breath. Remainder of his history is unremarkable. PHYSICAL EXAMINATION: VITAL SIGNS: His blood pressure is elevated. HEAD, EARS, EYES, NOSE, MOUTH, AND THROAT: Revealed facial edema consistent with myxedema. CHEST: Clear. CARDIAC: Unremarkable. ABDOMEN: Soft, nontender. EXTREMITIES: Normal. IMPRESSION: 1. Chest pain with elevated troponins. 2. Myxedema. 3. Hypothyroidism. 4. Cardiomyopathy. 5. Congestive heart failure. PLAN: 1. Bed rest. 2. IV fluids. 3. Serial EKGs and enzymes. 4. Cardiology consult. 5. Started on program to manage congestive heart failure and hypertension. 6. Resume thyroid management. MMODL / IJN: [id number] /
[2024-08-14] MEDS: LEVOTHYROXINE 100 MCG TAB PO SCH (06:13)
[2024-08-14] MEDS: SPIRONOLACTONE 25 MG TAB PO SCH (08:21)
--- NOTE | 2024-08-14 10:26 | P.PN ---
Subjective HISTORY OF PRESENT ILLNESS: Patient examined this morning in the emergency room. Patient currently denies chest pain or pressure. He denies shortness of breath. Vital signs are stable. Telemetry reveals sinus mechanism. PHYSICAL EXAM: VITAL SIGNS: Reviewed. GENERAL: Well-developed in no acute distress. NECK: Supple. No JVD or thyromegaly LUNGS: Respirations even and unlabored. Lungs essentially clear to auscultation bilaterally. HEART: Regular rate and rhythm. S1 and S2 heard. EXTREMITIES: Normal range of motion. No clubbing or cyanosis. Peripheral pulses intact. No lower extremity edema ASSESSMENT: Lower back pain Normal coronary arteries Nonischemic cardiomyopathy, 35% Pericardial effusion Abnormal troponins, flat, no evidence of myocardial injury or ischemia Chronic heart failure with reduced EF, currently euvolemic Hypertension Obstructive sleep apnea Morbid obesity: BMI 50.2 PLAN: Continue current cardiac medications Medication compliance reinforced Patient is currently stable from a cardiac standpoint with no further inpatient recommendations We will sign off. Please reconsult if needed. Nurse practitioner note has been reviewed by physician. Signing provider agrees with the documented findings, assessment, and plan of care documented by ONCOLOGIST as a scribe. Objective - Vital Signs Vital signs: Vital Signs Temp 97.7 F 08/14/24 08:18 Pulse 73 08/14/24 08:18 Resp 24 08/14/24 08:18 BP 131/86 08/14/24 08:18 Pulse Ox 98 08/14/24 08:18 FiO2 Intake & Output 08/13/24 08/14/24 08/14/24 18:59 06:59 18:59 Intake Total 177.152 Output Total 600 Balance -422.848 Intake: Intake, IV Titration 177.152 Amount Heparin Sod,Pork in 0.45% 177.152 NaCl 25,000 unit In 0.45 % NaCl 1 250ml.bag @ 6.3 UNITS/KG/HR 10.002 mls/hr IV .Q24H [facility] Rx#: [id number] Output: Urine 600 - Labs CBC & Chem 7: 08/13/24 03:08 08/12/24 19:39 Labs: Abnormal Lab Results - Last 24 Hours (Table) 08/13/24 08/13/24 08/14/24 Range/Units 11:16 18:17 06:20 APTT 47.5 H 32.0 H (22.0-30.0) sec Free T4 0.17 L (0.78-2.19) ng/dL
--- NOTE | 2024-08-15 01:49 | PN ---
PROGRESS NOTE DATE OF SERVICE: 08/14/2024 CHIEF COMPLAINT: Chest pain. HISTORY OF PRESENT ILLNESS: This gentleman is not having any further chest pain. He is not having any significant shortness of breath. PHYSICAL EXAMINATION: HEENT: Face remains edematous. CHEST: Clear. CARDIAC: Unremarkable. ABDOMEN: Soft, nontender. IMPRESSION: 1. Chest pain. 2. Cardiomyopathy. 3. Myxedema. PLAN: 1. Review laboratory studies. 2. Start levothyroxine. 3. Wait for any further recommendations from Cardiology. MMODL / IJN: [id number] /
--- NOTE | 2024-08-15 08:06 | CA ---
Transthoracic Echo Report Name: Mark Hernandez Age: 33 Gender: M : 1990 Exam Date: 08/14/2024 13:27 Exam Location: [place] [facility] Ht (in): 70 Wt (lb): 350 Ordering Physician: Marcelino Parsons MD Attending/Referring Phys: Issa CANALES [employer] Noemi Miguel, PARMJIT Procedure CPT: Indications: chf Cardiac Hx: CHF Technical Quality: Poor, Very technically difficult study Contrast 1: Definity Total Dose (mL): 2 Contrast 2: Total Dose (mL): MEASUREMENTS (Male / Female) Normal Values 2D ECHO LV Diastolic Diameter PLAX 5.4 cm 4.2 - 5.9 / 3.9 - 5.3 cm LV Systolic Diameter PLAX 4.3 cm IVS Diastolic Thickness 1.4 cm 0.6 - 1.0 / 0.6 - 0.9 cm LVPW Diastolic Thickness 1.5 cm 0.6 - 1.0 / 0.6 - 0.9 cm LV Relative Wall Thickness 0.5 RV Internal Dim ED PLAX 2.7 cm M-MODE Aortic Root Diameter MM 3.1 cm LA Systolic Diameter MM 3.8 cm LA Ao Ratio MM 1.2 FINDINGS Left Ventricle Left ventricular ejection fraction is estimated at 40% %. Mildly increased septal wall thickness. Moderately reduced global left ventricular systolic function. Right Ventricle Right ventricle not well visualized. Right Atrium Right atrium not well visualized. Left Atrium Left atrium not well visualized. Mitral Valve Mitral valve not well visualized. Aortic Valve Aortic valve not well visualized. Tricuspid Valve Tricuspid valve not well visualized. Pulmonic Valve Pulmonic valve not well visualized. Pericardium Small pericardial effusion. Aorta Normal size aortic root and proximal ascending aorta. CONCLUSIONS Technically difficult study because of body habitus. Ejection fractions in the 40-45% range. Echo contrast was used. Mild to moderate global decrease in contractility. Doppler exam cannot be interpreted Previewed by: Dr. Iggy Hammonds MD (Electronically Signed) Final Date: 15 August 2024 08:05
[2024-08-15] MEDS: IOPAMIDOL CONTRAST (ORAL USE) VIAL PO PRN (12:04)
--- NOTE | 2024-08-15 13:28 | CT ---
EXAMINATION TYPE: CT abdomen w con CT DLP: 3295 mGycm, Automated exposure control for dose reduction was used. DATE OF EXAM: 08/15/2024 1:01 PM COMPARISON: CT abdomen pelvis 08/12/2024, 02/24/2022 CLINICAL INDICATION:Male, 33 years old with history of flank pain, hematuria; Flank pain, hematuria TECHNIQUE: Standard CT of the abdomen following the administration of 100 cc of Isovue 300 IV contr ast material and oral contrast. Coronal and sagittal reformats were performed. FINDINGS: LOWER CHEST: Mildly enlarged heart with small pericardial effusion. Visualized lung bases are clear. ABDOMEN LIVER: Diffusely hypoattenuating parenchyma. GALLBLADDER AND BILE DUCTS: Hyperdense material demonstrated within the gallbladder consistent with v icarious excretion of contrast and gallstones. No surrounding inflammatory changes. No biliary duct d ilatation. PANCREAS: Unremarkable. SPLEEN: Unremarkable. ADRENAL GLANDS: Unremarkable. KIDNEYS AND URETERS: No right hydronephrosis. No right ureteral calculi. Approximately 3 nonobstructi ve punctate right renal calculi. Minimal left hydronephrosis redemonstrated with an obstructive 6 mm calculus at the ureteropelvic junction again. Approximately 2 punctate nonobstructive left renal calc yaneth. The kidneys enhance symmetrically. Minimal left perinephric fat stranding. Retroaortic left jed l vein. Right renal 1.5 cm cyst with additional subcentimeter cyst in the lower pole. STOMACH AND BOWEL: Stomach and duodenum are unremarkable. Enteric contrast reaches the proximal small bowel. No focal bowel wall thickening or surrounding inflammatory changes. The appendix is within no rmal limits. No evidence of bowel obstruction. PERITONEUM: No evidence of pneumoperitoneum or free fluid. VASCULATURE: No evidence of aortic aneurysm. MUSCULOSKELETAL: No acute osseous abnormalities. Multilevel Schmorl's nodes. LYMPH NODES: No evidence for lymphadenopathy. SOFT TISSUE/ABDOMINAL WALL: Unremarkable IMPRESSION: 1. Minimal left hydronephrosis with an obstructing 6 mm calculus at the left ureteropelvic junction. 2. Hepatic steatosis. 3. Cholelithiasis. 4. Cardiomegaly with small pericardial effusion. [facility], , 08/15/2024 1:26 PM
--- NOTE | 2024-08-16 02:44 | PN ---
PROGRESS NOTE DATE OF SERVICE: 08/15/2024 CHIEF COMPLAINT: Chest pain. HISTORY OF PRESENT ILLNESS: This gentleman is doing well. Chest pain is improved. He is complaining of left flank pain and he has had gross hematuria by history. PHYSICAL EXAMINATION: CHEST: Clear. CARDIAC: Normal. He is a little bit tender in the left flank area. IMPRESSION: 1. Chest pain. 2. Congestive heart failure. 3. Myxedema. 4. Left flank pain. 5. Hematuria. PLAN: CT of the kidneys. He did have blood in his UA. MMODL / IJN: [id number] /
[2024-08-16 21:03] VITALS: RESP 18
[2024-08-17 11:40] VITALS: TEMP 98.1
[2024-08-17 15:26] VITALS: BP 119/72
[2024-08-17 15:35] VITALS: PULSE 73
--- NOTE | 2024-08-18 04:23 | PN ---
PROGRESS NOTE DATE OF SERVICE: 08/16/2024 PLAN: Continue diuresis and probably discharge in the next day or 2. MMODL / IJN: [id number] /
--- NOTE | 2024-08-18 06:08 | DS ---
DISCHARGE SUMMARY CHIEF COMPLAINT: Chest pain. HISTORY OF PRESENT ILLNESS AND PHYSICAL EXAM: Details of this man's history and physical can be found in the initial workup. LABORATORY STUDIES: While he was in the hospital, he had laboratory studies, details of which can be found in the laboratory section of his chart. COURSE IN THE HOSPITAL: After admission, he was placed on bedrest, started on intravenous fluids and was diuresed. He was seen by Cardiology. He had 2 troponins that elevated slightly. It is difficult to tell if this was related to cardiac ischemia or his profound hypothyroidism and congestive heart failure. He improved greatly in the hospital with diuretics and levothyroxine and was doing well and it was felt that he could go home on the . He was admonished to stay on his medications this time. He will be seen in the office in several days. He will also be followed up for the left flank pain and hematuria. FINAL DIAGNOSES: 1. Chest pain. 2. Non ST elevation myocardial infarction. 3. Acute on chronic congestive heart failure. 4. Hypothyroidism with myxedema. 5. Left flank pain. 6. Hematuria. OPERATIONS: None. CONSULTATIONS: Cardiology. He is improved. MMODL / IJN: [id number] /
[2024-08-18] MEDS ORDERED: LEVOTHYROXINE 100 MCG TAB PO SCH (06:30)
--- NOTE | 2024-08-20 08:15 | PN ---
PROGRESS NOTE DATE OF SERVICE: 08/16/2024 CHIEF COMPLAINT: Chest pain, CHF, and myxedema. HISTORY OF PRESENT ILLNESS: This gentleman is feeling a little bit better. He has had no further chest pain. Cardiology has cleared him. PHYSICAL EXAMINATION: VITAL SIGNS: Face still edematous, but he is looking much better. CHEST: Demonstrates scattered rales. CARDIAC: Normal. ABDOMEN: Soft, nontender. IMPRESSION: 1. Chest pain. 2. Cardiomyopathy. 3. Congestive heart failure. 4. Myxedema. DICTATION ENDS HERE MMODL / IJN: [id number] /
--- NOTE | 2024-08-20 08:15 | PN ---
PROGRESS NOTE DATE OF SERVICE: 08/13/2024 CHIEF COMPLAINT: Chest pain, myxedema, congestive heart failure. HISTORY OF PRESENT ILLNESS: This gentleman is stable. He is not having any pain. He has been seen by Cardiology. He is still slightly short of breath. PHYSICAL EXAMINATION: HEENT: Face is very puffy consistent with myxedema. CHEST: Clear. CARDIAC: Normal. ABDOMEN: Soft, nontender. IMPRESSION: 1. Myxedema. 2. Congestive heart failure. 3. Cardiomyopathy. PLAN: 1. Start thyroid. 2. Start diuretics. 3. Start management of his congestive heart failure. MMODL / IJN: [id number] /
--- NOTE | 2024-08-20 20:11 | CDI ---
Documentation Clarification Form Date: 08/20/2024 07:56:12 PM From: More Santiago Phone: Admit Date: 08/13/2024 02:03:00 PM Patient Name: Mark Hernandez Visit Number: [id number] Discharge Date: 08/17/2024 04:49:00 PM ATTENTION: The Clinical Documentation Specialists (CDI) and [facility] Coding Staff appreciate your assistance in clarifying documentation. Please respond to the clarification below the line at the bottom and electronically sign. The CDI & [facility] Coding staff will review the response and follow-up if needed. Please note: Queries are made part of the Legal Health Record. If you have any questions, please contact the author of this message via ITS. Doctor/Provider: Jarred Fraser Myocardial infarction (NV) is documented per DC Summary which may lack sufficient clinical evidence/support in the medical record. Additional clarification is requested. History/Risk Factors: 33yo M, NSTEMI, ACSHF, hypothyroidismwithmyxedema, HTN, hematuria, chronic pericardial effusion, NICM, DORIS, morbid obesity wBMI 50.2 Clinical Indicators: Troponin: 08/12 0.041 08/13 0.044 EKG Results: sinusrhythmwith QRS fractionation in the inferior leads with a narrow QRS normal QT interval Echo: Technically difficultstudybecause of body habitus. EF 40-45% range. Echo contrast was used. Mild to moderate global decrease in contractility. Dopplerexam cannot be interpreted Treatment: started on intravenous fluids and was diuresed. He was seen by Cardiology. He had 2 troponins thatelevated slightly. Please clarify if NSTEMI is a valid diagnosis? [ xx ] Unable to determine (Template Last Revised: February 2024) MTDD
--- NOTE | 2024-09-06 14:13 | CDI ---
Documentation Clarification Form Date: 09/06/2024 02:05:15 PM From: More Santiago Phone: Admit Date: 08/13/2024 02:03:00 PM Patient Name: Mark Hernandez Visit Number: [id number] Discharge Date: 08/17/2024 04:49:00 PM ATTENTION: The Clinical Documentation Specialists (CDI) and [facility] Coding Staff appreciate your assistance in clarifying documentation. Please respond to the clarification below the line at the bottom and electronically sign. The CDI & [facility] Coding staff will review the response and follow-up if needed. Please note: Queries are made part of the Legal Health Record. If you have any questions, please contact the author of this message via ITS. Doctor/Provider: Marcelino Parsons Myocardial infarction(SD) is documented per DC Summary which may lack sufficient clinical evidence/support in the medical record. Additional clarification is requested. History/Risk Factors: 33yo M,NSTEMI, ACSHF,hypothyroidismwithmyxedema,HTN, hematuria, NICM,DORIS,chronicpericardial effusion,morbid obesitywBMI 50.2 Clinical Indicators: Troponin: 08/12 0.041 08/13 0.044 EKG Results: sinusrhythmwith QRS fractionation in the inferior leads with a narrow QRS normal QT interval Echo: Technically difficultstudybecause of body habitus. EF 40-45% range. Echo contrast was used. Mild to moderate global decrease in contractility. Dopplerexam cannot be interpreted Treatment: started on IVF and was diuresed. He was seen by Cardiology. He had 2 troponins thatelevatedslightly. Please clarify ifNSTEMIis a valid diagnosis? [ ] Yes [ ] No [ ] Unable to determine (Template LastRevised: February 2024) MTDD
== END 2024-08-17 16:49 | disposition home or self-care (01) ==
LOC: EC 19:05 → 3SCARD 23:06 → OBSVTOIN 08-13 14:03 → INTOOBSV 08-13 14:03 → 3SCARD 08-13 17:18
PROVIDERS: ADMIT Family Medicine; ATTEND Family Medicine
DX: I21.4 Non-ST elevation (NSTEMI) myocardial infarction (principal); M54.50 Low back pain, unspecified; I11.0 Hypertensive heart disease with heart failure; I50.22 Chronic systolic (congestive) heart failure; G47.33 Obstructive sleep apnea (adult) (pediatric); F32.A Depression, unspecified; E03.9 Hypothyroidism, unspecified; I42.8 Other cardiomyopathies; I31.39 Other pericardial effusion (noninflammatory); R10.9 Unspecified abdominal pain; R31.9 Hematuria, unspecified; E66.01 Morbid (severe) obesity due to excess calories; Z68.43 Body mass index [BMI] 50.0-59.9, adult; Z87.891 Personal history of nicotine dependence; Z79.51 Long term (current) use of inhaled steroids; Z79.84 Long term (current) use of oral hypoglycemic drugs; Z79.899 Other long term (current) drug therapy; Z79.890 Hormone replacement therapy; Z88.0 Allergy status to penicillin; Z82.49 Family history of ischemic heart disease and other diseases of the circulatory system
CPT/HCPCS: 96376 ×6; 96365; 96366 ×3; 96374; 96375 ×2; 99291; 36415; 93005; 84439; 83880 ×2; 80053; 83690; 83735; 84484 ×2; 85025 ×2; 85610 ×2; 85730 ×3; 81001; 72100; 71046; 74160; 71275; 74177; G0378 ×7; C8929; J2270 ×3; J2360; Q9957; J1644 ×4; J1171; J1885; Q9967 ×2; J2470 ×5; 93306

== ENCOUNTER → 2024-09-07 | Outpatient (CLI) | payer OTHER ==
--- NOTE | 2024-09-07 17:34 | US ---
EXAMINATION TYPE: US venous doppler duplex LE LT DATE OF EXAM: 09/07/2024 2:30 PM COMPARISON: US(02/27/2022) CLINICAL INDICATION: Male, 33 years old with history of LLE; R06.9 Edema; lt leg edema and pain, Pain TECHNIQUE: The lower extremity deep venous system is examined utilizing real time linear array sonog adore with graded compression, color doppler sonography, and spectral doppler. SIDE PERFORMED: Left FINDINGS: VESSELS IMAGED: Common Femoral Vein Deep Femoral Vein Greater Saphenous Vein * Femoral Vein Popliteal Vein Small Saphenous Vein * Proximal Calf Veins (* superficial vessels) limited exam due to swelling and pt body habitus Left Leg: Negative for DVT, Color Doppler imaging shows patency of the vessels. Spectral waveforms a re within normal limits. IMPRESSION: Suboptimal study without ultrasound evidence for acute DVT [facility], , 09/07/2024 5:32 PM
--- NOTE | 2024-09-07 21:25 | US ---
EXAMINATION TYPE: US arterial LE single level DATE OF EXAM: 09/07/2024 3:09 PM COMPARISONS: None. CLINICAL INDICATION: Male, 33 years old with history of LLE; R06.9 Edema; TECHNIQUE: Systolic pressures were taken of the upper and lower extremity arteries with ankle-brachia l indices and toe brachial indices calculated bilaterally. History of: Smoker: Current Smoker Hypertension: No Diabetic: No Hyperlipidemia: Yes TIA/CVA: No Previous Vascular Surgery: No CAD: No CO: No Vascular Ulcers: No Claudication: Left Gangrene: No FINDINGS: Doppler Waveforms: Right: Multiphasic Left: Multiphasic Brachial Artery systolic pressure: Right: 166 Left: 154 Posterior Tibial artery systolic pressure: Right: 167 Left: 182 Dorsalis Pedis artery systolic pressure: Right: 174 Left: 176 Ankle-Brachial Indices: Right: 1.05 Left: 1.10 (Normal > 0.6; Mild 0.35 - 0.59, Moderate 0.12 - 0.34, Severe <0.12) IMPRESSION: NING: Right: Normal 0.9 - 1.4, Recommendation: None Left: Normal 0.9 - 1.4, Recommendation: None [facility], , 09/07/2024 9:22 PM
== END | disposition home or self-care (01) ==
LOC: RADUSWWP 13:49
PROVIDERS: ATTEND Student in an Organized Health Care Education/Training Program
DX: R60.0 Localized edema (principal); F17.200 Nicotine dependence, unspecified, uncomplicated; E78.5 Hyperlipidemia, unspecified
CPT/HCPCS: 93922

== ENCOUNTER → 2025-03-05 | Outpatient (CLI) | payer BC ==
[2025-03-05 19:54] LABS: Hepatitis B Surface AB- Quant 81.5 mIU/mL
[2025-03-05 20:59] LABS: Hepatitis C IgG Antibody Nonreactive (Nonreactive)
[2025-03-05 22:18] LABS: HIV 2 AB Non-Reactive (Non-Reactive); HIV AB P24 Non-Reactive (Non-Reactive); HIV P24 AG Non-Reactive (Non-Reactive)
== END | disposition home or self-care (01) ==
LOC: LABWHC1 14:33
PROVIDERS: ATTEND Internal Medicine
DX: Z13.9 Encounter for screening, unspecified (principal); Z76.89 Persons encountering health services in other specified circumstances
CPT/HCPCS: 36415; 86706; 86803; 87390

== ENCOUNTER 2025-03-13 08:47 | Emergency (ER) | payer BC, OTHER ==
--- NOTE | 2025-03-13 09:05 | ED ---
Recheck HPI - General Chief Complaint: Recheck/Abnormal Lab/Rx Stated Complaint: Labs Time Seen by Provider: 03/13/25 09:04 Source: patient, police, RN notes reviewed Mode of arrival: ambulatory Limitations: no limitations - History of Present Illness Initial Comments: 34 year old male accompanied by [facility] office presenting to the ER for syphillis testing. Per , at bedside, reports per court order patient is required to undergo syphilis testing. He states patient has had all other STD testings besides syphilis. Patient denies any physical complaints, rash, penile pain/discharge, no scrotal pain or swelling. No abdominal pain or fevers. - Related Data Home Medications Medication Instructions Recorded Confirmed Ibuprofen [Motrin Ib] 400 mg PO Q6H PRN 08/13/24 08/13/24 Previous Rx's Medication Instructions Recorded Furosemide [Lasix] 40 mg PO BID@0900,1600 #60 tab 08/17/24 Levothyroxine Sodium [Synthroid] 300 mcg PO DAILY@0630 #30 tab 08/17/24 Sacubitril/Valsartan [Entresto 97 1 each PO BID #60 tab 08/17/24 mg-103 mg Tablet] Spironolactone [Aldactone] 25 mg PO DAILY #30 tab 08/17/24 carvediloL [Coreg] 6.25 mg PO BID-W/MEALS #60 tab 08/17/24 Allergies Allergy/AdvReac Type Severity Reaction Status Date / Time bee pollen Allergy Rash/Hives Verified 08/13/24 07:16 Penicillins Allergy Unknown Verified 08/13/24 07:16 Childhood lactose AdvReac Diarrhea Verified 08/13/24 07:16 Review of Systems ROS Statement: Those systems with pertinent positive or pertinent negative responses have been documented in the HPI. ROS Other: All systems not noted in ROS Statement are negative. Past Medical History Past Medical History: Chest Pain / Angina, Heart Failure, Hearing Disorder / Deafness, Hypertension, Sleep Apnea/CPAP/BIPAP Additional Past Medical History / Comment(s): no cpap used (patient states he has had several nurses tell him he looks like he has sleep apnea, however he was tested by sleep medicine and was told he does not have sleep apnea) hemorrhoids, pinched nerve in neck, torn tendon rt foot History of Any Multi-Drug Resistant Organisms: None Reported Past Surgical History: Ear Surgery, Tonsillectomy Additional Past Surgical History / Comment(s): tube rt ear, colonoscopy, hemorrhoid removal Past Anesthesia/Blood Transfusion Reactions: No Reported Reaction Past Psychological History: Depression Smoking Status: Vaper Past Alcohol Use History: None Reported Past Drug Use History: None Reported - Past Family History Mother Family Medical History: Congestive Heart Failure (CHF) Father Family Medical History: Liver Disease Additional Family Medical History / Comment(s): Father from cirrhosis of the liver General Exam Limitations: no limitations General appearance: alert, in no apparent distress Respiratory exam: Present: normal lung sounds bilaterally. Absent: respiratory distress, wheezes, rales, rhonchi, stridor Cardiovascular Exam: Present: regular rate, normal rhythm, normal heart sounds. Absent: systolic murmur, diastolic murmur, rubs, gallop, clicks GI/Abdominal exam: Present: soft, normal bowel sounds. Absent: distended, tenderness, guarding, rebound, rigid Neurological exam: Present: alert, oriented X3, CN II-XII intact Skin exam: Present: warm, dry, intact, normal color. Absent: rash Course Vital Signs 03/13/25 03/13/25 08:52 09:24 Temperature 98.1 F 98.2 F Pulse Rate 83 76 Respiratory 16 20 Rate Blood Pressure 102/72 112/76 O2 Sat by Pulse 97 99 Oximetry Medical Decision Making - Medical Decision Making Was pt. sent in by a medical professional or institution (ELYSIA Jha, PRODUCE TEAM MEMBER, urgent care, hospital, or assisted...) When possible be specific @ -No Did you speak to anyone other than the patient for history (EMS, parent, family, police, friend...)? What history was obtained from this source @ -Merchandise Worker, at bedside, providing HPI. Did you review nursing and triage notes (agree or disagree)? Why? @ -I reviewed and agree with nursing and triage notes Were old charts reviewed (outside hosp., previous admission, EMS record, old EKG, old radiological studies, urgent care reports/EKG's, assisted records)? Report findings @ -No old charts were reviewed Differential Diagnosis (chest pain, altered mental status, abdominal pain women, abdominal pain men, vaginal bleeding, weakness, fever, dyspnea, syncope, headache, dizziness, GI bleed, back pain, seizure, CVA, palpatations, mental health, musculoskeletal)? @ -Gonorrhea, syphilis, chlamydia, trichomonas... This list is not meant to be all-inclusive EKG interpreted by me (3pts min.). @ -None done X-rays interpreted by me (1pt min.). @ -None done CT interpreted by me (1pt min.). @ -None done U/S interpreted by me (1pt. min.). @ -None done What testing was considered but not performed or refused? (CT, X-rays, U/S, labs)? Why? @ -None What meds were considered but not given or refused? Why? @ -Refused prophylactic treatment. Did you discuss the management of the patient with other professionals (professionals i.e. , PA, PRODUCE TEAM MEMBER, lab, RT, psych nurse, social insurance administrator, gold leaf laborer, teacher, credit products officer, shoe parts caser)? Give summary @ -No Was smoking cessation discussed for >3mins.? @ -No Was critical care preformed (if so, how long)? @ -No Were there social determinants of health that impacted care today? How? (Homelessness, low income, unemployed, alcoholism, drug addiction, transportation, low edu. Level, literacy, decrease access to med. care, shelter, rehab)? @ -Patient is currently incarcerated and has acourt order for syphilis testing. Was there de-escalation of care discussed even if they declined (Discuss DNR or withdrawal of care, Hospice)? DNR status @ -No What co-morbidities impacted this encounter? (DM, HTN, Smoking, COPD, CAD, Cancer, CVA, ARF, Chemo, Hep., AIDS, mental health diagnosis, sleep apnea, morbid obesity)? @ -None Was patient admitted / discharged? Hospital course, mention meds given and route, prescriptions, significant lab abnormalities, going to OR and other pertinent info. @ -Discharge. 34-year male presented to the ER accompanied by [facility] for syphilis testing. Vital signs stable. Patient denying any physical complaints. Syphilis test ordered and pending at time of discharge. Educated patient and that results are a send out and will take approximately 48 hours to return. Refused prophylactic treatment. Patient discharged in stable condition back in custody of 's. Return parameters discussed. Case discussed with ED attending, Dr.Bayudan. Undiagnosed new problem with uncertain prognosis? @ -No Drug Therapy requiring intensive monitoring for toxicity (Heparin, Nitro, Insulin, Cardizem)? @ -No Were any procedures done? @ -No Diagnosis/symptom? @ -Syphilis testing Acute, or Chronic, or Acute on Chronic? @ -Acute Uncomplicated (without systemic symptoms) or Complicated (systemic symptoms)? @ -Uncomplicated Side effects of treatment? @ -No Exacerbation, Progression, or Severe Exacerbation? @ -No Poses a threat to life or bodily function? How? (Chest pain, [place], MT, pneumonia, PE, COPD, DKA, ARF, appy, cholecystitis, CVA, Diverticulitis, Homicidal, Suicidal, threat to staff... and all critical care pts) @ -POssibly can lead to infertility - Lab Data Lab Results 03/13/25 Range/Units 09:22 Treponema pallidum Ab Nonreactive (Nonreactive) Disposition Clinical Impression: Screen for STD (sexually transmitted disease) Disposition: HOME SELF-CARE Condition: Stable Additional Instructions: Results take approximately 24 to 48 hours. Positive test results will be called back to you. Return to the ER for any new or worsening concerns Is patient prescribed a controlled substance at d/c from ED?: No Referrals: Lindy Frey DO [Primary Care Provider] - 1-2 days Time of Disposition: 09:14
[2025-03-13 09:28] VITALS: BP 112/76; PULSE 76; RESP 20; TEMP 98.2
== END 2025-03-13 09:25 | disposition home or self-care (01) ==
LOC: EC 08:47
DX: R79.9 Abnormal finding of blood chemistry, unspecified (principal); F17.290 Nicotine dependence, other tobacco product, uncomplicated; Z11.3 Encounter for screening for infections with a predominantly sexual mode of transmission; Z88.0 Allergy status to penicillin; Z91.030 Bee allergy status; Z91.011 Allergy to milk products
CPT/HCPCS: 36415; 86780; 99283